=== PATIENT | male | born 1960 | race Caucasian/White ===

== ENCOUNTER 2020-02-24 12:23 | Emergency (ER) | payer OTHER, SELFPAY ==
[2020-02-24 12:33] VITALS: BP 149/86; PULSE 80; RESP 18; TEMP 37.1; O2SAT 96; BMI 23.6
--- NOTE | 2020-02-24 13:39 | XR_ITS ---
EXAMINATION: RIGHT HAND/WRIST. CLINICAL INFORMATION: Pain. Unable to move hand. COMPARISON: None TECHNIQUE: 3 views. FINDINGS: No visible acute fracture, dislocation or subluxation seen. No bony or joint abnormality seen. The soft tissues are normal. XR/XR hand wrist RT IMPRESSION: Unremarkable right hand and right wrist exam.
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
== END 2020-02-24 15:28 | disposition home or self-care (01) ==
LOC: HO.ED 14:59
PROVIDERS: Emergency Provider Emergency Medicine Emergency Medical Services; PCP Internal Medicine
DX: M21.331 Wrist drop, right wrist (principal)
CPT/HCPCS: 73110; 73130; 99283

== ENCOUNTER 2020-03-25 09:47 | Outpatient (REF) | payer OTHER, SELFPAY | END 2020-03-25 09:48 | disposition home or self-care (01) | LOC: HO.HOSX 09:47 | PROVIDERS: Visit Provider Physician Assistant | DX: Z13.89 Encounter for screening for other disorder (principal) ==

== ENCOUNTER 2020-08-04 12:10 | Emergency (ER) | payer OTHER, SELFPAY ==
[2020-08-04 12:12] VITALS: BP 134/64; PULSE 100; RESP 18; TEMP 36.6; O2SAT 92; BMI 21.5
--- NOTE | 2020-08-04 12:20 | ED.GENADULT ---
HPI - General Adult General Chief complaint: General Medical Stated complaint: CONFUSED & SLEEPY AFTER DRUG USE Time Seen by Provider: 08/04/20 12:13 Source: patient and EMS Mode of arrival: EMS Limitations: no limitations History of Present Illness HPI narrative: 60 yo male with past medical history of alcohol abuse, heroin abuse, cocaine abuse here after partying all night. Patient found sleepy so agreed to be transported to the ED. On arrival A&Ox4. No physical complaints. Tells me he was using crack cocaine and alcohol all night. Got out of [facility] one week ago for opiate use disorder. Has not followed up with a methadone clinic but is looking for a clinic to initiate this. Related Data Allergies Allergy/AdvReac Type Severity Reaction Status Date / Time No Known Allergies Allergy Unknown Unverified 11/14/19 15:15 Review of Systems Review of Systems: Yes all other systems are reviewed and are negative Constitutional: Constitutional: Reports no additional constitutional complaints, Denies body ache(s), Denies chills, Denies fever(s), Denies headache(s) and Denies weakness Eyes: Eyes: Reports no additional eye complaints and Denies change in vision ENT: Reports system reviewed and no additional complaints, except as documented, Denies dizziness, Denies headache(s), Denies nasal congestion, Denies nasal discharge and Denies neck pain Cardiovascular: Cardiovascular: Reports no additional cardiovascular complaints, Denies chest pain, Denies leg edema and Denies dyspnea Respiratory: Respiratory: Reports no additional respiratory complaints, Denies cough and Denies dyspnea Gastrointestinal: Gastrointestinal: Reports no additional gastrointestinal complaints, Denies abdominal pain, Denies diarrhea, Denies nausea and Denies vomiting Genitourinary: Genitourinary: Denies urinary incontinence Musculoskeletal: Musculoskeletal: Reports no additional musculoskeletal complaints, Denies back pain, Denies arthralgias, Denies joint swelling, Denies neck pain, Denies numbness and Denies tingling Integumentary/Breasts: Skin/Breast: Reports system reviewed and no additional complaints, except as docu and Denies rash Neurologic: Reports system reviewed and no additional complaints, except as documented, Denies Abnormal speech present, Denies dizziness, Denies headache(s), Denies numbness, Denies tingling and Denies weakness PMFSH Past Medical History Attestation statement: The following information was validated with the patient. Source: old records reviewed and nursing notes reviewed Medical History Asthma Hepatitis C Social History Social History Use of substances other than those prescribed or required for medical reasons: Yes Substance Use Type: Crack/Cocaine Advance Directives: No Advance Directives Information Provided: No Physical Exam Vital Signs: Vital Signs: Last Vital Signs Temp 97.9 F 08/04/20 12:12 Pulse 100 08/04/20 12:12 Resp 18 08/04/20 12:12 BP 134/64 08/04/20 12:12 Pulse Ox 92 08/04/20 12:12 Body Mass Index 21.5 Const: General: cooperative, healthy appearing, comfortable and no acute distress Orientation/consciousness: patient oriented x3 Limitations: no limitations HENMT: Head: Yes normal to inspection Ears: hearing grossly normal bilaterally General nose exam: Normal external nose present Face and sinus: Yes normal facial exam Mouth: Normal oral and palatal mucosa present Throat: Yes posterior oropharynx normal Eyes: General: appearance normal, both eyes and all related structures Pupils: Equal, round and reactive pupils present Neck: Neck: Yes normal visual inspection Chest: Chest palpation & inspection: normal inspection of the chest Resp: Effort & Inspection: normal respiratory effort Auscultation: clear to auscultation bilaterally Cardio: Rate: regular rate Rhythm: regular rhythm Peripheral pulses: Peripheral pulses 2+ throughout GI: Inspection: Yes normal to inspection Palpation (GI): Soft to palpation and nontender Auscultation: normal bowel sounds Back/Spine/Pelvis: Thoracic/Lumbar Spine: thoracic and lumbar spine normal to inspection Skin: General skin exam: no rashes or lesions noted Neuro: General: patient oriented x3, no focal motor deficits and normal sensation to monofilament Cranial nerves: Yes CN's II-XII intact bilaterally, Yes Equal, round and reactive pupils present, Yes Bilaterally intact EOM present, Yes Nystagmus not present and Yes Normal facial strength present Cognition (Neuro): normal cognition Speech: No Abnormal speech present Gait exam (Neuro): Normal gait present Motor exam (neuro): 5/5 motor strength present throughout Sensory Exam: Normal double simultaneous stimulation for sensation Extrem: General: Yes normal to inspection Course Course Course Narrative: 60-year-old male found by EMS to be sleeping. He tells me he drink alcohol and use crack cocaine last night while he was partying. Denies any trauma. No physical complaints. On arrival he is alert and oriented neuro is intact. He is interested in initiating either methadone or Suboxone and recently left a detox facility for opiate use disorder. Will discuss with tissue recovery technician, order drug screen . 1305-Patient seen by recovery team. Does not want detox. No SI/HI. A&Ox4 walking with steady gait, eating food and drinking fluids. Given resources for follow-up tomorrow morning in clinic. Reviewed worrisome signs/symptoms with patient and when to return to ED. Comfortable with discharge home. Medical Decision Making Medical Records Medical records reviewed: Yes I reviewed the patient's medical records. Lab Data Lab results reviewed: Yes I reviewed the patient's lab results. Discharge Plan Discharge Clinical Impression: Polysubstance abuse Patient Disposition: Home, Self-Care Instructions: Polysubstance Abuse (ED) Additional Instructions: Tomorrow you may go to [facility] walk-in hours 06:00 to 08:00. You were given the address by the tissue recovery technician Referrals: Winston Barr MD [Primary Care Provider] - 2 days Interventions: ED Discharge Assessment Last Done: 08/04/20 13:23 Discharge Date/Time: 08/04/20 13:24
--- NOTE | 2020-08-04 12:55 | MHC.RECOVSUP ---
? Reason for consult:Continuity of care o Current location:[address] [place] [address] o Identified substance use concern:Polysubstance - Withdrawal - Support ? Intervention: o MAT started or to be started o Community resources provided o Harm reduction discussion ? Plan o Patient to follow up with [facility] after discharge ? Additional information: Pt. recently released from [facility], pt.refuses detox, Angelika and I both spoke to him re: Harm reduction. Pt. referred to [facility] clinic@[email or web address] [email or web address] [address] for Methadone.Pt. referred to [facility].
--- NOTE | 2020-08-04 13:08 | MHC.RECOVRN ---
60 year old male presented to [facility] via EMS due to left [facility] 8 days ago. used crack cocaine this am. denies si/hi. section 12 by [facility] for 'used crack cocaine' per proposal lead writer. Upon evaluation, pt reports to provider the desire to initiate [facility]. T/w met with pt in 18H after request from provider. Pt reports using heroin, nasal, 2 bags as well as 4 nips today. Pt reports typical use as up to 40 bags of heroin and 30 nips daily. Pt is not interested in ATS level of care. Pt reports completing [facility] ATS 8 days ago. Pt would like to begin methadone and has had difficulty connecting with an OTP.? Pt was provided with information regarding [facility], including walk in hours M/W/F between 6-8 am. Pt agreeable to present to [facility] tomorrow morning. online health and fitness coach also met with pt and provided information regarding [facility]. Pt provided with t/w card if questions or concerns arise.? Case discussed with NORA Gillette, who is agreeable to the plan.?
== END 2020-08-04 13:24 | disposition home or self-care (01) ==
PROVIDERS: Emergency Provider Emergency Medicine; PCP Internal Medicine
DX: F14.10 Cocaine abuse, uncomplicated (principal); F11.10 Opioid abuse, uncomplicated; F10.10 Alcohol abuse, uncomplicated; Y90.9 Presence of alcohol in blood, level not specified; B19.20 Unspecified viral hepatitis C without hepatic coma
CPT/HCPCS: 99283; 99284

== ENCOUNTER 2020-11-25 13:49 | Outpatient (REF) | payer OTHER, SELFPAY ==
--- NOTE | ~2020-11-25 | XR_ITS ---
EXAMINATION: XR RIBS, LEFT CLINICAL INFORMATION: Pain from fall off thorax. COMPARISON: None TECHNIQUE: 3 views of the left ribs were obtained. FINDINGS: Lungs are clear. No consolidation, pneumothorax, or pleural effusion. The cardiomediastinal silhouette and pulmonary vasculature are normal. Osseous structures are unremarkable. Ribs are intact. No fractures are identified. XR/XR ribs LT min 3V w CXR1V IMPRESSION: Multiple views of left ribs reveal no visible acute fracture or bony abnormality. The soft tissues are normal.
--- NOTE | ~2020-11-25 | XR_ITS ---
EXAMINATION: XR NASAL BONES CLINICAL INFORMATION: S00.33XA - Contusion of nose COMPARISON: None TECHNIQUE: 3 views of the nasal bones were obtained. FINDINGS: There is a fracture of the distal nasal bone with mild depression and anterior angulation of the distal fracture fragment. This is best seen on the left lateral view. The anterior nasal spine appears intact. The visualized sinuses show no air-fluid levels. The visualized orbital schmitt are unremarkable. XR/XR nasal bones min 3V IMPRESSION: Fracture distal nasal bone with mild depression and angulation of distal fracture fragment.
== END 2020-11-25 13:50 | disposition home or self-care (01) ==
LOC: HO.HMGCX 13:49
PROVIDERS: PCP Internal Medicine; Visit Provider Internal Medicine
DX: S20.219A Contusion of unspecified front wall of thorax, initial encounter (principal); S00.33XA Contusion of nose, initial encounter; X58.XXXA Exposure to other specified factors, initial encounter; Y93.9 Activity, unspecified; Y92.9 Unspecified place or not applicable; Y99.9 Unspecified external cause status
CPT/HCPCS: 70160; 71101

== ENCOUNTER 2021-03-25 01:27 | Observation (INO) | payer OTHER, SELFPAY ==
[2021-03-25] VITALS (13 sets, daily range): BP systolic 95–190; BP diastolic 49–106; PULSE 64–92; RESP 8–20; TEMP 36.5–37.3; O2SAT 93–99; BMI 22.1
--- NOTE | ~2021-03-25 | XR_ITS ---
EXAMINATION: XR CHEST CLINICAL INFORMATION: Covid positive. Rule out pneumonia. COMPARISON: Previous chest x-ray most recent October 2020 TECHNIQUE: Frontal view of the chest was obtained. FINDINGS: The cardiac and mediastinal contours are stable. There is question of a small infiltrate at the left lung base. There is also a new 6 mm nodular opacity at the left lung base that projects over the left posterior eighth rib. The lungs are otherwise clear. There is no pleural effusion or pneumothorax. There is an old right clavicle fracture. XR/XR chest 1V IMPRESSION: Question small infiltrate at the left lung base.
--- NOTE | ~2021-03-25 | US_ITS ---
EXAMINATION: US ABDOMEN LIMITED CLINICAL INFORMATION: Evaluate for cirrhosis. COMPARISON: None TECHNIQUE: Real-time imaging of the right upper quadrant abdominal viscera. FINDINGS: PANCREAS: The pancreas appears slightly prominent without any focal lesion. The peripancreatic fat borders are preserved. The pancreatic duct measures 0.24 cm. LIVER: The liver is normal in size. The liver contour is slightly lobulated. There is increased hepatic echogenicity. A recanalized umbilical vein is present. No focal hepatic lesion. There is no intrahepatic biliary duct dilatation seen. There is a small amount of ascites. GALLBLADDER: Gallbladder wall thickness is 1.0 cm. The gallbladder is physiologically distended without evidence of stones, sludge, polyps, wall thickening or pericholecystic fluid. COMMON BILE DUCT: Normal in caliber measuring 0.4 cm in diameter. RIGHT KIDNEY: Normal. No hydronephrosis. No renal calculi or focal parenchymal lesions. The kidney measures 10.3 cm in maximum dimension. FREE FLUID: None. US/US abdomen limited IMPRESSION: Hepatic steatosis with lobulated liver contour and recanalized umbilical vein suggestive of cirrhosis. No focal lesion seen. Mild gallbladder wall thickness measuring 1.0 cm. Mild perihepatic ascites.
--- NOTE | 2021-03-25 02:21 | ED_ITS ---
HPI - Overdose General Chief Complaint: Overdose <Shan Gordillo MD - Last Filed: 03/25/21 06:08> Stated Complaint: etoh and cocaine abuse <Shan Gordillo MD - Last Filed: 03/25/21 06:08> Time Seen by Provider: 03/25/21 02:20 <Shan Gordillo MD - Last Filed: 03/25/21 06:08> Source: RN notes reviewed <Shan Gordillo MD - Last Filed: 03/25/21 06:08> Mode of arrival: EMS <Shan Gordillo MD - Last Filed: 03/25/21 06:08> Limitations: altered mental status <Shan Gordillo MD - Last Filed: 03/25/21 06:08> History of Present Illness HPI Narrative: Mother called the ambulance because he was doing drugs, he was acting agitated at home. <Shan Gordillo MD - Last Filed: 03/25/21 06:08> Related Data Home Medications: Home Medications Medication Instructions Recorded Confirmed methadone 10 mg/5 mL oral solution 55 mg PO DAILY ml 11/25/20 03/25/21 <Shan Gordillo MD - Last Filed: 03/25/21 06:08> Allergies/Adverse Reactions: Allergies Allergy/AdvReac Type Severity Reaction Status Date / Time No Known Allergies Allergy Unknown Unverified 11/25/20 13:29 <Shan Gordillo MD - Last Filed: 03/25/21 06:08> Review of Systems Review of Systems: Yes Unobtainable due to mental status <Shan Gordillo MD - Last Filed: 03/25/21 06:08> Neurologic: Denies Sensory deficit (Neuro) <Shan Gordillo MD - Last Filed: 03/25/21 06:08> [facility] Past Medical History Medical History: Medical History Asthma Hepatitis C <Shan Gordillo MD - Last Filed: 03/25/21 06:08> Social History Social History: Social History Substance Use Type: Crack/Cocaine Advance Directives: No <Shan Gordillo MD - Last Filed: 03/25/21 06:08> Physical Exam Vital Signs: Vital Signs: Last Vital Signs Temp 99.0 F 03/25/21 06:19 Pulse 75 03/25/21 06:19 Resp 13 03/25/21 06:19 BP 121/58 L 03/25/21 06:19 Pulse Ox 93 03/25/21 06:19 BMI result Body Mass Index 22.1 <Shan Gordillo MD - Last Filed: 03/25/21 06:08> Vital Signs: Last Vital Signs Temp 99.0 F 03/25/21 06:19 Pulse 75 03/25/21 06:19 Resp 13 03/25/21 06:19 BP 121/58 L 03/25/21 06:19 Pulse Ox 93 03/25/21 06:19 BMI result Body Mass Index 22.1 <Nicol Carr MD - Last Filed: 03/25/21 11:17> Const: Other: male acting agitated not able to engage in conversation, with the occaisional twitch <Shan Gordillo MD - Last Filed: 03/25/21 06:08> Nutritional Appearance: average body habitus <Shan Gordillo MD - Last Filed: 03/25/21 06:08> Orientation/consciousness: oriented to person <Shan Gordillo MD - Last Filed: 03/25/21 06:08> Limitations: altered mental status <Shan Gordillo MD - Last Filed: 03/25/21 06:08> HENMT: Head: Yes normal to inspection <Shan Gordillo MD - Last Filed: 03/25/21 06:08> Ears: external ears normal <Shan Gordillo MD - Last Filed: 03/25/21 06:08> General nose exam: Normal external nose present <Shan Gordillo MD - Last Filed: 03/25/21 06:08> Mouth: Normal oral and palatal mucosa present and oropharynx normal <Shan Gordillo MD - Last Filed: 03/25/21 06:08> Throat: Yes posterior oropharynx normal <Shan Gordillo MD - Last Filed: 03/25/21 06:08> Eyes: General: appearance normal, both eyes and all related structures <Shan Gordillo MD - Last Filed: 03/25/21 06:08> Neck: Other: supple <Shan Gordillo MD - Last Filed: 03/25/21 06:08> Neck: Yes normal visual inspection <Shan Gordillo MD - Last Filed: 03/25/21 06:08> Chest: Chest palpation & inspection: normal inspection of the chest <Shan Gordillo MD - Last Filed: 03/25/21 06:08> Resp: Auscultation: clear to auscultation bilaterally <Shan Gordillo MD - Last Filed: 03/25/21 06:08> Cardio: Jugular venous distension: no JVD <Shan Gordillo MD - Last Filed: 03/25/21 06:08> Rate: regular rate <Shan Gordillo MD - Last Filed: 03/25/21 06:08> Rhythm: regular rhythm <Shan Gordillo MD - Last Filed: 03/25/21 06:08> Heart sounds: S1 normal heart sound present and S2 normal heart sound present <Shan Gordillo MD - Last Filed: 03/25/21 06:08> GI: Inspection: Yes normal to inspection <Shan Gordillo MD - Last Filed: 03/25/21 06:08> Palpation (GI): Soft to palpation, nontender and No hepatosplenomegaly present <Shan Gordillo MD - Last Filed: 03/25/21 06:08> Auscultation: normal bowel sounds <Shan Gordillo MD - Last Filed: 03/25/21 06:08> : General: Yes no CVA tenderness <Shan Gordillo MD - Last Filed: 03/25/21 06:08> Back/Spine/Pelvis: Back: no CVA tenderness <Shan Gordillo MD - Last Filed: 03/25/21 06:08> Skin: General skin exam: no rashes or lesions noted <Shan Gordillo MD - Last Filed: 03/25/21 06:08> Neuro: General: oriented to person <Shan Gordillo MD - Last Filed: 03/25/21 06:08> Cranial nerves: Yes CN's II-XII intact bilaterally <Shan Gordillo MD - Last Filed: 03/25/21 06:08> Motor exam (neuro): 5/5 motor strength present throughout <Shan Gordillo MD - Last Filed: 03/25/21 06:08> Sensory Exam: No Sensory deficit (Neuro) <Shan Gordillo MD - Last Filed: 03/25/21 06:08> Extrem: General: Yes normal to inspection <Shan Gordillo MD - Last Filed: 03/25/21 06:08> Psych: Other: agitated with twitch or tick <Shan Gordillo MD - Last Filed: 03/25/21 06:08> Course Course Course Narrative: Patient is a difficult stick, we inserted a right EJ. Patient is also COVID positive. Patient has no URI symptoms, oxygen saturation 93% on room air, no respiratory distress <Nicol Carr MD - Last Filed: 03/25/21 11:17> Reevaluation(s) Reevaluation #1: Patient more awake, currently refusing rectal exam for his severe anemia, will likely have the patient sign out if he refuses a complete work up for his severe anemia. He is still too intoxicated to sign out AMA <Shan Gordillo MD - Last Filed: 03/25/21 06:08> Time: 05:41 <Shan Gordillo MD - Last Filed: 03/25/21 06:08> Reevaluation #2: This morning patient is more alert, awake, calm and cooperative. I discus sed with the patient that his hemoglobin is 7. Patient denies any rectal bleeding, no black stool or vomiting blood. Patient states that he has noted that for the last year or so he has been increasingly fatigued. At this time, patient refuses to have a rectal exam done, however he is willing to have an endoscopy and colonoscopy if needed. Given that he is symptomatic and has a hemoglobin of 7, patient will be transfused. I discussed the benefits versus risks of a blood transfusion. Patient agrees to have a blood transfusion. I also discussed the patient with Dr. Butler from the inpatient team, patient will be admitted <Nicol Carr MD - Last Filed: 03/25/21 11:17> Time: 09:11 <Nicol Carr MD - Last Filed: 03/25/21 11:17> MDM - Overdose Lab Data Result diagrams: : 03/25/21 04:40 03/25/21 04:40 <Shan Gordillo MD - Last Filed: 03/25/21 06:08> Labs: Lab Results 03/25/21 03/25/21 03/25/21 Range/Units 04:40 04:40 04:40 WBC 5.0 (4.8-10.8) X10*3/uL RBC 2.97 L (4.60-5.80) X10*6/uL Hgb 7.0 L* (14.0-18.0) g/dl Hct 23.5 L (42.0-52.0) % MCV 79.1 L (80.0-98.0) fL MCH 23.6 L (27.0-33.0) pg MCHC 29.8 L (31.0-36.0) g/dl RDW 20.5 H (11.0-16.0) % Plt Count 84 L (160-400) X10*3/uL MPV 10.1 (9.4-12.4) fL Immature Gran % (Auto) 1.2 H (0.0-0.4) % Neut % (Auto) 93.6 H (45-73) % Lymph % (Auto) 3.0 L (20-40) % [place] % (Auto) 1.0 L (2-11) % Eos % (Auto) 1.0 (0-4) % Baso % (Auto) 0.2 (0-2) % Lymph # (Auto) 0.2 L (1.2-4.9) X10*3/uL [place] # (Auto) 0.1 (0.1-1.2) X10*3/uL Eos # (Auto) 0.1 (0.0-0.4) X10*3/uL Baso # (Auto) 0.0 (0.0-0.2) X10*3/uL Abs Immat Gran (auto) 0.06 H (0.00-0.03) X10*3/uL Absolute Neuts (auto) 4.7 (2.0-8.3) x10*3/uL Absolute Nucleated RBC 0.000 (0.0-0.012) X10*3/uL Nucleated RBC % (auto) 0.0 (0.0-0.2) /100WBC Smear Tech's Comments VERIFIED Smear Path Review SEE NOTE Sodium 136 (135-145) mmol/L Potassium 4.0 (3.3-5.1) mmol/L Chloride 105 (96-108) mmol/L Carbon Dioxide 24 (22-29) mmol/L Anion Gap 11 L (12-20) BUN 39 H (9-16) mg/dL Creatinine 1.36 (0.5-1.4) mg/dL Estim Creat Clear Calc 56.2 Estimated GFR 54 Random Glucose 83 (60-115) mg/dL Calcium 8.8 (8.4-10.2) mg/dL Total Bilirubin 1.3 H (0.0-1.0) mg/dL Direct Bilirubin 0.9 H (0.0-0.5) mg/dL AST 100 H (5-37) U/L ALT 41 H (0-40) U/L Alkaline Phosphatase 127 H (39-117) U/L Total Protein 6.8 (6.5-8.0) g/dL Albumin 2.3 L (3.5-5.0) g/dL Ethyl Alcohol < 10 mg/dL COVID-19 ([place]) (Negative) COVID-19 Clin Com Hep Bs Antigen (Negative) Hep Bs Antibody (Nonreactive) Hep B Core Total Ab (Nonreactive) Hepatitis C Ab (EIA) (Nonreactive) HIV 1&2 Ab/P24 Ag 4thGn (Nonreactive) Crossmatch 03/25/21 03/25/21 03/25/21 Range/Units 04:40 09:05 10:30 WBC (4.8-10.8) X10*3/uL RBC (4.60-5.80) X10*6/uL Hgb (14.0-18.0) g/dl Hct (42.0-52.0) % MCV (80.0-98.0) fL MCH (27.0-33.0) pg MCHC (31.0-36.0) g/dl RDW (11.0-16.0) % Plt Count (160-400) X10*3/uL MPV (9.4-12.4) fL Immature Gran % (Auto) (0.0-0.4) % Neut % (Auto) (45-73) % Lymph % (Auto) (20-40) % [place] % (Auto) (2-11) % Eos % (Auto) (0-4) % Baso % (Auto) (0-2) % Lymph # (Auto) (1.2-4.9) X10*3/uL [place] # (Auto) (0.1-1.2) X10*3/uL Eos # (Auto) (0.0-0.4) X10*3/uL Baso # (Auto) (0.0-0.2) X10*3/uL Abs Immat Gran (auto) (0.00-0.03) X10*3/uL Absolute Neuts (auto) (2.0-8.3) x10*3/uL Absolute Nucleated RBC (0.0-0.012) X10*3/uL Nucleated RBC % (auto) (0.0-0.2) /100WBC Smear Tech's Comments Smear Path Review Sodium (135-145) mmol/L Potassium (3.3-5.1) mmol/L Chloride (96-108) mmol/L Carbon Dioxide (22-29) mmol/L Anion Gap (12-20) BUN (9-16) mg/dL Creatinine (0.5-1.4) mg/dL Estim Creat Clear Calc Estimated GFR Random Glucose (60-115) mg/dL Calcium (8.4-10.2) mg/dL Total Bilirubin (0.0-1.0) mg/dL Direct Bilirubin (0.0-0.5) mg/dL AST (5-37) U/L ALT (0-40) U/L Alkaline Phosphatase (39-117) U/L Total Protein (6.5-8.0) g/dL Albumin (3.5-5.0) g/dL Ethyl Alcohol mg/dL COVID-19 ([place]) Positive A (Negative) COVID-19 Clin Com See Note Hep Bs Antigen Negative (Negative) Hep Bs Antibody NONREACTIVE (Nonreactive) Hep B Core Total Ab Nonreactive (Nonreactive) Hepatitis C Ab (EIA) Reactive H (Nonreactive) HIV 1&2 Ab/P24 Ag 4thGn Nonreactive (Nonreactive) Crossmatch See Detail <Shan Gordillo MD - Last Filed: 03/25/21 06:08> Lab Results 03/25/21 03/25/21 03/25/21 Range/Units 04:40 04:40 04:40 WBC 5.0 (4.8-10.8) X10*3/uL RBC 2.97 L (4.60-5.80) X10*6/uL Hgb 7.0 L* (14.0-18.0) g/dl Hct 23.5 L (42.0-52.0) % MCV 79.1 L (80.0-98.0) fL MCH 23.6 L (27.0-33.0) pg MCHC 29.8 L (31.0-36.0) g/dl RDW 20.5 H (11.0-16.0) % Plt Count 84 L (160-400) X10*3/uL MPV 10.1 (9.4-12.4) fL Immature Gran % (Auto) 1.2 H (0.0-0.4) % Neut % (Auto) 93.6 H (45-73) % Lymph % (Auto) 3.0 L (20-40) % [place] % (Auto) 1.0 L (2-11) % Eos % (Auto) 1.0 (0-4) % Baso % (Auto) 0.2 (0-2) % Lymph # (Auto) 0.2 L (1.2-4.9) X10*3/uL [place] # (Auto) 0.1 (0.1-1.2) X10*3/uL Eos # (Auto) 0.1 (0.0-0.4) X10*3/uL Baso # (Auto) 0.0 (0.0-0.2) X10*3/uL Abs Immat Gran (auto) 0.06 H (0.00-0.03) X10*3/uL Absolute Neuts (auto) 4.7 (2.0-8.3) x10*3/uL Absolute Nucleated RBC 0.000 (0.0-0.012) X10*3/uL Nucleated RBC % (auto) 0.0 (0.0-0.2) /100WBC Smear Tech's Comments VERIFIED Smear Path Review SEE NOTE Sodium 136 (135-145) mmol/L Potassium 4.0 (3.3-5.1) mmol/L Chloride 105 (96-108) mmol/L Carbon Dioxide 24 (22-29) mmol/L Anion Gap 11 L (12-20) BUN 39 H (9-16) mg/dL Creatinine 1.36 (0.5-1.4) mg/dL Estim Creat Clear Calc 56.2 Estimated GFR 54 Random Glucose 83 (60-115) mg/dL Calcium 8.8 (8.4-10.2) mg/dL Total Bilirubin 1.3 H (0.0-1.0) mg/dL Direct Bilirubin 0.9 H (0.0-0.5) mg/dL AST 100 H (5-37) U/L ALT 41 H (0-40) U/L Alkaline Phosphatase 127 H (39-117) U/L Total Protein 6.8 (6.5-8.0) g/dL Albumin 2.3 L (3.5-5.0) g/dL Ethyl Alcohol < 10 mg/dL COVID-19 ([place]) (Negative) COVID-19 Clin Com Hep Bs Antigen (Negative) Hep Bs Antibody (Nonreactive) Hep B Core Total Ab (Nonreactive) Hepatitis C Ab (EIA) (Nonreactive) HIV 1&2 Ab/P24 Ag 4thGn (Nonreactive) Crossmatch 03/25/21 03/25/21 03/25/21 Range/Units 04:40 09:05 10:30 WBC (4.8-10.8) X10*3/uL RBC (4.60-5.80) X10*6/uL Hgb (14.0-18.0) g/dl Hct (42.0-52.0) % MCV (80.0-98.0) fL MCH (27.0-33.0) pg MCHC (31.0-36.0) g/dl RDW (11.0-16.0) % Plt Count (160-400) X10*3/uL MPV (9.4-12.4) fL Immature Gran % (Auto) (0.0-0.4) % Neut % (Auto) (45-73) % Lymph % (Auto) (20-40) % [place] % (Auto) (2-11) % Eos % (Auto) (0-4) % Baso % (Auto) (0-2) % Lymph # (Auto) (1.2-4.9) X10*3/uL [place] # (Auto) (0.1-1.2) X10*3/uL Eos # (Auto) (0.0-0.4) X10*3/uL Baso # (Auto) (0.0-0.2) X10*3/uL Abs Immat Gran (auto) (0.00-0.03) X10*3/uL Absolute Neuts (auto) (2.0-8.3) x10*3/uL Absolute Nucleated RBC (0.0-0.012) X10*3/uL Nucleated RBC % (auto) (0.0-0.2) /100WBC Smear Tech's Comments Smear Path Review Sodium (135-145) mmol/L Potassium (3.3-5.1) mmol/L Chloride (96-108) mmol/L Carbon Dioxide (22-29) mmol/L Anion Gap (12-20) BUN (9-16) mg/dL Creatinine (0.5-1.4) mg/dL Estim Creat Clear Calc Estimated GFR Random Glucose (60-115) mg/dL Calcium (8.4-10.2) mg/dL Total Bilirubin (0.0-1.0) mg/dL Direct Bilirubin (0.0-0.5) mg/dL AST (5-37) U/L ALT (0-40) U/L Alkaline Phosphatase (39-117) U/L Total Protein (6.5-8.0) g/dL Albumin (3.5-5.0) g/dL Ethyl Alcohol mg/dL COVID-19 ([place]) Positive A (Negative) COVID-19 Clin Com See Note Hep Bs Antigen Negative (Negative) Hep Bs Antibody NONREACTIVE (Nonreactive) Hep B Core Total Ab Nonreactive (Nonreactive) Hepatitis C Ab (EIA) Reactive H (Nonreactive) HIV 1&2 Ab/P24 Ag 4thGn Nonreactive (Nonreactive) Crossmatch See Detail <Nicol Carr MD - Last Filed: 03/25/21 11:17> Critical Care Time Critical Care Time Total Critical Care Time: 45 <Nicol Carr MD - Last Filed: 03/25/21 11:17> Attestation: 45 minutes were spent in direct patient care. <Nicol Carr MD - Last Filed: 03/25/21 11:17> Discharge Plan Discharge Clinical Impression: Anemia, Substance abuse, COVID-19 <Shan Gordillo MD - Last Filed: 03/25/21 06:08> Patient Disposition: Admitted As Inpatient <Shan Gordillo MD - Last Filed: 03/25/21 06:08>
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
--- NOTE | 2021-03-25 04:19 | PC.NURSE ---
MULTIPLE ATTEMPTS FOR LABS AT THIS TIME, PATIENT IS AGREEABLE TO BLOOD DRAW, LAB CALLED TO ATTEMPT DRAWING PATIENTS BLOOD WORK
[2021-03-25 04:45] LABS: Basophils Percent Auto 0.2 % (0-2); Eosinophils Absolute Auto 0.1 X10*3/uL (0.0-0.4); Imm Gran Abs Auto 0.06 X10*3/uL (0.00-0.03); Imm Gran Pct Auto 1.2 % (0.0-0.4); Lymphocytes Absolute Auto 0.2 X10*3/uL (1.2-4.9); MANUAL DIFF FLAG SCAN; Mean Corpuscular HGB Conc 29.8 g/dl (31.0-36.0); Mean Corpuscular Hemoglobin 23.6 pg (27.0-33.0); Mean Corpuscular Volume 79.1 fL (80.0-98.0); Mean Platelet Volume 10.1 fL (9.4-12.4); Monocytes Absolute Auto 0.1 X10*3/uL (0.1-1.2); Neutrophils Absolute Auto 4.7 x10*3/uL (2.0-8.3); Neutrophils Percent Auto 93.6 % (45-73); Red Blood Count 2.97 X10*6/uL (4.60-5.80); Red Cell Distribution Width 20.5 % (11.0-16.0); SCAN SMEAR FLAG 1
[2021-03-25 04:48] LABS: Hematocrit 23.5 % (42.0-52.0)
[2021-03-25 04:57] LABS: Ethanol < 10 mg/dL
[2021-03-25 05:00] LABS: Anion Gap 11 (12-20); Blood Urea Nitrogen 39 mg/dL (9-16); Calcium 8.8 mg/dL (8.4-10.2); Carbon Dioxide 24 mmol/L (22-29); Chloride 105 mmol/L (96-108); Creatinine Clr Calc Pharmacy 56.2; Estimated Glomerular Filt Rate 54; Glucose Random 83 mg/dL (60-115); Sodium 136 mmol/L (135-145)
[2021-03-25 05:11] LABS: Platelet Count 84 X10*3/uL (160-400)
[2021-03-25 05:12] LABS: SLIDE REVIEW VERIFIED
[2021-03-25 06:09] LABS: HIV AB/AG Nonreactive (Nonreactive)
--- NOTE | 2021-03-25 07:23 | PC.NURSE ---
pt sleeping . he is in a NSR on the monitor. awaiting plan of care for anemia
[2021-03-25 07:56] LABS: HBS Num1 0.62 mIU/mL (0-7.99); HBc Num1 0.28 S/CO (0.00-0.79); HBsAGNum1 0.21 S/CO (0.00-0.99); HIV Num 1 0.08 S/CO (0.00-0.99); Hepatitis B Core Antibody Nonreactive (Nonreactive); Hepatitis B Surface Antigen Negative (Negative); ~HepC Num1 6.28 S/CO (0.00-0.79); ~Hepatitis B Surface Antibody NONREACTIVE (Nonreactive); ~Hepatitis C Antibody Reactive (Nonreactive)
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
--- NOTE | 2021-03-25 09:36 | PHA.MEDREC ---
Pharmacy Consult ? Medication Reconciliation Pharmacy has completed the medication reconciliation. Patient reports going to [facility] on [facility] for methadone. Michelle confirmed patient last dose was 55 mg on 03/23/2021. Laurie Mora, KahlilD
[2021-03-25 10:58] LABS: COVID-19 Test Positive (Negative)
[2021-03-25 11:01] LABS: Alanine Aminotransferase 41 U/L (0-40); Albumin Level 2.3 g/dL (3.5-5.0); Alkaline Phosphatase 127 U/L (39-117); Aspartate Amino Transferase 100 U/L (5-37); Bilirubin Direct 0.9 mg/dL (0.0-0.5); Bilirubin Total 1.3 mg/dL (0.0-1.0); Total Protein 6.8 g/dL (6.5-8.0)
--- NOTE | 2021-03-25 11:51 | PC.NURSE ---
pt difficult to obtain IV ACCESS. EJ PLACED BY PROVIDER IN RIGHT. HE IS SLEEPY BUT AROUSABLE. SR ON THE MONITOR.
[2021-03-25] MEDS: Pantoprazole Sodium 40 MG/10 ML VIAL IVPUSH ×2 (11:53→17:19)
--- NOTE | 2021-03-25 12:26 | P.HPHOSP_ITS ---
History of Present Illness Date of Service: 03/25/21 Chief Complaint: brought in by police This is a 60 yo M with a PMH of polysubstance abuse (cocaine and heroin -- IV, last use prior to admission heavy alcohol use 1/5th of whisky daily with last use about 3 days prior to admission, Hep C untreated, who was broughty in by police after they were called by his mother as he was using drugs at home. Upon arrival to the ED, patient was noted to be intoxicated (although his EtOh level was negative). His work up revealed a low h/h and intially the patient did not want to stay (but given his intoxication, he was not allowed to leave AMA). In the morning, he became more lucid and now as agreed for admission for symptomatic anemia. Patient is seen in ED 22. He reports chronic generalized weakness on going for months and weakness. 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 He reports no changes to his stool. No melena, no hematochezia. He denies abdominal pain, n/v/bloody emesis. He denies NSAID use. He endorses daily drinking as above -- no prior withdrawal symptoms. He denies any respiratory symptoms of cough/sob, but does endorse rhinnorrhea. Reports his whole family was covid+ during . Denies any fevers or chills. He is incidentally positive for COVID. COVID Vaccination status: J&J; no booster Review of Systems Verdana 4l Review of Systems: Verdana 4d Negative except Verdana 4d HPI Verdana 4d [facility] Medical History Asthma Hepatitis C Pertinent family history: COVID positive family members during 2020 Surgical History (Updated 03/25/21 @ 12:46 by Zi Butler MD) No pertinent past surgical history Social History (Updated 03/25/21 @ 12:47 by Zi Butler MD) Alcohol intake: current Tobacco use type: Cigarette Substance Use Type: Crack/Cocaine and Heroin Advance Directives: No Meds Allergies Allergy/AdvReac Type Severity Reaction Status Date / Time No Known Allergies Allergy Unknown Unverified 11/25/20 13:29 Active Medications: Current Medications Acetaminophen (Acetaminophen 325 Mg Tablet) 650 mg PO Q6H PRN PRN Reason: Pain, Mild (Pain Scale 1-3) Ondansetron HCl (Ondansetron Hcl 4 Mg/2 Ml Vial) 4 mg IVPUSH Q8H PRN PRN Reason: Nausea and Vomiting Pantoprazole Sodium (Pantoprazole Sodium 40 Mg/10 Ml Vial) 40 mg IVPUSH BID@0630,1630 [facility] Pharmacy Consult (Consult Rx Perform Med Rec) 1 each MISCELLANE ONCE PRN PRN Reason: Consult order Home Medications Medication Instructions Recorded Confirmed Last Taken Type methadone 10 mg/5 55 mg PO DAILY 11/25/20 03/25/21 03/23/21 History mL oral solution ml Physical Exam Verdana 4l Vital Signs and Narrative: Verdana 4d Verdana 4d Vital Signs: Verdana 4d Verdana 4Bd Last Vital Signs Verdana 4d [employer]ist New 4d [employer] Specialist New 4d Temp 97.7 F 03/25/21 12:18 Criminal Intelligence Specialist New 4d Pulse 68 03/25/21 12:18 Criminal Intelligence Specialist New 4d Resp 13 03/25/21 12:18 BP 98/52 L 03/25/21 12:18 Pulse Ox 99 03/25/21 12:18 BMI result Body Mass Index 22.1 Const: Other: Constitutional - Awake and Alert, No apparent distress Eyes - PERRLA, EOMI Cardiovascular - S1S2, RRR, No edema Respiratory - Normal lung expansion, Normal respiratory effort, No respiratory distress, CTA bilaterally Gastrointestinal - NT / ND; +BS; No rebound or guarding - No CVA tenderness Extremities - no calf tenderness bilaterally, no swelling Musculoskeletal - Normal inspection, normal ROM Skin - Warm/Dry Neurological - Alert & oriented x3, No focal deficit Psychological - Appropriate affect Results Labs CBC and Chem 7: 03/25/21 04:40 03/25/21 04:40 Labs: Laboratory Results - last 24 hr 03/25/21 03/25/21 03/25/21 04:40 04:40 04:40 MCV 79.1 L MCH 23.6 L MCHC 29.8 L RDW 20.5 H Plt Count 84 L MPV 10.1 Immature Gran % (Auto) 1.2 H Neut % (Auto) 93.6 H Lymph % (Auto) 3.0 L [place] % (Auto) 1.0 L Eos % (Auto) 1.0 Baso % (Auto) 0.2 Lymph # (Auto) 0.2 L [place] # (Auto) 0.1 Eos # (Auto) 0.1 Baso # (Auto) 0.0 Abs Immat Gran (auto) 0.06 H Absolute Neuts (auto) 4.7 Absolute Nucleated RBC 0.000 Nucleated RBC % (auto) 0.0 Smear Tech's Comments VERIFIED Smear Path Review SEE NOTE Anion Gap 11 L Estim Creat Clear Calc 56.2 Estimated GFR 54 Random Glucose 83 Calcium 8.8 Total Bilirubin 1.3 H Direct Bilirubin 0.9 H AST 100 H ALT 41 H Alkaline Phosphatase 127 H Total Protein 6.8 Albumin 2.3 L Ethyl Alcohol < 10 COVID-19 ([place]) COVID-19 Clin Com Hep Bs Antigen Hep Bs Antibody Hep B Core Total Ab Hepatitis C Ab (EIA) HIV 1&2 Ab/P24 Ag 4thGn Blood Type Antibody Screen Crossmatch 03/25/21 03/25/21 03/25/21 04:40 09:05 10:30 MCV MCH MCHC RDW Plt Count MPV Immature Gran % (Auto) Neut % (Auto) Lymph % (Auto) [place] % (Auto) Eos % (Auto) Baso % (Auto) Lymph # (Auto) [place] # (Auto) Eos # (Auto) Baso # (Auto) Abs Immat Gran (auto) Absolute Neuts (auto) Absolute Nucleated RBC Nucleated RBC % (auto) Smear Tech's Comments Smear Path Review Anion Gap Estim Creat Clear Calc Estimated GFR Random Glucose Calcium Total Bilirubin Direct Bilirubin AST ALT Alkaline Phosphatase Total Protein Albumin Ethyl Alcohol COVID-19 ([place]) Positive A COVID-19 Clin Com See Note Hep Bs Antigen Negative Hep Bs Antibody NONREACTIVE Hep B Core Total Ab Nonreactive Hepatitis C Ab (EIA) Reactive H HIV 1&2 Ab/P24 Ag 4thGn Nonreactive Blood Type B Negative Antibody Screen NEGATIVE Crossmatch See Detail Imaging Radiologist's Impressions: Impressions Chest X-Ray 03/25/21 11:39 IMPRESSION: Question small infiltrate at the left lung base. Assessment and Plan (1) Anemia: Status: Acute Plan This is a 60 yo M who was brought in by police after family called them as he was doing drugs in the home. His work up in the ED reveals microcytic anemia. He is incidentally covid positive, but is not hypoxic. 1. Symptomatic anemia symptomatic with anemia and soft BP Unclear what the cause of this anemia is. He denies any GI bleeding, but is refusing rectal exam. Will sent FOBT to lab with next BM 1 unit PRBC has been ordered GIven his history of heavy alcohol use + untreated Hep C, possibly GI source. Empiric PPI and get GI input. No abdominal symptoms at this time, will give him a diet. trend h/h, if not dropping, anticipate outpatient work up; will get GI input 2. COVID+ asymptomatic from a respiratory stand point; no hypoxia CXR read as Question small infiltrate at the L lung base ; Reviewed personally, no significant finding; exam reveals clear lungs monitor decadron if he becomes hypoxic 3. Chronic opiate dependence continue his baseline methadone 4. Hep C untreated -- has been encouraged outpatient f/u for treatment Full Code DVT pptx, Mechanical due to anemia, possible GI bleed Quality Stroke Does the patient have a stroke diagnosis?: No VTE Prior VTE?: No VTE Risk Level:: Medical - moderate - high VTE Device Contraindication: N/A - Device Ordered VTE Drug Contraindication: Treatment Not Indicated
--- NOTE | 2021-03-25 13:26 | P.CNGI_ITS ---
History of Present Illness Data of Consult Service Date: 03/25/21 Requesting physician: Zi Butler Primary Care Provider: Unknown Physician HPI Reason for consult: anemia, elevated LFTs 60 YM with known hx of IVDA and ETOH abuse on methadone brought in by police after family called them as he was doing drugs in the home:? This is a 60 yo M with a PMH of polysubstance abuse (cocaine and heroin -- IV, last use prior to admission heavy alcohol use 1/5th of whisky daily with last use about 3 days prior to admission, Hep C untreated, who was broughty in by police after they were called by his mother as he was using drugs at home. Upon arrival to the ED, patient was noted to be intoxicated (although his EtOh level was negative). His work up revealed a low h/h and intially the patient did not want to stay (but given his intoxication, he was not allowed to leave AMA). In the morning, he became more lucid and now as agreed for admission for symptomatic anemia. Patient is seen in ED 22. He reports chronic generalized weakness on going for months and weakness. 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 He reports no changes to his stool. No melena, no hematochezia. He denies abdominal pain, n/v/bloody emesis. He denies NSAID use. He endorses daily drinking as above -- no prior withdrawal symptoms. He denies any respiratory symptoms of cough/sob, but does endorse rhinnorrhea. Reports his whole family was covid+ during Dru. Denies any fevers or chills. He is? incidentally positive for COVID. Patient complains of worsening fatigue and daily heartburn with every meal. He also notes dysphagia associated with intake of solid food Pt denies abdominal pain, recent change in bowel habits, constipation, diarrhea, black stools or rectal bleeding. Patient denies major cardiac or pulmonary problems. Denies being on chronic anticoagulation. Pt is single, has no children, is homeless and works in an auto body shop. He admits to smoking 1 PPD x past several yrs and is trying to cut back. He admits to drinking 1/5 of whiskey daily. Known hx ov IVDA (Crack/Cocaine/Heroin) for the past several yrs and admits to continuing to use drugs while on methadone. He states he acquired Hep C by needle sharing several yrs ago and denies sharing needles recently Patient denies known family history of colon polyps, colon cancer or other GI malignancies. COVID Vaccination status: J&J; no booster IMAGING STUDIES: 03/25/20 CXR : Question small infiltrate at the left lung base. ENDOSCOPIC STUDIES: Patient denies having an upper endoscopy or colonoscopy in the past Review of Systems Constitutional: Constitutional: Reports fatigue and Denies headache(s) Eyes: Eyes: Denies eye discharge and Denies irritation ENT: Reports dysphagia and Denies headache(s) Cardiovascular: Cardiovascular: Denies chest pain and Reports dyspnea on exertion Respiratory: Respiratory: Reports dyspnea on exertion Gastrointestinal: Gastrointestinal: Denies abdominal pain, Denies melena, Denies hematochezia, Denies constipation, Reports dysphagia and Reports heartburn Musculoskeletal: Musculoskeletal: Denies arthralgias Neurologic: Denies headache(s) and Denies seizure-like activity Endocrine: Endocrine: Reports fatigue PMFSH Past Medical History Medical History (Updated 04/18/21 @ 14:14 by Winston Barr MD) Asthma GERD (gastroesophageal reflux disease) Hepatitis C Recurrent major depression Right wrist drop Substance abuse Surgical History Surgical History (Updated 03/25/21 @ 12:46 by Zi Butler MD) No pertinent past surgical history Social History Social History (Updated 03/25/21 @ 12:47 by Zi Butler MD) Housing: Homeless Alcohol intake: current Patient Tobacco Use Status: Current everyday Tobacco user Tobacco use type: Cigarette Substance Use Type: Crack/Cocaine, Heroin, IV Drugs, Marijuana and Opiates service: No Current occupational status: unemployed Meds Allergies Allergy/AdvReac Type Severity Reaction Status Date / Time No Known Allergies Allergy Unknown Unverified 11/25/20 13:29 Active Medications: Current Medications Acetaminophen (Acetaminophen 325 Mg Tablet) 650 mg PO Q6H PRN PRN Reason: Pain, Mild (Pain Scale 1-3) Methadone HCl (Methadone Hcl 20 Mg/2 Ml Oral.Conc) 55 mg PO DAILY [facility] Ondansetron HCl (Ondansetron Hcl 4 Mg/2 Ml Vial) 4 mg IVPUSH Q8H PRN PRN Reason: Nausea and Vomiting Pantoprazole Sodium (Pantoprazole Sodium 40 Mg/10 Ml Vial) 40 mg IVPUSH BID@0630,1630 [facility] Pharmacy Consult (Consult Rx Perform Med Rec) 1 each MISCELLANE ONCE PRN PRN Reason: Consult order Home Medications Medication Instructions Recorded Confirmed Last Taken Type methadone 10 mg/5 mL oral solution 55 mg PO DAILY ml 11/25/20 03/25/21 03/23/21 History Physical Exam Vital Signs: Vital Signs: Last Vital Signs Temp 98 F 03/25/21 12:40 Pulse 65 03/25/21 13:24 Resp 10 L 03/25/21 12:40 BP 100/51 L 03/25/21 13:24 Pulse Ox 99 03/25/21 12:18 BMI result Body Mass Index 22.1 Const: General: healthy appearing and no acute distress Nutritional Appearance: average body habitus Orientation/consciousness: patient oriented x3 Limitations: no limitations HENMT: Head: Yes normal to inspection Ears: hearing grossly normal bilaterally Mouth: Normal oral and palatal mucosa present Eyes: Sclerae: sclerae normal Pupils: Equal, round and reactive pupils present Neck: Neck: Yes normal visual inspection Chest: Chest palpation & inspection: normal inspection of the chest Resp: Effort & Inspection: normal respiratory effort Auscultation: clear to auscultation bilaterally Cardio: Palpation: normal PMI Rate: regular rate Rhythm: regular rhythm Heart sounds: S1 normal heart sound present, S2 normal heart sound present and no murmurs GI: Palpation (GI): Soft to palpation, nontender and No hepatosplenomegaly present Auscultation: normal bowel sounds Rectal Exam - Male: Yes deferred Skin: General skin exam: no rashes or lesions noted and other (Multiple tattoos on both upper arms) Neuro: General: patient oriented x3, gait normal and moves all extremities Cranial nerves: Yes Equal, round and reactive pupils present Psych: Appearance: grossly normal Mental Status: mental status grossly normal Results Labs CBC & Chem 7: 03/28/21 05:56 03/27/21 06:34 Labs: Short CBC 03/25/21 Range/Units 04:40 WBC 5.0 (4.8-10.8) X10*3/uL Hgb 7.0 L* (14.0-18.0) g/dl Hct 23.5 L (42.0-52.0) % Plt Count 84 L (160-400) X10*3/uL BMP 03/25/21 04:40 Sodium 136 Potassium 4.0 Chloride 105 Carbon Dioxide 24 BUN 39 H Creatinine 1.36 Calcium 8.8 Liver Function 03/25/21 Range/Units 04:40 Total Bilirubin 1.3 H (0.0-1.0) mg/dL Direct Bilirubin 0.9 H (0.0-0.5) mg/dL AST 100 H (5-37) U/L ALT 41 H (0-40) U/L Alkaline Phosphatase 127 H (39-117) U/L Albumin 2.3 L (3.5-5.0) g/dL Assessment and Plan (1) Anemia: Status: Resolved (2) Dysphagia: Status: Resolved (3) Heartburn: Status: Resolved (4) Hepatitis C: Status: Acute Plan 60 YM with known hx of IVDA, ETOH abuse and smoking brought in by the police after family called them as he was doing drugs in the home. Labs showed severe anemia, thrombocytopeinia and elevated LFTs - likely a combination EtOH abuse and hepatitis-C. Hepatitis-B serologies were negative, hepatitis-C antibody was positive (posi tive since 11/2017 likely acquired by a needle sharing). Patient gives a long history of severe heartburn and dysphagia suggestive of erosive esophagitis. Anemia is likely chronic and related to erosive esophagitis versus lower GI source. No overt bleeding. RECOMMENDATIONS: 1. Monitor CBC daily. 2. Agree with IV PPI twice daily 3. Abdominal US to screen for cirrhosis/HCC and ascites 4. Pt advised further evaluation with EGD and Colonoscopy. Pt agreed to having an EGD tomorrow - procedure and potential complications were reviewed with the patient. He declined to have a colonoscopy during this hospitalization and is willing to schedule at a later date as an outpatient. Procedures Date of Service Date of Service: 03/25/21
[2021-03-25 14:32] LABS: Hemoglobin 7.8 g/dl (14.0-18.0); Mean Corpuscular Hemoglobin 24.3 pg (27.0-33.0); Mean Platelet Volume 10.3 fL (9.4-12.4); Platelet Count 76 X10*3/uL (160-400); Red Blood Count 3.21 X10*6/uL (4.60-5.80); Red Cell Distribution Width 20.8 % (11.0-16.0); White Blood Count 7.1 X10*3/uL (4.8-10.8)
[2021-03-25] MEDS: methADONE HCl 20 MG/2 ML ORAL.CONC 55 MG PO (14:43)
[2021-03-25 14:54] LABS: Iron 42 mcg/dL (45-160); Percent Iron Saturation 14 % (15-50); Total Iron Binding Capacity 300 mcg/dL (228-428); Unsaturated Iron Binding 258 ug/dL
[2021-03-25 15:24] LABS: Folate 13.6 ng/mL (> or = 4.0); Vitamin B12 744 pg/mL (200-900)
--- NOTE | 2021-03-25 16:22 | PC.NURSE ---
report given to Beata Batista for transfer to ED overflow
[2021-03-25 16:25] LABS: INTERNATIONAL NORM RATIO 1.6 (0.9-1.1); Prothrombin Time 18.3 SEC (9.9-13.0)
--- NOTE | 2021-03-25 17:29 | PC.NURSE ---
Pt received from main ER: Pt AOx4 and denies any current complaints. NSR and lungs clear. Pt abd soft and non-tender. REJ noted in tact and flushed.
[2021-03-25] MEDS: Phytonadione (Vit K1) 5 MG in 0.9 % Sodium Chloride 50 ML 50.5 MG IV (17:52)
[2021-03-26] VITALS (7 sets, daily range): BP systolic 96–133; BP diastolic 59–71; PULSE 60–72; RESP 10–18; TEMP 36.2–36.9; O2SAT 94–100
[2021-03-26 07:37] LABS: Hematocrit 29.4 % (42.0-52.0); Hemoglobin 8.6 g/dl (14.0-18.0); Mean Corpuscular HGB Conc 29.3 g/dl (31.0-36.0); Mean Corpuscular Hemoglobin 23.6 pg (27.0-33.0); Mean Corpuscular Volume 80.8 fL (80.0-98.0); Mean Platelet Volume 10.4 fL (9.4-12.4); Platelet Count 74 X10*3/uL (160-400); Red Blood Count 3.64 X10*6/uL (4.60-5.80); Red Cell Distribution Width 20.8 % (11.0-16.0); White Blood Count 3.3 X10*3/uL (4.8-10.8)
[2021-03-26 07:43] LABS: Anion Gap 7 (12-20); Blood Urea Nitrogen 28 mg/dL (9-16); Calcium 8.6 mg/dL (8.4-10.2); Carbon Dioxide 29 mmol/L (22-29); Chloride 111 mmol/L (96-108); Creatinine Clr Calc Pharmacy 61.2; Estimated Glomerular Filt Rate 59; Glucose Random 95 mg/dL (60-115); Potassium 4.8 mmol/L (3.3-5.1); Sodium 142 mmol/L (135-145)
[2021-03-26] MEDS: Ferrous Sulfate 324 MG TABLET.DR PO ×2 (08:38→17:12)
[2021-03-26] MEDS: methADONE HCl 20 MG/2 ML ORAL.CONC 55 MG PO (08:38)
--- NOTE | 2021-03-26 11:32 | P.PNIM_ITS ---
Subjective Subjective Date of Service: 03/26/21 Interval History: the patient was seen and evaluated this morning Laying in bed, feels comfortable Mild nausea Tolerating diet Denies any fever, chills or shortness of breath No reported other overnight events. Systemic review: No fever, chills or weakness No chest pain, palpitation No shortness of breath or coughing No abdominal pain, nausea or vomiting No urinary symptoms No any rash or wounds Physical Exam Verdana 4l Vital Signs: Verdana 4d Verdana 4d Vital Signs: Verdana 4d Verdana 4Bd Last Vital Signs Verdana 4d Senior Qa Tester New 4d Senior Qa Tester New 4d Temp 97.9 F 03/26/21 07:50 Senior Qa Tester New 4d Pulse 62 03/26/21 07:50 Senior Qa Tester New 4d Resp 12 03/26/21 07:50 BP 113/71 03/26/21 07:50 Pulse Ox 98 03/26/21 07:50 BMI result Body Mass Index 22.1 Const: Other: Constitutional : Alert, oriented, not in distress Neck : Normal inspection, Supple Cardiovascular : RRR, S1 S2, no lower extremity edema Respiratory : Good bilateral air entry, no crackles, wheezes or rhonchi Gastrointestinal: soft, lax, Normal bowel sounds, Non tender Skin : Warm, Dry Neurological : Alert & oriented x3, No focal deficit Objective Data Active Medications Acetaminophen (Acetaminophen 325 Mg Tablet) 650 mg PO Q6H PRN PRN Reason: Pain, Mild (Pain Scale 1-3) Ferrous Sulfate (Ferrous Sulfate 324 Mg Tablet.) 324 mg PO BIDWM [facility] Last Admin: 03/26/21 08:38 Dose: 324 mg Documented by: MARICRUZ Methadone HCl (Methadone Hcl 20 Mg/2 Ml Oral.Conc) 55 mg PO DAILY [facility] Last Admin: 03/26/21 08:38 Dose: 55 mg Documented by: MARICRUZ Ondansetron HCl (Ondansetron Hcl 4 Mg/2 Ml Vial) 4 mg IVPUSH Q8H PRN PRN Reason: Nausea and Vomiting Pantoprazole Sodium (Pantoprazole Sodium 40 Mg/10 Ml Vial) 40 mg IVPUSH BID@0630,1630 [facility] Last Admin: 03/26/21 07:46 Dose: Not Given Documented by: JERRY Non-Admin Reason: Patient Asleep Pharmacy Consult (Consult Rx Perform Med Rec) 1 each MISCELLANE ONCE PRN PRN Reason: Consult order Labs CBC & Chem 7: 03/26/21 07:27 03/26/21 06:41 Labs: Laboratory Results - last 24 hr 03/25/21 03/25/21 03/25/21 09:05 14:24 14:24 MCV 81.0 MCH 24.3 L MCHC 30.0 L RDW 20.8 H Plt Count 76 L MPV 10.3 Absolute Nucleated RBC 0.000 Nucleated RBC % (auto) 0.0 PT INR Anion Gap Estim Creat Clear Calc Estimated GFR Random Glucose Calcium Iron 42 L TIBC 300 % Saturation 14 L Unsat Iron Binding 258 Vitamin B12 Folate Blood Type B Negative Antibody Screen NEGATIVE Crossmatch See Detail 03/25/21 03/25/21 03/26/21 14:24 16:13 06:41 MCV MCH MCHC RDW Plt Count MPV Absolute Nucleated RBC Nucleated RBC % (auto) PT 18.3 H INR 1.6 H Anion Gap 7 L Estim Creat Clear Calc 61.2 Estimated GFR 59 Random Glucose 95 Calcium 8.6 Iron TIBC % Saturation Unsat Iron Binding Vitamin B12 744 Folate 13.6 Blood Type Antibody Screen Crossmatch 03/26/21 07:27 MCV 80.8 MCH 23.6 L MCHC 29.3 L RDW 20.8 H Plt Count 74 L MPV 10.4 Absolute Nucleated RBC 0.000 Nucleated RBC % (auto) 0.0 PT INR Anion Gap Estim Creat Clear Calc Estimated GFR Random Glucose Calcium Iron TIBC % Saturation Unsat Iron Binding Vitamin B12 Folate Blood Type Antibody Screen Crossmatch Assessment and Plan (1) Symptomatic anemia: Status: Acute (2) Acute blood loss anemia: Status: Acute (3) COVID-19: Status: Acute Plan This is a 60 yo M who was brought in by police after family called them as he was doing drugs in the home. His work up in the ED reveals microcytic anemia. He is incidentally covid positive, but is not hypoxic. # Symptomatic anemia # blood loss anemia Received 1 unit transfusion Hemoglobin stable above 8 Likely related to heavy alcohol use + untreated Hep C Continue PPI GI input appreciated, to do endoscopy inpatient and colonoscopy as outpatient Start diet as tolerated trend h/h # COVID+ asymptomatic from a respiratory stand point; no hypoxia decadron if he becomes hypoxic # Chronic opiate dependence continue his baseline methadone # Hep C untreated -- has been encouraged outpatient f/u for treatment Full Code DVT pptx, Mechanical Quality Stroke Does the patient have a stroke diagnosis?: No VTE Prior VTE?: No VTE Risk Level:: Medical - moderate - high VTE Device Contraindication: N/A - Device Ordered VTE Drug Contraindication: Treatment Not Indicated
--- NOTE | 2021-03-26 14:02 | MHC.SHP ---
Pre-Procedural Eval Section A Date of Service: 03/26/21 The patient is an INPATIENT: Yes Changes since office visit: Yes New Medical Problems, Yes Changes in Medication and Yes Patient answered all questions; No Cold of Flu in the past 2 weeks The History & Physical has been completed within 30 days and I have reviewed it.: Yes Section B Chief Complaint: Weakness COVID + Allergies: Allergies Allergy/AdvReac Type Severity Reaction Status Date / Time No Known Allergies Allergy Unknown Unverified 11/25/20 13:29 Plan I have reviewed the history and physical and performed a pertinent physical examination on my patient. No changes have occurred unless specified.
--- NOTE | 2021-03-26 14:03 | P.BOP_ITS ---
Brief Operative Note Date of Service: 03/26/21 Pre-op diagnosis: Anemia, GERD, dysphagia Post-op diagnosis: other (Erosive esophagitis, hiatal hernia, gastritis, duodenitis) Procedure: FLEXIBLE TRANSORAL UPPER GASTROINTESTINAL ENDOSCOPY WITH BIOPSIES Consent: Indications for the procedure and potential complications of bleeding, perforation, reaction to medications and missed diagnosis were discussed with the patient and informed consent was obtained. Instrument: Olympus GIF H 190 mid size upper endoscope Monitoring: Vital signs and clinical assessment, continuous EKG monitoring, Pulse oximetry, Carbon Dioxide monitoring and blood pressure monitoring were done throughout the procedure. Procedure: The patient was placed in the left lateral decubitis position and pre-procedure medications were administered and a bite block was placed. The endoscope was inserted into the mouth and advanced under direct vision to the third part of duodenum. A careful inspection was made as the upper endoscope was withdrawn including a retroflexed examination of the proximal stomach; Findings and interventions are described below. Findings: Larynx: Normal Esophagus: GE junction at 35 cms, hiatal hernia 35 to 40 cms. Linear chronic appearing erosions from 30 to 35 cms . No stricture or ring noted. Stomach: Moderate diffuse gastric erythema with mucosal changes suggestive of moderate portal gastropathy.. Biopsies were obtained from the antrum to check for H Pylori. Grade 3 flap valve on retroflexed examination of the cardia. Duodenum: Edematous folds at the apex of the bulb - biopsied. Normal descending duodenum Intervention: Biopsies as noted above Impression and Post Procedure Diagnosis: Endoscopy Findings: ESOPHAGUS: GE junction at 35 cms, hiatal hernia 35 to 40 cms. Linear chronic appearing erosions from 30 to 35 cms . No stricture or ring noted. STOMACH: Moderate diffuse gastric erythema with mucosal changes suggestive of moderate portal gastropathy.. Biopsies were obtained from the antrum to check for H Pylori. DUODENUM: Edematous folds at the apex of the bulb - biopsied. Anemia is likely due to slow GI blood loss from erosive esophagitis versus LGI source. Plan: Await pathology results Patient to schedule a FU appointment in the GI Clinic with Alia Chapa M.D. to schedule a colonoscopy as an outpatient and discuss Hepatitis C treatment after her has stopped IVDA. GERD handout was given in the discharge area Surgeon: Alia Chapa MD Anesthesia: MAC (Dr Camacho) Was an Director Of Mechanical Engineering used for this Procedure?: Yes Director Of Mechanical Engineering: Katty Cornell Estimated blood loss (mL): 0 Pathology: other ( A. duodenal fold bxs B. gastric antrum, R/O H. pylori) Condition: stable Disposition: floor
--- NOTE | 2021-03-26 14:11 | W.PM.OPN ---
Operative Note Operative Note Date of Service: 03/26/21 Narrative: Pre-op diagnosis: Anemia, GERD, dysphagia Post-op diagnosis:?other (Erosive esophagitis, hiatal hernia, gastritis, duodenitis) Procedure: FLEXIBLE TRANSORAL UPPER GASTROINTESTINAL ENDOSCOPY WITH BIOPSIES Consent:?Indications for the procedure and potential complications of bleeding, perforation, reaction to medications and missed diagnosis were discussed with the patient and informed consent was obtained. Instrument:?Olympus GIF H 190 mid size upper endoscope Monitoring: Vital signs and clinical assessment, continuous EKG monitoring, Pulse oximetry, Carbon Dioxide monitoring and blood pressure monitoring were done throughout the procedure. Procedure:?The patient was placed in the left lateral decubitis position and pre-procedure medications were administered and a bite block was placed. The endoscope was inserted into the mouth and advanced under direct vision to the third part of duodenum. A careful inspection was made as the upper endoscope was withdrawn including a retroflexed examination of the proximal stomach; Findings and interventions are described below. Findings: Larynx:? Normal Esophagus: GE junction at 35 cms, hiatal hernia 35 to 40 cms.? Linear chronic appearing erosions from 30 to 35 cms . No stricture or ring noted. Stomach: Moderate diffuse gastric erythema with mucosal changes suggestive of moderate portal gastropathy. Biopsies were obtained from the antrum to check for H Pylori. Grade 3 flap valve on retroflexed examination of the cardia. Duodenum: Edematous folds at the apex of the bulb - biopsied. Normal descending duodenum Intervention: Biopsies as noted above Impression and Post Procedure Diagnosis: Endoscopy Findings: ESOPHAGUS: GE junction at 35 cms, hiatal hernia 35 to 40 cms.? Linear chronic appearing erosions from 30 to 35 cms . No stricture or ring noted. STOMACH: Moderate diffuse gastric erythema with mucosal changes suggestive of moderate portal gastropathy. Biopsies were obtained from the antrum to check for H Pylori. DUODENUM: Edematous folds at the apex of the bulb - biopsied. Anemia is likely due to slow GI blood loss from erosive esophagitis versus LGI source. Plan: Await pathology results. Omeprazole 20 mg PO twice daily for erosive esophagitis - to continue indefinately Patient to schedule a FU appointment in the GI Clinic with Alia Chapa M.D. to schedule a colonoscopy as an outpatient and discuss Hepatitis C treatment after her has stopped IVDA. GERD handout was given in the discharge area Surgeon: Alia Chapa MD Anesthesia:?MAC (Dr Camacho) Was an Thoroughbred Horse Farm Manager used for this Procedure?:?Yes Thoroughbred Horse Farm Manager:?Katty Cornell Estimated blood loss (mL):?0 Pathology:?other ( A. duodenal fold bxs? B. gastric antrum, R/O H. pylori) Condition:?stable Disposition:?floor
[2021-03-26] MEDS: Pantoprazole Sodium 40 MG/10 ML VIAL IVPUSH (17:12)
[2021-03-27] VITALS: BP 136/76; PULSE 64; RESP 17; TEMP 36.4; O2SAT 98
[2021-03-27 03:57] VITALS: BP 138/81; PULSE 66; RESP 17; TEMP 36.9; O2SAT 95
[2021-03-27] MEDS: Pantoprazole Sodium 40 MG/10 ML VIAL IVPUSH (06:29)
[2021-03-27 07:22] LABS: Hemoglobin 8.1 g/dl (14.0-18.0); Mean Corpuscular Volume 81.1 fL (80.0-98.0); White Blood Count 2.7 X10*3/uL (4.8-10.8)
[2021-03-27 07:23] LABS: Hematocrit 27.5 % (42.0-52.0); Mean Corpuscular HGB Conc 29.5 g/dl (31.0-36.0); Mean Corpuscular Hemoglobin 23.9 pg (27.0-33.0); Red Blood Count 3.39 X10*6/uL (4.60-5.80)
[2021-03-27 07:36] VITALS: BP 148/83; PULSE 59; RESP 18; TEMP 37; O2SAT 95
[2021-03-27 07:43] LABS: PLT ABN DIST 1; Platelet Count 70 X10*3/uL (160-400)
[2021-03-27 08:03] LABS: Anion Gap 9 (12-20); Blood Urea Nitrogen 19 mg/dL (9-16); Calcium 7.9 mg/dL (8.4-10.2); Carbon Dioxide 28 mmol/L (22-29); Chloride 109 mmol/L (96-108); Creatinine Clr Calc Pharmacy 91.1; Estimated Glomerular Filt Rate > 60; Glucose Random 77 mg/dL (60-115); Potassium 3.6 mmol/L (3.3-5.1); Sodium 141 mmol/L (135-145)
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
[2021-03-27] MEDS: Ferrous Sulfate 324 MG TABLET.DR PO ×2 (10:37→17:28)
[2021-03-27] MEDS: methADONE HCl 20 MG/2 ML ORAL.CONC 55 MG PO (10:37)
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
--- NOTE | 2021-03-27 11:12 | P.PNIM_ITS ---
Subjective Subjective Date of Service: 03/27/21 Interval History: the patient was seen and evaluated this morning Laying in bed, feels comfortable Tolerating diet Denies any fever, chills or shortness of breath No reported other overnight events. Systemic review: No fever, chills or weakness No chest pain, palpitation No shortness of breath or coughing No abdominal pain, nausea or vomiting No urinary symptoms No any rash or wounds Physical Exam Verdana 4l Vital Signs: Verdana 4d Verdana 4d Vital Signs: Verdana 4d Verdana 4Bd Last Vital Signs Verdana 4d Highway Engineering Technician New 4d Highway Engineering Technician New 4d Temp 98.6 F 03/27/21 07:36 Highway Engineering Technician New 4d Pulse 59 03/27/21 07:36 Highway Engineering Technician New 4d Resp 18 03/27/21 07:36 BP 148/83 H 03/27/21 07:36 Pulse Ox 95 03/27/21 07:36 BMI result Body Mass Index 22.1 Const: Other: Constitutional : Alert, oriented, not in distress Neck : Normal inspection, Supple Cardiovascular : RRR, S1 S2, no lower extremity edema Respiratory : Good bilateral air entry, no crackles, wheezes or rhonchi Gastrointestinal: soft, lax, Normal bowel sounds, Non tender Skin : Warm, Dry Neurological : Alert & oriented x3, No focal deficit Objective Data Active Medications Acetaminophen (Acetaminophen 325 Mg Tablet) 650 mg PO Q6H PRN PRN Reason: Pain, Mild (Pain Scale 1-3) Ferrous Sulfate (Ferrous Sulfate 324 Mg Tablet.) 324 mg PO BIDWM [facility] Last Admin: 03/27/21 10:37 Dose: 324 mg Documented by: PRATIBHA Methadone HCl (Methadone Hcl 20 Mg/2 Ml Oral.Conc) 55 mg PO DAILY [facility] Last Admin: 03/27/21 10:37 Dose: 55 mg Documented by: PRATIBHA Omeprazole (Omeprazole 40 Mg Capsule.) 40 mg PO BID@0630,1630 [facility] Ondansetron HCl (Ondansetron Hcl 4 Mg/2 Ml Vial) 4 mg IVPUSH Q8H PRN PRN Reason: Nausea and Vomiting Pharmacy Consult (Consult Rx Perform Med Rec) 1 each MISCELLANE ONCE PRN PRN Reason: Consult order Labs CBC & Chem 7: 03/27/21 06:34 03/27/21 06:34 Labs: Laboratory Results - last 24 hr 03/27/21 03/27/21 06:34 06:34 MCV 81.1 MCH 23.9 L MCHC 29.5 L RDW 21.0 H Plt Count 70 L MPV Not Reportable Absolute Nucleated RBC 0.000 Nucleated RBC % (auto) 0.0 Anion Gap 9 L Estim Creat Clear Calc 91.1 Estimated GFR > 60 Random Glucose 77 Calcium 7.9 L D Assessment and Plan (1) Acute blood loss anemia: Status: Acute (2) Symptomatic anemia: Status: Acute (3) COVID-19: Status: Acute Plan This is a 60 yo M who was brought in by police after family called them as he was doing drugs in the home. His work up in the ED reveals microcytic anemia. He is incidentally covid positive, but is not hypoxic. # Symptomatic anemia # blood loss anemia Received 1 unit transfusion Hemoglobin stable above 8 Likely related to heavy alcohol use + untreated Hep C change PPI to PO GI input appreciated, to do endoscopy inpatient and colonoscopy as outpatient advance diet trend h/h # COVID+ asymptomatic from a respiratory stand point; no hypoxia decadron if he becomes hypoxic # Chronic opiate dependence continue his baseline methadone # Hep C untreated -- has been encouraged outpatient f/u for treatment Full Code DVT pptx, Mechanical Dispo: pending placement Quality Stroke Does the patient have a stroke diagnosis?: No VTE Prior VTE?: No VTE Risk Level:: Medical - moderate - high VTE Device Contraindication: N/A - Device Ordered VTE Drug Contraindication: Treatment Not Indicated
[2021-03-27 11:23] VITALS: BP 127/72; PULSE 72; RESP 18; TEMP 36.3; O2SAT 98
--- NOTE | 2021-03-27 12:21 | MHC.RECOVSUP ---
Recovery Support note: Patient is a 60 year old Norwegian speaking male who presented to [facility] ED due to substance use and was medically admitted. Patient is COVID positive and cannot return home. This play writer spoke with patient over the phone to discuss discharge options. [facility] in [place] is accepting COVID patients however there are no beds available at this time. This play writer discussed this option with patient however patient is not interested in being referred at this time. Patient reports he will call family and friends to try and arrange something. Encouraged patient to reach out to this play writer if he changes his mind regarding ATS referral. This play writer contacted the [employer] COVID retirement line however they are closed due to weather.
--- NOTE | 2021-03-27 14:25 | HO.POSTANES ---
Post Anesthesia Evaluation Post Anesthesia Evaluation Vital Signs: Vital Signs Temp Pulse Resp BP Pulse Ox 03/27/21 11:23 97.4 F 72 18 127/72 98 03/27/21 07:36 98.6 F 59 18 148/83 H 95 03/27/21 03:57 98.5 F 66 17 138/81 95 Anesthesia: TIVA Mental Status: Awake Pain Control: Satisfactory Nausea/Vomiting: None Hydration: Adequate Anesthesia-Related Issues: No Anes. Related Issues
[2021-03-27 15:38] VITALS: BP 144/84; PULSE 64; RESP 18; TEMP 37.1; O2SAT 97
[2021-03-27] MEDS: Omeprazole 40 MG CAPSULE.DR PO (17:28)
[2021-03-27 20:11] VITALS: BP 144/86; PULSE 75; RESP 18; TEMP 37.4; O2SAT 96
[2021-03-28] VITALS: BP 131/76; PULSE 81; RESP 16; TEMP 37.2; O2SAT 98
[2021-03-28 04:00] VITALS: BP 148/85; PULSE 71; RESP 16; TEMP 36.7; O2SAT 98
[2021-03-28] MEDS: Acetaminophen 325 MG TABLET 650 MG PO (05:54)
[2021-03-28] MEDS: Omeprazole 40 MG CAPSULE.DR PO (05:54)
[2021-03-28 06:36] LABS: Hematocrit 29.4 % (42.0-52.0); Red Cell Distribution Width 21.2 % (11.0-16.0)
[2021-03-28 06:38] LABS: Hemoglobin 8.7 g/dl (14.0-18.0); Mean Corpuscular HGB Conc 29.6 g/dl (31.0-36.0); Mean Corpuscular Hemoglobin 23.7 pg (27.0-33.0); Mean Corpuscular Volume 80.1 fL (80.0-98.0); Red Blood Count 3.67 X10*6/uL (4.60-5.80); White Blood Count 3.6 X10*3/uL (4.8-10.8)
[2021-03-28 06:43] LABS: PLT ABN DIST 1; Platelet Count 74 X10*3/uL (160-400)
[2021-03-28 07:41] VITALS: BP 151/87; PULSE 61; RESP 18; TEMP 36.7; O2SAT 97
[2021-03-28] MEDS: methADONE HCl 20 MG/2 ML ORAL.CONC 55 MG PO (08:37)
[2021-03-28] MEDS: Ferrous Sulfate 324 MG TABLET.DR PO (08:37)
[2021-03-28] MEDS: polyethylene glycoL 3350 17 GM POWD.PACK PO (11:04)
[2021-03-28 11:30] VITALS: BP 130/76; PULSE 80; RESP 18; TEMP 37; O2SAT 96
--- NOTE | 2021-03-28 11:30 | P.DS_ITS ---
DS: Providers Provider Date of Service: 03/28/21 Date of admission: 03/25/21 12:23 Primary care physician: Winston Barr MD Consults: 03/25/21 12:23 Consult to Gastroenterology Routine Consulting Provider: Alia Chapa Reason for consultation: anemia 03/27/21 11:56 Consult to Care Team Routine Comment: Reason for consultation: drug abuse, for eval and help placement DS: Diagnosis Discharge Diagnosis (1) Acute blood loss anemia: Status: Acute (2) Symptomatic anemia: Status: Acute (3) COVID-19: Status: Acute (4) Hepatitis C: Status: Acute (5) Erosive gastritis: Status: Acute DS: Summary Hospital Course Hospital Course: Admission note HPI This is a 60 yo M with a PMH of polysubstance abuse (cocaine and heroin -- IV, last use prior to admission heavy alcohol use 1/5th of whisky daily with last use about 3 days prior to admission, Hep C untreated, who was broughty in by police after they were called by his mother as he was using drugs at home. Upon arrival to the ED, patient was noted to be intoxicated (although his EtOh level was negative). His work up revealed a low h/h and intially the patient did not want to stay (but given his intoxication, he was not allowed to leave AMA). In the morning, he became more lucid and now as agreed for admission for symptomatic anemia. Patient is seen in ED 22. He reports chronic generalized weakness on going for months and weakness. 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 He reports no changes to his stool. No melena, no hematochezia. He denies abdominal pain, n/v/bloody emesis. He denies NSAID use. He endorses daily drinking as above -- no prior withdrawal symptoms. He denies any respiratory symptoms of cough/sob, but does endorse rhinnorrhea. Reports his whole family was covid+ during Dru. Denies any fevers or chills. He is? incidentally positive for COVID. Hospital course The patient was admitted to the hospital for Symptomatic anemia which believed to be secondary to blood loss from chronic bleeding.Received 1 unit transfusion as hemoglobin remained stable around 8 from 7 at time of presentation. Evaluated by Gastroenterology as he was started IV PPI so. An endoscopy was done showing evidence of erosive gastritis. Ppi changed to p.o. omeprazole and the patient diet advanced with good response. Patient declined colonoscopy inpatient and mention he will do it as outpatient. He was found to have hepatitis C infection and was encouraged for outpatient follow-up with Dr. Chapa for treatment. Evaluated by the care team who suggested outpatient resources and fci placement but the patient refused. Tested positive for COVID but asymptomatic from a respiratory stand point; no hypoxia To be discharged on omeprazole 40 mg b.i.d. and iron supplement for evidence of iron deficiency anemia. Time Spent with Patient Time attestation: Total time spent providing and/or coordinating discharge services: Discharge coordination time: Greater than 30 minutes Quality: Stroke Does the patient have a stroke diagnosis?: No Physical Exam Verdana 4l Vital Signs: Verdana 4d Verdana 4d Vital Signs: Verdana 4d Verdana 4Bd Last Vital Signs Verdana 4d Glass Washer New 4d Glass Washer New 4d Temp 98.0 F 03/28/21 07:41 Glass Washer New 4d Pulse 61 03/28/21 07:41 Glass Washer New 4d Resp 18 03/28/21 07:41 BP 151/87 H 03/28/21 07:41 Pulse Ox 97 03/28/21 07:41 BMI result Body Mass Index 22.1 Const: Other: Constitutional : Alert, oriented, not in distress Neck : Normal inspection, Supple Cardiovascular : RRR, S1 S2, no lower extremity edema Respiratory : Good bilateral air entry, no crackles, wheezes or rhonchi Gastrointestinal: soft, lax, Normal bowel sounds, Non tender Skin : Warm, Dry Neurological : Alert & oriented x3, No focal deficit DS: Data Data Completed and Pending Pending studies at discharge: Pending at discharge 03/26/21 13:52 Surgical [PTH] Routine Labs on day of discharge: Laboratory Results - last 24 hr 03/28/21 05:56 WBC 3.6 L RBC 3.67 L Hgb 8.7 L Hct 29.4 L MCV 80.1 MCH 23.7 L MCHC 29.6 L RDW 21.2 H Plt Count 74 L MPV Not Reportable Absolute Nucleated RBC 0.000 Nucleated RBC % (auto) 0.0 Discharge Plan Discharge Patient Disposition: Home, Self-Care Discharge Diagnosis: Acute blood loss anemia Erosive gastritis COVID-19 infection Referrals: Po,Lorenver O, MD [Primary Care Provider] - 1 Week Discharge Medications: New omeprazole 40 mg Capsule,Delayed Release(Dr/Ec) 40 mg PO BID@0630,1630 30 Days Qty: 60 0RF ferrous sulfate 324 mg (65 mg iron) Tablet,Delayed Release (Dr/Ec) 324 mg PO DAILY 30 Days Qty: 30 0RF Continued methadone 10 mg/5 mL solution 55 mg PO DAILY 0RF Discharge Orders: Discharge Order (Routine); Ordered 03/28/21 Ordered By: Bert Quinones Diet: advance to usual diet Activity on Discharge: As tolerated Stand Alone Forms: Patient Portal Discharge page Care Plan Goals: Read below Health Concerns: Read below Plan of Treatment: Read below Assessment: You were admitted to the hospital for evaluation of weakness and heartburn. Found to have a drop in your hemoglobin level requiring blood transfusion. Evaluated by immigration specialist who did an upper endoscopy showing an evidence of inflammation in your stomach. You were treated with IV PPI with fair response. Your tested positive for COVID but did not develop any respiratory symptoms. Continue omeprazole twice Daily Start iron pills for anemia To follow-up with Dr. Chapa in the office for treatment of hepatitis-C and outpatient colonoscopy Discharge Date/Time: 03/28/21 14:24
--- NOTE | 2021-03-28 12:37 | MHC.CM.PN ---
Patient has been medically cleared for dc to home today, self care. CM spoke with Patient's Mother/Ning, who will pick Patient up at 2 PM; she has agreed to allow Patient to return to her home, under my conditions. CM encourage Ning to have Patient call his Methadone clinic to determine their protocol for Covid (+) individuals (i.e. may bring Methadone out to the car instead of Patient entering the clinic).
== END 2021-03-28 14:24 | disposition home or self-care (01) ==
LOC: HO.ED 09:13 → HO.EDOVER 17:06 → HO.IMC 03-26 20:52
PROVIDERS: Emergency Medicine; Internal Medicine Gastroenterology; Admitting Provider Family Medicine; Emergency Provider Emergency Medicine; PCP Internal Medicine; Visit Provider Student in an Organized Health Care Education/Training Program
PROC: 0DJ08ZZ Inspection of Upper Intestinal Tract, Via Natural or Artificial Opening Endoscopic (ICD-10-PCS; CPT 43235; principal; 2021-03-26 11:40)
DX: D64.9 Anemia, unspecified (principal); D62 Acute posthemorrhagic anemia; K21.9 Gastro-esophageal reflux disease without esophagitis; R13.10 Dysphagia, unspecified; K44.9 Diaphragmatic hernia without obstruction or gangrene; K22.10 Ulcer of esophagus without bleeding; K29.70 Gastritis, unspecified, without bleeding; K29.80 Duodenitis without bleeding; B19.20 Unspecified viral hepatitis C without hepatic coma; R94.5 Abnormal results of liver function studies; R53.83 Other fatigue; U07.1 COVID-19; F17.210 Nicotine dependence, cigarettes, uncomplicated; F10.20 Alcohol dependence, uncomplicated; Y90.0 Blood alcohol level of less than 20 mg/100 ml; F14.20 Cocaine dependence, uncomplicated; Z67.21 Type B blood, Rh negative; Z11.4 Encounter for screening for human immunodeficiency virus [HIV]; Z59.00 Homelessness unspecified; Z79.891 Long term (current) use of opiate analgesic; Z79.899 Other long term (current) drug therapy
CPT/HCPCS: 43239; 36415; 36430; 71045; 76705; 80048; 80076; 82077; 82607; 82746; 83540; 85025; 85027; 85610; 86704; 86706; 86803; 86850; 86900; 86901; 86923; 87340; 87389; 87635; 88305; 88342; 96365; 96375; 96376; 99219; 99285; 99291; J3430; P9016

== ENCOUNTER 2021-05-04 11:06 | Emergency (ER) | payer OTHER, SELFPAY ==
--- NOTE | ~2021-05-04 | XR_ITS ---
EXAMINATION: XR CHEST CLINICAL INFORMATION: Change in mental status and fever. Rule out pneumonia. COMPARISON: Previous chest x-ray February 2021 TECHNIQUE: Frontal view of the chest was obtained. FINDINGS: The cardiac and mediastinal contours are normal. No evidence of a pneumonia is seen. The lungs are clear. There is no pleural effusion or pneumothorax. Visualized bony structures are unremarkable. XR/XR chest 1V IMPRESSION: No evidence for acute disease in the chest.
[2021-05-04 11:18] VITALS: BP 124/72; BP 127/77; PULSE 91; PULSE 92; RESP 20; TEMP 38.2; O2SAT 97; O2SAT 98; BMI 21.2
--- NOTE | 2021-05-04 11:32 | ED_ITS ---
HPI - Alcohol General Chief Complaint: ETOH/Substance Use Stated Complaint: ETOH W/POLICE ON [place]ORD,CALM/COOP PER EMS Time Seen by Provider: 05/04/21 11:18 Source: patient and EMS Mode of arrival: EMS Limitations: altered mental status (Appears intoxicated) History of Present Illness HPI narrative: 60-year-old male who who was brought to the emergency department by EMS at the request of his mother and sister. Apparently the patient was drinking alcohol and possibly doing drugs, he was acting bizarrely possibly aggressively as well therefore the family called the police the police called EMS. [facility] the patient is awake and alert, he is oriented to person, he knew that it was 2021. He does not appear to be in distress. He does admit to drinking alcohol. According to EMS his family wants to pursue a Section 35. In reviewing his record, the patient had a similar presentation on 03/25/2021. At that time he was found to be COVID positive. He also had a low H&H of 7.0 in 23.5 and was admitted to the hospital. Note states that he has a history of polysubstance abuse, cocaine, heroin and alcohol he drinks a 5th of whiskey per day. He also has untreated hepatitis-C. He did receive blood transfusions. GI workup revealed erosive gastritis. He was discharged on omeprazole 40 mg b.i.d. and ferrous sulfate 324 mg daily. He was also on methadone at that time and advised to continue taking his methadone 55 mg daily. Related Data Home Medications Medication Instructions Recorded Confirmed methadone 10 mg/5 mL oral solution 55 mg PO DAILY ml 11/25/20 03/25/21 Previous Rx's Medication Instructions Recorded ferrous sulfate 324 mg (65 mg 324 mg PO DAILY 30 Days #30 tab 03/28/21 iron) tablet,delayed release cephalexin 500 mg capsule 500 mg PO QID 5 Days #20 cap 05/04/21 Allergies Allergy/AdvReac Type Severity Reaction Status Date / Time No Known Allergies Allergy Unknown Verified 05/04/21 11:21 Review of Systems Review of Systems: Yes all other systems are reviewed and are negative [facility] Past Medical History Medical History Asthma GERD (gastroesophageal reflux disease) Hepatitis C Recurrent major depression Right wrist drop Substance abuse Surgical History (Updated 03/25/21 @ 12:46 by Zi Butler MD) No pertinent past surgical history Social History Social History (Updated 03/25/21 @ 12:47 by Zi Butler MD) Housing: Homeless Alcohol intake: current Patient Tobacco Use Status: Current everyday Tobacco user Tobacco use type: Cigarette Substance Use Type: Crack/Cocaine, Heroin, IV Drugs, Marijuana and Opiates Advance Directives: No Advance Directives Information Provided: No service: No Current occupational status: unemployed Physical Exam ED Vital Signs: Vital Signs - 24 hr 05/04/21 11:18 05/04/21 12:21 05/04/21 12:46 Temperature 100.7 F H 101.9 F H Pulse Rate 91 84 85 Respiratory Rate 20 18 22 H Blood Pressure 127/77 123/73 Pulse Oximetry 98 05/04/21 13:31 05/04/21 15:13 Temperature 100.8 F H Pulse Rate 86 87 Respiratory Rate 14 17 Blood Pressure 116/68 113/74 Pulse Oximetry 94 97 BMI result Body Mass Index 21.2 Const Other: Awake, alert, male patient, appears to be acutely intoxicated, oriented to person and place, new that the year was 2021 but got the date wrong. He does not appear to be in distress [place] Head: Yes normal to inspection, Yes normocephalic and Yes atraumatic Ears: external ears normal General nose exam: Normal external nose present Face and sinus: Yes normal facial exam Mouth: Normal oral and palatal mucosa present Throat: Yes posterior oropharynx normal Eyes General: appearance normal, both eyes and all related structures Pupils: Equal, round and reactive pupils present Neck Neck: Yes normal visual inspection, Yes no lymphadenopathy, Yes trachea midline and Yes supple Chest Chest palpation & inspection: normal inspection of the chest and normal palpation of entire chest wall Resp Effort & Inspection: normal respiratory effort and able to speak in complete sentences Auscultation: clear to auscultation bilaterally Cardio Rate: regular rate Rhythm: regular rhythm Heart sounds: S1 normal heart sound present, S2 normal heart sound present and no murmurs GI Inspection: Yes normal to inspection Palpation (GI): Soft to palpation, nontender and no guarding Auscultation: normal bowel sounds General: Yes no CVA tenderness Back/Spine/Pelvis Back: no CVA tenderness Skin Other: The patient has a there is several old wounds woth cicatrixation to the right casanova with surrounding erythema 6 x 8 cm, slight increased warmth over the erythema, both lower extremities seem to be symmetrically swollen with trace pitting edema. Extremities neurovascular intact Neuro Cranial nerves: Yes CN's II-XII intact bilaterally and Yes Equal, round and reactive pupils present Cognition (Neuro): normal cognition Motor exam (neuro): 5/5 motor strength present throughout Extrem General: Yes normal to inspection Psych Appearance: grossly normal Speech and movement: Normal speech and movement present Affect: normal affect Attitude: cooperative Thought process: Normal thought process present Thought content: Normal thought content present Course Course Course Narrative: 60-year-old male who presents emergency department for evaluation of altered mental status most likely secondary to alcohol and drug use, patient is reported to be homeless but his mother and sister were concerned about his behavior and called the police. Patient was then brought to the emergency department by ambulance. The patient had a recent admission 03/25/2021 for erosive gastritis with severe anemia with a hemoglobin of 7 requiring admission transfusion. The patient admits to drink alcohol although he denied using drugs. Vital signs revealed a temperature of 100.7 degrees. Otherwise unremarkable. Patient's examination is consistent with intoxication, his right lower extremity does have several old wounds with cicatrixation. There is some surrounding erythema as well. It was reported by EMS that the family would like to seek a Section 12 against the patient. The patient will need a medical workup however, therefore I ordered CBC, CMP, lactate, blood cultures x2, lipase, type and screen, urine drug screen, alcohol level. Patient was ordered to get normal saline x1 L and Ativan 1 mg IV. 1458: Laboratory evaluation: Elevated WBC 11,400. Low H&H of 10.1 and 33.1, this is improved and stable. Platelet count low 75,000, this is chronic. Elevated AST 68 and elevated alk-phos 165 with elevated bilirubin 1.7. This is probably related to his alcohol abuse or hep C. COVID-19 was negative. Alcohol was below detectable limits. Urine tox screen positive for opiates, fentanyl and cocaine. Patient's altered mental status today is most likely secondary to opiate and cocaine use. The patient calmed down significantly after receiving the IV day Ativan. The patient is refusing duplex ultrasound of his right lower extremity. My impression is that he has cellulitis of this leg, causing the swelling. I ordered a 2nd dose of Ativan 2 mg IV. He has a temperature of 100.8 degrees orally and I ordered Tylenol 975 mg orally and Keflex 500 mg orally. The family has successfully obtain a Section 35 hearing for tomorrow. The patient will be discharged home in the care of his family. MDM - Alcohol Lab Data Result diagrams: 05/04/21 12:25 05/04/21 12:25 Labs: Lab Results 05/04/21 05/04/21 05/04/21 Range/Units 12:25 12:25 12:25 WBC 11.4 H (4.8-10.8) X10*3/uL RBC 3.74 L (4.60-5.80) X10*6/uL Hgb 10.1 L (14.0-18.0) g/dl Hct 33.1 L (42.0-52.0) % MCV 88.5 (80.0-98.0) fL MCH 27.0 (27.0-33.0) pg MCHC 30.5 L (31.0-36.0) g/dl RDW 25.0 H (11.0-16.0) % Plt Count 75 L (160-400) X10*3/uL MPV Not Reportable Immature Gran % (Auto) 0.8 H (0.0-0.4) % Neut % (Auto) 91.9 H (45-73) % Lymph % (Auto) 0.1 L (20-40) % [place] % (Auto) 6.7 (2-11) % Eos % (Auto) 0.2 (0-4) % Baso % (Auto) 0.3 (0-2) % Lymph # (Auto) 0.0 L (1.2-4.9) X10*3/uL [place] # (Auto) 0.8 (0.1-1.2) X10*3/uL Eos # (Auto) 0.0 (0.0-0.4) X10*3/uL Baso # (Auto) 0.0 (0.0-0.2) X10*3/uL Abs Immat Gran (auto) 0.09 H (0.00-0.03) X10*3/uL Absolute Neuts (auto) 10.5 H (2.0-8.3) x10*3/uL Absolute Nucleated RBC 0.000 (0.0-0.012) X10*3/uL Nucleated RBC % (auto) 0.0 (0.0-0.2) /100WBC Smear Tech's Comments Not Reportable Sodium 136 (135-145) mmol/L Potassium 4.9 D (3.3-5.1) mmol/L Chloride 105 (96-108) mmol/L Carbon Dioxide 25 (22-29) mmol/L Anion Gap 11 L (12-20) BUN 19 H (9-16) mg/dL Creatinine 0.97 (0.5-1.4) mg/dL Estim Creat Clear Calc 78.0 Estimated GFR > 60 Random Glucose 97 (60-115) mg/dL Lactic Acid (0.5-2.0) mmol/L Calcium 9.4 D (8.4-10.2) mg/dL Total Bilirubin 1.7 H (0.0-1.0) mg/dL AST 68 H (5-37) U/L ALT 32 (0-40) U/L Alkaline Phosphatase 165 H D (39-117) U/L Total Protein 8.5 H D (6.5-8.0) g/dL Albumin 2.9 L D (3.5-5.0) g/dL Lipase 31 (8-78) U/L Urine Color Urine Appearance Urine pH (5.0-8.0) Ur Specific [place] (1.005-1.025) Urine Protein (NEG-TRACE) MG/DL Urine Glucose (UA) (NEG) MG/DL Urine Ketones (NEG) MG/DL Urine Blood (NEG) Urine Nitrite (NEG) Ur Leukocyte Esterase (NEG) Urine Opiates Screen (Not Detect) Urine Fentanyl Screen (Not Detect) Ur Barbiturates Screen (Not Detect) Ur Phencyclidine Scrn (Not Detect) Ur Amphetamines Screen (Not Detect) U Benzodiazepines Scrn (Not Detect) Urine Cocaine Screen (Not Detect) U Marijuana (THC) Screen (Not Detect) Ethyl Alcohol mg/dL COVID-19 ([place]) Negative (Negative) COVID-19 Clin Com See Note Blood Type Antibody Screen 05/04/21 05/04/21 05/04/21 Range/Units 12:25 12:25 12:26 WBC (4.8-10.8) X10*3/uL RBC (4.60-5.80) X10*6/uL Hgb (14.0-18.0) g/dl Hct (42.0-52.0) % MCV (80.0-98.0) fL MCH (27.0-33.0) pg MCHC (31.0-36.0) g/dl RDW (11.0-16.0) % Plt Count (160-400) X10*3/uL MPV Immature Gran % (Auto) (0.0-0.4) % Neut % (Auto) (45-73) % Lymph % (Auto) (20-40) % [place] % (Auto) (2-11) % Eos % (Auto) (0-4) % Baso % (Auto) (0-2) % Lymph # (Auto) (1.2-4.9) X10*3/uL [place] # (Auto) (0.1-1.2) X10*3/uL Eos # (Auto) (0.0-0.4) X10*3/uL Baso # (Auto) (0.0-0.2) X10*3/uL Abs Immat Gran (auto) (0.00-0.03) X10*3/uL Absolute Neuts (auto) (2.0-8.3) x10*3/uL Absolute Nucleated RBC (0.0-0.012) X10*3/uL Nucleated RBC % (auto) (0.0-0.2) /100WBC Smear Tech's Comments Sodium (135-145) mmol/L Potassium (3.3-5.1) mmol/L Chloride (96-108) mmol/L Carbon Dioxide (22-29) mmol/L Anion Gap (12-20) BUN (9-16) mg/dL Creatinine (0.5-1.4) mg/dL Estim Creat Clear Calc Estimated GFR Random Glucose (60-115) mg/dL Lactic Acid 1.4 (0.5-2.0) mmol/L Calcium (8.4-10.2) mg/dL Total Bilirubin (0.0-1.0) mg/dL AST (5-37) U/L ALT (0-40) U/L Alkaline Phosphatase (39-117) U/L Total Protein (6.5-8.0) g/dL Albumin (3.5-5.0) g/dL Lipase (8-78) U/L Urine Color YELLOW Urine Appearance CLEAR Urine pH 7.0 (5.0-8.0) Ur Specific [place] 1.015 (1.005-1.025) Urine Protein NEG (NEG-TRACE) MG/DL Urine Glucose (UA) NEG (NEG) MG/DL Urine Ketones NEG (NEG) MG/DL Urine Blood NEG (NEG) Urine Nitrite NEG (NEG) Ur Leukocyte Esterase NEG (NEG) Urine Opiates Screen (Not Detect) Urine Fentanyl Screen (Not Detect) Ur Barbiturates Screen (Not Detect) Ur Phencyclidine Scrn (Not Detect) Ur Amphetamines Screen (Not Detect) U Benzodiazepines Scrn (Not Detect) Urine Cocaine Screen (Not Detect) U Marijuana (THC) Screen (Not Detect) Ethyl Alcohol < 10 mg/dL COVID-19 ([place]) (Negative) COVID-19 Clin Com Blood Type Antibody Screen 05/04/21 05/04/21 Range/Units 12:26 13:00 WBC (4.8-10.8) X10*3/uL RBC (4.60-5.80) X10*6/uL Hgb (14.0-18.0) g/dl Hct (42.0-52.0) % MCV (80.0-98.0) fL MCH (27.0-33.0) pg MCHC (31.0-36.0) g/dl RDW (11.0-16.0) % Plt Count (160-400) X10*3/uL MPV Immature Gran % (Auto) (0.0-0.4) % Neut % (Auto) (45-73) % Lymph % (Auto) (20-40) % [place] % (Auto) (2-11) % Eos % (Auto) (0-4) % Baso % (Auto) (0-2) % Lymph # (Auto) (1.2-4.9) X10*3/uL [place] # (Auto) (0.1-1.2) X10*3/uL Eos # (Auto) (0.0-0.4) X10*3/uL Baso # (Auto) (0.0-0.2) X10*3/uL Abs Immat Gran (auto) (0.00-0.03) X10*3/uL Absolute Neuts (auto) (2.0-8.3) x10*3/uL Absolute Nucleated RBC (0.0-0.012) X10*3/uL Nucleated RBC % (auto) (0.0-0.2) /100WBC Smear Tech's Comments Sodium (135-145) mmol/L Potassium (3.3-5.1) mmol/L Chloride (96-108) mmol/L Carbon Dioxide (22-29) mmol/L Anion Gap (12-20) BUN (9-16) mg/dL Creatinine (0.5-1.4) mg/dL Estim Creat Clear Calc Estimated GFR Random Glucose (60-115) mg/dL Lactic Acid (0.5-2.0) mmol/L Calcium (8.4-10.2) mg/dL Total Bilirubin (0.0-1.0) mg/dL AST (5-37) U/L ALT (0-40) U/L Alkaline Phosphatase (39-117) U/L Total Protein (6.5-8.0) g/dL Albumin (3.5-5.0) g/dL Lipase (8-78) U/L Urine Color Urine Appearance Urine pH (5.0-8.0) Ur Specific [place] (1.005-1.025) Urine Protein (NEG-TRACE) MG/DL Urine Glucose (UA) (NEG) MG/DL Urine Ketones (NEG) MG/DL Urine Blood (NEG) Urine Nitrite (NEG) Ur Leukocyte Esterase (NEG) Urine Opiates Screen POSITIVE H (Not Detect) Urine Fentanyl Screen POSITIVE H (Not Detect) Ur Barbiturates Screen Not Detected (Not Detect) Ur Phencyclidine Scrn Not Detected (Not Detect) Ur Amphetamines Screen Not Detected (Not Detect) U Benzodiazepines Scrn Not Detected (Not Detect) Urine Cocaine Screen POSITIVE H (Not Detect) U Marijuana (THC) Screen Not Detected (Not Detect) Ethyl Alcohol mg/dL COVID-19 ([place]) (Negative) COVID-19 Clin Com Blood Type B Negative Antibody Screen NEGATIVE Discharge Plan Discharge Clinical Impression: Acute alteration in mental status, Cocaine abuse, Opiate abuse, episodic, Alcohol abuse, Cellulitis of right leg Patient Disposition: Still a Patient Instructions: Cellulitis (ED) Additional Instructions: Your blood work today was consistent with your alcohol abuse and your hepatitis C. Your COVID-19 test was negative. Based on your exam, I believe that you have a skin infection (cellulitis) of your right leg. Your received your 1st dose Keflex 500 mg orally in the emergency depart Take Keflex (cephalexin) 500 mg 4 times a day for 5 days. Your alcohol level was below detectable limits. Your urine tox screen was positive for opiates, fentanyl and cocaine. Your change in behavior today was most likely related to your drug use. You are medically cleared to be discharged. Prescriptions: New cephalexin 500 mg capsule 500 mg PO QID 5 Days Qty: 20 0RF No Action ferrous sulfate 324 mg (65 mg iron) Tablet,Delayed Release (Dr/Ec) 324 mg PO DAILY 30 Days Qty: 30 0RF methadone 10 mg/5 mL solution 55 mg PO DAILY 0RF
--- NOTE | 2021-05-04 12:16 | MHC.RECOVSUP ---
? Reason for consult:recovery Support o Current location:ED-8 o Identified substance use concern: Polysubatance ?? - Withdrawal - Seeking ATS (detox) - Support ? Intervention: o MAT started or to be started o Harm reduction discussion ? Plan: o Follow up tomorrow o Patient to follow up with [facility] after discharge ? Additional information:Patient states: I did'nt use anything . Patient appears to be impaired and was unable to assist me with recent hx.
[2021-05-04 12:21] VITALS: PULSE 84; RESP 18; TEMP 38.8
[2021-05-04 12:41] LABS: Appearance Urine CLEAR; Color Urine YELLOW; Glucose Urine UA NEG (NEG); Leukocyte Esterase Urine NEG (NEG); Nitrite Urine NEG (NEG); Specific Gravity - Urine 1.015 (1.005-1.025); Urine Blood NEG (NEG); Urine Ketones NEG (NEG); Urine Protein NEG (NEG-TRACE)
[2021-05-04 12:44] LABS: COVID-19 Test Negative (Negative); IDNOW Serial# 16C4AD1C
[2021-05-04] MEDS: LORazepam 2 MG/ML VIAL 1 MG IVPUSH (12:44)
[2021-05-04 12:46] VITALS: BP 123/73; PULSE 85; RESP 22
[2021-05-04 12:46] LABS: Basophils Percent Auto 0.3 % (0-2); Eosinophils Percent Auto 0.2 % (0-4); Hematocrit 33.1 % (42.0-52.0); Hemoglobin 10.1 g/dl (14.0-18.0); Imm Gran Abs Auto 0.09 X10*3/uL (0.00-0.03); Imm Gran Pct Auto 0.8 % (0.0-0.4); Lymphocytes Percent Auto 0.1 % (20-40); MANUAL DIFF FLAG SCAN; Mean Corpuscular HGB Conc 30.5 g/dl (31.0-36.0); Mean Corpuscular Volume 88.5 fL (80.0-98.0); Monocytes Absolute Auto 0.8 X10*3/uL (0.1-1.2); Monocytes Percent Auto 6.7 % (2-11); Neutrophils Absolute Auto 10.5 x10*3/uL (2.0-8.3); Neutrophils Percent Auto 91.9 % (45-73); Red Blood Count 3.74 X10*6/uL (4.60-5.80); SCAN SMEAR FLAG 1; White Blood Count 11.4 X10*3/uL (4.8-10.8)
[2021-05-04] MEDS: 0.9 % Sodium Chloride 1,000 ML 999 ML IV (12:46)
[2021-05-04 12:47] LABS: Lactic Acid 1.4 mmol/L (0.5-2.0); Platelet Count 75 X10*3/uL (160-400)
[2021-05-04 12:49] LABS: Ethanol < 10 mg/dL
[2021-05-04 12:55] LABS: Alanine Aminotransferase 32 U/L (0-40); Albumin Level 2.9 g/dL (3.5-5.0); Alkaline Phosphatase 165 U/L (39-117); Anion Gap 11 (12-20); Aspartate Amino Transferase 68 U/L (5-37); Bilirubin Total 1.7 mg/dL (0.0-1.0); Blood Urea Nitrogen 19 mg/dL (9-16); Calcium 9.4 mg/dL (8.4-10.2); Carbon Dioxide 25 mmol/L (22-29); Chloride 105 mmol/L (96-108); Estimated Glomerular Filt Rate > 60; Glucose Random 97 mg/dL (60-115); Lipase 31 U/L (8-78); Potassium 4.9 mmol/L (3.3-5.1); Sodium 136 mmol/L (135-145); Total Protein 8.5 g/dL (6.5-8.0)
[2021-05-04 13:31] VITALS: BP 116/68; PULSE 86; RESP 14; O2SAT 94
--- NOTE | 2021-05-04 14:24 | PC.NURSE ---
Pt has been quiet and sleeping. Ativan was given because patient has been aggitated and uncooperative with care. Was unable to retain reminders for why IV was being placed and labs drawn. Pulled away from a few attempts.
[2021-05-04 14:32] LABS: Amphetamine Screen Urine Not Detected (Not Detect); Barbiturates, Urine Not Detected (Not Detect); Benzodiazepines Screen Urine Not Detected (Not Detect); Cannabinoid Screen Urine Not Detected (Not Detect); Cocaine Screen Urine POSITIVE (Not Detect); Fentanyl, urine POSITIVE (Not Detect); Opiate Screen Urine POSITIVE (Not Detect); Phencyclidine Screen Urine Not Detected (Not Detect)
[2021-05-04 15:13] VITALS: BP 113/74; PULSE 87; RESP 17; TEMP 38.2; O2SAT 97
--- NOTE | 2021-05-04 15:19 | MHC.CARE ---
CARE team was contacted by Angelika at the [facility] ([phone]) re: the Section 35 petition. It was granted by a export freight manager and a warrant will be issued to the [facility] in the morning. Pt has been medically cleared in the ED at this time. ED attending physician was updated, and is agreeable to allowing pt to remain in ED until the morning. Pt cannot be held against his will in the ED and if he discharges home, CARE team will update Angelika and the courthouse.
[2021-05-04] MEDS: cephALEXin 500 MG CAPSULE PO (16:10)
[2021-05-04] MEDS: Acetaminophen 325 MG TABLET 975 MG PO (16:10)
--- NOTE | 2021-05-04 16:18 | PC.NURSE ---
Plan is for PD to come to ED for discharge b/f 1630 so that Section 35 process can continue.
== END 2021-05-04 16:54 ==
PROVIDERS: Emergency Provider Emergency Medicine Emergency Medical Services; PCP Internal Medicine
DX: R41.82 Altered mental status, unspecified (principal); F14.10 Cocaine abuse, uncomplicated; F11.10 Opioid abuse, uncomplicated; F10.10 Alcohol abuse, uncomplicated; Y90.0 Blood alcohol level of less than 20 mg/100 ml; L03.115 Cellulitis of right lower limb; R50.9 Fever, unspecified; Z20.822 Contact with and (suspected) exposure to COVID-19; B19.20 Unspecified viral hepatitis C without hepatic coma; F17.200 Nicotine dependence, unspecified, uncomplicated
CPT/HCPCS: 36415; 71045; 80053; 80307; 81003; 82077; 83605; 83690; 85025; 86850; 86900; 86901; 87040; 87186; 87205; 87635; 96361; 96374; 96375; 99285; J2060

== ENCOUNTER 2021-05-07 11:57 | Emergency (ER) | payer OTHER, SELFPAY ==
[2021-05-07 12:55] VITALS: BP 137/88; PULSE 84; RESP 16; TEMP 37; O2SAT 98; BMI 22.9
[2021-05-07 15:50] VITALS: BP 144/77; PULSE 76; RESP 18; TEMP 37; O2SAT 99
[2021-05-07 15:51] LABS: Basophils Percent Auto 0.4 % (0-2); SCAN SMEAR FLAG 1
[2021-05-07 15:52] LABS: Eosinophils Absolute Auto 0.4 X10*3/uL (0.0-0.4); Eosinophils Percent Auto 7.2 % (0-4); Hematocrit 27.2 % (42.0-52.0); Hemoglobin 8.1 g/dl (14.0-18.0); Imm Gran Abs Auto 0.03 X10*3/uL (0.00-0.03); Imm Gran Pct Auto 0.6 % (0.0-0.4); Lymphocytes Absolute Auto 0.9 X10*3/uL (1.2-4.9); MANUAL DIFF FLAG SCAN; Mean Corpuscular HGB Conc 29.8 g/dl (31.0-36.0); Mean Corpuscular Hemoglobin 26.9 pg (27.0-33.0); Mean Corpuscular Volume 90.4 fL (80.0-98.0); Monocytes Absolute Auto 0.4 X10*3/uL (0.1-1.2); Monocytes Percent Auto 7.9 % (2-11); Neutrophils Absolute Auto 3.4 x10*3/uL (2.0-8.3); Neutrophils Percent Auto 65.9 % (45-73); Red Blood Count 3.01 X10*6/uL (4.60-5.80); Red Cell Distribution Width 24.5 % (11.0-16.0); White Blood Count 5.2 X10*3/uL (4.8-10.8)
[2021-05-07 16:08] LABS: PLT ABN DIST 1; Platelet Count 59 X10*3/uL (160-400)
[2021-05-07 16:09] LABS: SLIDE REVIEW VERIFIED
[2021-05-07 16:14] LABS: Alanine Aminotransferase 20 U/L (0-40); Albumin Level 2.2 g/dL (3.5-5.0); Alkaline Phosphatase 154 U/L (39-117); Anion Gap 7 (12-20); Aspartate Amino Transferase 37 U/L (5-37); Bilirubin Total 0.9 mg/dL (0.0-1.0); Blood Urea Nitrogen 15 mg/dL (9-16); Calcium 7.7 mg/dL (8.4-10.2); Carbon Dioxide 28 mmol/L (22-29); Chloride 106 mmol/L (96-108); Creatinine Clr Calc Pharmacy 108.8; Estimated Glomerular Filt Rate > 60; Glucose Random 107 mg/dL (60-115); Potassium 4.4 mmol/L (3.3-5.1); Sodium 137 mmol/L (135-145); Total Protein 6.6 g/dL (6.5-8.0)
--- NOTE | 2021-05-07 16:23 | ED.WOUNDLAC ---
HPI - Wound/Laceration General Chief Complaint: Wound/Laceration Stated Complaint: leg infection Time Seen by Provider: 05/07/21 14:57 History of Present Illness HPI narrative: Patient complains of painful blister on the back of his left ankle noticed this morning, patient was here several days ago for cellulitis on his right mid leg from a wound that is been there for a long time, he says that is improving and he has had no fevers or no other issues, he denies any injury Related Data Home Medications Medication Instructions Recorded Confirmed methadone 10 mg/5 mL oral solution 55 mg PO DAILY ml 11/25/20 03/25/21 Previous Rx's Medication Instructions Recorded ferrous sulfate 324 mg (65 mg 324 mg PO DAILY 30 Days #30 tab 03/28/21 iron) tablet,delayed release cephalexin 500 mg capsule 500 mg PO QID 5 Days #20 cap 05/04/21 Allergies Allergy/AdvReac Type Severity Reaction Status Date / Time No Known Allergies Allergy Unknown Verified 05/07/21 12:54 Review of Systems Review of Systems: Positive for painful blister on the left foot Negatives are no fever no chills no dizziness or weakness no headache no neck pain no stiff neck no chest pain no shortness of breath no abdominal pain in no vomiting no joint pain Yes all other systems are reviewed and are negative PMFSH Past Medical History Source: nursing notes reviewed Medical History Asthma GERD (gastroesophageal reflux disease) Hepatitis C Recurrent major depression Right wrist drop Substance abuse Surgical History (Updated 03/25/21 @ 12:46 by Zi Butler MD) No pertinent past surgical history Social History Social History (Updated 03/25/21 @ 12:47 by Zi Butler MD) Housing: Homeless Alcohol intake: current Patient Tobacco Use Status: Current everyday Tobacco user Tobacco use type: Cigarette Substance Use Type: Crack/Cocaine, Heroin, IV Drugs, Marijuana and Opiates Advance Directives: No Advance Directives Information Provided: No service: No Current occupational status: unemployed Physical Exam Vital Signs: Vital Signs: Last Vital Signs Temp 98.6 F 05/07/21 15:50 Pulse 76 05/07/21 15:50 Resp 18 05/07/21 15:50 BP 144/77 H 05/07/21 15:50 Pulse Ox 99 05/07/21 15:50 BMI result Body Mass Index 22.9 General appearance comfortable cooperative no acute distress Head is normocephalic atraumatic Neck is supple Respiratory no distress Extremities full range of motion x4 The left foot exam is normal except for the posterior ankle shows a quarter size fluctuant blister with no surrounding erythema, full range of motion in the ankle and toes and knee, patient ambulates comfortably wearing a slipper that does not rub against the blister The right leg exam where he is being treated for cellulitis around a chronic wound showed some minimal redness around the edges of the wound and when compared to a picture from his previous visit actually looked improved Course Course Course Narrative: The blister was aspirated with an 18 gauge needle and flattened with a discharge of watery bloody fluid, there was no pus, likely it is from something rubbing against the back of his foot and does not appear to be infected now, a dressing was applied The cellulitis from the prior visit a few days ago seems to be doing well with the antibiotic Labs were drawn from triage and showed a worsening of his pre-existing anemia and some low platelets so I suggested he follow closely with his doctor and he was discharged MDM - Wound/Laceration Lab Data Result diagrams: 05/07/21 15:46 05/07/21 15:46 Labs: Lab Results 05/07/21 05/07/21 Range/Units 15:46 15:46 WBC 5.2 (4.8-10.8) X10*3/uL RBC 3.01 L (4.60-5.80) X10*6/uL Hgb 8.1 L (14.0-18.0) g/dl Hct 27.2 L (42.0-52.0) % MCV 90.4 (80.0-98.0) fL MCH 26.9 L (27.0-33.0) pg MCHC 29.8 L (31.0-36.0) g/dl RDW 24.5 H (11.0-16.0) % Plt Count 59 L (160-400) X10*3/uL MPV Not Reportable Immature Gran % (Auto) 0.6 H (0.0-0.4) % Neut % (Auto) 65.9 (45-73) % Lymph % (Auto) 18.0 L (20-40) % [place] % (Auto) 7.9 (2-11) % Eos % (Auto) 7.2 H (0-4) % Baso % (Auto) 0.4 (0-2) % Lymph # (Auto) 0.9 L (1.2-4.9) X10*3/uL [place] # (Auto) 0.4 (0.1-1.2) X10*3/uL Eos # (Auto) 0.4 (0.0-0.4) X10*3/uL Baso # (Auto) 0.0 (0.0-0.2) X10*3/uL Abs Immat Gran (auto) 0.03 (0.00-0.03) X10*3/uL Absolute Neuts (auto) 3.4 (2.0-8.3) x10*3/uL Absolute Nucleated RBC 0.000 (0.0-0.012) X10*3/uL Nucleated RBC % (auto) 0.0 (0.0-0.2) /100WBC Smear Tech's Comments VERIFIED Sodium 137 (135-145) mmol/L Potassium 4.4 (3.3-5.1) mmol/L Chloride 106 (96-108) mmol/L Carbon Dioxide 28 (22-29) mmol/L Anion Gap 7 L (12-20) BUN 15 (9-16) mg/dL Creatinine 0.75 (0.5-1.4) mg/dL Estim Creat Clear Calc 108.8 Estimated GFR > 60 Random Glucose 107 (60-115) mg/dL Calcium 7.7 L D (8.4-10.2) mg/dL Total Bilirubin 0.9 (0.0-1.0) mg/dL AST 37 D (5-37) U/L ALT 20 (0-40) U/L Alkaline Phosphatase 154 H (39-117) U/L Total Protein 6.6 D (6.5-8.0) g/dL Albumin 2.2 L D (3.5-5.0) g/dL Discharge Plan Discharge Clinical Impression: Blister Patient Disposition: Home, Self-Care Additional Instructions: I drained the blister and it does not look badly infected, continue the antibiotic your already on for the infection in the other leg Do not wear any shoe that rubs the area Cover with a Band-Aid Return any time any worse condition or any concerns Our testing showed that you have low platelets and a worsening anemia so follow closely with your doctor Prescriptions: No Action cephalexin 500 mg capsule 500 mg PO QID 5 Days Qty: 20 0RF ferrous sulfate 324 mg (65 mg iron) Tablet,Delayed Release (Dr/Ec) 324 mg PO DAILY 30 Days Qty: 30 0RF methadone 10 mg/5 mL solution 55 mg PO DAILY 0RF Interventions: ED Discharge Assessment Last Done: 05/07/21 17:15 Discharge Date/Time: 05/07/21 17:17
== END 2021-05-07 17:17 | disposition home or self-care (01) ==
PROVIDERS: Emergency Provider Emergency Medicine; PCP Internal Medicine
DX: F11.20 Opioid dependence, uncomplicated (principal); F19.10 Other psychoactive substance abuse, uncomplicated; F17.200 Nicotine dependence, unspecified, uncomplicated; B19.20 Unspecified viral hepatitis C without hepatic coma
CPT/HCPCS: 36415; 80053; 85025; 87071; 87205; 99283; 99284

== ENCOUNTER 2021-05-09 14:12 | Inpatient (IN) | payer OTHER, SELFPAY ==
--- NOTE | ~2021-05-09 | XR_ITS ---
EXAMINATION: XR CHEST CLINICAL INFORMATION: Positive blood cultures, lower extremity edema COMPARISON: 05/04/2021 TECHNIQUE: 2 views of the chest were obtained. FINDINGS: No significant abnormality is noted involving the heart, lungs, mediastinum, bony thorax or soft tissues. XR/XR chest 2V IMPRESSION: No acute disease within the chest. No focal consolidation.
--- NOTE | ~2021-05-09 | US_ITS ---
EXAMINATION: US VENOUS ULTRASOUND WITH DOPPLER LOWER EXTREMITY, BILATERAL CLINICAL INFORMATION: Edema COMPARISON: None TECHNIQUE: Ultrasound of the deep veins is performed from the hip to the calf with compression sonography and color and pulse Doppler assessment. Spectral analysis with color-flow imaging is performed. FINDINGS: RIGHT: There is normal venous compression and respiratory variation and augmented flow. The visualized common femoral vein, superficial femoral vein, profunda femoral vein, popliteal vein, and the trifurcation region shows no evidence of deep venous thrombosis. There is no significant popliteal fossa cyst. LEFT: There is normal venous compression and respiratory variation and augmented flow. The visualized common femoral vein, superficial femoral vein, profunda femoral vein, popliteal vein, and the trifurcation region shows no evidence of deep venous thrombosis. There is no significant popliteal fossa cyst. If the patient's symptoms persist, followup ultrasound in 5 days 7 days might be of value to exclude proximal propagation from a non-visualized calf vein. US/US venous duplex LE BI IMPRESSION: No DVT demonstrated in the bilateral lower extremity.
[2021-05-09 14:15] VITALS: BP 134/75; PULSE 80; RESP 18; TEMP 36.6; O2SAT 99; BMI 22.9
--- NOTE | 2021-05-09 15:44 | ED_ITS ---
HPI - Recheck/Abnormal Lab/Rx General Chief Complaint: Recheck/Abnormal Lab/Rx Stated Complaint: infection in blood Time Seen by Provider: 05/09/21 14:14 Source: patient Mode of arrival: ambulatory Limitations: no limitations History of Present Illness HPI narrative: 60-year-old male with a past medical history of untreated hepatitis-C, erosive gastritis, asthma, GERD, major depressive disorder, substance abuse with cocaine, heroin and alcohol usually drinks whiskey currently on 40 mg of methadone daily presenting to the ED after he was called back by one of the other providers for positive blood cultures that were obtained on 05/04/2021 which grew Streptococcus Pyogenes (Grp A) then was seen here on 05/07/2021 and had positive Gram stain culture of the blister to his left foot near the calcaneus which grew [place] Streptococcus group which is susceptible to ampicillin or penicillin G therefore he was instructed here for further evaluation treatment and IV antibiotics and admission. The patient was prescribed Keflex on 05/04/2021 that he reports he was taking as prescribed. denies any recent drug or alcohol usage. He denies any fevers, chills, dizziness, headaches, neck pain/stiffness, trouble swallowing or breathing, chest pain or shortness of breath, cough, dyspnea on exertion, orthopnea, palpitations, nausea/vomiting/diarrhea, abdominal pain, back pain, recent travel or sick contacts, recent immobilization or surgery, recent procedures, history of DVT or PE or any other symptoms complaints or concerns at this time. MD complaint: abnormal lab (Positive blood culture) Initial visit (ago): day(s) (On 05/04/2021 and then again on 05/07/2021) Initial visit for: cellulitis and abscess Returns today for: called because of abnormal lab/test and needs IV antibiotics Symptoms since prior visit: no new symptoms Context: called for positive culture result Associated symptoms: none Related Data Home Medications Medication Instructions Recorded Confirmed methadone 10 mg/5 mL oral solution 40 mg PO DAILY ml 11/25/20 05/09/21 omeprazole 40 mg capsule,delayed 1 cap PO BID 05/09/21 05/09/21 release Previous Rx's Medication Instructions Recorded ferrous sulfate 324 mg (65 mg 324 mg PO DAILY 30 Days #30 tab 03/28/21 iron) tablet,delayed release cephalexin 500 mg capsule 500 mg PO QID 5 Days #20 cap 05/04/21 Allergies Allergy/AdvReac Type Severity Reaction Status Date / Time No Known Allergies Allergy Unknown Verified 05/07/21 12:54 Review of Systems Review of Systems: Constitutional : No Weight loss, No Fever, No Chills, No Night Sweats, No Fatigue, No Malaise ENT/Mouth : No Hearing loss, No Ear Pain, No Nasal Congestion, No Sinus Pain, No Hoarseness, No sore throat, No Rhinorrhea, No Swallowing Difficulty Eyes: No Eye Pain, No Swelling, No Redness, No Foreign Body, No Discharge, No Vision Changes Cardiovascular : No Chest Pain, No SOB, No Dyspnea on Exertion, No Orthopnea, No Edema, No Palpitations Respiratory : No Cough, No Sputum, No Wheezing, No Smoke Exposure, No Dyspnea Gastrointestinal : No Nausea, No Vomiting, No Diarrhea, No Constipation, No abdominal Pain, No Hematochezia, No Melena Genitourinary : no irregular bleeding, No Dysuria, No Urinary Frequency, No Hematuria, No Urinary Incontinence, No Urgency, No Flank Pain, No Urinary Flow Changes, No Hesitancy Musculoskeletal : No joint pain, No Myalgias, No Joint Swelling Skin : + Skin Lesions, No rash Neuro : No Weakness, No Numbness, No Paresthesias, No Loss of Consciousness, No Dizziness, No Headache Psych : No Anxiety/Panic, No Depression, No SI/HI/AH/VH, No Social Issues, Heme/Lymph: No Bruising, No Bleeding,No Lymphadenopathy Endocrine : No Polyuria, No Polydipsia, No Temperature Intolerance Yes all other systems are reviewed and are negative [facility] Past Medical History Attestation statement: The following information was validated with the patient. Medical History Asthma GERD (gastroesophageal reflux disease) Hepatitis C Recurrent major depression Right wrist drop Substance abuse Surgical History No pertinent past surgical history Social History Social History Housing: Homeless Alcohol intake: current Patient Tobacco Use Status: Current everyday Tobacco user Tobacco use type: Cigarette Substance Use Type: Crack/Cocaine, Heroin, IV Drugs, Marijuana and Opiates Advance Directives: No Advance Directives Information Provided: No service: No Current occupational status: unemployed Physical Exam Vital Signs: Vital Signs: Last Vital Signs Temp 97.9 F 05/09/21 14:15 Pulse 75 05/09/21 16:19 Resp 18 05/09/21 16:19 BP 116/67 05/09/21 16:19 Pulse Ox 99 05/09/21 16:19 BMI result Body Mass Index 22.9 vital signs have been reviewed as normal and appeared to be correct. Blood pressure normal. Heart rate normal. Respiration rate normal. Temperature normal. Oxygen saturation normal. Appearance: Alert. Oriented X3. No acute distress. Head: Normal external exam. Normocephalic. Atraumatic. Eyes: PERRLA. EOMI. Conjunctiva and sclera normal. Eyelids normal. ENT: Pharynx normal. Uvula midline. Moist mucous membranes. Normal voice. No trismus noted. No drooling noted. No muffled voice noted. Neck: Normal inspection. Neck supple. FROM. No adenopathy. Thyroid Normal. No tracheal deviation noted. No meningeal signs. No neck mass noted. No signs of trauma noted. CVS: Normal heart rate and rhythm. Heart sound normal. Pulses normal throughout. No murmurs/rales/gallops. Respiratory: No respiratory distress. Painless inspiration. Breath sounds normal. No wheezes/rales/rhonchi noted. Chest nontender. No accessory muscle usage noted or decreased air movement noted. No signs of trauma. Abdomen: Soft and nontender. Bowel sounds normal in all 4 quadrants. No distention noted. No organomegaly noted. No visible injury noted. Back: No CVA tenderness. Full range of motion noted. Nontender. No signs of trauma. Patient neuro intact bilaterally and distally on all 4 extremities. Patient's reflexes intact bilaterally and distally on all 4 extremities. No rashes/lesion/induration/fluctuance or signs of infection noted. Skin: Skin warm and dry. Normal skin color. Normal skin turgor. Patient noted to have a wound to the right casanova/anterior lower leg with mild purulent drainage although no surrounding erythema/streaking/induration/fluctuance or streaking noted at this time or foreign bodies. Patient with what appears like a blister to the left medial aspect of the foot right above the calcaneus below the ankle joint with mild surrounding erythema. No streaking. He does have serosanguineous drainage. No foreign bodies are noted. Otherwise no additional rashes/lesions/lacerations noted to the body. Extremities: Patient with +3 lower extremity pitting edema. No calf tenderness is noted. Extremities exhibit normal range of motion and nontender. Neuro: Oriented X 3. No motor deficit. No sensory deficit. Reflexes normal. Normal steady gait. No focal neuro deficits noted. CN's II-XII intact bilaterally? Vascular: + radial pulses/+ 2 distal pedal pulses/+2 dorsalis pedis b/l. Normal cap refill. No cyanosis noted to upper extremity nails and lower extremity toes nails. Right Casanova/anterior lower leg Left lower Leg Left Foot Bilateral lower legs Course Course Course Narrative: 15:30pm - 60-year-old male with a past medical history of untreated hepatitis-C, erosive gastritis, asthma, GERD, major depressive disorder, substance abuse with cocaine, heroin and alcohol usually drinks whiskey currently on 40 mg of methadone daily presenting to the ED after he was called back by one of the other providers for positive blood cultures that were obtained on 05/04/2021 which grew Streptococcus Pyogenes (Grp A) then was seen here on 05/07/2021 and had positive Gram stain culture of the blister to his left foot near the calcaneus which grew [place] Streptococcus group which is susceptible to ampicillin or penicillin G therefore he was instructed here for further evaluation treatment and IV antibiotics and admission. The patient was prescribed Keflex on 05/04/2021 that he reports he was taking as prescribed. Plan: Labs, Blood cultures, lactic acid. CXR, venous duplex Ultraspund of b/l lower extremities, EKG. Provide IVF's and IV Penicillin G then re-evaluate. - Sign out to NORA Navarrete pending labs, chest x-ray, venous duplex ultrasound of bilateral extremities and admission for positive blood cultures. MDM - Recheck/Abnormal Lab/Rx Medical Records Attestation: I reviewed the patient's medical records. Lab Data Attestation: I reviewed the patient's lab results. Result diagrams: 05/09/21 16:06 05/09/21 16:06 Labs: Lab Results 05/09/21 05/09/21 05/09/21 Range/Units 16:06 16:06 16:06 MPV Not Reportable Sodium 136 (135-145) mmol/L Potassium 4.5 (3.3-5.1) mmol/L Chloride 104 (96-108) mmol/L Carbon Dioxide 28 (22-29) mmol/L Anion Gap 9 L (12-20) BUN 15 (9-16) mg/dL Creatinine 0.79 (0.5-1.4) mg/dL Estim Creat Clear Calc 103.3 Estimated GFR > 60 Random Glucose 94 (60-115) mg/dL Lactic Acid 1.9 (0.5-2.0) mmol/L Calcium 8.4 D (8.4-10.2) mg/dL Magnesium 1.8 (1.6-2.6) mg/dL Total Bilirubin 1.0 (0.0-1.0) mg/dL AST 36 (5-37) U/L ALT 18 (0-40) U/L Alkaline Phosphatase 181 H (39-117) U/L B-Natriuretic Peptide (<100) pg/mL Total Protein 7.1 (6.5-8.0) g/dL Albumin 2.4 L (3.5-5.0) g/dL Urine Color Urine Appearance Urine pH (5.0-8.0) Ur Specific [place] (1.005-1.025) Urine Protein (NEG-TRACE) MG/DL Urine Glucose (UA) (NEG) MG/DL Urine Ketones (NEG) MG/DL Urine Blood (NEG) Urine Nitrite (NEG) Ur Leukocyte Esterase (NEG) COVID-19 ([facility]) (Negative) COVID-19 Clin Com 05/09/21 05/09/21 05/09/21 Range/Units 16:06 16:06 16:06 MPV Sodium (135-145) mmol/L Potassium (3.3-5.1) mmol/L Chloride (96-108) mmol/L Carbon Dioxide (22-29) mmol/L Anion Gap (12-20) BUN (9-16) mg/dL Creatinine (0.5-1.4) mg/dL Estim Creat Clear Calc Estimated GFR Random Glucose (60-115) mg/dL Lactic Acid (0.5-2.0) mmol/L Calcium (8.4-10.2) mg/dL Magnesium (1.6-2.6) mg/dL Total Bilirubin (0.0-1.0) mg/dL AST (5-37) U/L ALT (0-40) U/L Alkaline Phosphatase (39-117) U/L B-Natriuretic Peptide 101 H (<100) pg/mL Total Protein (6.5-8.0) g/dL Albumin (3.5-5.0) g/dL Urine Color YELLOW Urine Appearance CLEAR Urine pH 6.0 (5.0-8.0) Ur Specific [place] 1.025 (1.005-1.025) Urine Protein NEG (NEG-TRACE) MG/DL Urine Glucose (UA) NEG (NEG) MG/DL Urine Ketones NEG (NEG) MG/DL Urine Blood NEG (NEG) Urine Nitrite NEG (NEG) Ur Leukocyte Esterase NEG (NEG) COVID-19 ([facility]) Negative (Negative) COVID-19 Clin Com See Note Imaging Data Chest x-ray: Attestation: I personally reviewed and interpreted this imaging study as follows: Radiologist's impression: FINDINGS: No significant abnormality is noted involving the heart, lungs, mediastinum, bony thorax or soft tissues. XR/XR chest 2V IMPRESSION: No acute disease within the chest. No focal consolidation. Critical Care Time Critical Care Time Critical Care Time: Yes Total Critical Care Time: 60 Attestation: I personally attest to this time spent taking care of the patient Discharge Plan Discharge Clinical Impression: Positive blood culture, Infection due to Streptococcus pyogenes, Open wound of left foot, Leg wound, right Patient Disposition: Admitted As Inpatient
--- NOTE | 2021-05-09 16:09 | PHA.MEDREC ---
Pharmacy Consult ? Medication Reconciliation Pharmacy has completed the medication reconciliation.
[2021-05-09 16:15] LABS: Appearance Urine CLEAR; Color Urine YELLOW; Glucose Urine UA NEG (NEG); Hemoglobin 7.9 g/dl (14.0-18.0); Imm Gran Abs Auto 0.05 X10*3/uL (0.00-0.03); Leukocyte Esterase Urine NEG (NEG); Mean Corpuscular Hemoglobin 27.2 pg (27.0-33.0); Nitrite Urine NEG (NEG); Red Cell Distribution Width 23.5 % (11.0-16.0); SCAN SMEAR FLAG 1; Specific Gravity - Urine 1.025 (1.005-1.025); Urine Blood NEG (NEG); Urine Ketones NEG (NEG); Urine Protein NEG (NEG-TRACE)
[2021-05-09 16:17] LABS: Basophils Percent Auto 0.5 % (0-2); Eosinophils Absolute Auto 0.3 X10*3/uL (0.0-0.4); Eosinophils Percent Auto 5.5 % (0-4); Hematocrit 26.3 % (42.0-52.0); Imm Gran Pct Auto 0.8 % (0.0-0.4); Lymphocytes Percent Auto 16.5 % (20-40); MANUAL DIFF FLAG SCAN; Mean Corpuscular Volume 90.7 fL (80.0-98.0); Monocytes Absolute Auto 0.5 X10*3/uL (0.1-1.2); Monocytes Percent Auto 8.2 % (2-11); Neutrophils Absolute Auto 4.1 x10*3/uL (2.0-8.3); Neutrophils Percent Auto 68.5 % (45-73)
[2021-05-09 16:18] LABS: PLT ABN DIST 1; Platelet Count 78 X10*3/uL (160-400)
[2021-05-09 16:19] VITALS: BP 116/67; PULSE 75; RESP 18; O2SAT 99
[2021-05-09] MEDS: 0.9 % Sodium Chloride 1,000 ML 999 ML IVCONT (16:19)
[2021-05-09 16:28] LABS: Lactic Acid 1.9 mmol/L (0.5-2.0)
[2021-05-09 16:35] LABS: COVID-19 Test Negative (Negative); IDNOW Serial# 16C4AD1C
[2021-05-09 16:37] LABS: Alanine Aminotransferase 18 U/L (0-40); Albumin Level 2.4 g/dL (3.5-5.0); Alkaline Phosphatase 181 U/L (39-117); Anion Gap 9 (12-20); Aspartate Amino Transferase 36 U/L (5-37); B Type Natriuretic Peptide 101 pg/mL (<100); Blood Urea Nitrogen 15 mg/dL (9-16); Calcium 8.4 mg/dL (8.4-10.2); Carbon Dioxide 28 mmol/L (22-29); Chloride 104 mmol/L (96-108); Creatinine Clr Calc Pharmacy 103.3; Estimated Glomerular Filt Rate > 60; Glucose Random 94 mg/dL (60-115); Magnesium 1.8 mg/dL (1.6-2.6); Potassium 4.5 mmol/L (3.3-5.1); Sodium 136 mmol/L (135-145); Total Protein 7.1 g/dL (6.5-8.0)
[2021-05-09 16:40] LABS: SLIDE REVIEW VERIFIED
[2021-05-09 17:02] VITALS: BP 135/81; PULSE 74; RESP 18; O2SAT 98
[2021-05-09 17:26] LABS: INTERNATIONAL NORM RATIO 1.4 (0.9-1.1); Prothrombin Time 16.1 SEC (9.9-13.0)
[2021-05-09] MEDS: Dextrose 5 % and 0.45 % NaCl 1,000 ML 100 ML IVCONT (18:27)
[2021-05-09 18:29] VITALS: BP 140/78; PULSE 77; RESP 18; TEMP 36.8; O2SAT 97
--- NOTE | 2021-05-09 18:30 | PM.IMHP ---
History of Present Illness Date of Service: 05/09/21 Chief Complaint: bacteremia 60-year-old male with a past medical history of untreated hepatitis-C, erosive gastritis, asthma, GERD, major depressive disorder, substance abuse with cocaine, heroin and alcohol usually drinks whiskey currently on 40 mg of methadone daily presenting to the ED after he was called back by one of the other providers for positive blood cultures that were obtained on 05/04/2021 which grew Streptococcus Pyogenes (Grp A) then was seen here on 05/07/2021 and had positive Gram stain culture of the blister to his left foot near the calcaneus which grew [place] Streptococcus group which is susceptible to ampicillin or penicillin G therefore he was instructed here for further evaluation treatment and IV antibiotics and admission.?? ER evaluation including Venous duplex essentially unremarkable Review of Systems Review of Systems: Denies chest pain Denies shortness of breath Denies nausea vomiting diarrhea Denies fever chills or rigors PMFSH Medical History Asthma GERD (gastroesophageal reflux disease) Hepatitis C Recurrent major depression Right wrist drop Substance abuse Surgical History No pertinent past surgical history Social History Household Members: Other Household Members Other:: Mother Housing: House Do you presently have visiting nurse or other home services: No Alcohol intake: current Patient Tobacco Use Status: Current someday Tobacco user Tobacco use type: Cigarette Smoked in Last 30 Days: Yes Patient Interested in Nicotine Replacement: No Use of substances other than those prescribed or required for medical reasons: Yes Substance Use Type: Amphetamines, Crack/Cocaine, Heroin, IV Drugs, Marijuana and Opiates Substance Use Frequency: Chronic Longstanding Last Used Substance: Days (ago) Last Used Substance Other:: 5 days Currently Displaying Signs/Symptoms of Drug Intoxication Withdrawal: No Any prior treatment program specific to substance use: Yes Have you been hit, kicked, punched, or otherwise hurt by someone within the past year? If so, by whom?: No Do you feel safe in your current relationship?: No Current Relationship Is there a partner from a previous relationship who is making you feel unsafe now?: No Are you made to feel afraid or neglected: No Advance Directives: No Advance Directives Information Provided: No Advance Directives on File: No Do you have thoughts of harming others: None Do you have a plan to hurt others: No Plan Recently lost weight without trying: No Nutrition Risks: No Nutritional Risk Poor oral hygiene: No service: No Current occupational status: unemployed Meds Allergies Allergy/AdvReac Type Severity Reaction Status Date / Time No Known Allergies Allergy Unknown Verified 05/07/21 12:54 Active Medications: Current Medications Enoxaparin Sodium (Enoxaparin Sodium 40 Mg/0.4 Ml Syringe) 40 mg SUBCUT Q24H [facility] Penicillin G Potassium 2,500, (000 unit/ Sodium Chloride) 50 mls @ 100 mls/hr IV ONCE ERIKA Last Infusion: 05/09/21 17:38 Dose: Infused Documented by: Dextrose/Sodium Chloride ([id number]/2ns) 1,000 mls @ 100 mls/hr IVCONT .Q10H ERIKA Last Admin: 05/09/21 18:27 Dose: 100 mls/hr Documented by: Pharmacy Consult (Consult Rx Perform Med Rec) 1 each MISCELLANE ONCE PRN PRN Reason: Consult order Sodium Chloride (0.9 % Sodium Chloride Flush 3 Ml Syringe) 3 ml IVFLUSH QSHIFT [facility] Home Medications Medication Instructions Recorded Confirmed Last Taken Type methadone 10 mg/5 mL oral solution 40 mg PO DAILY ml 11/25/20 05/09/21 05/09/21 History omeprazole 40 mg capsule,delayed 1 cap PO BID 05/09/21 05/09/21 05/09/21 History release Physical Exam Vital Signs and Narrative: Vital Signs: Last Vital Signs Temp 97.9 F 05/09/21 14:15 Pulse 74 05/09/21 17:02 Resp 18 05/09/21 17:02 BP 135/81 05/09/21 17:02 Pulse Ox 98 05/09/21 17:02 BMI result Body Mass Index 22.9 Const: Other: Awake alert oriented x3 resting quietly in bed Resp: Other: Clear to auscultation bilaterally no rales rhonchi or wheezes Cardio: Other: No S4; positive S1-S2; no S3 2/6 systolic ejection murmur best heard at apex without radiation GI: Other: Soft nontender nondistended with normoactive bowel sounds Extrem: Other: Cellulitic changes with ulceration right lower extremity ulceration over Achilles insertion left foot (please see ER documentation for pictures) Results Labs CBC and Chem 7: 05/10/21 07:25 05/10/21 07:25 Labs: Laboratory Results - last 24 hr 05/09/21 05/09/21 05/09/21 16:06 16:06 16:06 MCV 90.7 MCH 27.2 MCHC 30.0 L RDW 23.5 H Plt Count 78 L D MPV Not Reportable Immature Gran % (Auto) 0.8 H Neut % (Auto) 68.5 Lymph % (Auto) 16.5 L [place] % (Auto) 8.2 Eos % (Auto) 5.5 H Baso % (Auto) 0.5 Lymph # (Auto) 1.0 L [place] # (Auto) 0.5 Eos # (Auto) 0.3 Baso # (Auto) 0.0 Abs Immat Gran (auto) 0.05 H Absolute Neuts (auto) 4.1 Absolute Nucleated RBC 0.000 Nucleated RBC % (auto) 0.0 Smear Tech's Comments VERIFIED PT 16.1 H INR 1.4 H Anion Gap 9 L Estim Creat Clear Calc 103.3 Estimated GFR > 60 Random Glucose 94 Lactic Acid Calcium 8.4 D Magnesium 1.8 Total Bilirubin 1.0 AST 36 ALT 18 Alkaline Phosphatase 181 H B-Natriuretic Peptide Total Protein 7.1 Albumin 2.4 L Urine Color Urine Appearance Urine pH Ur Specific [place] Urine Protein Urine Glucose (UA) Urine Ketones Urine Blood Urine Nitrite Ur Leukocyte Esterase COVID-19 ([facility]) COVID-19 Clin Com 05/09/21 05/09/21 05/09/21 16:06 16:06 16:06 MCV MCH MCHC RDW Plt Count MPV Immature Gran % (Auto) Neut % (Auto) Lymph % (Auto) [place] % (Auto) Eos % (Auto) Baso % (Auto) Lymph # (Auto) [place] # (Auto) Eos # (Auto) Baso # (Auto) Abs Immat Gran (auto) Absolute Neuts (auto) Absolute Nucleated RBC Nucleated RBC % (auto) Smear Tech's Comments PT INR Anion Gap Estim Creat Clear Calc Estimated GFR Random Glucose Lactic Acid 1.9 Calcium Magnesium Total Bilirubin AST ALT Alkaline Phosphatase B-Natriuretic Peptide 101 H Total Protein Albumin Urine Color Urine Appearance Urine pH Ur Specific [place] Urine Protein Urine Glucose (UA) Urine Ketones Urine Blood Urine Nitrite Ur Leukocyte Esterase COVID-19 ([facility]) Negative COVID-19 Clin Com See Note 05/09/21 16:06 MCV MCH MCHC RDW Plt Count MPV Immature Gran % (Auto) Neut % (Auto) Lymph % (Auto) [place] % (Auto) Eos % (Auto) Baso % (Auto) Lymph # (Auto) [place] # (Auto) Eos # (Auto) Baso # (Auto) Abs Immat Gran (auto) Absolute Neuts (auto) Absolute Nucleated RBC Nucleated RBC % (auto) Smear Tech's Comments PT INR Anion Gap Estim Creat Clear Calc Estimated GFR Random Glucose Lactic Acid Calcium Magnesium Total Bilirubin AST ALT Alkaline Phosphatase B-Natriuretic Peptide Total Protein Albumin Urine Color YELLOW Urine Appearance CLEAR Urine pH 6.0 Ur Specific [place] 1.025 Urine Protein NEG Urine Glucose (UA) NEG Urine Ketones NEG Urine Blood NEG Urine Nitrite NEG Ur Leukocyte Esterase NEG COVID-19 ([facility]) COVID-19 Clin Com Imaging Radiologist's Impressions: Impressions Chest X-Ray 05/09/21 16:15 IMPRESSION: No acute disease within the chest. No focal consolidation. Venous Duplex 05/09/21 16:50 IMPRESSION: No DVT demonstrated in the bilateral lower extremity. Assessment and Plan (1) Bacteremia: Status: Acute (2) Infection due to Streptococcus pyogenes: Status: Acute (3) Open wound of left foot: Status: Acute (4) Leg wound, right: Status: Acute Plan 60-year-old male presents today after blood cultures drawn 05/04/2021 grew out strep pyogenes a 1/2 bottles. He remains afebrile. He is noted to have cellulitic changes and ulcerations on both lower extremities. Has a history of IV drug abuse last methadone this morning 1. Strep pyogenese bacteremia -Will consult ID... Given organism will treat 1/2 bottles -will cover with penicillin VK until clarified -2d echo in am - follow renals /divalents 2. Cellulitis -Vancomycin -ID consult in am 3.Opiod use disorder -last Methadone from clinic this am -care team consult in am Lovenox Full Code. Requires inpatient admission secondary to cellulitis with question of concomitant bacteremia requiring IV antibiotics. Failed outpatient therapy Quality Stroke Does the patient have a stroke diagnosis?: No VTE Prior VTE?: No VTE Risk Level:: Medical - moderate - high VTE Device Contraindication: Treatment Not Indicated VTE Drug Contraindication: N/A - Med Ordered
[2021-05-09] MEDS: Enoxaparin Sodium 40 MG/0.4 ML SYRINGE SUBCUT (19:15)
--- NOTE | 2021-05-09 19:15 | MHC.CARE ---
CARE team consult received from hospitalist re: confirming pt's methadone dose. Dosing is verified by nursing. This residential mortgage underwriter reviewed chart, pt receives methadone from the [facility] methadone clinic on [facility] in [place], information was passed along to ED nurse.
[2021-05-09 22:00] VITALS: BP 141/80; PULSE 67; RESP 17; TEMP 36.3; O2SAT 99
[2021-05-09 22:41] VITALS: BP 132/78; PULSE 73; RESP 18; TEMP 36.9
[2021-05-09] MEDS: Penicillin G Potassium 5,000,000 UNIT in 0.9 % Sodium Chloride 100 ML 200 UNIT IV (22:41)
--- NOTE | 2021-05-09 23:09 | PC.NURSE ---
Pt IV access no longer working. This RN stuck patient twice without getting access, another RN trying at this time, will continue to monitor.
[2021-05-10] MEDS: Penicillin G Potassium 5,000,000 UNIT in 0.9 % Sodium Chloride 100 ML 200 UNIT IV ×3 (02:32→13:47)
[2021-05-10 07:31] LABS: MANUAL DIFF FLAG NO
[2021-05-10 07:37] LABS: Basophils Percent Auto 0.3 % (0-2); Eosinophils Absolute Auto 0.3 X10*3/uL (0.0-0.4); Eosinophils Percent Auto 8.4 % (0-4); Hematocrit 24.8 % (42.0-52.0); Hemoglobin 7.6 g/dl (14.0-18.0); Imm Gran Abs Auto 0.04 X10*3/uL (0.00-0.03); Imm Gran Pct Auto 1.1 % (0.0-0.4); Lymphocytes Absolute Auto 0.8 X10*3/uL (1.2-4.9); Lymphocytes Percent Auto 20.6 % (20-40); Mean Corpuscular HGB Conc 30.6 g/dl (31.0-36.0); Mean Corpuscular Hemoglobin 27.4 pg (27.0-33.0); Mean Corpuscular Volume 89.5 fL (80.0-98.0); Monocytes Absolute Auto 0.3 X10*3/uL (0.1-1.2); Monocytes Percent Auto 9.2 % (2-11); Neutrophils Absolute Auto 2.2 x10*3/uL (2.0-8.3); Neutrophils Percent Auto 60.4 % (45-73); Platelet Count 70 X10*3/uL (160-400); Red Blood Count 2.77 X10*6/uL (4.60-5.80); Red Cell Distribution Width 22.8 % (11.0-16.0); White Blood Count 3.7 X10*3/uL (4.8-10.8)
[2021-05-10 07:54] LABS: Alanine Aminotransferase 17 U/L (0-40); Alkaline Phosphatase 163 U/L (39-117); Anion Gap 10 (12-20); Aspartate Amino Transferase 42 U/L (5-37); Bilirubin Total 0.6 mg/dL (0.0-1.0); Blood Urea Nitrogen 12 mg/dL (9-16); Carbon Dioxide 24 mmol/L (22-29); Chloride 110 mmol/L (96-108); Creatinine Clr Calc Pharmacy 123.7; Estimated Glomerular Filt Rate > 60; Glucose Fasting 88 mg/dL (60-99); Sodium 139 mmol/L (135-145); Total Protein 6.5 g/dL (6.5-8.0)
[2021-05-10 08:15] VITALS: BP 135/82; PULSE 65; RESP 18; TEMP 36.6; O2SAT 99
--- NOTE | 2021-05-10 09:30 | CA_ITS ---
Transthoracic Echocardiogram Patient (Last, First, Middle): Ronnie Rodriguez, Gender: Male Date of : 1960 Age: 59 Procedure Date: 05/10/2021 Procedure Type: Transthoracic Echocardiogram Location: S3E Height: 177.8 cm Weight: 72.58 kg BSA: 1.90 m2 Heart Rate: bpm BP: 132 / 78 mmHg Community Service Director: SHARLA Claire MD: Tanmay Raymundo DO Symptoms: bacteremia Study Quality: Fair ECG Rhythm: Sinus Conclusions: - The left ventricular systolic function is normal. The calculated ejection fraction is 64% by biplane method. - Aortic valve sclerosis but no significant stenosis. - No obvious valvular vegetations. Findings Left Ventricle Normal left ventricular cavity size. There is normal left ventricular wall thickness. The left ventricular systolic function is normal. The calculated ejection fraction is 64% by biplane method. There is no evidence of regional wall motion abnormalities. Diastolic function is normal for age. LV peak GLS -25.9% (normal). Right Ventricle Mildly increased right ventricular cavity size. There is normal right ventricular systolic function. Atria Mild biatrial enlargement. Aortic Valve There is mild calcification of the aortic valve. The peak aortic velocity is 2.50 m/s with a calculated peak gradient of 25 mmHg. The mean gradient is 12 mmHg. The aortic valve area is 2.06 cm2. There is no aortic valve regurgitation. No significant aortic stenosis. Mitral Valve The mitral valve appears normal. There is trace mitral valve regurgitation. There is no mitral valve stenosis. Pulmonic Valve The pulmonic valve was not well visualized. Tricuspid Valve Normal tricuspid valve structure. There is trace tricuspid valve regurgitation. The right ventricular systolic pressure is 35 mmHg. There is no evidence of pulmonary hypertension. Great Vessels The aortic annulus, sinuses of valsalva, sino tubular ridge, and asc aorta are normal in size. Venous The inferior vena cava is dilated and collapses less than 50% with inspiration. Pericardium/Pleural There is no evidence of pericardial effusion. Prior Study Comparison No significant change compared to prior study dated: 05/21/2002. Measurements 2D Linear Measurements IVSd: 1.00 0.6-0.9/0.6-1.0 cm LVIDd: 5.04 3.9-5.3/4.2-5.9 cm LVIDd Index: 2.65 2.4-3.2/2.2-3.1 cm/m2 LVIDs: 3.09 2.0-3.6 cm LVPWd: 0.83 0.7-1.1 cm LA Diam: 3.60 2.7-3.8/3.0-4.0 cm LAIDs Index: 1.89 1.5-2.3 cm/m2 LV Mass: 204.21 67-162/88-224 g LV Mass Index: 107.48 43-95/49-115 g/m2 LVOT Diam: 2.30 3.0+(-)1.3 cm 2D Systolic Function EF 4C: 59.90 >55% EF 2C: 68.60 >55% EF BiP: 64.10 >55% Mitral Valve MV Pk E: 0.90 MV PK A: 0.87 MV Decel Time: 233.00 E/A: 1.00 E'Lateral: 9.57 E'Medial: 7.51 E/E' Med: 11.90 E/E' Lat: 9.40 PHT: 68.00 MVA PHT: 3.24 Decel [place]: 3.85 Aortic Valve AoV Pk Jose Luis: 2.50 AoV Mn Jose Luis: 1.62 AoV VTI: 0.52 AoV Pk Grad: 25.00 Aov Mn Grad: 12.00 CAM[place]ON Cont.VTI: 2.06 LVOT LVOT Pk Jose Luis: 1.11 LVOT Mn Jose Luis: 0.80 LVOT VTI: 0.26 LVOT Pk Grad: 5.00 LVOT Mn Grad: 3.00 LVOT Diam: 2.30 LVOT Area: 4.15 Diastolic Function MV Pk E: 0.90 MV Pk A: 0.87 E/A: 1.00 E'Medial: 7.51 E/E' Med: 11.90 E' Laterial: 9.57 E/E' Lat: 9.40 Right Ventricle TAPSE (mm): 25.20 TVS' Jose Luis: 18.40 Tricuspid Valve TR Pk Jose Luis: 2.23 TR Pk Grad: 20.00 RA Press: 15.00 RVSP: 35.00 Great Vessels Aorta Sinus of Valsalva: 3.11 2.0-3.[address] [place]: 2.91 1.7-3.4 cm Ao Asc: 3.40 2.1-3.4 cm Updated in Other Vendor System with Status of Final Abelino Walsh MD electronically signed on 05/10/2021 10:49:32 AM with status of Final
--- NOTE | 2021-05-10 09:51 | MHC.CM.PN ---
PATIENT IS INDEPENDENT WITH HIS ADLS VACCINATED WITH ONE J&J AND NO BOOSTER HE IS OPEN TO RECEIVING A BOOSTER IF OFFERED. NO DME OR VNA SERVICES. WHEN DISCUSSING DISCHARGE PLAN, PATIENT DOES NOT TO RETURN HOME WITH A PICC. (HE REPORTS THAT HE HAS HX OF SUBSTANCE ABUSE) CASE MANAGEMENT TO FOLLOW PATIENT AND DEVELOP DISCHARGE PLAN WITH PATIENT PREFERENCES NO HCP ON FILE BUT HE WILL CONSIDER ASSIGNING AN AGENT
[2021-05-10] MEDS: 0.9 % Sodium Chloride Flush 3 ML SYRINGE IVFLUSH (09:54)
[2021-05-10 11:28] VITALS: BP 140/81; PULSE 66; RESP 20; TEMP 36.8; O2SAT 99
--- NOTE | 2021-05-10 14:28 | PM.DS ---
DS: Providers Provider Date of Service: 05/10/21 Date of admission: 05/09/21 18:19 Date of discharge: 05/10/21 Primary care physician: Winston Barr MD Consults: 05/09/21 18:27 Consult to Infectious Diseases Routine Consulting Provider: Carol Weinstein Reason for consultation: bacteremia Has provider been notified: No 05/09/21 18:28 Consult to Care Team Routine Comment: Reason for consultation: IVDA...verify methadone dose please/thanks DS: Diagnosis Discharge Diagnosis (1) Bacteremia: Status: Acute (2) Infection due to Streptococcus pyogenes: Status: Acute (3) Open wound of left foot: Status: Acute (4) Leg wound, right: Status: Acute DS: Summary Hospital Course Hospital Course: 60-year-old male with a past medical history of untreated hepatitis C, rows of gastritis, asthma, GERD, major depressive disorder and substance abuse with cocaine and heroin and alcohol presents to ER after being called back for positive blood cultures that were obtained 05/04/2021. He was seen at that time for a cellulitis. Blood culture on 05/07 grew out strep pyogenes group a; he was admitted and started on penicillin G potassium. Venous duplex was essentially unremarkable. Of note, patient has history IV drug abuse on methadone 40 mg daily from clinic. Patient was admitted overnight and seen by ID this a.m. who felt this was contaminant given the strep viridans of the wound adjacent. Given such recommendation was Ceftin 500 b.i.d. times 10 days with outpatient follow-up 1. 1/2 blood cultures Strep pyogenese Thought to be contaminant by ID; will be discharged on Ceftin 500 mg twice a day along with dry dressings to wound. Can follow-up with PCP for dressing changes and further evaluation 2.Cellulitis RLE As per 1. 3. Opiate use disorder Patient is on 40 mg of methadone daily; receive dose yesterday prior to return to ER. Will be given methadone 40 mg prior to discharge as he has missed his morning dose. Last dose methadone letter to be side. A follow-up with outpatient methadone clinic daily as previously Time Spent with Patient Time attestation: Total time spent providing and/or coordinating discharge services: Discharge coordination time: Greater than 30 minutes Quality: Stroke Does the patient have a stroke diagnosis?: No Physical Exam Vital Signs: Vital Signs: Last Vital Signs Temp 98.2 F 05/10/21 11:28 Pulse 66 05/10/21 11:28 Resp 20 05/10/21 11:28 BP 140/81 H 05/10/21 11:28 Pulse Ox 99 05/10/21 11:28 BMI result Body Mass Index 22.9 Const: Other: Awake alert oriented x3 resting quietly in bed Resp: Other: Clear to auscultation bilaterally no rales rhonchi or wheezes Cardio: Other: No S4; positive S1-S2; no S3 2/6 systolic ejection murmur best heard at apex without radiation GI: Other: Soft nontender nondistended with normoactive bowel sounds Extrem: Other: Cellulitic changes with ulceration right lower extremity ulceration over Achilles insertion left foot (please see ER documentation for pictures) DS: Data Data Completed and Pending Labs on day of discharge: Laboratory Results - last 24 hr 05/09/21 05/09/21 05/09/21 16:06 16:06 16:06 WBC 6.0 RBC 2.90 L Hgb 7.9 L Hct 26.3 L MCV 90.7 MCH 27.2 MCHC 30.0 L RDW 23.5 H Plt Count 78 L D MPV Not Reportable Immature Gran % (Auto) 0.8 H Neut % (Auto) 68.5 Lymph % (Auto) 16.5 L [place] % (Auto) 8.2 Eos % (Auto) 5.5 H Baso % (Auto) 0.5 Lymph # (Auto) 1.0 L [place] # (Auto) 0.5 Eos # (Auto) 0.3 Baso # (Auto) 0.0 Abs Immat Gran (auto) 0.05 H Absolute Neuts (auto) 4.1 Absolute Nucleated RBC 0.000 Nucleated RBC % (auto) 0.0 Smear Tech's Comments VERIFIED PT 16.1 H INR 1.4 H Sodium 136 Potassium 4.5 Chloride 104 Carbon Dioxide 28 Anion Gap 9 L BUN 15 Creatinine 0.79 Estim Creat Clear Calc 103.3 Estimated GFR > 60 Random Glucose 94 Fasting Glucose Lactic Acid Calcium 8.4 D Magnesium 1.8 Total Bilirubin 1.0 AST 36 ALT 18 Alkaline Phosphatase 181 H B-Natriuretic Peptide Total Protein 7.1 Albumin 2.4 L Urine Color Urine Appearance Urine pH Ur Specific [place] Urine Protein Urine Glucose (UA) Urine Ketones Urine Blood Urine Nitrite Ur Leukocyte Esterase COVID-19 ([facility]) COVID-19 Clin Com 05/09/21 05/09/21 05/09/21 16:06 16:06 16:06 WBC RBC Hgb Hct MCV MCH MCHC RDW Plt Count MPV Immature Gran % (Auto) Neut % (Auto) Lymph % (Auto) [place] % (Auto) Eos % (Auto) Baso % (Auto) Lymph # (Auto) [place] # (Auto) Eos # (Auto) Baso # (Auto) Abs Immat Gran (auto) Absolute Neuts (auto) Absolute Nucleated RBC Nucleated RBC % (auto) Smear Tech's Comments PT INR Sodium Potassium Chloride Carbon Dioxide Anion Gap BUN Creatinine Estim Creat Clear Calc Estimated GFR Random Glucose Fasting Glucose Lactic Acid 1.9 Calcium Magnesium Total Bilirubin AST ALT Alkaline Phosphatase B-Natriuretic Peptide 101 H Total Protein Albumin Urine Color Urine Appearance Urine pH Ur Specific [place] Urine Protein Urine Glucose (UA) Urine Ketones Urine Blood Urine Nitrite Ur Leukocyte Esterase COVID-19 ([facility]) Negative COVID-19 Clin Com See Note 05/09/21 05/10/21 05/10/21 16:06 07:25 07:25 WBC 3.7 L RBC 2.77 L Hgb 7.6 L Hct 24.8 L MCV 89.5 MCH 27.4 MCHC 30.6 L RDW 22.8 H Plt Count 70 L MPV Not Reportable Immature Gran % (Auto) 1.1 H Neut % (Auto) 60.4 Lymph % (Auto) 20.6 [place] % (Auto) 9.2 Eos % (Auto) 8.4 H Baso % (Auto) 0.3 Lymph # (Auto) 0.8 L [place] # (Auto) 0.3 Eos # (Auto) 0.3 Baso # (Auto) 0.0 Abs Immat Gran (auto) 0.04 H Absolute Neuts (auto) 2.2 Absolute Nucleated RBC 0.000 Nucleated RBC % (auto) 0.0 Smear Tech's Comments PT INR Sodium 139 Potassium 5.0 Chloride 110 H Carbon Dioxide 24 Anion Gap 10 L BUN 12 Creatinine 0.66 Estim Creat Clear Calc 123.7 Estimated GFR > 60 Random Glucose Fasting Glucose 88 Lactic Acid Calcium 8.0 L Magnesium Total Bilirubin 0.6 AST 42 H ALT 17 Alkaline Phosphatase 163 H B-Natriuretic Peptide Total Protein 6.5 Albumin 2.0 L Urine Color YELLOW Urine Appearance CLEAR Urine pH 6.0 Ur Specific [place] 1.025 Urine Protein NEG Urine Glucose (UA) NEG Urine Ketones NEG Urine Blood NEG Urine Nitrite NEG Ur Leukocyte Esterase NEG COVID-19 ([facility]) COVID-19 Clin Com Discharge Plan Discharge Patient Disposition: Home, Self-Care Discharge Diagnosis: Cellulitis RLE Referrals: Po,Winston Karimi MD [Primary Care Provider] - 1 Week Discharge Medications: New cefuroxime axetil 500 mg tablet 500 mg PO BID 10 Days Qty: 20 0RF Continued ferrous sulfate 324 mg (65 mg iron) Tablet,Delayed Release (Dr/Ec) 324 mg PO DAILY 30 Days Qty: 30 0RF omeprazole 40 mg capsule,delayed release(DR/EC) 1 cap PO BID 0RF methadone 10 mg/5 mL solution 40 mg PO DAILY 0RF Discontinued cephalexin 500 mg capsule 500 mg PO QID 5 Days Qty: 20 0RF Discharge Orders: Discharge Order (Routine); Ordered 05/10/21 Ordered By: Tanmay Raymundo Stand Alone Forms: Patient Portal Discharge page Care Plan Goals: Complete antibiotic as prescribed Health Concerns: No further IV drug injections Plan of Treatment: Follow-up with PCP as scheduled Assessment: See discharge summary
--- NOTE | 2021-05-10 14:37 | MHC.CM.PN ---
PATIENT IS DC HOME - SELF CARE. WILL HAVE FRIEND HAND CANDY MOLDER AWARE OF PLAN.
--- NOTE | 2021-05-10 14:49 | PC.NURSE ---
Skin/wound assessment completed. Patient has 3 abscess ulcers on right lower leg and one on left medial ankle from IVD injections, cleansed with wound cleanser then silver alginate applied to all wound beds covered with foam dressings. No other skin issues noted at this time.
--- NOTE | 2021-05-10 15:15 | P.CNID_ITS ---
History of Present Illness Data of Consult Service Date: 05/10/21 Requesting physician: Tanmay Raymundo Primary Care Provider: Winston Barr MD HPI Reason for consult: bacteremia He presents to hospital with right foot and left ankle discomfort in area of open wounds, He has no fever or chills. He had strep pyogenes and strep viridans bacteremia,1 culture. He has no other complaints Review of Systems Review of Systems: Yes all other systems are reviewed and are negative PMFSH Past Medical History Medical History (Reviewed 05/10/21 @ 15: by Carol Weinstein MD) Asthma GERD (gastroesophageal reflux disease) Hepatitis C Recurrent major depression Right wrist drop Substance abuse Surgical History Surgical History (Reviewed 05/10/21 @ 15: by Carol Weinstein MD) No pertinent past surgical history Social History Social History (Reviewed 05/10/21 @ 15: by Carol Weinstein MD) Household Members: Other Household Members Other:: Mother Housing: House Do you presently have visiting nurse or other home services: No Alcohol intake: current Patient Tobacco Use Status: Current someday Tobacco user Tobacco use type: Cigarette Smoked in Last 30 Days: Yes Patient Interested in Nicotine Replacement: No Use of substances other than those prescribed or required for medical reasons: Yes Substance Use Type: Amphetamines, Crack/Cocaine, Heroin, IV Drugs, Marijuana and Opiates Substance Use Frequency: Chronic Longstanding Last Used Substance: Days (ago) Last Used Substance Other:: 5 days Currently Displaying Signs/Symptoms of Drug Intoxication Withdrawal: No Any prior treatment program specific to substance use: Yes Have you been hit, kicked, punched, or otherwise hurt by someone within the past year? If so, by whom?: No Do you feel safe in your current relationship?: No Current Relationship Is there a partner from a previous relationship who is making you feel unsafe now?: No Are you made to feel afraid or neglected: No Advance Directives: No Advance Directives Information Provided: No Advance Directives on File: No Do you have thoughts of harming others: None Do you have a plan to hurt others: No Plan Recently lost weight without trying: No Nutrition Risks: No Nutritional Risk Poor oral hygiene: No service: No Current occupational status: unemployed Meds Allergies Allergy/AdvReac Type Severity Reaction Status Date / Time No Known Allergies Allergy Unknown Verified 05/07/21 12:54 Active Medications: Current Medications Enoxaparin Sodium (Enoxaparin Sodium 40 Mg/0.4 Ml Syringe) 40 mg SUBCUT Q24H [facility] Last Admin: 05/09/21 19:15 Dose: 40 mg Documented by: Penicillin G Potassium 2,500, (000 unit/ Sodium Chloride) 50 mls @ 100 mls/hr IV ONCE [facility] Last Infusion: 05/09/21 17:38 Dose: Infused Documented by: Dextrose/Sodium Chloride (D51/2ns) 1,000 mls @ 100 mls/hr IVCONT .Q10H [facility] Last Infusion: 05/10/21 07:54 Dose: Infused Documented by: Penicillin G Potassium 5,000, (000 unit/ Sodium Chloride) 100 mls @ 200 mls/hr IV Q4H [facility] Last Infusion: 05/10/21 14:20 Dose: Infused Documented by: Pharmacy Consult (Consult Rx Perform Med Rec) 1 each MISCELLANE ONCE PRN PRN Reason: Consult order Sodium Chloride (0.9 % Sodium Chloride Flush 3 Ml Syringe) 3 ml IVFLUSH QSHIFT [facility] Last Admin: 05/10/21 09:54 Dose: 3 ml Documented by: Home Medications Medication Instructions Recorded Confirmed Last Taken Type methadone 10 mg/5 mL oral solution 40 mg PO DAILY ml 11/25/20 05/09/21 05/09/21 History omeprazole 40 mg capsule,delayed 1 cap PO BID 05/09/21 05/09/21 05/09/21 History release Physical Exam Vital Signs: Vital Signs: Last Vital Signs Temp 98.2 F 05/10/21 11:28 Pulse 66 05/10/21 11:28 Resp 20 05/10/21 11:28 BP 140/81 H 05/10/21 11:28 Pulse Ox 99 05/10/21 11:28 BMI result Body Mass Index 22.9 Const: General: cooperative Eyes: General: appearance normal, both eyes and all related structures Pupils: Equal, round and reactive pupils present Resp: Effort & Inspection: normal respiratory effort Cardio: Rate: regular rate Rhythm: regular rhythm GI: Palpation (GI): Soft to palpation and nontender Skin: Other: deep abrasion left and right dorsal surfaces of feet General skin exam: no rashes or lesions noted Neuro: Cranial nerves: Yes Equal, round and reactive pupils present Extrem: General: Yes normal to inspection Results Labs CBC & Chem 7: 05/10/21 07:25 05/10/21 07:25 Labs: Short CBC 05/09/21 05/10/21 Range/Units 16:06 07:25 WBC 6.0 3.7 L (4.8-10.8) X10*3/uL Hgb 7.9 L 7.6 L (14.0-18.0) g/dl Hct 26.3 L 24.8 L (42.0-52.0) % Plt Count 78 L D 70 L (160-400) X10*3/uL BMP 05/09/21 05/10/21 16:06 07:25 Sodium 136 139 Potassium 4.5 5.0 Chloride 104 110 H Carbon Dioxide 28 24 BUN 15 12 Creatinine 0.79 0.66 Calcium 8.4 D 8.0 L Liver Function 05/09/21 05/10/21 Range/Units 16:06 07:25 Total Bilirubin 1.0 0.6 (0.0-1.0) mg/dL AST 36 42 H (5-37) U/L ALT 18 17 (0-40) U/L Alkaline Phosphatase 181 H 163 H (39-117) U/L Albumin 2.4 L 2.0 L (3.5-5.0) g/dL Urine 05/09/21 Range/Units 16:06 Urine Color YELLOW Urine Appearance CLEAR Urine pH 6.0 (5.0-8.0) Ur Specific [place] 1.025 (1.005-1.025) Urine Protein NEG (NEG-TRACE) MG/DL Urine Glucose (UA) NEG (NEG) MG/DL Assessment and Plan (1) Bacteremia: Status: Acute Patient with possible contamination or transient infection causing positive blood culture. He has no evidence of endocarditis or osteomyelitis He has negative blood cultures now (2) Open wound of left foot: Status: Acute (3) Leg wound, right: Status: Acute Plan Would switch to po Ceftin for fourteen days cover strep pyogenes and/or strep viridans with no signs of deeper infection. However he is at risk for endocarditis and osteomyelitis due to drug use so should seek treatment.
[2021-05-10] MEDS: methADONE HCl 20 MG/2 ML ORAL.CONC 40 MG PO (15:27)
[2021-05-10 16:00] VITALS: BP 112/60; PULSE 85; RESP 18; TEMP 36.3; O2SAT 98
== END 2021-05-10 16:25 | disposition home or self-care (01) | DRG 380 ==
LOC: HO.ED 16:16 → HO.EDOVER 18:42 → HO.S3 05-10 07:56
PROVIDERS: Physician Assistant Medical; Admitting Provider Hospitalist; Emergency Provider Emergency Medicine; PCP Internal Medicine; Visit Provider Hospitalist
DX: L97.219 Non-pressure chronic ulcer of right calf with unspecified severity (principal); L03.115 Cellulitis of right lower limb; B19.20 Unspecified viral hepatitis C without hepatic coma; F11.20 Opioid dependence, uncomplicated; K21.9 Gastro-esophageal reflux disease without esophagitis; L97.329 Non-pressure chronic ulcer of left ankle with unspecified severity; L03.116 Cellulitis of left lower limb; F17.210 Nicotine dependence, cigarettes, uncomplicated; Z20.822 Contact with and (suspected) exposure to COVID-19; Z23 Encounter for immunization; Z71.6 Tobacco abuse counseling; Z79.899 Other long term (current) drug therapy
CPT/HCPCS: 36415; 71046; 80053; 81003; 83605; 83735; 83880; 85025; 85610; 87040; 87635; 90686; 93306; 93356; 93970; 99285; J1650

== ENCOUNTER → 2021-06-28 07:36 | Outpatient (BNVA) | payer OTHER, SELFPAY | PROVIDERS: PCP Internal Medicine; Referring Provider Internal Medicine; Visit Provider Internal Medicine Gastroenterology | DX: K21.9 Gastro-esophageal reflux disease without esophagitis (principal); K74.60 Unspecified cirrhosis of liver; K22.10 Ulcer of esophagus without bleeding; B19.20 Unspecified viral hepatitis C without hepatic coma | CPT/HCPCS: 99212 ==

== ENCOUNTER 2021-07-12 09:23 | Outpatient (RCR) | payer OTHER, SELFPAY | END 2021-09-02 14:34 | disposition home or self-care (01) | LOC: HO.WCC 09:23 | PROVIDERS: Visit Provider Physician Assistant | DX: L97.812 Non-pressure chronic ulcer of 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 (principal); R60.0 Localized edema; F11.20 Opioid dependence, uncomplicated; F14.90 Cocaine use, unspecified, uncomplicated; F17.200 Nicotine dependence, unspecified, uncomplicated; Z86.19 Personal history of other infectious and parasitic diseases | CPT/HCPCS: 11042; 11045; 99212 ==

== ENCOUNTER 2021-08-22 03:08 | Inpatient (IN) | payer OTHER, SELFPAY ==
[2021-08-22] VITALS (7 sets, daily range): BP systolic 138–161; BP diastolic 80–91; PULSE 71–87; RESP 14–20; TEMP 36.8–37.2; O2SAT 94–98; BMI 21.5
--- NOTE | ~2021-08-22 | CT_ITS ---
EXAMINATION: CT LUMBAR SPINE CLINICAL INFORMATION: Low back pain. Fever. COMPARISON: CT abdomen pelvis 08/22/2021. TECHNIQUE: IV contrast-enhanced CT of the lumbar spine with multiple coronal and sagittal reformatted images. This CT examination was performed using dose optimization techniques as appropriate, variously including the following: *Automated exposure control *Adjustment of mA and/or kV according to patient size (this includes techniques or standardized protocols for targeted exams where dose is matched to indication/reason for exam; i.e. extremities or head) *Use of iterative reconstruction technique Intravenous contrast: Omnipaque 350 99 mL DLP: 573 mGy-cm FINDINGS: No fractures identified. No vertebral body compression deformities visualized. Within the visualized lung bases partial visualization is made of possible right base atelectasis or mild consolidation. The lungs are largely excluded from the image [id number]. No paraspinous fluid collections or inflammatory changes are identified. The psoas muscles are normal in appearance. The kidneys are partially included in the image [id number] and demonstrate no abnormalities. Within the visualized pelvis, no free intraperitoneal fluid is noted. Partial visualization is made of sigmoid diverticulosis. 5 lumbar type vertebral bodies are identified. L1-L2: Partial visualization of a broad-based disc bulge resulting in at least mild central stenosis. L2-L3: Marked intervertebral disc space narrowing and endplate chronic discogenic changes. Partial visualization of an at least moderate posterior broad-based disc bulge and moderate bilateral ligamentum flavum hypertrophy resulting in at least moderate central stenosis. L3-L4: Marked intervertebral disc space narrowing and vacuum phenomena. Partial visualization of a moderate posterior broad-based disc-osteophyte complex resulting in at least moderate left foraminal stenosis, moderate central stenosis and mild right foraminal stenosis. L4-L5: Partially visualized broad-based disc-osteophyte complex resulting in at least moderate left foraminal stenosis (secondary to intraforaminal disc material) moderate central stenosis and moderate-marked right foraminal stenosis. L5-S1: Marked intervertebral disc space narrowing chronic endplate discogenic changes with findings most pronounced towards the right resulting in at least moderate right foraminal stenosis, mild central stenosis and mild left foraminal stenosis. Furthermore, multilevel facet hypertrophic changes are present with findings most pronounced at L4-L5 and L5-S1 on the right. The visualized sacrum appears intact. CT/CT lumbar spine w con IMPRESSION: IV contrast enhanced CT of the lumbar spine: *No acute abnormalities identified. *Advanced multilevel chronic spondylosis as detailed above. *Partial visualization of colonic diverticulosis. *Minimal visualization of the right lung base with partial visualization of possible atelectasis/consolidation.
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
--- NOTE | ~2021-08-22 | XR_ITS ---
EXAMINATION: XR CHEST CLINICAL INFORMATION: Fever. COMPARISON: Chest radiograph 05/09/2021 TECHNIQUE: Frontal view of the chest was obtained. FINDINGS: The cardiac silhouette is normal in size. No effusions or pneumothoraces identified. Cephalization of the pulmonary vasculature is visualized. No focal pulmonary consolidation. Mild focal left upper lobe medium reticular opacities noted and is are present in projection with the anterior segments of the left second and third ribs. XR/XR chest 1V IMPRESSION: *Mild cephalization of the pulmonary vasculature suspicious for mild pulmonary vascular congestion. No focal pulmonary consolidation. No pleural effusions. *Mild focal left upper lobe reticular opacities. These findings may represent early radiographic evidence of infection or mild chronic parenchymal scarring of the lungs.
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
[2021-08-22] MEDS: oxyCODONE HCl Immed Release 15 MG TABLET PO (03:42)
[2021-08-22 04:04] LABS: PLT ABN DIST 1; White Blood Count 5.4 X10*3/uL (4.8-10.8)
[2021-08-22 04:05] LABS: Hematocrit 30.9 % (42.0-52.0); Hemoglobin 9.1 g/dl (14.0-18.0); Mean Corpuscular HGB Conc 29.4 g/dl (31.0-36.0); Mean Corpuscular Hemoglobin 25.2 pg (27.0-33.0); Mean Corpuscular Volume 85.6 fL (80.0-98.0); Mean Platelet Volume 9.9 fL (9.4-12.4); Red Blood Count 3.61 X10*6/uL (4.60-5.80); Red Cell Distribution Width 21.4 % (11.0-16.0)
[2021-08-22 04:07] LABS: Platelet Count 88 X10*3/uL (160-400)
[2021-08-22 04:20] LABS: Ethanol 32 mg/dL
--- NOTE | 2021-08-22 04:28 | PC.NURSE ---
Pt. returned from CT scan
[2021-08-22 04:44] LABS: Alanine Aminotransferase 35 U/L (0-40); Albumin Level 2.8 g/dL (3.5-5.0); Alkaline Phosphatase 155 U/L (39-117); Anion Gap 10 (12-20); Aspartate Amino Transferase 85 U/L (5-37); Bilirubin Direct 0.7 mg/dL (0.0-0.5); Bilirubin Total 0.9 mg/dL (0.0-1.0); Blood Urea Nitrogen 13 mg/dL (9-16); Calcium 8.2 mg/dL (8.4-10.2); Carbon Dioxide 27 mmol/L (22-29); Chloride 107 mmol/L (96-108); Creatinine Clr Calc Pharmacy 96.9; Estimated Glomerular Filt Rate > 60; Glucose Random 102 mg/dL (60-115); Potassium 3.9 mmol/L (3.3-5.1); Sodium 140 mmol/L (135-145); Total Protein 8.5 g/dL (6.5-8.0)
[2021-08-22] MEDS: diazePAM 2 MG TABLET 5 MG PO (06:45)
[2021-08-22 07:09] LABS: COVID-19 Test Negative (Negative)
[2021-08-22 08:29] LABS: Amphetamine Screen Urine Not Detected (Not Detect); Barbiturates, Urine Not Detected (Not Detect); Benzodiazepines Screen Urine Not Detected (Not Detect); Cannabinoid Screen Urine Not Detected (Not Detect); Cocaine Screen Urine POSITIVE (Not Detect); Fentanyl, urine POSITIVE (Not Detect); Opiate Screen Urine Not Detected (Not Detect); Phencyclidine Screen Urine Not Detected (Not Detect)
--- NOTE | 2021-08-22 13:51 | PHA.MEDREC ---
Pharmacy Consult ? Medication Reconciliation Pharmacy has completed the medication reconciliation. PT states that he gets 33mg methadone from [facility] in [place], stating last dose was yesterday. [facility] currently closed, nursing will need to follow up with methadone verification form on Monday.
[2021-08-22] MEDS: methADONE HCl 20 MG/2 ML ORAL.CONC 33 MG PO (14:32)
--- NOTE | 2021-08-22 14:55 | MHC.CM.ED ---
Addendum entered by Yue Slater 08/22/21 16:09: [facility] PASRR exemption letter will be needed for short term rehab. Screen already submitted to [facility] via fax. Addendum entered by Yue Slater 08/22/21 15:36: It is anticipated short term rehab will be needed for patient's safety due to current back pain and lack of ability to transfer out of bed safely. Original Note: Received case management consult overnight. Patient came to the ER due to back pain. Work up essentially negative. Urine tox positive for fentanyl and cocaine. Physical therapy eval is pending. Met with patient in regards to discharge planning. Patient lives with his mother, ambulates independently and is active with [facility] Methadone clinic. Patient has a HCP and his mother has a copy of it. PCP verified. Patient received 2 Moderna vaccines. Patient is aware short term rehab placement might be difficult due to Methadone and substance abuse. Patient verbalized understanding that referral will be broadcasted within 50 miles of patient's address. Continue to monitor for d/c needs.
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
[2021-08-23] VITALS (8 sets, daily range): BP systolic 111–147; BP diastolic 59–77; PULSE 67–95; RESP 16–18; TEMP 36.7–38.4; O2SAT 93–97
[2021-08-23] MEDS: 0.9 % Sodium Chloride 1,000 ML 999 ML IV (01:57)
[2021-08-23] MEDS: Acetaminophen 325 MG TABLET 650 MG PO (01:57)
[2021-08-23 02:05] LABS: Basophils Percent Auto 0.3 % (0-2); Eosinophils Percent Auto 0.3 % (0-4); Lymphocytes Absolute Auto 0.8 X10*3/uL (1.2-4.9); Lymphocytes Percent Auto 6.4 % (20-40); Monocytes Percent Auto 6.1 % (2-11); PLT ABN DIST 1; SCAN SMEAR FLAG 1
[2021-08-23 02:07] LABS: Hematocrit 31.7 % (42.0-52.0); Hemoglobin 9.8 g/dl (14.0-18.0); Imm Gran Abs Auto 0.08 X10*3/uL (0.00-0.03); Imm Gran Pct Auto 0.7 % (0.0-0.4); Mean Corpuscular HGB Conc 30.9 g/dl (31.0-36.0); Mean Corpuscular Hemoglobin 26.2 pg (27.0-33.0); Mean Corpuscular Volume 84.8 fL (80.0-98.0); Mean Platelet Volume 10.9 fL (9.4-12.4); Monocytes Absolute Auto 0.7 X10*3/uL (0.1-1.2); Neutrophils Absolute Auto 10.3 x10*3/uL (2.0-8.3); Neutrophils Percent Auto 86.2 % (45-73); Red Blood Count 3.74 X10*6/uL (4.60-5.80); Red Cell Distribution Width 21.4 % (11.0-16.0); White Blood Count 11.9 X10*3/uL (4.8-10.8)
[2021-08-23 02:08] LABS: Platelet Count 96 X10*3/uL (160-400)
[2021-08-23 02:09] LABS: MANUAL DIFF FLAG NO
[2021-08-23] MEDS: cefTRIAXone sodium 2 GM in 0.9 % Sodium Chloride 50 ML IV (02:16)
[2021-08-23 02:17] LABS: Lactic Acid 1.6 mmol/L (0.5-2.0)
[2021-08-23 02:25] LABS: Anion Gap 9 (12-20); Blood Urea Nitrogen 15 mg/dL (9-16); Calcium 7.8 mg/dL (8.4-10.2); Carbon Dioxide 27 mmol/L (22-29); Chloride 103 mmol/L (96-108); Creatinine Clr Calc Pharmacy 107.9; Estimated Glomerular Filt Rate > 60; Glucose Random 113 mg/dL (60-115); Potassium 4.5 mmol/L (3.3-5.1); Sodium 134 mmol/L (135-145)
[2021-08-23 02:41] LABS: Erythrocyte Sedimentation Rate 36 MM/HR (0-15)
--- NOTE | 2021-08-23 03:54 | PC.NURSE ---
Patient sleeping most the day would wake up and respond to questions as necessary. Patient has back pain with just sitting up. Patient had temp of 101.1-Orally Dr. Salazar notified and ordered full work up. Patient blood cutures drawn and given antibiotics. Patient states he is an iv drug user. Patient c/o back pain with movement. Will continue with plan of care.
[2021-08-23] MEDS: iohexoL 350 MG/ML 100 ML INFUS..BTL 99 ML IV (04:26)
[2021-08-23 06:31] LABS: Appearance Urine CLEAR; Color Urine YELLOW; Glucose Urine UA NEG (NEG); Leukocyte Esterase Urine NEG (NEG); Nitrite Urine NEG (NEG); Specific Gravity - Urine <= 1.005 (1.005-1.025); Urine Blood NEG (NEG); Urine Ketones NEG (NEG); Urine Protein NEG (NEG-TRACE)
[2021-08-23 07:13] LABS: COVID-19 Test Negative (Negative); IDNOW Serial# 16C4AD1C; Influenza A Negative (Negative); Influenza B2 Negative (Negative)
--- NOTE | 2021-08-23 08:05 | PC.NURSE ---
pt continuous on sleeping, respirations even and unlabored
--- NOTE | 2021-08-23 09:35 | PC.NURSE ---
pt alert and oriented, skin pwd, respirations even and unlabored, pt reports having lower back pain 10/10 pt reports being on ,methadone at [facility] in [place] on [facility], Sho rn called the clinic for this rn to verify the pt's dose but no answer at this time, sho did leave a message.
[2021-08-23] MEDS: Acetaminophen 325 MG TABLET 975 MG PO (09:59)
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
[2021-08-23] MEDS: methADONE HCl 20 MG/2 ML ORAL.CONC 35 MG PO (11:45)
[2021-08-23] MEDS: Piperacillin Sodium/Tazobactam 3.375 GM in 0.9 % Sodium Chloride 50 ML IV ×2 (18:19→23:21)
[2021-08-23] MEDS: vancomycin HCL 1,500 MG in 0.9 % Sodium Chloride 500 ML 333.33 MG IV (20:38)
[2021-08-23] MEDS: Morphine Sulfate 4 MG/ML CARTRIDGE IVPUSH (20:40)
--- NOTE | 2021-08-23 20:56 | MHC.CM.PN ---
Pt being admitted for positive blood culture. Pending admission. CM attempted to meet with pt, but pt is sleeping. [facility] offered a bed with insurance auth pending. [facility] notified via [facility] of admission and request to follow. CM to follow for d/c needs.
--- NOTE | 2021-08-23 20:57 | PHA.PROG ---
Admission Date/Time: 08/23/211999 Indication: skin Weight in k.039 kg Adjusted body weight in K [place] body weight in K Obesity Dosing Indication % IBW:n/a Serum Creatinine - Last 168 Hours 08/22/21 08/23/21 04:00 01:53 Creatinine 0.78 0.70 Estimated CrCl and GFR - Last 168 Hours 08/22/21 08/23/21 04:00 01:53 Estim Creat Clear Calc 96.9 107.9 Estimated GFR > 60 > 60 Vancomycin Loading Dose: 1500 mg Current Vancomycin Dosing Regimen: 1000 mg q12h Vancomycin Monitoring using AUC goal of 400 - 600 range with trough as surrogate marker: 480 Date and Time for next Vancomycin Level to be drawn: 08/25/21 @0600 (prior to dose #4) Pharmacist Comments on Vancomycin Plan: Vancomycin dosing will take advantage of [employer] as a clinical decision support tool that uses Bayesian modeling to calculate individual patient's pharmacokinetic parameters and forecast the patient's drug concentration time course with the target goal AUC 24 range of 400 - 600 mg/L/hr.
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
[2021-08-23] MEDS: Enoxaparin Sodium 40 MG/0.4 ML SYRINGE SUBCUT (23:21)
[2021-08-23] MEDS: Calcium Gluconate/NaCl,Iso-Osm 1 GM/50 ML PLAST..BAG IV (23:22)
[2021-08-23] MEDS: 0.9 % Sodium Chloride 1,000 ML 100 ML IVCONT (23:22)
[2021-08-24] VITALS (7 sets, daily range): BP systolic 112–147; BP diastolic 61–90; PULSE 69–92; RESP 15–18; TEMP 36.7–37.1; O2SAT 94–99; BMI 20.9
[2021-08-24] MEDS: Piperacillin Sodium/Tazobactam 3.375 GM in 0.9 % Sodium Chloride 50 ML IV ×4 (06:15→23:46)
[2021-08-24 07:03] LABS: MANUAL DIFF FLAG NO
[2021-08-24 07:11] LABS: Basophils Percent Auto 0.3 % (0-2); Eosinophils Absolute Auto 0.1 X10*3/uL (0.0-0.4); Eosinophils Percent Auto 1.9 % (0-4); Hematocrit 29.1 % (42.0-52.0); Imm Gran Abs Auto 0.05 X10*3/uL (0.00-0.03); Imm Gran Pct Auto 0.9 % (0.0-0.4); Lymphocytes Absolute Auto 0.6 X10*3/uL (1.2-4.9); Lymphocytes Percent Auto 9.6 % (20-40); Mean Corpuscular HGB Conc 30.9 g/dl (31.0-36.0); Mean Corpuscular Hemoglobin 26.9 pg (27.0-33.0); Mean Corpuscular Volume 86.9 fL (80.0-98.0); Mean Platelet Volume 10.4 fL (9.4-12.4); Monocytes Absolute Auto 0.4 X10*3/uL (0.1-1.2); Monocytes Percent Auto 6.8 % (2-11); Neutrophils Absolute Auto 4.6 x10*3/uL (2.0-8.3); Neutrophils Percent Auto 80.5 % (45-73); Red Blood Count 3.35 X10*6/uL (4.60-5.80); Red Cell Distribution Width 21.7 % (11.0-16.0); White Blood Count 5.7 X10*3/uL (4.8-10.8)
[2021-08-24 07:15] LABS: Platelet Count 65 X10*3/uL (160-400)
[2021-08-24 07:31] LABS: Anion Gap 7 (12-20); Blood Urea Nitrogen 15 mg/dL (9-16); Calcium 7.3 mg/dL (8.4-10.2); Carbon Dioxide 27 mmol/L (22-29); Chloride 106 mmol/L (96-108); Creatinine Clr Calc Pharmacy 100.6; Estimated Glomerular Filt Rate > 60; Glucose Random 106 mg/dL (60-115); Potassium 3.9 mmol/L (3.3-5.1); Sodium 136 mmol/L (135-145)
[2021-08-24] MEDS: vancomycin HCL 1,000 MG in 0.9 % Sodium Chloride 250 ML 270 MG IV ×2 (08:30→19:57)
[2021-08-24] MEDS: 0.9 % Sodium Chloride 1,000 ML 100 ML IVCONT ×2 (10:16→20:02)
[2021-08-24] MEDS: methADONE HCl 20 MG/2 ML ORAL.CONC 35 MG PO (10:16)
[2021-08-24] MEDS: Acetaminophen 325 MG TABLET 650 MG PO (10:17)
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
[2021-08-24] MEDS: 0.9 % Sodium Chloride Flush 3 ML SYRINGE IVFLUSH (23:46)
[2021-08-25 04:00] VITALS: BP 133/72; PULSE 67; RESP 19; TEMP 36.6; O2SAT 96
[2021-08-25] MEDS: Piperacillin Sodium/Tazobactam 3.375 GM in 0.9 % Sodium Chloride 50 ML IV ×4 (06:31→23:16)
[2021-08-25 06:53] LABS: Vancomycin Trough 12.3 mcg/mL (10.0-20.0)
[2021-08-25 08:34] LABS: MRSA Nasal PCR NEGATIVE (Negative); SA Nasal PCR POSITIVE (Negative)
[2021-08-25] MEDS: vancomycin HCL 1,000 MG in 0.9 % Sodium Chloride 250 ML 270 MG IV ×2 (08:41→19:27)
[2021-08-25] MEDS: methADONE HCl 20 MG/2 ML ORAL.CONC 35 MG PO (08:42)
[2021-08-25] MEDS: Acetaminophen 325 MG TABLET 650 MG PO ×2 (08:48→17:19)
[2021-08-25 09:20] LABS: Hematocrit 35.8 % (42.0-52.0); Hemoglobin 10.7 g/dl (14.0-18.0)
[2021-08-25 09:27] LABS: Creatinine Clr Calc Pharmacy 103.4; Estimated Glomerular Filt Rate > 60
[2021-08-25 10:19] LABS: Anion Gap 8 (12-20); Blood Urea Nitrogen 16 mg/dL (9-16); Calcium 7.2 mg/dL (8.4-10.2); Carbon Dioxide 25 mmol/L (22-29); Chloride 109 mmol/L (96-108); Creatinine Clr Calc Pharmacy 100.6; Estimated Glomerular Filt Rate > 60; Glucose Random 101 mg/dL (60-115); Potassium 3.8 mmol/L (3.3-5.1); Sodium 138 mmol/L (135-145)
[2021-08-25 11:23] VITALS: BP 132/77; PULSE 68; RESP 18; TEMP 36.4; O2SAT 97
[2021-08-25] MEDS: 0.9 % Sodium Chloride 1,000 ML 100 ML IVCONT (14:15)
[2021-08-25 15:13] VITALS: BP 120/66; PULSE 67; RESP 18; TEMP 36.2; O2SAT 97
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
--- NOTE | 2021-08-25 17:00 | CA_ITS ---
Transthoracic Echocardiogram Patient (Last, First, Middle): Ronnie Rodriguez, Gender: Male Date of : 1960 Age: 61 Procedure Date: 08/25/2021 Procedure Type: Transthoracic Echocardiogram Location: S3E Height: 177.8 cm Weight: 65.77 kg BSA: 1.82 m2 Heart Rate: 66 bpm BP: 132 / 77 mmHg Funeral Pre Need Consultant: ANDRES Referring MD: Margarito Du MD Symptoms: bactermia Study Quality: Adequate ECG Rhythm: Sinus Conclusions: - The left ventricular systolic function is hyperdynamic. The calculated ejection fraction is 73% by biplane method. - There is moderate calcification of the aortic valve. There is no aortic valve regurgitation. Thin strand like structure attached to ventricular aspect of aortic valve; possibly part of calcification. Cannot exclude vegetation. Findings Left Ventricle Normal left ventricular cavity size. There is normal left ventricular wall thickness. The left ventricular systolic function is hyperdynamic. The calculated ejection fraction is 73% by biplane method. There is no evidence of regional wall motion abnormalities. Aortic Valve There is moderate calcification of the aortic valve. There is no aortic valve stenosis. There is no aortic valve regurgitation. Thin strand like structure attached to ventricular aspect of aortic valve; possibly part of calcification. Cannot exclude vegetation. Mitral Valve The mitral valve appears normal. There is no mitral valve regurgitation. There is no mitral valve stenosis. Pulmonic Valve The pulmonic valve is likely normal. Tricuspid Valve Normal tricuspid valve structure. There is no tricuspid valve regurgitation. Prior Study Comparison No significant change compared to prior study dated: 05/10/2021. Measurements 2D Linear Measurements IVSd: 0.77 0.6-0.9/0.6-1.0 cm LVIDd: 5.11 3.9-5.3/4.2-5.9 cm LVIDd Index: 2.81 2.4-3.2/2.2-3.1 cm/m2 LVIDs: 2.81 2.0-3.6 cm LVPWd: 0.89 0.7-1.1 cm LV Mass: 183.93 67-162/88-224 g LV Mass Index: 101.06 43-95/49-115 g/m2 2D Systolic Function EF 4C: 73.10 >55% EF 2C: 70.80 >55% EF BiP: 73.20 >55% Aortic Valve AoV Pk Jose Luis: 2.01 AoV Mn Jose Luis: 1.40 AoV VTI: 0.35 AoV Pk Grad: 16.00 Aov Mn Grad: 9.00 Updated in Other Vendor System with Status of Final Abelino Walsh MD electronically signed on 08/26/2021 12:42:40 PM with status of Final
[2021-08-25 19:21] VITALS: BP 134/72; PULSE 72; RESP 18; TEMP 36.6; O2SAT 98
[2021-08-25 23:21] VITALS: BP 133/71; PULSE 72; RESP 18; TEMP 37; O2SAT 96
[2021-08-26] MEDS: 0.9 % Sodium Chloride 1,000 ML 100 ML IVCONT ×2 (03:12→15:59)
[2021-08-26 03:37] VITALS: BP 149/77; PULSE 66; RESP 18; TEMP 36.6; O2SAT 97
[2021-08-26] MEDS: Piperacillin Sodium/Tazobactam 3.375 GM in 0.9 % Sodium Chloride 50 ML IV ×2 (05:11→12:18)
[2021-08-26 07:11] LABS: Creatinine Clr Calc Pharmacy 112.9; Estimated Glomerular Filt Rate > 60
[2021-08-26 07:41] VITALS: BP 148/85; PULSE 63; RESP 17; TEMP 36.1; O2SAT 99
[2021-08-26] MEDS: methADONE HCl 20 MG/2 ML ORAL.CONC 35 MG PO (08:30)
[2021-08-26] MEDS: Acetaminophen 325 MG TABLET 650 MG PO ×2 (08:33→21:28)
[2021-08-26 08:50] LABS: Vancomycin Trough 12.2 mcg/mL (10.0-20.0)
--- NOTE | 2021-08-26 09:16 | HE.PHANOTE ---
Vancomycin Dosing Addendum Patient's trough came back this morning at 12.2 mg/L with a predicted AUC of 398 mg/L/hr.. Patients renal function is slowly improving. With the indication of bacteremia, it was decided to increase to 1250mg Q12. New predicted AUC 496mg/L/hr
[2021-08-26] MEDS: vancomycin HCL 1,250 MG in 0.9 % Sodium Chloride 250 ML 166.67 MG IV (09:19)
[2021-08-26 11:41] VITALS: BP 146/80; PULSE 63; RESP 17; TEMP 36.6; O2SAT 97
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
[2021-08-26] MEDS: cefTRIAXone sodium 2 GM in 0.9 % Sodium Chloride 50 ML IV (12:53)
[2021-08-26 14:55] VITALS: BP 144/81; PULSE 68; RESP 18; TEMP 36.5; O2SAT 97
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
[2021-08-26] MEDS: Docusate Sodium 100 MG CAPSULE PO (21:28)
[2021-08-26 23:49] VITALS: BP 153/81; PULSE 80; RESP 17; TEMP 37.2; O2SAT 95
[2021-08-27] VITALS (7 sets, daily range): BP systolic 135–160; BP diastolic 76–91; PULSE 63–77; RESP 16–19; TEMP 36.6–37.4; O2SAT 94–98
[2021-08-27] MEDS: 0.9 % Sodium Chloride 1,000 ML 100 ML IVCONT (03:15)
--- NOTE | 2021-08-27 08:51 | PM.PNGS ---
Subjective Subjective Date of Service: 08/27/21 Patient reports: no new complaints and still having pain Interval history: The patient continues to report L5/S1 pain in the midline but denies any abdominal pain, nausea, vomiting or fevers or chills. He otherwise has no new complaints. Physical Exam Vital Signs: Vital Signs: Last Vital Signs Temp 97.9 F 08/27/21 07:41 Pulse 63 08/27/21 07:41 Resp 17 08/27/21 07:41 BP 154/88 H 08/27/21 07:41 Pulse Ox 98 08/27/21 07:41 O2 Del Method 08/27/21 07:41 O2 Flow Rate 93 08/23/21 09:25 BMI result Body Mass Index 20.9 On exam, he is nontoxic and in good spirits His abdomen is soft and nontender with no rebound, rigidity, guarding. Examination of the right oblique area/flank shows no erythema, peritoneal sign or tenderness to suggest infection Extremities are free of palpable cords or tenderness Mood, affect and judgment appear appropriate Objective Data Active Medications Acetaminophen (Acetaminophen 325 Mg Tablet) 650 mg PO Q6H PRN PRN Reason: Pain, Mild (Pain Scale 1-3) Last Admin: 08/26/21 21:28 Dose: 650 mg Documented By: ROGER Docusate Sodium (Docusate Sodium 100 Mg Capsule) 100 mg PO DAILY PRN PRN Reason: Constipation Last Admin: 08/26/21 21:28 Dose: 100 mg Documented By: ROGER Ceftriaxone Sodium 2 gm/ (Sodium Chloride) 50 mls @ 100 mls/hr IV Q24H [facility] Last Infusion: 08/26/21 13:25 Dose: 0 mls/hr Documented By: YOKASTA Methadone HCl (Methadone Hcl 20 Mg/2 Ml Oral.Conc) 35 mg PO DAILY [facility] Last Admin: 08/26/21 08:30 Dose: 35 mg Documented By: YOKASTA Morphine Sulfate (Morphine Sulfate 4 Mg/Ml Cartridge) 4 mg IVPUSH Q4H PRN; Protocol PRN Reason: Pain, Severe (Pain Scale 7-10) Ondansetron HCl (Ondansetron Hcl 4 Mg/2 Ml Vial) 4 mg IVPUSH Q8H PRN PRN Reason: Nausea and Vomiting Pharmacy Consult (Consult Rx Perform Med Rec) 1 each MISCELLANE ONCE PRN PRN Reason: Consult order Pharmacy Consult (Consult Rx Vancomycin Dosing) 1 each MISCELLANE DAILY PRN PRN Reason: Consult order Sodium Chloride (0.9 % Sodium Chloride Flush 3 Ml Syringe) 3 ml IVFLUSH QSHIFT [facility] Last Admin: 08/27/21 01:02 Dose: Not Given Documented By: LILY Non-Admin Reason: IV Running Labs CBC & Chem 7: 08/25/21 09:03 08/26/21 06:03 Procedures Date of Service Date of Service: 08/27/21 Progress Note: A&P Assessment and plan (1) Abdominal wall hematoma: Status: Acute (2) Alcohol abuse: Status: Acute (3) IV drug abuse: Status: Acute (4) Bacteremia: Status: Acute Plan There continues to be no evidence of infection of his right-sided flank/oblique abdominal muscle hematoma. I will sign o off. Please consult if any new surgical issue arises or if there are new questions. Time Spent With Patient Time: Total time spent is greater than 50% in coordination of care (as documented) at patient's floor/unit and/or counseling patient: Quality Stroke Does the patient have a stroke diagnosis?: No VTE Prior VTE?: No VTE Risk Level:: Medical - moderate - high VTE Device Contraindication: Treatment Not Indicated VTE Drug Contraindication: N/A - Med Ordered
[2021-08-27] MEDS: methADONE HCl 20 MG/2 ML ORAL.CONC 35 MG PO (09:41)
[2021-08-27] MEDS: Docusate Sodium 100 MG CAPSULE PO (09:42)
[2021-08-27] MEDS: polyethylene glycoL 3350 17 GM POWD.PACK PO ×2 (12:10→19:43)
[2021-08-27] MEDS: cefTRIAXone sodium 2 GM in 0.9 % Sodium Chloride 50 ML IV (12:10)
--- NOTE | 2021-08-27 12:16 | P.PICC_ITS ---
PICC Line Insertion NPICC Diagnosis: [Bacteremia] Indication: [intermediate antibiotics] Pertinent Labs: [reviewed] Technique: Following informed consent including risks, benefits and alternatives and using sterile technique including cap and mask, sterile gown, glove and drape, the [left] arm was prepped and draped in the usual sterile fashion of full barrier technique with CHG. Following completion of [place] Protocol the skin and soft tissues were anesthetized with 1% Lidocaine plain. Using ultrasound guidance, [left basilic] vein access was obtained on first attempt by this RN. Over an 0.018 wire through peel-away sheath, a [4 fr single lumen ] PICC line was positioned. Catheter length is [43 cm] internal length, [0 cm] external length, for a total trimmed length of [43 cm]. The procedure was performed in [S272]. Tip verification was performed by Enmanuel Epps with Sherlock 3CG. Tip located in SVC. Ultrasound was used to document vein patency and for needle entry. A formal ultrasound picture and cardiac rhythm strip was recorded. [employer] has released the line for use and it is currently dressed with a StatLock, Tegaderm, and CHG disc. Verification has been performed for blood return and line patency. Arm Circumference: [25 cm] Equipment: [[employer]Rally POWER PICC SOLO ] Catheter Type: [4 fr single lumen PASV PICC] Lot #: [[id number]]
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
--- NOTE | 2021-08-27 13:31 | MHC.CM.PN ---
JEFFERY HAS STARTED THE AUTH PROCESS. JEFFERY CANNOT SECURE HIS METHADONE THROUGH THIS WEEKEND AND WILL HAVE TO WAIT UNTIL MONDAY. HOSPITALIST AND PATIENT AWARE OF PLAN AND IN AGREEMENT
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
[2021-08-27] MEDS: 0.9 % Sodium Chloride Flush 10 ML SYRINGE 5 ML IVFLUSH (19:45)
[2021-08-28] VITALS (8 sets, daily range): BP systolic 136–169; BP diastolic 76–98; PULSE 62–76; RESP 16–20; TEMP 36.3–37.2; O2SAT 96–97
[2021-08-28] MEDS: Morphine Sulfate 4 MG/ML CARTRIDGE IVPUSH ×4 (00:27→20:21)
[2021-08-28] MEDS: polyethylene glycoL 3350 17 GM POWD.PACK PO ×2 (09:13→20:15)
[2021-08-28] MEDS: methADONE HCl 20 MG/2 ML ORAL.CONC 35 MG PO (09:13)
[2021-08-28] MEDS: Acetaminophen 325 MG TABLET 650 MG PO ×2 (09:14→18:48)
[2021-08-28] MEDS: Docusate Sodium 100 MG CAPSULE PO (09:14)
[2021-08-28] MEDS: 0.9 % Sodium Chloride Flush 10 ML SYRINGE 5 ML IVFLUSH ×3 (09:14→20:15)
[2021-08-28] MEDS: cefTRIAXone sodium 2 GM in 0.9 % Sodium Chloride 50 ML IV (12:22)
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
[2021-08-28] MEDS: Magnesium Hydrox/Alum Hydrox 30 ML ORAL.SUSP PO (23:59)
[2021-08-29] VITALS (7 sets, daily range): BP systolic 130–168; BP diastolic 78–97; PULSE 65–81; RESP 16–19; TEMP 36.3–37.1; O2SAT 96–98
[2021-08-29] MEDS: Acetaminophen 325 MG TABLET 650 MG PO ×2 (09:39→22:17)
[2021-08-29] MEDS: Morphine Sulfate 4 MG/ML CARTRIDGE IVPUSH ×2 (09:39→22:18)
[2021-08-29] MEDS: 0.9 % Sodium Chloride Flush 10 ML SYRINGE 5 ML IVFLUSH ×3 (09:39→19:26)
[2021-08-29] MEDS: polyethylene glycoL 3350 17 GM POWD.PACK PO ×2 (09:40→19:26)
[2021-08-29] MEDS: Docusate Sodium 100 MG CAPSULE PO (09:40)
[2021-08-29] MEDS: methADONE HCl 20 MG/2 ML ORAL.CONC 35 MG PO (09:40)
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
[2021-08-29] MEDS: cefTRIAXone sodium 2 GM in 0.9 % Sodium Chloride 50 ML IV (13:29)
[2021-08-29] MEDS: Magnesium Hydrox/Alum Hydrox 30 ML ORAL.SUSP PO (22:20)
[2021-08-30 04:00] VITALS: BP 160/77; PULSE 68; RESP 18; TEMP 36.6; O2SAT 96
[2021-08-30 07:41] VITALS: BP 162/83; PULSE 66; RESP 20; TEMP 36.2; O2SAT 97
[2021-08-30 08:56] VITALS: RESP 18
[2021-08-30] MEDS: Morphine Sulfate 4 MG/ML CARTRIDGE IVPUSH ×2 (08:56→19:55)
[2021-08-30] MEDS: polyethylene glycoL 3350 17 GM POWD.PACK PO ×2 (08:56→19:52)
[2021-08-30] MEDS: Docusate Sodium 100 MG CAPSULE PO (08:56)
[2021-08-30] MEDS: Acetaminophen 325 MG TABLET 650 MG PO (08:56)
[2021-08-30] MEDS: methADONE HCl 20 MG/2 ML ORAL.CONC 35 MG PO (08:56)
[2021-08-30] MEDS: 0.9 % Sodium Chloride Flush 10 ML SYRINGE 5 ML IVFLUSH ×3 (08:56→19:58)
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
[2021-08-30 11:38] LABS: Hematocrit 32.7 % (42.0-52.0); Hemoglobin 9.9 g/dl (14.0-18.0)
[2021-08-30 11:38] LABS: Blood Urea Nitrogen 15 mg/dL (9-16); Estimated Glomerular Filt Rate > 60
[2021-08-30 12:00] VITALS: BP 124/84; PULSE 77; RESP 20; TEMP 36.4; O2SAT 98
[2021-08-30] MEDS: cefTRIAXone sodium 2 GM in 0.9 % Sodium Chloride 50 ML IV (13:03)
[2021-08-30 16:00] VITALS: BP 146/77; PULSE 78; RESP 17; TEMP 36.2; O2SAT 100
[2021-08-30 20:00] VITALS: BP 147/76; PULSE 75; RESP 16; TEMP 36.6; O2SAT 96
[2021-08-31] VITALS (7 sets, daily range): BP systolic 135–159; BP diastolic 72–97; PULSE 68–76; RESP 14–18; TEMP 36.4–36.8; O2SAT 95–99
[2021-08-31] MEDS: methADONE HCl 20 MG/2 ML ORAL.CONC 35 MG PO (07:55)
[2021-08-31] MEDS: polyethylene glycoL 3350 17 GM POWD.PACK PO ×2 (07:55→20:42)
[2021-08-31] MEDS: 0.9 % Sodium Chloride Flush 10 ML SYRINGE 5 ML IVFLUSH ×3 (07:57→20:44)
[2021-08-31] MEDS: Lidocaine 4 % Patch ADH..PATCH 1 PATCH TRANSDERMA (10:30)
[2021-08-31] MEDS: cefTRIAXone sodium 2 GM in 0.9 % Sodium Chloride 50 ML IV (11:33)
--- NOTE | 2021-08-31 15:07 | MHC.CM.PN ---
Addendum entered by Keara Carter 08/31/21 16:28: PATIENT IS NOT ACTIVE WITH [facility] PER REVIEW OF COMMUNICATIONS MAINTAINER NOTE, HE RECEIVES HIS METHADONE AT [facility] ([phone]) CALL TO BE MADE MONDAY TO START GUEST DOSE PROCESS [facility] HAS AUTH TO ACCEPT. Original Note: this marketing writer will need to call [facility] [phone] to start process for guest dosing. Patient aware and in agreement. Hospitalist made aware.
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
[2021-08-31] MEDS: 0.9 % Sodium Chloride Flush 3 ML SYRINGE IVFLUSH (20:43)
[2021-08-31] MEDS: Magnesium Hydrox/Alum Hydrox 30 ML ORAL.SUSP PO (20:48)
[2021-08-31] MEDS: Acetaminophen 325 MG TABLET 650 MG PO (20:48)
[2021-08-31] MEDS: Morphine Sulfate 4 MG/ML CARTRIDGE IVPUSH (22:22)
[2021-09-01 03:28] VITALS: BP 139/76; PULSE 69; RESP 17; TEMP 36.7; O2SAT 95
[2021-09-01 07:38] VITALS: BP 137/87; PULSE 79; RESP 16; TEMP 36.9; O2SAT 96
[2021-09-01] MEDS: Lidocaine 4 % Patch ADH..PATCH 1 PATCH TRANSDERMA (07:47)
[2021-09-01] MEDS: methADONE HCl 20 MG/2 ML ORAL.CONC 35 MG PO (07:47)
[2021-09-01] MEDS: polyethylene glycoL 3350 17 GM POWD.PACK PO (07:47)
[2021-09-01] MEDS: 0.9 % Sodium Chloride Flush 10 ML SYRINGE 5 ML IVFLUSH (07:48)
[2021-09-01] MEDS: 0.9 % Sodium Chloride Flush 3 ML SYRINGE IVFLUSH (07:48)
[2021-09-01 10:03] VITALS: BP 143/80; PULSE 82; RESP 16; TEMP 36.6; O2SAT 98
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
[2021-09-01] MEDS: cefTRIAXone sodium 2 GM in 0.9 % Sodium Chloride 50 ML IV (11:39)
[2021-09-01 11:40] VITALS: BP 132/82; PULSE 76; RESP 18; TEMP 37; O2SAT 98
--- NOTE | 2021-09-01 12:17 | MHC.CM.PN ---
GUEST DOSING IS ARRANGED WITH [facility] ETHAN PATIENT TO DC TO [place] TO DAY ON A LESS THAN 30 DAY ANTICIPATED STAY. DC SUMMARY ALSO FAXED TO [facility] @ [phone] PER THE FACILITY REQUEST LAST DOSE LETTER ATTACHED WELL (PER REQUEST)
[2021-09-01 12:19] LABS: COVID-19 Test Negative (Negative); IDNOW Serial# 55D5AD1C
== END 2021-09-01 15:05 | disposition skilled nursing facility (03) | DRG 139 ==
LOC: HO.ED 08-23 17:08 → HO.EDOVER 08-23 22:22 → HO.S3 08-24 03:53
PROVIDERS: Emergency Medicine Emergency Medical Services; Internal Medicine; Admitting Provider Internal Medicine; Emergency Provider Emergency Medicine; PCP Internal Medicine; Visit Provider Family Medicine
DX: J18.9 Pneumonia, unspecified organism (principal); R78.81 Bacteremia; K74.60 Unspecified cirrhosis of liver; F33.9 Major depressive disorder, recurrent, unspecified; F17.210 Nicotine dependence, cigarettes, uncomplicated; K21.9 Gastro-esophageal reflux disease without esophagitis; S30.1XXA Contusion of abdominal wall, initial encounter; V13.4XXA Pedal cycle driver injured in collision with car, pick-up truck or van in traffic accident, initial encounter; K59.00 Constipation, unspecified; M54.50 Low back pain, unspecified; B95.4 Other streptococcus as the cause of diseases classified elsewhere; F10.10 Alcohol abuse, uncomplicated; F11.20 Opioid dependence, uncomplicated; Z86.19 Personal history of other infectious and parasitic diseases; Z20.822 Contact with and (suspected) exposure to COVID-19; Z71.6 Tobacco abuse counseling; Z86.16 Personal history of COVID-19; Z79.899 Other long term (current) drug therapy
CPT/HCPCS: 36415; 36573; 71045; 72132; 73590; 74176; 80048; 80076; 80202; 80307; 81003; 82077; 82550; 82565; 83605; 84520; 85014; 85018; 85025; 85027; 85652; 87040; 87077; 87186; 87205; 87502; 87635; 87640; 87641; 93308; 96365; 96366; 96367; 96375; 97116; 97162; 97530; 99285; C1751; J0610; J0696; J1650; J2270; J2543; J3370; Q9967

== ENCOUNTER 2021-09-03 12:51 | Emergency (ER) | payer OTHER, SELFPAY ==
[2021-09-03 13:02] VITALS: BP 122/85; PULSE 92; RESP 18; TEMP 36.9; O2SAT 98; BMI 22.2
[2021-09-03 16:16] VITALS: BP 131/72; PULSE 78; RESP 16; TEMP 36.8; O2SAT 97
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
[2021-09-03 18:00] LABS: MANUAL DIFF FLAG NO
[2021-09-03] MEDS: cefTRIAXone sodium 2 GM in 0.9 % Sodium Chloride 50 ML IV (18:00)
[2021-09-03 18:24] LABS: Basophils Absolute Auto 0.1 X10*3/uL (0.0-0.2); Basophils Percent Auto 1.1 % (0-2); Eosinophils Absolute Auto 0.3 X10*3/uL (0.0-0.4); Eosinophils Percent Auto 4.5 % (0-4); Hematocrit 30.7 % (42.0-52.0); Hemoglobin 9.6 g/dl (14.0-18.0); Imm Gran Abs Auto 0.04 X10*3/uL (0.00-0.03); Imm Gran Pct Auto 0.5 % (0.0-0.4); Lymphocytes Absolute Auto 1.4 X10*3/uL (1.2-4.9); Lymphocytes Percent Auto 18.9 % (20-40); Mean Corpuscular HGB Conc 31.3 g/dl (31.0-36.0); Mean Corpuscular Hemoglobin 27.1 pg (27.0-33.0); Mean Corpuscular Volume 86.7 fL (80.0-98.0); Mean Platelet Volume 10.9 fL (9.4-12.4); Monocytes Absolute Auto 0.6 X10*3/uL (0.1-1.2); Monocytes Percent Auto 8.3 % (2-11); Neutrophils Percent Auto 66.7 % (45-73); Platelet Count 134 X10*3/uL (160-400); Red Blood Count 3.54 X10*6/uL (4.60-5.80); Red Cell Distribution Width 20.5 % (11.0-16.0); White Blood Count 7.5 X10*3/uL (4.8-10.8)
[2021-09-03 18:29] LABS: Alanine Aminotransferase 30 U/L (0-40); Albumin Level 2.5 g/dL (3.5-5.0); Alkaline Phosphatase 173 U/L (39-117); Anion Gap 8 (12-20); Aspartate Amino Transferase 65 U/L (5-37); Bilirubin Direct 0.6 mg/dL (0.0-0.5); Bilirubin Total 0.9 mg/dL (0.0-1.0); Blood Urea Nitrogen 18 mg/dL (9-16); Calcium 8.8 mg/dL (8.4-10.2); Carbon Dioxide 28 mmol/L (22-29); Chloride 103 mmol/L (96-108); Creatinine Clr Calc Pharmacy 95.2; Estimated Glomerular Filt Rate > 60; Glucose Random 96 mg/dL (60-115); Magnesium 1.8 mg/dL (1.6-2.6); Potassium 4.3 mmol/L (3.3-5.1); Sodium 135 mmol/L (135-145); Total Protein 8.4 g/dL (6.5-8.0)
--- NOTE | 2021-09-03 18:36 | PHA.MEDREC ---
Pharmacy Consult ? Medication Reconciliation Pharmacy has completed the medication reconciliation. Patient just discharged from [facility] 09/01/2021. Med rec done by discharge summary. Laurie Mora, KahlilD
--- NOTE | 2021-09-03 18:59 | MHC.CM.ED ---
CM met with patient at request of Katty BENITEZ. Pt admitted to [facility] on 08/22 and d/c to [facility] on 09/01, needing IV antibiotics for bacteremia. Pt left AMA yesterday after his antibiotic. Very unhappy with facility and food. Pt has hx IVDA. Has been on methadone since last admission to [facility]. Takes 33 mg daily. Gets his methadone at [facility] on [address] [place] [address]. ([phone]). Denies any current drug abuse. Urine Drug screen pending. Verified Covid vaccinations with Vax card. J&J 06/01/20 and Moderna booster 05/27/21. PCP listed is Dr. Barr, but pt admits that he hasn't seen him in many years. Pt was initially requesting to have home IV antibiotics, but Katty BENITEZ explained that because of his IVDA, he could not have home IV therapy. CM also explained that he would need a current PCP to have the VNA. Pt is agreeable to STR with IV antibiotic treatment. Pt aware that CM may need to refer as far as [place] and beyond for a facility willing to accept him. Pt c/o back pain. Was recommended for STR for PT with last admission. PT evaluation ordered. Pt tells CM he does not have a HCP and declines to complete one. [place] need a PASRR screening completed. Referrals placed within 50 miles that accept [facility] and Methadone. Pt aware he will remain in the ED unless there is a reason to admit him. CM to follow for d/c needs.
[2021-09-03 19:41] VITALS: BP 158/81; PULSE 71; RESP 16; TEMP 36.8
[2021-09-03 21:25] LABS: COVID-19 Test Negative (Negative)
[2021-09-03 22:16] LABS: Appearance Urine CLEAR; Color Urine YELLOW; Glucose Urine UA NEG (NEG); Leukocyte Esterase Urine NEG (NEG); Nitrite Urine NEG (NEG); Specific Gravity - Urine 1.025 (1.005-1.025); Urine Blood NEG (NEG); Urine Ketones NEG (NEG); Urine Protein NEG (NEG-TRACE)
[2021-09-03 22:25] VITALS: BP 121/64; PULSE 80; RESP 16; TEMP 36.8; O2SAT 95
[2021-09-03 22:33] LABS: Amphetamine Screen Urine Not Detected (Not Detect); Barbiturates, Urine Not Detected (Not Detect); Benzodiazepines Screen Urine Not Detected (Not Detect); Cannabinoid Screen Urine Not Detected (Not Detect); Cocaine Screen Urine Not Detected (Not Detect); Fentanyl, urine POSITIVE (Not Detect); Opiate Screen Urine Not Detected (Not Detect); Phencyclidine Screen Urine Not Detected (Not Detect)
[2021-09-04] VITALS (8 sets, daily range): BP systolic 118–152; BP diastolic 68–90; PULSE 65–95; RESP 12–18; TEMP 36.6–36.8; O2SAT 94–98
[2021-09-04] MEDS: Morphine Sulfate 4 MG/ML CARTRIDGE IVPUSH ×2 (00:08→21:44)
[2021-09-04] MEDS: ondansetron HCL 4 MG/2 ML VIAL IVPUSH (00:08)
--- NOTE | 2021-09-04 07:42 | PC.NURSE ---
PHYSICAL THERAPY AT BEDSIDE FOR CONSULT . PATIENT AWARE OF PLAN OF CARE .
--- NOTE | 2021-09-04 08:48 | MHC.RECOVSUP ---
Recovery Support note: Patient is a 61 year old Comoran speaking male currently awaiting SNF placement. Patient reports he has not used any substances since presenting to the emergency department 08/22. Patient reports no cravings however states he has had dreams of using. Patient reports a desire to continue with his recovery, stating he needs to improve his physical health to be able to better assist his mother. Patient denies SI/HI/AH/VH. Patient reports no history of mental health issues. Discussed case with counseling case manager.
[2021-09-04] MEDS: methADONE HCl 20 MG/2 ML ORAL.CONC 35 MG PO (09:42)
--- NOTE | 2021-09-04 10:02 | PC.NURSE ---
Addendum entered by Marie Sam LPN 09/04/21 10:14: WIDTH OF 2 1/2 FOR SMALLER WOUND . Original Note: PATIENT A/OX4 . PEARRLA . HEART BEAT REGULAR AT 73 . LUNGS CLEAR . BREATHING UNLABORED . SKIN PINK WARM AND DRY . WOUND ON LEFT HERNANDEZ COVERED WITH DRESSING SEEN BY WOUND CLINIC EVER MONDAY . WOUND HAS THREE AREAS TO IT , 7CM IN LENGTH BY 1/2CM WIDTH WITH BLACK ESCHAR AT 12 NOON ,AND TO THE RIGHT SIDE ANOTHER SMALL WOUND THATS 3 1/2 CM IN WIDTH BY 2/1 . ABDOMEN SOFT NON DISTENDED , NON TENDER. POSITIVE BOWEL SOUNDS IN ALL QUADRANTS . PATIENT EVALUATED BY PT WITH USE OF WALKER . PATIENT AWARE OF PLAN OF CARE .
--- NOTE | 2021-09-04 10:17 | MHC.CM.ED ---
Patient remains in ER. Trying to obtain STR. Will be difficult due to suboxone use. Referral broadcasted within 50 miles to all facilities contracted with patient's insurance. Will need [facility] PASRR Level 2. Already submitted. ELI Carrasco will request ID consult to see if patient can be discharged home with PO antibiotics or will require another PICC and placement. Continue to monitor for d/c needs.
--- NOTE | 2021-09-04 15:59 | MHC.CM.PN ---
PASRR LEVEL 2 DETERMINATION RECEIVED AND UPLOADED INTO [facility]. NO BED OFFERS OF THIS NOTE. MULTIPLE DENIALS
[2021-09-04] MEDS: cefTRIAXone sodium 2 GM in 0.9 % Sodium Chloride 50 ML IV (21:55)
--- NOTE | 2021-09-04 22:56 | PC.NURSE ---
PT C/O BACK PAIN, PA MADE AWARE, MEDICATED ORDERED. PT OTHERWISE CALM, IN NAD THROUGHOUT THE EVENING. REPOSITIONING SELF ABLE.
[2021-09-05] MEDS: Lidocaine 4 % Patch ADH..PATCH 1 PATCH TRANSDERMA (01:57)
--- NOTE | 2021-09-05 02:01 | PC.NURSE ---
applied lidocaine ptach to pt's back 09/05/21 0200 and labeled patch with date/time and my initials
--- NOTE | 2021-09-05 03:49 | PC.NURSE ---
Patient ambulated to the bathroom with staff assistance. Patient was fairly steady on his feet.
[2021-09-05 05:50] VITALS: BP 134/84; PULSE 78; RESP 16; O2SAT 95
--- NOTE | 2021-09-05 07:37 | PC.NURSE ---
Patient is alert and oriented. Walking around the pod with the walker. Currently sitting in bed eating breakfast. No apparent distress.
[2021-09-05 08:24] VITALS: BP 133/73; PULSE 74; RESP 16; O2SAT 97
[2021-09-05] MEDS: polyethylene glycoL 3350 17 GM POWD.PACK PO (09:25)
[2021-09-05] MEDS: cefTRIAXone sodium 2 GM VIAL IV (09:26)
[2021-09-05] MEDS: methADONE HCl 20 MG/2 ML ORAL.CONC 35 MG PO (09:27)
--- NOTE | 2021-09-05 11:03 | MHC.CM.ED ---
Patient remains in ER. Referral broadcasted. No bed offers made at this time. Level [address] [facility] PASRR has been obtained. Per Katty BENITEZ, Dr Weinstein doesn't feel patient PO antibiotics are appropriate. Continue to monitor for d/c needs.
[2021-09-05 12:43] VITALS: BP 127/77; PULSE 71; RESP 18; TEMP 36.6; O2SAT 97
--- NOTE | 2021-09-05 16:33 | PC.NURSE ---
Patient is sitting at the bedside conversating with family member. Reports no pain.
[2021-09-06] MEDS: Lidocaine 4 % Patch ADH..PATCH 1 PATCH TRANSDERMA (00:51)
[2021-09-06 01:14] VITALS: BP 126/69; PULSE 78; RESP 17; TEMP 37; O2SAT 94
[2021-09-06 08:09] VITALS: BP 124/90; PULSE 87; RESP 16; O2SAT 97
--- NOTE | 2021-09-06 09:25 | MHC.CM.ED ---
Patient remains in ER. No bed offers made yet. Referral broadcasted within the [facility] to all facilities that are contracted with patient's insurance and can administer Methadone. 66 referrals made. Continue to monitor for d/c needs.
[2021-09-06] MEDS: methADONE HCl 20 MG/2 ML ORAL.CONC 35 MG PO (11:03)
[2021-09-06] MEDS: polyethylene glycoL 3350 17 GM POWD.PACK PO ×2 (11:04→22:20)
[2021-09-06] MEDS: cefTRIAXone sodium 2 GM VIAL IV (12:18)
[2021-09-06 12:33] VITALS: BP 134/75; PULSE 78; RESP 16; TEMP 36.9; O2SAT 97
--- NOTE | 2021-09-06 14:51 | PC.NURSE ---
Chronic wound to LLE cleansed with NS and re-dressed with silver algenate and foam dressing. Pt tollerated well. Wound is approximately 3.5cm selena and about 1cm wide. Wound bed is pink.
--- NOTE | 2021-09-07 02:36 | PC.NURSE ---
PATIENT WOKE UP REQUESTING TEA .
[2021-09-07 08:03] VITALS: BP 133/69; PULSE 67; RESP 14; O2SAT 95
[2021-09-07 08:49] VITALS: BP 125/67; PULSE 75; RESP 18; TEMP 36.8; O2SAT 96
[2021-09-07] MEDS: cefTRIAXone sodium 2 GM VIAL IV (08:52)
[2021-09-07] MEDS: methADONE HCl 20 MG/2 ML ORAL.CONC 35 MG PO (09:00)
[2021-09-07] MEDS: polyethylene glycoL 3350 17 GM POWD.PACK PO (09:02)
[2021-09-07 11:30] VITALS: BP 146/78; PULSE 68; RESP 16; TEMP 36.4; O2SAT 97
--- NOTE | 2021-09-07 11:35 | MHC.CM.ED ---
Addendum entered by Yue Slater 09/07/21 13:02: Per Xochilt, Pharmacist, weekly IV medication is approximately $2,000 per dose. Patient would need 2-3 doses. Not sure medication would work for endocarditis. If same day surgery infusion can be arranged, patient would need daily Rocephin 2grams IV until 09/23/21. Still waiting to hear from Daisy in same day surgery. Original Note: Patient remains in ER. Referral broadcasted in [facility] to all of the facilities in [facility] that are contracted with [facility]. No bed offers made. Per Dr Weinstein, weekly IV antibiotics may be an option. Daisy in same day surgery has been asked to speak with CM. Lemon, Pharmacist, is in the process of determining which medication that is and if [facility] has the ability to obtain it. Continue to monitor for d/c needs.
--- NOTE | 2021-09-07 15:37 | MHC.CM.ED ---
Addendum entered by Shalonda Cullen 09/07/21 17:05: Report given to Sho CRAVEN. Pt is aware that having daily IV therapy is not an option as this point, as he has extremely poor IV access and it took 14 sticks for this present IV. Will check with facilities already referred to to see if they have any beds. CM to follow for d/c needs. Original Note: T/C from Daisy in [facility]. They are unable to accommodate Daily IV Rocephin, with daily IV insertions secondary to already having 15 daily patients. Oneyda Cornell aware. No STR bed offers. Pt is not a candidate for PICC line secondary to ongoing IV drug abuse.
[2021-09-07 15:44] VITALS: BP 121/79; PULSE 99; RESP 18; O2SAT 97
--- NOTE | 2021-09-07 19:25 | PC.NURSE ---
Addendum entered by Salome Zimmerman 09/08/21 07:02: report given to HERBER Crabtree Addendum entered by Salome Zimmerman 09/07/21 20:11: pt is alert and oriented. resting in bed. no signs of acute distress notice. breathing equally unlabored. Original Note: report received from HERBER Berkowitz and Marie
[2021-09-07 19:50] VITALS: BP 158/79; PULSE 76; RESP 16; TEMP 36.8; O2SAT 98
[2021-09-08 06:00] VITALS: BP 132/79; PULSE 73; RESP 16; TEMP 36.7; O2SAT 96
[2021-09-08] MEDS: methADONE HCl 20 MG/2 ML ORAL.CONC 35 MG PO (07:52)
[2021-09-08] MEDS: polyethylene glycoL 3350 17 GM POWD.PACK PO ×2 (07:53→19:59)
[2021-09-08] MEDS: Lidocaine 4 % Patch ADH..PATCH 1 PATCH TRANSDERMA (07:54)
[2021-09-08 08:28] VITALS: BP 127/67; PULSE 73; RESP 16; O2SAT 96
[2021-09-08] MEDS: cefTRIAXone sodium 2 GM VIAL IV (08:42)
[2021-09-08 12:23] VITALS: BP 144/87; PULSE 68; RESP 16; TEMP 36.6; O2SAT 97
[2021-09-08 19:48] VITALS: BP 140/74; PULSE 94; RESP 16; TEMP 36.4; O2SAT 95
[2021-09-09 06:10] VITALS: BP 105/54; PULSE 66; RESP 16; TEMP 36.6; O2SAT 96
[2021-09-09] MEDS: Lidocaine 4 % Patch ADH..PATCH 1 PATCH TRANSDERMA ×2 (06:24→21:42)
--- NOTE | 2021-09-09 07:12 | PC.NURSE ---
Assumed care of this pt. at 0700 and received report from Keara Puri RN
[2021-09-09] MEDS: methADONE HCl 20 MG/2 ML ORAL.CONC 35 MG PO (08:47)
[2021-09-09] MEDS: polyethylene glycoL 3350 17 GM POWD.PACK PO (08:47)
[2021-09-09] MEDS: cefTRIAXone sodium 2 GM VIAL IV (09:12)
[2021-09-09 09:37] VITALS: BP 136/77; PULSE 90; RESP 16; TEMP 36.4; O2SAT 99
--- NOTE | 2021-09-09 10:01 | MHC.CM.ED ---
Patient remains in ER overflow. No bed offers have been made yet. Received notification from [facility] that they have open male beds today. Referral resent to them via [facility]. Referral also broadcasted to 13 LTAC facilities. Continue to monitor for d/c needs.
[2021-09-09 16:51] VITALS: BP 117/68; PULSE 74; RESP 16; TEMP 36.8; O2SAT 98
--- NOTE | 2021-09-09 17:04 | PC.NURSE ---
PATIENT ASK FOR COFFEE.
--- NOTE | 2021-09-09 18:30 | MHC.CM.ED ---
Pt remains in ED overflow. [facility] does not have a bed. Awaiting responses from LTA: Hakan Solorzano, Aurelia [facility] [place] and [facility]. Pt last day of IV antibiotics is 09/23. CM to follow for d/c needs.
[2021-09-09 20:47] VITALS: BP 110/82; PULSE 74; RESP 16; TEMP 36.6; O2SAT 96
[2021-09-09] MEDS: Acetaminophen 325 MG TABLET 975 MG PO (21:40)
--- NOTE | 2021-09-09 21:44 | PC.NURSE ---
Lido patch applied this AM fell off, Pt requested another1.
--- NOTE | 2021-09-09 22:47 | PC.NURSE ---
PATIENT WENT FOR SEVERAL WALK AROUND THE DEPARTMENT ,PATIENT HAD LOTS OF SNACKS TO EAT .
[2021-09-10 05:38] VITALS: BP 141/73; PULSE 74; RESP 16; TEMP 36.7; O2SAT 98
[2021-09-10] MEDS: methADONE HCl 20 MG/2 ML ORAL.CONC 35 MG PO (10:27)
[2021-09-10] MEDS: cefTRIAXone sodium 2 GM VIAL IV (10:33)
--- NOTE | 2021-09-10 11:58 | PC.NURSE ---
Pt A&Ox4, no complaints of pain at this time. Requesting lido patch to remain on and be replaced this afternoon/evening. Pt IV antibiotic given as per schedule to IV in REJ, pt aware for need to be placed for IV antibiotics. Pt ambulates independently, reg diet, call yo within reach. Will continue to monitor.
[2021-09-10] MEDS: Acetaminophen 325 MG TABLET 975 MG PO (16:21)
[2021-09-10 18:27] LABS: Glucose, Whole Blood 82 mg/dL (60-115)
[2021-09-10 20:10] VITALS: BP 138/85; PULSE 81; RESP 16; TEMP 36.7; O2SAT 97
[2021-09-10] MEDS: Lidocaine 4 % Patch ADH..PATCH 1 PATCH TRANSDERMA (20:35)
[2021-09-11 05:26] VITALS: BP 143/68; PULSE 82; RESP 15; TEMP 36.3; O2SAT 96
--- NOTE | 2021-09-11 08:40 | MHC.CM.ED ---
Review of notes and referrals: pt is an incredibly difficult placement d/t active IVDA, AMA hx, no PCP, no HCP, ? unstable housing issues, need for Methadone, and need for LT ATB. No offers as of this entry. CM to try pt's payor, [employer]/Elise on 09/13 to ask for assistance with placement and/or other options. Pt completed IV ATB on 09/23
[2021-09-11 08:48] VITALS: BP 136/78; PULSE 87; RESP 16; O2SAT 100
[2021-09-11] MEDS: cefTRIAXone sodium 2 GM VIAL IV (10:11)
[2021-09-11] MEDS: methADONE HCl 20 MG/2 ML ORAL.CONC 35 MG PO (10:12)
[2021-09-11 14:00] VITALS: BP 138/79; PULSE 77; RESP 14; TEMP 36.4; O2SAT 96
--- NOTE | 2021-09-11 18:56 | PC.NURSE ---
Pt A&Ox3, no complaints of pain at this time- reports only periodically uncomfortable when standing. Pt IV antibiotic given as per schedule to IV in REJ. Pt ambulates independently,, call yo within reach, denies any other needs. Will continue to monitor.
[2021-09-11 20:01] VITALS: BP 134/62; PULSE 80; RESP 20; TEMP 36.6; O2SAT 100
[2021-09-11 23:35] VITALS: BP 134/80; PULSE 76; RESP 19; TEMP 36.7; O2SAT 97
[2021-09-12 05:47] VITALS: BP 142/77; PULSE 72; RESP 16; TEMP 36.1; O2SAT 98
[2021-09-12] MEDS: methADONE HCl 20 MG/2 ML ORAL.CONC 35 MG PO (10:16)
[2021-09-12 13:50] VITALS: BP 127/73; PULSE 72; RESP 16; O2SAT 99
--- NOTE | 2021-09-12 14:49 | MHC.CM.ED ---
Review of referrals for placement: Most recent LTAC referrals have not been responded to: phone calls placed to [facility]: office opened M-F only: [facility]: Message left with admissions: [facility]: message left for 09/13 staff Dayana Rodriguez: Jeremy Solorzano: No admissions on weekends. CM to follow.
--- NOTE | 2021-09-12 17:16 | PC.NURSE ---
PT ALERT AND ORIENTED, VSS, DENIES PAIN. PT UP TO RESTROOM INDEPENDENTLY. REJ PATENT, MEDS GIVEN DOCUMENTED. NO C/O AT THIS TIME
[2021-09-12 20:41] VITALS: BP 141/79; PULSE 84; RESP 18; TEMP 36.4; O2SAT 99
[2021-09-12 22:00] VITALS: BP 151/72; PULSE 75; RESP 18; TEMP 36.9; O2SAT 100
[2021-09-13] MEDS: Famotidine 20 MG TABLET PO (01:24)
[2021-09-13 06:00] VITALS: RESP 18
--- NOTE | 2021-09-13 09:35 | MHC.CM.PN ---
REFERRALS UPDATED THERE CONTINUE TO BE NO BED OFFERS AND ONLY [facility] AT [place] IS FOLLOWING REFERRAL HAS BEEN BROADCASTED TO EVERY SNF WITHIN [address] THAT ACCEPTS PTS INSURANCE AND CAN PROVIDE METHADONE TREATMENT LTACS ALSO UPDATED
[2021-09-13 09:44] VITALS: BP 137/73; PULSE 70; RESP 16; TEMP 36.3; O2SAT 100
[2021-09-13] MEDS: methADONE HCl 20 MG/2 ML ORAL.CONC 35 MG PO (09:53)
--- NOTE | 2021-09-13 12:11 | PC.NURSE ---
call to pharmacy for IV ABX cetriaxone 2G
--- NOTE | 2021-09-13 12:43 | PC.NURSE ---
pt in room. pt spoke with visiting [facility] nancy with good return. new U/S guided 20G IV placed in pts R upper arm and R IJ no longer flushing - removed IV line on 09/13. pt to continue on IV abx per Kalie ROLLER COASTER ENGINEER for valve vegitation. pt questioning time remaining in hospital for IV abx tx as pt wishes to go home. otherwise, pt ambulating independently in room, reports no pain, ambulating to bathroom
[2021-09-13] MEDS: cefTRIAXone sodium 2 GM in 0.9 % Sodium Chloride 50 ML IV (13:23)
[2021-09-13 15:06] VITALS: BP 132/72; PULSE 67; RESP 16; TEMP 36.2; O2SAT 100
[2021-09-13 20:42] VITALS: BP 133/72; PULSE 84; RESP 16; TEMP 36.6; O2SAT 98
[2021-09-14 06:00] VITALS: BP 138/74; PULSE 76; RESP 16; TEMP 36.4; O2SAT 96
[2021-09-14 07:57] VITALS: BP 149/74; PULSE 92; RESP 12; TEMP 36.4; O2SAT 99
[2021-09-14] MEDS: methADONE HCl 20 MG/2 ML ORAL.CONC 35 MG PO (09:17)
[2021-09-14] MEDS: cefTRIAXone sodium 2 GM in 0.9 % Sodium Chloride 50 ML IV (09:17)
--- NOTE | 2021-09-14 13:58 | MHC.CM.ED ---
Addendum entered by Yue Slater 09/14/21 15:49: Spoke with Daisy. Patient will receive IV antibiotic 09/15 and then d/c home. Patient will return to Same Day on 09/16 for daily infusion until 09/23. Original Note: Patient remains in ER overflow. Patient needs IV Rocephin 2 grams daily until 09/23. Patient had PICC and was discharged from [facility] to [facility]. Patient left AMA and had PICC line removed. Patient has been difficult to place due to Methadone use, substance abuse, leaving AMA, not having a HCP. Per Da, patient can be arranged to have daily IV Rocephin with same day. T/W attempted to speak to Daisy at ext [phone]. Daisy was with a patient and will return T/W call. Continue to monitor for d/c needs.
[2021-09-14 13:59] VITALS: BP 151/83; PULSE 82; RESP 18; TEMP 35.9; O2SAT 97
[2021-09-14 18:17] VITALS: BP 151/76; PULSE 84; RESP 18; TEMP 36.6; O2SAT 97
--- NOTE | 2021-09-14 19:17 | PC.NURSE ---
Addendum entered by Salome Zimmerman 09/15/21 06:49: Report given to HERBER Coles Addendum entered by Salome Zimmerman 09/14/21 19:58: pt is alert and oriented, resting in bed. no signs of acute distress notice. breathing equally unlabored Original Note: Report received from HERBER Langley
[2021-09-14 20:00] VITALS: BP 151/76; PULSE 89; RESP 16; TEMP 36.8; O2SAT 98
[2021-09-15 05:51] VITALS: BP 137/51; PULSE 78; RESP 14; TEMP 36.7; O2SAT 97
[2021-09-15] MEDS: methADONE HCl 20 MG/2 ML ORAL.CONC 35 MG PO (08:39)
[2021-09-15] MEDS: cefTRIAXone sodium 2 GM in 0.9 % Sodium Chloride 50 ML IV (08:39)
--- NOTE | 2021-09-15 10:31 | MHC.CM.ED ---
Met with patient in regards to discharge planning. Patient understands he will be discharged home today. He already received today's IV rocephin. Tomorrow, he will need to go to the Methadone clinic and be here at same day surgery at 9am daily. He also understands 09/23 will be his last infusion day. Patient verbalizes understanding and is agreeable to discharge plan. Patient will arrange his own transport home. Patient, Sanket CRAVEN and Misty BENITEZ aware. Continue to monitor for d/c needs.
== END 2021-09-15 11:28 | disposition home or self-care (01) ==
PROVIDERS: Physician Assistant; Emergency Provider Internal Medicine; PCP Internal Medicine
DX: R78.81 Bacteremia (principal); S81.802D Unspecified open wound, left lower leg, subsequent encounter; V13.4XXD Pedal cycle driver injured in collision with car, pick-up truck or van in traffic accident, subsequent encounter; M54.9 Dorsalgia, unspecified; M79.10 Myalgia, unspecified site; Z20.822 Contact with and (suspected) exposure to COVID-19; F11.20 Opioid dependence, uncomplicated; B19.20 Unspecified viral hepatitis C without hepatic coma; K74.60 Unspecified cirrhosis of liver; F33.9 Major depressive disorder, recurrent, unspecified; F17.200 Nicotine dependence, unspecified, uncomplicated; Z79.899 Other long term (current) drug therapy
CPT/HCPCS: 36415; 80048; 80076; 80307; 81003; 82947; 83735; 85025; 87040; 87635; 96365; 96366; 96375; 96376; 97162; 99285; J0696; J2270; J2405

== ENCOUNTER 2021-09-16 09:07 | Outpatient (REF) | payer OTHER, SELFPAY | END 2021-09-16 09:08 | disposition home or self-care (01) | LOC: HO.MDS 09:07 | PROVIDERS: Visit Provider Internal Medicine | DX: Z45.2 Encounter for adjustment and management of vascular access device (principal); I33.0 Acute and subacute infective endocarditis; R78.81 Bacteremia | CPT/HCPCS: 96365; J0696 ==

== ENCOUNTER 2021-09-17 09:01 | Outpatient (REF) | payer OTHER, SELFPAY | END 2021-09-17 09:02 | disposition home or self-care (01) | LOC: HO.MDS 09:01 | PROVIDERS: Visit Provider Internal Medicine | DX: Z45.2 Encounter for adjustment and management of vascular access device (principal); I33.0 Acute and subacute infective endocarditis; R78.81 Bacteremia | CPT/HCPCS: 96365; J0696 ==

== ENCOUNTER 2021-09-19 10:31 | Outpatient (REF) | payer OTHER, SELFPAY | END 2021-09-19 10:32 | disposition home or self-care (01) | LOC: HO.MDS 10:31 | PROVIDERS: PCP Internal Medicine; Visit Provider Internal Medicine | DX: Z45.2 Encounter for adjustment and management of vascular access device (principal); I33.0 Acute and subacute infective endocarditis; R78.81 Bacteremia | CPT/HCPCS: 96365; J0696 ==

== ENCOUNTER 2021-09-20 10:00 | Outpatient (REF) | payer OTHER, SELFPAY | END 2021-09-20 10:01 | disposition home or self-care (01) | LOC: HO.MDS 10:00 | PROVIDERS: Visit Provider Internal Medicine | DX: Z45.2 Encounter for adjustment and management of vascular access device (principal); I33.0 Acute and subacute infective endocarditis; R78.81 Bacteremia | CPT/HCPCS: 96365; J0696 ==

== ENCOUNTER 2021-09-21 11:51 | Outpatient (REF) | payer OTHER, SELFPAY | END 2021-09-21 11:52 | disposition home or self-care (01) | LOC: HO.MDS 11:51 | PROVIDERS: Visit Provider Internal Medicine | DX: Z45.2 Encounter for adjustment and management of vascular access device (principal); I33.0 Acute and subacute infective endocarditis; R78.81 Bacteremia | CPT/HCPCS: 96365; J0696 ==

== ENCOUNTER 2021-09-22 11:53 | Outpatient (REF) | payer OTHER, SELFPAY | END 2021-09-22 11:54 | disposition home or self-care (01) | LOC: HO.MDS 11:53 | PROVIDERS: Visit Provider Internal Medicine | DX: Z45.2 Encounter for adjustment and management of vascular access device (principal); I33.0 Acute and subacute infective endocarditis; R78.81 Bacteremia | CPT/HCPCS: 96365; J0696 ==

== ENCOUNTER 2021-09-23 12:01 | Outpatient (REF) | payer OTHER, SELFPAY | END 2021-09-23 12:02 | disposition home or self-care (01) | LOC: HO.MDS 12:01 | PROVIDERS: Visit Provider Internal Medicine | DX: Z45.2 Encounter for adjustment and management of vascular access device (principal); I33.0 Acute and subacute infective endocarditis; R78.81 Bacteremia | CPT/HCPCS: 96365; J0696 ==

== ENCOUNTER 2021-09-28 13:56 | Outpatient (RCR) | payer OTHER, SELFPAY | END 2021-11-05 09:23 | disposition home or self-care (01) | LOC: HO.WCC 13:56 | PROVIDERS: Visit Provider Physician Assistant | DX: L97.812 Non-pressure chronic ulcer of 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 (principal); R60.0 Localized edema; K74.60 Unspecified cirrhosis of liver; F14.20 Cocaine dependence, uncomplicated; F11.20 Opioid dependence, uncomplicated; F17.210 Nicotine dependence, cigarettes, uncomplicated; Z86.19 Personal history of other infectious and parasitic diseases | CPT/HCPCS: 99213 ==

== ENCOUNTER 2021-11-30 12:58 | Outpatient (RCR) | payer OTHER, SELFPAY | END 2021-12-10 14:21 | disposition home or self-care (01) | LOC: HO.WCC 12:58 | PROVIDERS: Visit Provider Physician Assistant | DX: L97.812 Non-pressure chronic ulcer of 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 (principal); F11.20 Opioid dependence, uncomplicated; F17.210 Nicotine dependence, cigarettes, uncomplicated; Z86.19 Personal history of other infectious and parasitic diseases | CPT/HCPCS: 99213 ==

== ENCOUNTER 2021-12-01 13:27 | Inpatient (IN) | payer OTHER, SELFPAY ==
--- NOTE | ~2021-12-01 | XR_ITS ---
EXAMINATION: XR TIBIA AND FIBULA, RIGHT CLINICAL INFORMATION: Evaluate for osteomyelitis COMPARISON: None TECHNIQUE: AP and lateral views of the right tibia and fibula were obtained. FINDINGS: This exam does demonstrate bony irregularity involving the anterior tibia. Focus of osteomyelitis would need to be considered. This is subtle and seen on the lateral image. One view only. XR/XR tibia fibula RT 2V IMPRESSION: Very subtle defect in the cortex the mid tibia anteriorly. A focus of osteomyelitis cannot be excluded. Recommend MR to further evaluate if clinically indicated
--- NOTE | ~2021-12-01 | CT_ITS ---
EXAMINATION: CT lower leg RT wo IV con CLINICAL INFORMATION: Reason for Exam ?osteomyelitis COMPARISON: Right tibia and fibula radiographs performed earlier the same date TECHNIQUE: Axial images were obtained through the right lower leg without the administration of intravenous contrast. Coronal and sagittal reformatted images were generated. Intravenous Contrast: None This CT examination was performed using dose optimization techniques as appropriate, variously including the following: *Automated exposure control *Adjustment of mA and/or kV according to patient size (this includes techniques or standardized protocols for targeted exams where dose is matched to indication/reason for exam; i.e. extremities or head) *Use of iterative reconstruction technique DLP: 305 mGy-cm FINDINGS: There is a soft tissue ulceration overlying the anteromedial aspect of the mid casanova. This does not appear to contact the underlying bone on the CT. No loculated fluid collection/abscess. No cortical erosive change or destruction. Suggestion of very subtle periosteal thickening of the medial tibial cortex just inferior to the ulcer on series 3 image 560. Diffuse subcutaneous edema and skin thickening. No tracking soft tissue gas. No appreciable ankle joint effusion. No large knee joint effusion [id number]. The suprapatellar pouch is not fully imaged. No evidence of tenosynovitis at the ankle. CT/CT lower leg RT wo IV con IMPRESSION: 1. No aggressive bone destruction identified to suggest specific evidence of osteomyelitis via CT. There is a small focus of very subtle periosteal thickening in the medial distal tibial diaphysis just inferior to the ulcer which is nonspecific. If there is clinical concern for acute osteomyelitis, would recommend MRI as previously suggested, given that CT is relatively insensitive for detecting early acute osteomyelitis. 2. No tracking soft tissue gas or loculated fluid collection to suggest abscess. 3. Diffuse subcutaneous edema and skin thickening. Correlate with evidence of cellulitis on exam.
--- NOTE | ~2021-12-01 | US_ITS ---
EXAMINATION: US ABDOMEN LIMITED CLINICAL INFORMATION: Ascites screening, cirrhosis, hepatitis C. COMPARISON: CT abdomen pelvis on 08/22/2021 TECHNIQUE: The 4 quadrants of the abdomen were assessed for free fluid. FINDINGS: Trace ascites. US/US abdomen limited IMPRESSION: Trace ascites.
[2021-12-01 13:53] VITALS: BP 132/85; BP 148/84; PULSE 78; PULSE 96; RESP 14; TEMP 37.6; O2SAT 94; O2SAT 95; BMI 24.0
[2021-12-01] MEDS: 0.9 % Sodium Chloride 1,000 ML 999 ML IV (14:56)
[2021-12-01 14:59] LABS: Hemoglobin 10.5 g/dl (14.0-18.0)
[2021-12-01 15:05] LABS: INTERNATIONAL NORM RATIO 1.5 (0.9-1.1); Prothrombin Time 17.9 SEC (10.0-13.1)
[2021-12-01 15:07] VITALS: BP 127/71; PULSE 89; RESP 18; TEMP 37.1; O2SAT 96
[2021-12-01 15:07] LABS: Partial Thromboplastin Time 33.5 SEC (26.0-36.4)
--- NOTE | 2021-12-01 15:07 | ED_ITS ---
HPI - General Adult General Chief complaint: Skin/Abscess/Foreign Body Stated complaint: WOUND TO RT LEG Time Seen by Provider: 12/01/21 13:57 Source: patient Mode of arrival: ambulatory Limitations: no limitations History of Present Illness HPI narrative: 67-year-old male with past history of IV drug use, hep C, cirrhosis, and bacteremia presents to the ED for right lower extremity leg wound that is more erythematous, warm, and painful with foul odor. patinet states he was sent by Wound for worsening wound. Related Data Previous Rx's Medication Instructions Recorded docusate sodium 100 mg capsule 100 mg PO DAILY PRN Constipation 08/27/21 #30 caps oxycodone 5 mg capsule 5 mg PO BID PRN pain #10 caps 08/27/21 polyethylene glycol 3350 17 gram 17 g PO BID #60 ea 08/27/21 oral powder packet ceftriaxone 2 gram solution for 2 g IV Q24H #22 ea 09/01/21 injection lidocaine 4 % topical patch 1 patch transdermal DAILY PRN back 09/01/21 (Lidocaine Pain Relief) #15 ea methadone 10 mg/mL oral 35 mg (3.5 mL) PO DAILY #1 mL 09/01/21 concentrate (Methadose) nicotine (polacrilex) 2 mg gum 2 mg buccal Q2H PRN nicotine 09/01/21 cravings #100 ea Allergies Allergy/AdvReac Type Severity Reaction Status Date / Time No Known Allergies Allergy Unknown Verified 06/28/21 07:41 Review of Systems Review of Systems: RIght leg wound now with redness, foul odor, and swelling Yes all other systems are reviewed and are negative FOR[facility]LY [facility] Past Medical History Medical History Asthma Cirrhosis COVID-19 virus infection Erosive esophagitis Erosive gastritis GERD (gastroesophageal reflux disease) Hepatitis C Nasal bone fracture Recurrent major depression Right wrist drop Substance abuse Surgical History No pertinent past surgical history Social History Social History Household Members: Family Household Members Other:: Mother Housing: House Do you presently have visiting nurse or other home services: No Alcohol intake: current Alcohol intake frequency: 0-2 drinks per day Patient Tobacco Use Status: Current everyday Tobacco user Tobacco use type: Cigarette and Cigar Cigarettes Per Day: 4 Smoked in Last 30 Days: Yes Second Hand Smoke Exposure: No Use of substances other than those prescribed or required for medical reasons: Yes Substance Use Type: Crack/Cocaine and Opiates Advance Directives: No Advance Directives Information Provided: Yes service: No Current occupational status: unemployed Physical Exam ED Vital Signs: Vital Signs - 24 hr 12/01/21 13:53 12/01/21 15:07 Temperature 99.7 F 98.7 F Pulse Rate 96 89 Respiratory Rate 14 18 Blood Pressure 132/85 127/71 Pulse Oximetry 94 96 Oxygen Delivery Method Room Air BMI result Body Mass Index 24.0 Const General: cooperative, healthy appearing, comfortable, no acute distress, well developed, alert, awake and Physically active Orientation/consciousness: oriented to time and patient oriented x3 HENMT Head: Yes normal to inspection, Yes No palpable skull fracture present, Yes normocephalic, Yes atraumatic and No abrasion Eyes General: appearance normal, both eyes and all related structures Neck Neck: Yes normal visual inspection, Yes full ROM, Yes no lymphadenopathy, Yes no meningeal signs, Yes trachea midline, Yes supple, No anterior neck swelling and No tender Chest Chest palpation & inspection: normal inspection of the chest and normal palpation of entire chest wall Resp Effort & Inspection: normal respiratory effort and able to speak in complete sentences Auscultation: clear to auscultation bilaterally Cardio Jugular venous distension: no JVD Heart sounds: S1 normal heart sound present and S2 normal heart sound present GI Inspection: Yes normal to inspection and No abdominal wall ecchymosis Palpation (GI): Soft to palpation, not firm, nontender, no guarding and not rigid General: No CVA tenderness and Yes no CVA tenderness Back/Spine/Pelvis Back: no CVA tenderness, No CVA tenderness and No back tenderness Skin General skin exam: no rashes or lesions noted and elasticity normal Neuro General: oriented to time, patient oriented x3, gait normal, no meningeal signs and CN's II-XI intact bilaterally Cranial nerves: Yes CN's II-XII intact bilaterally Extrem Other: Significantly warm to touch. Right leg definitely more swollen than left.. Right lower extremity vascular/motor/nerve exam intact. Left lower extremity normal Psych Appearance: grossly normal, well kempt and not disheveled Course Course Course Narrative: Labs x-ray ESR CRP ordered. Reevaluation(s) Reevaluation #1: I was called by lab who stated that patient bands were 19. Will start antibiotics. Lactic negative. Negative white blood cell count. Waiting for ESR CRP. Time: 15:52 Reevaluation #2: X-ray shows osteomyelitis. Vanco and Zosyn started. Patient admitted to the hospital for osteomyelitis. Patient sleeping comfortably in bed Time: 17:00 Medical Decision Making MDM Narrative Medical decision making narrative: Osteomyelitis Lab Data Result diagrams: 12/01/21 14:50 12/01/21 14:50 Labs: Lab Results 12/01/21 12/01/21 12/01/21 Range/Units 14:50 14:50 14:50 WBC 6.0 (4.8-10.8) X10*3/uL RBC 3.62 L (4.60-5.80) X10*6/uL Hgb 10.5 L (14.0-18.0) g/dl Hct 32.2 L (42.0-52.0) % MCV 89.0 (80.0-98.0) fL MCH 29.0 (27.0-33.0) pg MCHC 32.6 (31.0-36.0) g/dl RDW 16.9 H (11.0-16.0) % Plt Count 82 L D (160-400) X10*3/uL MPV 12.3 (9.4-12.4) fL Immature Gran % (Auto) Cancelled Neut % (Auto) Cancelled Lymph % (Auto) Cancelled Conway % (Auto) Cancelled Eos % (Auto) Cancelled Baso % (Auto) Cancelled Lymph # (Auto) Cancelled Conway # (Auto) Cancelled Eos # (Auto) Cancelled Baso # (Auto) Cancelled Abs Immat Gran (auto) Cancelled Absolute Neuts (auto) Cancelled Absolute Nucleated RBC 0.000 (0.0-0.012) X10*3/uL Nucleated RBC % (auto) 0.0 (0.0-0.2) /100WBC Neutrophils % (Manual) 75 H (45-73) % Band Neutrophils % 19 H (3-5) % Lymphocytes % (Manual) 1 L (20-40) % Monocytes % (Manual) 2 (2-11) % Metamyelocytes % 3 % Abs Neuts (Manual) 5.6 (2.0-8.3) X10*3/uL Lymphocytes # (Manual) 0.1 L (1.2-4.9) X10*3/uL Monocytes # (Manual) 0.1 (0.1-1.2) X10*3/uL Metamyelocytes # 0.2 X10*3/uL Platelet Estimate DECREASED (NORMAL) Plt Morphology Comment NORMAL RBC Morphology NOTED Acanthocytes (Spur) 2+ (3-5) /OIF ESR 59 H (0-15) MM/HR PT 17.9 H (10.0-13.1) SEC INR 1.5 H (0.9-1.1) APTT 33.5 (26.0-36.4) SEC Lactic Acid (0.5-2.0) mmol/L 12/01/21 Range/Units 14:50 WBC (4.8-10.8) X10*3/uL RBC (4.60-5.80) X10*6/uL Hgb (14.0-18.0) g/dl Hct (42.0-52.0) % MCV (80.0-98.0) fL MCH (27.0-33.0) pg MCHC (31.0-36.0) g/dl RDW (11.0-16.0) % Plt Count (160-400) X10*3/uL MPV (9.4-12.4) fL Immature Gran % (Auto) Neut % (Auto) Lymph % (Auto) Conway % (Auto) Eos % (Auto) Baso % (Auto) Lymph # (Auto) Conway # (Auto) Eos # (Auto) Baso # (Auto) Abs Immat Gran (auto) Absolute Neuts (auto) Absolute Nucleated RBC (0.0-0.012) X10*3/uL Nucleated RBC % (auto) (0.0-0.2) /100WBC Neutrophils % (Manual) (45-73) % Band Neutrophils % (3-5) % Lymphocytes % (Manual) (20-40) % Monocytes % (Manual) (2-11) % Metamyelocytes % % Abs Neuts (Manual) (2.0-8.3) X10*3/uL Lymphocytes # (Manual) (1.2-4.9) X10*3/uL Monocytes # (Manual) (0.1-1.2) X10*3/uL Metamyelocytes # X10*3/uL Platelet Estimate (NORMAL) Plt Morphology Comment RBC Morphology Acanthocytes (Spur) /OIF ESR (0-15) MM/HR PT (10.0-13.1) SEC INR (0.9-1.1) APTT (26.0-36.4) SEC Lactic Acid 1.9 (0.5-2.0) mmol/L Discharge Plan Discharge Clinical Impression: Osteomyelitis Patient Disposition: Admitted As Inpatient Prescriptions: No Action polyethylene glycol 3350 17 gram Powder In Packet 17 g PO BID Qty: 60 0RF docusate sodium 100 mg Capsule 100 mg PO DAILY PRN (Reason: Constipation) Qty: 30 0RF oxycodone 5 mg capsule 5 mg PO BID PRN (Reason: pain) Qty: 10 0RF Rx Instructions: Partial Fill upon patient request. ceftriaxone 2 gram Recon Soln 2 g IV Q24H Qty: 22 0RF lidocaine [Lidocaine Pain Relief] 4 % Adhesive Patch,Medicated 1 patch transdermal DAILY PRN (Reason: back) Qty: 15 0RF Protocol: Apply to: Apply to: lower back methadone [Methadose] 10 mg/mL Concentrate 35 mg PO DAILY Qty: 1 0RF Rx Instructions: Partial Fill upon patient request. nicotine (polacrilex) 2 mg gum 2 mg buccal Q2H PRN (Reason: nicotine cravings) Qty: 100 0RF
[2021-12-01 15:11] LABS: Lactic Acid 1.9 mmol/L (0.5-2.0)
[2021-12-01 15:16] LABS: Hematocrit 32.2 % (42.0-52.0); Mean Corpuscular HGB Conc 32.6 g/dl (31.0-36.0); Mean Platelet Volume 12.3 fL (9.4-12.4); Red Blood Count 3.62 X10*6/uL (4.60-5.80); Red Cell Distribution Width 16.9 % (11.0-16.0)
[2021-12-01 15:21] LABS: Platelet Count 82 X10*3/uL (160-400)
[2021-12-01 15:33] LABS: Neutrophils Percent Manual 75 % (45-73)
[2021-12-01 15:34] LABS: Lymphocytes Absolute Manual 0.1 X10*3/uL (1.2-4.9); Lymphocytes Percent Manual 1 % (20-40); Metamyelocytes Absolute 0.2 X10*3/uL; Metamyelocytes Percent 3 %; Monocytes Absolute Manual 0.1 X10*3/uL (0.1-1.2); Monocytes Percent Manual 2 % (2-11); Neutrophils Absolute Manual 5.6 X10*3/uL (2.0-8.3)
[2021-12-01 15:41] LABS: Acanthocytes 2+ (3-5) /OIF; Platelet Estimate DECREASED (NORMAL); Platelet Morphology Comment NORMAL; RBC Morphology NOTED
[2021-12-01 15:43] LABS: Band Neutrophils Percent 19 % (3-5)
[2021-12-01 15:44] LABS: Erythrocyte Sedimentation Rate 59 MM/HR (0-15)
[2021-12-01] MEDS: Piperacillin Sodium/Tazobactam 3.375 GM in 0.9 % Sodium Chloride 50 ML IV (16:04)
[2021-12-01 17:17] LABS: COVID-19 Test Negative (Negative)
--- NOTE | 2021-12-01 17:22 | PHA.MEDREC ---
Pharmacy Consult ? Medication Reconciliation Pharmacy has completed the medication reconciliation. Patient states they take methadone 45mg once a day and has not gotten it for 2 days. Spoke to Kailyn who will pass it to the morning INR Andrés
[2021-12-01 17:30] LABS: Alanine Aminotransferase 14 U/L (0-40); Albumin Level 2.1 g/dL (3.5-5.0); Alkaline Phosphatase 83 U/L (39-117); Anion Gap 11 (12-20); Aspartate Amino Transferase 39 U/L (5-37); Bilirubin Total 1.8 mg/dL (0.0-1.0); Blood Urea Nitrogen 15 mg/dL (9-16); C Reactive Protein 15.39 mg/dL (< or = 0.50); Calcium 8.4 mg/dL (8.4-10.2); Carbon Dioxide 26 mmol/L (22-29); Chloride 98 mmol/L (96-108); Creatinine Clr Calc Pharmacy 92.3; Estimated Glomerular Filt Rate > 60; Glucose Random 85 mg/dL (60-115); Potassium 3.8 mmol/L (3.3-5.1); Sodium 131 mmol/L (135-145)
[2021-12-01 17:45] VITALS: BP 110/62; PULSE 89; RESP 18; TEMP 37.5; O2SAT 93
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
[2021-12-01] MEDS: vancomycin HCL 1,000 MG, vancomycin HCL 750 MG in 0.9 % Sodium Chloride 500 ML 267.5 MG IV (18:01)
[2021-12-01] MEDS: 0.9 % Sodium Chloride 1,000 ML 100 ML IVCONT (18:06)
--- NOTE | 2021-12-01 19:12 | PC.NURSE ---
Received report from Olga Garnett RN. Per RN, pt. lost his IV access and is a poor stick. RN spoke with ELI Reyes who is going to replace pt.'s IV access via bedside ultrasound-guided
[2021-12-01 19:26] VITALS: BP 107/58; PULSE 89; RESP 16; O2SAT 95
[2021-12-01] MEDS: PHENobarbitaL sodium 130 MG/ML IM ONCE 197 MG IM (19:27)
--- NOTE | 2021-12-01 19:35 | PC.NURSE ---
Overdue Cefepime from 17:40 - awaiting IV access replacement at this time
--- NOTE | 2021-12-01 21:53 | PC.NURSE ---
Attemping to call floor for [id number] report
--- NOTE | 2021-12-01 21:58 | PC.NURSE ---
Attempt to give report
[2021-12-02] VITALS: BP 100/56; PULSE 77; RESP 17; TEMP 36.7; O2SAT 97
[2021-12-02] MEDS: 0.9 % Sodium Chloride Flush 3 ML SYRINGE IVFLUSH ×2 (00:19→07:45)
[2021-12-02] MEDS: PHENobarbitaL sodium 130 MG/ML VIAL IM Q3Hx2 147 MG IM ×2 (00:19→03:27)
[2021-12-02] MEDS: oxyCODONE HCl Immed Release 5 MG TABLET PO ×2 (00:27→19:48)
[2021-12-02] MEDS: cefEPime HCl 2 GM in 0.9 % Sodium Chloride 50 ML IV (01:01)
[2021-12-02 04:37] LABS: Alanine Aminotransferase 14 U/L (0-40); Albumin Level 1.8 g/dL (3.5-5.0); Alkaline Phosphatase 78 U/L (39-117); Anion Gap 10 (12-20); Aspartate Amino Transferase 46 U/L (5-37); Bilirubin Total 1.5 mg/dL (0.0-1.0); Blood Urea Nitrogen 18 mg/dL (9-16); Calcium 8.1 mg/dL (8.4-10.2); Carbon Dioxide 25 mmol/L (22-29); Chloride 100 mmol/L (96-108); Creatinine Clr Calc Pharmacy 88.7; Estimated Glomerular Filt Rate > 60; Glucose Random 108 mg/dL (60-115); Potassium 3.9 mmol/L (3.3-5.1); Sodium 131 mmol/L (135-145); Total Protein 6.4 g/dL (6.5-8.0)
[2021-12-02 04:56] VITALS: BMI 24.6
[2021-12-02] MEDS: 0.9 % Sodium Chloride 1,000 ML 100 ML IVCONT ×2 (07:40→16:06)
[2021-12-02] MEDS: vancomycin HCL 1,000 MG in 0.9 % Sodium Chloride 250 ML 270 MG IV ×2 (07:41→19:44)
[2021-12-02] MEDS: PHENobarbitaL 15 MG TABLET 45 MG PO ×2 (07:49→19:45)
[2021-12-02 07:51] VITALS: BP 109/57; PULSE 84; RESP 16
[2021-12-02 08:00] VITALS: BP 105/62; PULSE 88; RESP 18; TEMP 37.2; O2SAT 95
--- NOTE | 2021-12-02 08:19 | HE.PHANOTE ---
Vancomycin Dosing Addendum Renal function stable. Continue current regiment 1000 mg Q12H. Expected AUC 536 with a trough of 16.4. Next level 12/03 @ 1737. Kahlil CoxD
--- NOTE | 2021-12-02 08:37 | MHC.CM.PN ---
CM met with Patient at bedside. Patient lives in a house with his Mother and he is functionally independent. Patient [facility] on [address] in [facility] and home/resume said services is the goal. CM has initiated and will follow for dc planning. Patient has received Covid vax x2 and his PCP is Dr. Rosalino La.
--- NOTE | 2021-12-02 13:04 | PM.CNGS ---
History of Present Illness Consult details Consult date: 12/02/21 Narrative: 61-year-old male with multiple medical problems opioid abuse, alcohol abuse, IV drug abuse, admitted for an open wound on the right leg. He apparently has had this for about a year. He was being followed by wound clinic and was sent yesterday to the ER because of follow and drainage on the wound. He has states that he has had some pain on this area as well. He had an x-ray in the ER showing a very subtle effect on the cortex of the tibia on this area so osteomyelitis could not be completely excluded. Review of Systems Constitutional: Constitutional: Denies chills and Denies fever(s) Cardiovascular: Cardiovascular: Denies chest pain at rest Respiratory: Respiratory: Reports cough Gastrointestinal: Gastrointestinal: Denies abdominal pain Genitourinary: Genitourinary: Denies hematuria Musculoskeletal: Musculoskeletal: Reports atrophy Psychiatric: Psychiatric: Reports depression PMFSH Past Medical History Medical History Asthma Cirrhosis COVID-19 virus infection Erosive esophagitis Erosive gastritis GERD (gastroesophageal reflux disease) Hepatitis C Infected wound Nasal bone fracture Recurrent major depression Right wrist drop Substance abuse Family History Family History Mother CKD (chronic kidney disease) Father Diabetes Surgical History Surgical History No pertinent past surgical history Social History Social History Household Members: Family Household Members Other:: mother Housing: House Do you presently have visiting nurse or other home services: No Alcohol intake: current Alcohol intake frequency: 3 or more drinks per day Alcohol type: hard liquor Patient Tobacco Use Status: Never used Tobacco Tobacco use type: Cigarette and Cigar Cigarettes Per Day: 4 Smoked in Last 30 Days: Yes Second Hand Smoke Exposure: No Use of substances other than those prescribed or required for medical reasons: Yes Substance Use Type: Crack/Cocaine Currently Displaying Signs/Symptoms of Drug Intoxication Withdrawal: No Any prior treatment program specific to substance use: Yes Have you been hit, kicked, punched, or otherwise hurt by someone within the past year? If so, by whom?: No Do you feel safe in your current relationship?: No Current Relationship Is there a partner from a previous relationship who is making you feel unsafe now?: No Are you made to feel afraid or neglected: No Advance Directives: No Advance Directives Information Provided: Yes Advance Directives on File: Yes Advance Directives Date on File: 12/01/21 Do you have thoughts of harming others: None Do you have a plan to hurt others: No Plan Recently lost weight without trying: No Eating poorly because of decreased appetite: No Nutrition Risks: No Nutritional Risk Poor oral hygiene: No service: No Current occupational status: unemployed Meds Allergies Allergy/AdvReac Type Severity Reaction Status Date / Time No Known Allergies Allergy Unknown Verified 06/28/21 07:41 Active Medications: Current Medications Acetaminophen (Acetaminophen 325 Mg Tablet) 650 mg PO Q6H PRN PRN Reason: Pain, Mild, fever >100.4 Docusate Sodium (Docusate Sodium 100 Mg Capsule) 100 mg PO BID PRN PRN Reason: Constipation Hydromorphone HCl (Hydromorphone Hcl 0.5 Mg/0.5 Ml Syringe) 0.5 mg IVPUSH Q3H PRN; Protocol PRN Reason: Pain, Severe (Pain Scale 7-10) Sodium Chloride (Ns) 1,000 mls @ 100 mls/hr IVCONT .Q10H [facility] Last Admin: 12/02/21 07:40 Dose: 100 mls/hr Vancomycin HCl 1,000 mg/ (Sodium Chloride) 270 mls @ 270 mls/hr IV Q12H [facility] Last Infusion: 12/02/21 10:19 Dose: Infused Ondansetron HCl (Ondansetron Hcl 4 Mg/2 Ml Vial) 4 mg IVPUSH Q8H PRN PRN Reason: Nausea and Vomiting Oxycodone HCl (Oxycodone Hcl Immed Release 5 Mg Tablet) 5 mg PO Q6H PRN PRN Reason: Pain, Moderate (Pain Scale 4-6 Last Admin: 12/02/21 00:27 Dose: 5 mg Pharmacy Consult (Consult Rx Perform Med Rec) 1 each MISCELLANE ONCE PRN PRN Reason: Consult order Pharmacy Consult (Consult Rx Etoh Phenob Im/Po) 1 each MISCELLANE ONCE PRN; Protocol PRN Reason: Consult order Pharmacy Consult (Consult Rx Vancomycin Dosing) 1 each MISCELLANE DAILY PRN PRN Reason: Consult order Phenobarbital (Phenobarbital 15 Mg Tablet) 45 mg PO BID [facility] Stop: 12/03/21 21:01 Last Admin: 12/02/21 07:49 Dose: 45 mg Phenobarbital (Phenobarbital 30 Mg Tablet) 30 mg PO BID [facility] Stop: 12/05/21 21:01 Phenobarbital (Phenobarbital 15 Mg Tablet) 15 mg PO DAILY [facility] Stop: 12/07/21 09:01 Sodium Chloride (0.9 % Sodium Chloride Flush 3 Ml Syringe) 3 ml IVFLUSH QSHIFT [facility] Last Admin: 12/02/21 07:45 Dose: 3 ml Home Medications Medication Instructions Recorded Confirmed Last Taken Type methadone 10 mg/mL oral 45 mg PO DAILY 12/01/21 Unknown History concentrate (Methadose) Physical Exam Vital Signs: Vital Signs: Last Vital Signs Temp 98.9 F 12/02/21 08:00 Pulse 88 12/02/21 08:00 Resp 18 12/02/21 08:00 BP 105/62 12/02/21 08:00 Pulse Ox 95 12/02/21 08:00 O2 Del Method 12/02/21 08:00 BMI result Body Mass Index 24.6 Const: General: comfortable and no acute distress Resp: Effort & Inspection: normal respiratory effort Cardio: Rate: regular rate GI: Palpation (GI): Soft to palpation, not firm and nontender Extrem: Other: Right leg - note of an open wound, 10 cm long by 2 cm wide, eschar, scanty drainage; lateral to this is another wound with an eschar, 2 x 1 cm in size; there is note of this of the area Results Labs Result diagrams: 12/01/21 14:50 12/02/21 04:04 Labs: Abnormal lab results 12/01/21 12/01/21 12/01/21 Range/Units 14:50 14:50 14:50 RBC 3.62 L (4.60-5.80) X10*6/uL Hgb 10.5 L (14.0-18.0) g/dl Hct 32.2 L (42.0-52.0) % RDW 16.9 H (11.0-16.0) % Plt Count 82 L D (160-400) X10*3/uL Neutrophils % (Manual) 75 H (45-73) % Band Neutrophils % 19 H (3-5) % Lymphocytes % (Manual) 1 L (20-40) % Lymphocytes # (Manual) 0.1 L (1.2-4.9) X10*3/uL ESR 59 H (0-15) MM/HR PT 17.9 H (10.0-13.1) SEC INR 1.5 H (0.9-1.1) Sodium (135-145) mmol/L Anion Gap (12-20) BUN (9-16) mg/dL Calcium (8.4-10.2) mg/dL Total Bilirubin (0.0-1.0) mg/dL AST (5-37) U/L C-Reactive Protein (< or = 0.50) mg/dL Total Protein (6.5-8.0) g/dL Albumin (3.5-5.0) g/dL 12/01/21 12/02/21 Range/Units 17:03 04:04 RBC (4.60-5.80) X10*6/uL Hgb (14.0-18.0) g/dl Hct (42.0-52.0) % RDW (11.0-16.0) % Plt Count (160-400) X10*3/uL Neutrophils % (Manual) (45-73) % Band Neutrophils % (3-5) % Lymphocytes % (Manual) (20-40) % Lymphocytes # (Manual) (1.2-4.9) X10*3/uL ESR (0-15) MM/HR PT (10.0-13.1) SEC INR (0.9-1.1) Sodium 131 L 131 L (135-145) mmol/L Anion Gap 11 L 10 L (12-20) BUN 18 H (9-16) mg/dL Calcium 8.1 L (8.4-10.2) mg/dL Total Bilirubin 1.8 H 1.5 H (0.0-1.0) mg/dL AST 39 H 46 H (5-37) U/L C-Reactive Protein 15.39 H (< or = 0.50) mg/dL Total Protein 6.4 L (6.5-8.0) g/dL Albumin 2.1 L 1.8 L (3.5-5.0) g/dL Short CBC 12/01/21 Range/Units 14:50 WBC 6.0 (4.8-10.8) X10*3/uL Hgb 10.5 L (14.0-18.0) g/dl Hct 32.2 L (42.0-52.0) % Plt Count 82 L D (160-400) X10*3/uL BMP 12/01/21 12/02/21 17:03 04:04 Sodium 131 L 131 L Potassium 3.8 3.9 Chloride 98 100 Carbon Dioxide 26 25 BUN 15 18 H Creatinine 0.74 0.77 Calcium 8.4 8.1 L Liver Function 12/01/21 12/02/21 Range/Units 17:03 04:04 Total Bilirubin 1.8 H 1.5 H (0.0-1.0) mg/dL AST 39 H 46 H (5-37) U/L ALT 14 14 (0-40) U/L Alkaline Phosphatase 83 D 78 (39-117) U/L Albumin 2.1 L 1.8 L (3.5-5.0) g/dL All other labs normal. Assessment and Plan (1) Wound of right leg: Status: Acute There are 2 open wounds with an eschar on the right lower leg. One of these measures 10 x 2 cm and the 2nd measures 2 x 1 cm. I did sharp excisional debridement of both of these areas using fine scissors to excise the eschar. I cleaned up the base of the wound as well using gauze. I applied wet to dry dressings on both areas because of the purulent drainage. I wrapped the leg with Kerlix roll and elevated this on a pillow. He tolerated procedure well. I will do being changes tomorrow. We will continue with IV antibiotics for now. Procedures Date of Service Date of Service: 12/02/21
--- NOTE | 2021-12-02 14:40 | MHC.RECOVRN ---
T/W met w/ pt, pt sleeping, awake to verbal stimuli, sedated and falling asleep during parts of conversation. Pt reports IV ANDREW use $40 per day, 1 pint ETOH daily for many years. Pt reports for past 1.5 years 45mg daily MTD at [facility]. Pt reports has had many months recovery from opiates, in past 1.5 years, reports using 1 bag heroin every 6 months. Pt states changed friend group which has contributed to sustained recovery time related to opiates. Pt reports difficulty w/ decreasing use of ANDREW and ETOH. Pt reports in the past went through [facility], [facility], T[facility], [facility] many times for opiates/ETOH. Pt reports participated in many [facility] programs over the years. Pt reports at one time tried Campral for AUD with no success. Pt reports has a good relationship at [facility], attends a group every Monday. Pt reports IV ANDREW use, pt reported injected in legs, which led to wound. Harm reduction strategies reviewed. Pt verbalized understanding. Pt reports strong supportive relationship with [facility] and [facility] clinic. 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 Reviewed recovery resources, resources provided, left at bedside as pt states would like to review.
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
[2021-12-02 15:52] VITALS: BP 122/68; PULSE 94; RESP 19; TEMP 36.6; O2SAT 95
[2021-12-02 19:46] VITALS: BP 141/73; PULSE 104; RESP 18; TEMP 37.2; O2SAT 95
[2021-12-02 23:31] VITALS: BP 111/56; PULSE 95; RESP 16; TEMP 37.1; O2SAT 94
[2021-12-03] MEDS: 0.9 % Sodium Chloride 1,000 ML 100 ML IVCONT ×2 (03:50→14:44)
--- NOTE | 2021-12-03 06:42 | PC.NURSE ---
Eze oTrres ordered stat for 0500. I called lab at 0600 for results. They had to send someone to draw. Awaiting results. Will pass along to next shift.
[2021-12-03 07:07] LABS: Vancomycin Trough 10.7 mcg/mL (10.0-20.0)
[2021-12-03 07:23] VITALS: BP 106/59; PULSE 86; RESP 18; TEMP 37.1; O2SAT 97
[2021-12-03] MEDS: vancomycin HCL 1,000 MG in 0.9 % Sodium Chloride 250 ML 270 MG IV (08:36)
[2021-12-03] MEDS: PHENobarbitaL 15 MG TABLET 45 MG PO ×2 (08:37→20:49)
[2021-12-03] MEDS: 0.9 % Sodium Chloride Flush 3 ML SYRINGE IVFLUSH ×2 (08:37→20:56)
[2021-12-03 09:37] LABS: Creatinine Clr Calc Pharmacy 96.2; Estimated Glomerular Filt Rate > 60
--- NOTE | 2021-12-03 09:42 | MHC.RECOVSUP ---
Recovery Support note: Patient is a 61 year old [place] speaking male in room 458-1. This service writer met with patient to discuss methadone dosing. Patient was awake and alert, eating his breakfast. Patient expressed frustration that he had not gotten his methadone in several days, stating he feels sick. Patient reports he receives 45mg from [facility] [place] and that he was last dosed 5 days ago. Michael at [facility] reports patient received 45mg on 11/29/21. Verification form faxed to pharmacy. Discussed case with Misa Lagunas NP.
--- NOTE | 2021-12-03 09:45 | HE.PHANOTE ---
Received methadone verification form 45mg daily [facility]
[2021-12-03] MEDS: methADONE HCl 20 MG/2 ML ORAL.CONC 40 MG PO (11:43)
--- NOTE | 2021-12-03 12:22 | P.PNGS_ITS ---
Subjective Subjective Date of Service: 12/03/21 Interval history: no new complaints does admit to pain on right leg Physical Exam Vital Signs: Vital Signs: Last Vital Signs Temp 98.8 F 12/03/21 07:23 Pulse 86 12/03/21 07:23 Resp 18 12/03/21 07:23 BP 106/59 L 12/03/21 07:23 Pulse Ox 97 12/03/21 07:23 O2 Del Method 12/03/21 07:23 BMI result Body Mass Index 24.6 Const: General: comfortable and no acute distress Resp: Effort & Inspection: normal respiratory effort Cardio: Rate: regular rate Extrem: Other: right leg open wound now clean, good healthy granulation no pus Objective Data Active Medications Acetaminophen (Acetaminophen 325 Mg Tablet) 650 mg PO Q6H PRN PRN Reason: Pain, Mild, fever >100.4 Docusate Sodium (Docusate Sodium 100 Mg Capsule) 100 mg PO BID PRN PRN Reason: Constipation Hydromorphone HCl (Hydromorphone Hcl 0.5 Mg/0.5 Ml Syringe) 0.5 mg IVPUSH Q3H PRN; Protocol PRN Reason: Pain, Severe (Pain Scale 7-10) Sodium Chloride (Ns) 1,000 mls @ 100 mls/hr IVCONT .Q10H [facility] Last Admin: 12/03/21 03:50 Dose: 100 mls/hr Documented By: IBAN Vancomycin HCl 1,000 mg/ (Sodium Chloride) 270 mls @ 270 mls/hr IV Q12H [facility] Last Infusion: 12/03/21 10:31 Dose: 0 mls/hr Documented By: SHAHNAZ Methadone HCl (Methadone Hcl 20 Mg/2 Ml Oral.Conc) 40 mg PO DAILY [facility] Last Admin: 12/03/21 11:43 Dose: 40 mg Documented By: SHAHNAZ Ondansetron HCl (Ondansetron Hcl 4 Mg/2 Ml Vial) 4 mg IVPUSH Q8H PRN PRN Reason: Nausea and Vomiting Oxycodone HCl (Oxycodone Hcl Immed Release 5 Mg Tablet) 5 mg PO Q6H PRN PRN Reason: Pain, Moderate (Pain Scale 4-6 Last Admin: 12/02/21 19:48 Dose: 5 mg Documented By: IBAN Pharmacy Consult (Consult Rx Perform Med Rec) 1 each MISCELLANE ONCE PRN PRN Reason: Consult order Pharmacy Consult (Consult Rx Etoh Phenob Im/Po) 1 each MISCELLANE ONCE PRN; Protocol PRN Reason: Consult order Pharmacy Consult (Consult Rx Vancomycin Dosing) 1 each MISCELLANE DAILY PRN PRN Reason: Consult order Phenobarbital (Phenobarbital 15 Mg Tablet) 45 mg PO BID [facility] Stop: 12/03/21 21:01 Last Admin: 12/03/21 08:37 Dose: 45 mg Documented By: SHAHNAZ Phenobarbital (Phenobarbital 30 Mg Tablet) 30 mg PO BID [facility] Stop: 12/05/21 21:01 Phenobarbital (Phenobarbital 15 Mg Tablet) 15 mg PO DAILY [facility] Stop: 12/07/21 09:01 Sodium Chloride (0.9 % Sodium Chloride Flush 3 Ml Syringe) 3 ml IVFLUSH QSHIFT [facility] Last Admin: 12/03/21 08:37 Dose: 3 ml Documented By: SHAHNAZ Labs CBC & Chem 7: 12/01/21 14:50 12/03/21 08:33 Labs: Laboratory Results - last 24 hr 12/03/21 12/03/21 06:33 08:33 Estim Creat Clear Calc 96.2 Estimated GFR > 60 Vancomycin Trough 10.7 Microbiology Microbiology Results: Microbiology 12/01/21 14:51 Blood Culture - Preliminary Blood - Venous Streptococcus pyogenes (Grp A) 12/01/21 14:50 Blood Culture - Preliminary Blood - Venous Streptococcus pyogenes (Grp A) 12/02/21 04:04 Blood Culture - Preliminary Blood - Venous No growth after 24 hours. 12/02/21 04:04 Blood Culture - Preliminary Blood - Venous No growth after 24 hours. Procedures Date of Service Date of Service: 12/03/21 Progress Note: A&P Assessment and plan (1) Leg wound, right: Status: Acute Assessment and Plan: sharp excisional debridement done at bedside yesterday dressings changed - silver alginate applied leg wrapped in Pawan roll continue wound care leg elevation Time Spent With Patient Time: Total time spent is greater than 50% in coordination of care (as documented) at patient's floor/unit and/or counseling patient: Quality Stroke Does the patient have a stroke diagnosis?: No VTE Prior VTE?: No VTE Risk Level:: Medical - moderate - high VTE Device Contraindication: Treatment Not Indicated VTE Drug Contraindication: N/A - Med Ordered
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
[2021-12-03 15:47] VITALS: BP 96/63; PULSE 76; RESP 17; TEMP 36.8; O2SAT 94
[2021-12-03] MEDS: cefTRIAXone sodium 2 GM in 0.9 % Sodium Chloride 50 ML IV (16:46)
[2021-12-03 21:01] VITALS: BP 150/81; PULSE 87; RESP 20; TEMP 37.1; O2SAT 95
[2021-12-04 07:20] LABS: Creatinine Clr Calc Pharmacy 105.1; Estimated Glomerular Filt Rate > 60
[2021-12-04 07:49] VITALS: BP 99/61; PULSE 73; RESP 20; TEMP 36.4; O2SAT 96
[2021-12-04] MEDS: methADONE HCl 20 MG/2 ML ORAL.CONC 40 MG PO (08:38)
[2021-12-04] MEDS: 0.9 % Sodium Chloride Flush 3 ML SYRINGE IVFLUSH ×2 (08:38→21:20)
[2021-12-04] MEDS: PHENobarbitaL 30 MG TABLET PO ×2 (08:38→21:20)
[2021-12-04 11:44] VITALS: BP 103/65; PULSE 72; RESP 16; TEMP 36.6; O2SAT 96
--- NOTE | 2021-12-04 11:47 | PC.NURSE ---
Report received from overnight RN, pt A+Ox4 this morning, pt appears to be very drowsy. Assisted pt to sit up on side of bed, tolerated movement well. helpdesk administrator per APR. Call yo within reach, bed alarm on, nonskid socks in place, safety precautions taken.
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
[2021-12-04] MEDS: Multivitamin TABLET 1 TAB PO (14:46)
[2021-12-04] MEDS: Folic Acid 1 MG TABLET PO (14:46)
[2021-12-04] MEDS: Thiamine HCL 100 MG TABLET PO (14:46)
[2021-12-04] MEDS: cefTRIAXone sodium 2 GM in 0.9 % Sodium Chloride 50 ML IV (14:51)
[2021-12-04 15:06] VITALS: BP 119/74; PULSE 78; RESP 18; TEMP 36.4; O2SAT 96
[2021-12-05 07:32] LABS: Anion Gap 14 (12-20); Blood Urea Nitrogen 23 mg/dL (9-16); C Reactive Protein 7.17 mg/dL (< or = 0.50); Carbon Dioxide 19 mmol/L (22-29); Chloride 104 mmol/L (96-108); Estimated Glomerular Filt Rate > 60; Glucose Random 106 mg/dL (60-115); Potassium 4.1 mmol/L (3.3-5.1); Sodium 133 mmol/L (135-145)
[2021-12-05 07:44] VITALS: BP 103/68; PULSE 66; RESP 18; TEMP 36.2; O2SAT 98
[2021-12-05] MEDS: PHENobarbitaL 30 MG TABLET PO ×2 (08:02→22:12)
[2021-12-05] MEDS: Multivitamin TABLET 1 TAB PO (08:02)
[2021-12-05] MEDS: Folic Acid 1 MG TABLET PO (08:02)
[2021-12-05] MEDS: methADONE HCl 20 MG/2 ML ORAL.CONC 40 MG PO (08:02)
[2021-12-05] MEDS: Thiamine HCL 100 MG TABLET PO (08:02)
[2021-12-05] MEDS: 0.9 % Sodium Chloride Flush 3 ML SYRINGE IVFLUSH ×3 (08:07→22:12)
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
[2021-12-05 12:21] VITALS: BP 115/67; PULSE 63; RESP 20; TEMP 36.2; O2SAT 97
[2021-12-05 15:20] VITALS: BP 101/57; PULSE 80; RESP 18; TEMP 36.2; O2SAT 98
[2021-12-05] MEDS: cefTRIAXone sodium 2 GM in 0.9 % Sodium Chloride 50 ML IV (15:28)
[2021-12-05 16:12] LABS: Hemoglobin 10.6 g/dl (14.0-18.0); Mean Corpuscular Hemoglobin 28.6 pg (27.0-33.0)
[2021-12-05 16:14] LABS: Hematocrit 32.3 % (42.0-52.0); Mean Corpuscular HGB Conc 32.8 g/dl (31.0-36.0); Mean Corpuscular Volume 87.3 fL (80.0-98.0); Platelet Count 44 X10*3/uL (160-400); Red Cell Distribution Width 16.8 % (11.0-16.0); White Blood Count 1.7 X10*3/uL (4.8-10.8)
[2021-12-05 16:15] LABS: PLT ABN DIST 1
--- NOTE | 2021-12-05 18:16 | PC.NURSE ---
PATIENT ALERT AND ORIENTATED X3, UNABLE TO REMEMBER THE DAY OF THE MONTH. PATIENT LEFT FOREARM SWOLLEN AND FIRM, MD AWARE, NO FURTHER ORDERS GIVEN. PATIENT WOUND PHOTOGRAPHED AND DOCUMENTED IN PATIENT CHART. DRESSING CHANGED, MD BEDSIDE TO ASSESS. SILVER ALGINATE DRESSING APPLIED WITH GAUZE PAD REINFORCEMENT AND WRAP. PATIENT AND FAMILY UPDATED ON CURRENT HEALTH STATUS. PATIENT BATHED, REPOSITIONED Q2HR.
[2021-12-05 23:07] VITALS: BP 113/73; PULSE 80; RESP 18; TEMP 37.7; O2SAT 94
[2021-12-06 03:45] VITALS: BP 104/56; PULSE 70; RESP 15; TEMP 36.9; O2SAT 96
[2021-12-06 05:04] LABS: ~HepC Num1 9.17 S/CO (0.00-0.79); ~Hepatitis C Antibody Reactive (Nonreactive)
[2021-12-06 05:05] LABS: HBS Num1 0.58 mIU/mL (0-7.99); HBc Num1 0.32 S/CO (0.00-0.79); HBsAGNum1 0.17 S/CO (0.00-0.99); HIV AB/AG Nonreactive (Nonreactive); Hepatitis B Core Antibody Nonreactive (Nonreactive); Hepatitis B Surface Antigen Negative (Negative); ~Hepatitis B Surface Antibody NONREACTIVE (Nonreactive)
[2021-12-06 07:54] VITALS: BP 117/65; PULSE 67; RESP 20; TEMP 36.6; O2SAT 97
[2021-12-06] MEDS: PHENobarbitaL 15 MG TABLET PO (08:17)
[2021-12-06] MEDS: Multivitamin TABLET 1 TAB PO (08:17)
[2021-12-06] MEDS: Thiamine HCL 100 MG TABLET PO (08:17)
[2021-12-06] MEDS: methADONE HCl 20 MG/2 ML ORAL.CONC 40 MG PO (08:17)
[2021-12-06] MEDS: Folic Acid 1 MG TABLET PO (08:17)
[2021-12-06] MEDS: 0.9 % Sodium Chloride Flush 3 ML SYRINGE IVFLUSH ×2 (09:33→15:49)
--- NOTE | 2021-12-06 11:01 | P.F2F_ITS ---
Service Date Service Date: 12/06/21 Encounter Date of encounter: 12/06/21 Reasons for Services Signs and symptoms assessed: wound care PT Reason for detention: wound care Reason for physical therapy: home safety and mobility, therapeutic exercises, gait/transfer training, ADL training and energy conservation Overseeing Care: Rosalino La Homebound: Leaving the home is medically contraindicated at this time without the asist of a device and/or another person due th the listed conditions above and below. Reason homebound: unsteady gait / fall risk, immunosuppression / infection risk and weakness related to hospital stay Homebound supporting statement: wound care daily to RLE ulcers: silver alginate, then dry sterile gauze, then roller gauze wrap Certification: Based on the above findings, I certify that this patient is confined to the home and needs intermittent detention care, physical therapy and/or speech therapy, or continues to need occupational therapy. The patient is under my care, and I have initiated the establishment of the plan of care. The patient will be followed by a physician who will periodically review the plan of care.
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
[2021-12-06 11:33] LABS: Hematocrit 30.3 % (42.0-52.0); Hemoglobin 9.9 g/dl (14.0-18.0); Mean Corpuscular HGB Conc 32.7 g/dl (31.0-36.0); Mean Corpuscular Hemoglobin 28.4 pg (27.0-33.0); Mean Corpuscular Volume 86.8 fL (80.0-98.0); Red Blood Count 3.49 X10*6/uL (4.60-5.80); Red Cell Distribution Width 16.8 % (11.0-16.0)
[2021-12-06 11:34] LABS: Platelet Count 50 X10*3/uL (160-400); White Blood Count 2.2 X10*3/uL (4.8-10.8)
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
[2021-12-06 12:34] VITALS: BP 102/63; PULSE 70; RESP 20; O2SAT 95
[2021-12-06 15:18] VITALS: BP 117/57; PULSE 66; RESP 18; TEMP 36.3; O2SAT 96
[2021-12-06 15:22] VITALS: BMI 24.6
--- NOTE | 2021-12-06 15:29 | MHC.CLN ---
NUTRITION CONSULT FOR SKIN. REGULAR DIET. SUPPLEMENT ENSURE TID PROVIDES ADDITIONAL 1050 KCALS, 60 G PROTEIN. WOUND CLASSIFIED STAGE II-OSTEOMYELITIS WITH CHRONIC WOUND. SUPPLEMENT APPROPRIATE TO PROMOTE WOUND HEALING. INTAKE APPEARS GOOD. FOLLOW FOR INTAKE AND WOUND.
[2021-12-06] MEDS: cefTRIAXone sodium 2 GM in 0.9 % Sodium Chloride 50 ML IV (15:48)
[2021-12-06] MEDS: oxyCODONE HCl Immed Release 5 MG TABLET PO (15:55)
[2021-12-06 23:24] VITALS: BP 106/57; PULSE 70; RESP 17; TEMP 36.1; O2SAT 98
[2021-12-07] MEDS: 0.9 % Sodium Chloride Flush 3 ML SYRINGE IVFLUSH ×2 (01:16→11:10)
[2021-12-07 06:34] LABS: Hematocrit 29.2 % (42.0-52.0); Hemoglobin 9.6 g/dl (14.0-18.0); Mean Corpuscular HGB Conc 32.9 g/dl (31.0-36.0); Mean Corpuscular Volume 85.1 fL (80.0-98.0); Red Blood Count 3.43 X10*6/uL (4.60-5.80); Red Cell Distribution Width 16.6 % (11.0-16.0)
[2021-12-07 06:35] LABS: PLT ABN DIST 1; Platelet Count 49 X10*3/uL (160-400); White Blood Count 1.6 X10*3/uL (4.8-10.8)
[2021-12-07 07:18] LABS: Alanine Aminotransferase 18 U/L (0-40); Albumin Level 1.5 g/dL (3.5-5.0); Alkaline Phosphatase 186 U/L (39-117); Anion Gap 10 (12-20); Aspartate Amino Transferase 63 U/L (5-37); Bilirubin Total 5.7 mg/dL (0.0-1.0); Blood Urea Nitrogen 17 mg/dL (9-16); Calcium 7.8 mg/dL (8.4-10.2); Carbon Dioxide 23 mmol/L (22-29); Chloride 107 mmol/L (96-108); Estimated Glomerular Filt Rate > 60; Glucose Random 103 mg/dL (60-115); Potassium 3.7 mmol/L (3.3-5.1); Sodium 136 mmol/L (135-145); Total Protein 6.3 g/dL (6.5-8.0)
[2021-12-07 07:37] VITALS: BP 125/78; PULSE 65; RESP 18; TEMP 36.7; O2SAT 99
[2021-12-07] MEDS: methADONE HCl 20 MG/2 ML ORAL.CONC 40 MG PO (10:31)
[2021-12-07] MEDS: Folic Acid 1 MG TABLET PO (10:32)
[2021-12-07] MEDS: Multivitamin TABLET 1 TAB PO (10:32)
[2021-12-07] MEDS: PHENobarbitaL 15 MG TABLET PO (10:32)
[2021-12-07] MEDS: Omeprazole 20 MG CAPSULE.DR PO (10:32)
[2021-12-07] MEDS: Thiamine HCL 100 MG TABLET PO (10:32)
[2021-12-07 10:36] LABS: Ammonia 41 umol/L (13-55)
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
[2021-12-07 15:25] VITALS: BP 125/65; PULSE 73; RESP 17; TEMP 37.1; O2SAT 98
--- NOTE | 2021-12-07 18:40 | PC.NURSE ---
No IV access, attempts to obtain one in progress. 1515 ceftriaxone administration is late ,Dr Vu aware.
[2021-12-07 19:29] VITALS: BP 118/69; PULSE 76; RESP 17; TEMP 36.6; O2SAT 97
--- NOTE | 2021-12-07 20:36 | HO.ADDICT_ITS ---
History of Present Illness Date of Service: 12/07/2021 Chief Complaint: osteomyelitis Reason for Consult: somnolence ?methadone dose too high Requesting physician: Hugo Vu HPI Narrative: Patient is a 61 year old male currently medically admitted with osteo and leg wound Dx of OUD (engaged in treatment with [facility]), cocaine use disorder and alcohol use disorder. Phenobarb started at admission to treat alcohol withdrawal sx. Seen by recovery support RN at start of admission and discussed harm reduction strategies related to cocaine use. Consult requested as patient has been reportedly increasingly somnolent and question if methadone dose needs to be adjusted. Patient seen room 458. Patient's mother at bedside during interview. While patient was awake, he did appear to have difficulty keeping his eyes open and during interview. Mother reporting this is not his baseline, he is usually quite active. Methadone dose 45mg QD. Ammonia level checked and WNL Review of Systems Constitutional: Reports as per HPI and Reports no additional constitutional complaints Diagnostics Vital Signs (24Hr): Vital Signs - 24 hr 12/06/21 23:24 12/07/21 07:37 12/07/21 15:25 Temperature 96.9 F 98.1 F 98.8 F Pulse Rate 70 65 73 Respiratory Rate 17 18 17 Blood Pressure 106/57 L 125/78 125/65 Pulse Oximetry 98 99 98 Oxygen Delivery Method Room Air Room Air Room Air 12/07/21 19:29 Temperature 97.9 F Pulse Rate 76 Respiratory Rate 17 Blood Pressure 118/69 Pulse Oximetry 97 Oxygen Delivery Method Room Air BMI result Body Mass Index 24.6 Labs Results: 12/07/21 06:17 12/07/21 06:17 Labs: Laboratory Results - last 48 hr 12/05/21 12/05/21 12/06/21 07:03 07:03 11:24 WBC 2.2 L RBC 3.49 L Hgb 9.9 L Hct 30.3 L MCV 86.8 MCH 28.4 MCHC 32.7 RDW 16.8 H Plt Count 50 L MPV Not Reportable Absolute Nucleated RBC 0.000 Nucleated RBC % (auto) 0.0 Smear Path Review SEE NOTE Sodium Potassium Chloride Carbon Dioxide Anion Gap BUN Creatinine Estim Creat Clear Calc Estimated GFR Random Glucose Calcium Total Bilirubin AST ALT Alkaline Phosphatase Ammonia Total Protein Albumin Hep Bs Antigen Negative Hep Bs Antibody NONREACTIVE Hep B Core Total Ab Nonreactive Hepatitis C Ab (EIA) Reactive H HIV 1&2 Ab/P24 Ag 4thGn Nonreactive 12/07/21 12/07/21 12/07/21 06:17 06:17 10:22 WBC 1.6 L RBC 3.43 L Hgb 9.6 L Hct 29.2 L MCV 85.1 MCH 28.0 MCHC 32.9 RDW 16.6 H Plt Count 49 L MPV Not Reportable Absolute Nucleated RBC 0.000 Nucleated RBC % (auto) 0.0 Smear Path Review Sodium 136 Potassium 3.7 Chloride 107 Carbon Dioxide 23 Anion Gap 10 L BUN 17 H Creatinine 0.61 Estim Creat Clear Calc 112.0 Estimated GFR > 60 Random Glucose 103 Calcium 7.8 L Total Bilirubin 5.7 H AST 63 H ALT 18 Alkaline Phosphatase 186 H D Ammonia 41 Total Protein 6.3 L Albumin 1.5 L Hep Bs Antigen Hep Bs Antibody Hep B Core Total Ab Hepatitis C Ab (EIA) HIV 1&2 Ab/P24 Ag 4thGn Imaging Radiology Impressions: ITS Impressions Tibia/Fibula X-Ray 12/01/21 14:25 IMPRESSION: Very subtle defect in the cortex the mid tibia anteriorly. A focus of osteomyelitis cannot be excluded. Recommend MR to further evaluate if clinically indicated Lower Extremity CT 12/01/21 21:04 IMPRESSION: 1. No aggressive bone destruction identified to suggest specific evidence of osteomyelitis via CT. There is a small focus of very subtle periosteal thickening in the medial distal tibial diaphysis just inferior to the ulcer which is nonspecific. If there is clinical concern for acute osteomyelitis, would recommend MRI as previously suggested, given that CT is relatively insensitive for detecting early acute osteomyelitis. 2. No tracking soft tissue gas or loculated fluid collection to suggest abscess. 3. Diffuse subcutaneous edema and skin thickening. Correlate with evidence of cellulitis on exam. Abdomen Ultrasound 12/07/21 10:10 IMPRESSION: Trace ascites. Mental Status Exam Mental Status Exam Level of Consciousness: Drowsy Affect Description: Blunted Speech Pattern: Slurred Medications Medications Current Medications Acetaminophen (Acetaminophen 325 Mg Tablet) 650 mg PO Q6H PRN PRN Reason: Pain, Mild, fever >100.4 Docusate Sodium (Docusate Sodium 100 Mg Capsule) 100 mg PO BID PRN PRN Reason: Constipation Folic Acid (Folic Acid 1 Mg Tablet) 1 mg PO DAILY [facility] Last Admin: 12/07/21 10:32 Dose: 1 mg Ceftriaxone Sodium 2 gm/ (Sodium Chloride) 50 mls @ 100 mls/hr IV Q24H [facility] Last Infusion: 12/06/21 20:10 Dose: Infused Methadone HCl (Methadone Hcl 20 Mg/2 Ml Oral.Conc) 40 mg PO DAILY [facility] Last Admin: 12/07/21 10:31 Dose: 40 mg Multivitamins/Vitamin C (Multivitamin Tablet) 1 tab PO DAILY [facility] Last Admin: 12/07/21 10:32 Dose: 1 tab Omeprazole (Omeprazole 20 Mg Capsule.Dr) 20 mg PO DAILY@0630 [facility] Last Admin: 12/07/21 10:32 Dose: 20 mg Ondansetron HCl (Ondansetron Hcl 4 Mg/2 Ml Vial) 4 mg IVPUSH Q8H PRN PRN Reason: Nausea and Vomiting Pharmacy Consult (Consult Rx Perform Med Rec) 1 each MISCELLANE ONCE PRN PRN Reason: Consult order Pharmacy Consult (Consult Rx Etoh Phenob Im/Po) 1 each MISCELLANE ONCE PRN; Protocol PRN Reason: Consult order Pharmacy Consult (Consult Rx Vancomycin Dosing) 1 each MISCELLANE DAILY PRN PRN Reason: Consult order Sodium Chloride (0.9 % Sodium Chloride Flush 3 Ml Syringe) 3 ml IVFLUSH QSHIFT [facility] Last Admin: 12/07/21 18:39 Dose: Not Given Thiamine HCl (Thiamine Hcl 100 Mg Tablet) 100 mg PO DAILY [facility] Last Admin: 12/07/21 10:32 Dose: 100 mg Allergies Allergies Allergy/AdvReac Type Severity Reaction Status Date / Time No Known Allergies Allergy Unknown Verified 06/28/21 07:41 Assessment & Plan Assessment & Plan (1) Opioid use disorder: Status: Acute Code(s): F11.90 - Opioid use, unspecified, uncomplicated Assessment and Plan: * methadone dose has been 45mg since before admission. * ? if phenobarbitol and methadone is causing reported somnolence --today, methadone and phenobarbitol were administered together * reassess tomorrow--phenobarb taper is now complete * discussed with hospitalist I spent __35____ minutes with the patient and/or on the patient floor today, greater than?50% of which was spent counseling/coordinating care. [facility] Past Medical History Medical History (Updated 12/06/21 @ 11:08 by Hugo Vu MD) Asthma Cirrhosis Cirrhosis COVID-19 virus infection Erosive esophagitis Erosive gastritis GERD (gastroesophageal reflux disease) Hepatitis C Infected wound Nasal bone fracture Recurrent major depression Right wrist drop Substance abuse Family History Family History Mother CKD (chronic kidney disease) Father Diabetes Surgical History Surgical History No pertinent past surgical history Social History Social History Household Members: Family Household Members Other:: mother Housing: House Do you presently have visiting nurse or other home services: No Alcohol intake: current Alcohol intake frequency: 3 or more drinks per day Alcohol type: hard liquor Patient Tobacco Use Status: Never used Tobacco Tobacco use type: Cigarette and Cigar Cigarettes Per Day: 4 Second Hand Smoke Exposure: No Substance Use Type: Crack/Cocaine Advance Directives Date on File: 12/01/21 service: No Current occupational status: unemployed
[2021-12-07 23:06] VITALS: BP 108/61; PULSE 75; RESP 18; TEMP 36.7; O2SAT 95
[2021-12-08] MEDS: cefTRIAXone sodium 2 GM in 0.9 % Sodium Chloride 50 ML IV (02:29)
[2021-12-08] MEDS: 0.9 % Sodium Chloride Flush 3 ML SYRINGE IVFLUSH ×4 (02:30→21:31)
[2021-12-08] MEDS: Omeprazole 20 MG CAPSULE.DR PO (05:31)
[2021-12-08 07:37] VITALS: BP 122/69; PULSE 66; RESP 18; TEMP 36.6; O2SAT 98
[2021-12-08 07:41] LABS: Hematocrit 28.8 % (42.0-52.0); Hemoglobin 9.4 g/dl (14.0-18.0); Mean Corpuscular HGB Conc 32.6 g/dl (31.0-36.0); Mean Corpuscular Hemoglobin 28.7 pg (27.0-33.0); Mean Corpuscular Volume 88.1 fL (80.0-98.0); PLT CLUMP 1; Red Blood Count 3.27 X10*6/uL (4.60-5.80); Red Cell Distribution Width 17.2 % (11.0-16.0)
[2021-12-08 07:46] LABS: Ammonia 43 umol/L (13-55)
[2021-12-08 07:47] LABS: INTERNATIONAL NORM RATIO 1.7 (0.9-1.1); Prothrombin Time 20.3 SEC (10.0-13.1)
[2021-12-08 08:18] LABS: Alanine Aminotransferase 23 U/L (0-40); Albumin Level 1.5 g/dL (3.5-5.0); Alkaline Phosphatase 207 U/L (39-117); Anion Gap 13 (12-20); Aspartate Amino Transferase 80 U/L (5-37); Bilirubin Total 4.8 mg/dL (0.0-1.0); Blood Urea Nitrogen 13 mg/dL (9-16); Calcium 7.4 mg/dL (8.4-10.2); Carbon Dioxide 21 mmol/L (22-29); Chloride 106 mmol/L (96-108); Creatinine Clr Calc Pharmacy 106.7; Estimated Glomerular Filt Rate > 60; Glucose Random 80 mg/dL (60-115); Sodium 136 mmol/L (135-145); Total Protein 6.9 g/dL (6.5-8.0)
[2021-12-08 08:23] LABS: Platelet Count 54 X10*3/uL (160-400); White Blood Count 1.8 X10*3/uL (4.8-10.8)
[2021-12-08] MEDS: Folic Acid 1 MG TABLET PO (08:33)
[2021-12-08] MEDS: Thiamine HCL 100 MG TABLET PO (08:33)
[2021-12-08] MEDS: Multivitamin TABLET 1 TAB PO (08:33)
[2021-12-08] MEDS: methADONE HCl 20 MG/2 ML ORAL.CONC 40 MG PO (08:33)
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
--- NOTE | 2021-12-08 09:35 | MHC.CDI.CONC ---
CDI Concurrent Query Documentation Clarification: PHYSICIAN'S DOCUMENTATION REQUEST Date of Query: 12/08/21 0935 Patient Name: Ronnie Rodriguez Admit Date: 12/01/21 Dear Doctor, A review of the medical record indicates additional documentation may be indicated. Please review below and update the documentation accordingly. Clinical Indicators: Risk Factors/Clinical Indicators/Treatments Wound care notes 12/05 - Pressure injury assessment/wound, right casanova, Stage III Beefy red, edematous non pitting. Silver dressing, gauze roll/wrap. PN: 12/06 - RLE ulcers with granulation tissue, swelling with minimal erythema. Based on the above, could you please provide, in the Progress Notes, further information regarding the ulcer/wound: If a pressure ulcer/injury, please also include the stage* of the ulcer: Stage 1 - Skin intact, non-blanchable redness Stage 2 - Partial thickness loss of dermis, includes intact or open blister Stage 3 - Full thickness tissue not including bone, tendon, or muscle Stage 4 - Full thickness tissue loss, including exposed bones, tendon, or muscle Other Unable to determine *Source: National Pressure Ulcer Advisory Panel (NPUAP) Use of terms such as suspected, likely, concern for, or probable (associated with a specific diagnosis that is being evaluated, monitored, or treated as if it exists) are acceptable and can be coded in the inpatient setting, when documented at the time of discharge. Thank you, Carol Thapa [facility], CDIS Extension: [phone] Please use your independent medical judgment in providing your response. THIS QUERY IS PART OF THE PERMANENT MEDICAL RECORD
--- NOTE | 2021-12-08 10:42 | MHC.RECOVRN ---
This television script writer met w/ pt, pt sleeping, awake to verbal stimuli. Pt confused, tangential. Pt could not verbalize needs. After some time in the room, this television script writer determined that pt was attempting to state in need of breakfast. This television script writer set up breakfast tray, pt eating comfortably. T/W inquired about methadone dose, pt states not feeling withdrawal. Provider aware.
--- NOTE | 2021-12-08 12:21 | MHC.CLN ---
F/U WOUND NOW REFLECTED VENOUS ULCER PO INTAKE 100% DIET RX: REGULAR-APPROPRIATE PT RECEIVING ENSURE TID TO INCREASE KCALS PROVIDES 1050KCALS, 60G PROTEIN MONITOR PO INTAKE CLOSELY RD TO FOLLOW WEEKLY
[2021-12-08 14:56] LABS: HCV Log PCR 5.82 Log IU/mL (NOT DETECTED); HepC Viral Load 661000 IU/mL (NOT DETECTED)
[2021-12-08 15:07] VITALS: BP 113/63; PULSE 78; RESP 18; TEMP 36.4; O2SAT 98
--- NOTE | 2021-12-08 15:19 | MHC.CM.PN ---
per rounds pt ready for dc bed search in place
--- NOTE | 2021-12-08 18:38 | PC.NURSE ---
assess right lower leg venous ulcer, did dressing change with alginate silver dressing, abd pad, and roll gauze, c/d/i
[2021-12-09] VITALS: BP 125/65; PULSE 71; RESP 18; TEMP 37.3; O2SAT 96
[2021-12-09] MEDS: cefTRIAXone sodium 2 GM in 0.9 % Sodium Chloride 50 ML IV (03:03)
[2021-12-09] MEDS: Omeprazole 20 MG CAPSULE.DR PO (06:03)
[2021-12-09 06:45] LABS: Hematocrit 29.7 % (42.0-52.0); Hemoglobin 9.7 g/dl (14.0-18.0); Mean Corpuscular HGB Conc 32.7 g/dl (31.0-36.0); Mean Corpuscular Hemoglobin 28.4 pg (27.0-33.0); Mean Corpuscular Volume 87.1 fL (80.0-98.0); Platelet Count 66 X10*3/uL (160-400); Red Blood Count 3.41 X10*6/uL (4.60-5.80); Red Cell Distribution Width 17.3 % (11.0-16.0)
[2021-12-09 07:05] LABS: Alanine Aminotransferase 23 U/L (0-40); Albumin Level 1.5 g/dL (3.5-5.0); Alkaline Phosphatase 220 U/L (39-117); Anion Gap 12 (12-20); Aspartate Amino Transferase 81 U/L (5-37); Bilirubin Total 4.2 mg/dL (0.0-1.0); Blood Urea Nitrogen 13 mg/dL (9-16); Calcium 7.5 mg/dL (8.4-10.2); Carbon Dioxide 22 mmol/L (22-29); Chloride 105 mmol/L (96-108); Creatinine Clr Calc Pharmacy 103.5; Estimated Glomerular Filt Rate > 60; Glucose Random 101 mg/dL (60-115); Magnesium 1.8 mg/dL (1.6-2.6); Potassium 4.3 mmol/L (3.3-5.1); Sodium 135 mmol/L (135-145); Total Protein 7.3 g/dL (6.5-8.0)
[2021-12-09 07:32] VITALS: BP 130/78; PULSE 71; RESP 16; TEMP 36.5; O2SAT 98
[2021-12-09] MEDS: methADONE HCl 20 MG/2 ML ORAL.CONC 40 MG PO (07:57)
[2021-12-09] MEDS: Folic Acid 1 MG TABLET PO (07:57)
[2021-12-09] MEDS: Thiamine HCL 100 MG TABLET PO (07:57)
[2021-12-09] MEDS: Multivitamin TABLET 1 TAB PO (07:57)
[2021-12-09] MEDS: 0.9 % Sodium Chloride Flush 3 ML SYRINGE IVFLUSH ×3 (07:58→19:53)
[2021-12-09] MEDS: oxyCODONE HCl Immed Release 5 MG TABLET PO ×2 (08:02→19:50)
[2021-12-09 10:19] VITALS: BP 130/78; PULSE 71; O2SAT 98
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
[2021-12-09 15:42] VITALS: BP 131/79; PULSE 67; RESP 19; TEMP 36.7
[2021-12-09 23:20] VITALS: BP 126/77; PULSE 77; RESP 16; TEMP 37.2; O2SAT 96
[2021-12-10] VITALS (8 sets, daily range): BP systolic 116–137; BP diastolic 70–81; PULSE 65–79; RESP 16–18; TEMP 36.2–37.2; O2SAT 94–97
[2021-12-10] MEDS: cefTRIAXone sodium 2 GM in 0.9 % Sodium Chloride 50 ML IV (01:46)
[2021-12-10] MEDS: Omeprazole 20 MG CAPSULE.DR PO (05:48)
[2021-12-10] MEDS: methADONE HCl 20 MG/2 ML ORAL.CONC 40 MG PO (09:27)
[2021-12-10] MEDS: 0.9 % Sodium Chloride Flush 3 ML SYRINGE IVFLUSH ×3 (09:27→21:22)
[2021-12-10] MEDS: Folic Acid 1 MG TABLET PO (09:27)
[2021-12-10] MEDS: Multivitamin TABLET 1 TAB PO (09:27)
[2021-12-10] MEDS: Thiamine HCL 100 MG TABLET PO (09:27)
[2021-12-10] MEDS: oxyCODONE HCl Immed Release 5 MG TABLET PO ×2 (09:37→21:20)
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
--- NOTE | 2021-12-10 13:06 | MHC.CM.PN ---
per rounds pt is ready for dc [facility] bed at [facility]
[2021-12-11] MEDS: cefTRIAXone sodium 2 GM in 0.9 % Sodium Chloride 50 ML IV (01:35)
[2021-12-11] MEDS: Omeprazole 20 MG CAPSULE.DR PO (06:13)
[2021-12-11 06:49] LABS: Alanine Aminotransferase 22 U/L (0-40); Albumin Level 1.5 g/dL (3.5-5.0); Alkaline Phosphatase 225 U/L (39-117); Aspartate Amino Transferase 66 U/L (5-37); Bilirubin Direct 2.5 mg/dL (0.0-0.5); Bilirubin Total 3.4 mg/dL (0.0-1.0); Total Protein 7.6 g/dL (6.5-8.0)
[2021-12-11 07:36] VITALS: BP 129/71; PULSE 75; RESP 18; TEMP 36.9; O2SAT 98
[2021-12-11] MEDS: oxyCODONE HCl Immed Release 5 MG TABLET PO (07:45)
[2021-12-11] MEDS: Folic Acid 1 MG TABLET PO (07:45)
[2021-12-11] MEDS: Multivitamin TABLET 1 TAB PO (07:45)
[2021-12-11] MEDS: Thiamine HCL 100 MG TABLET PO (07:45)
[2021-12-11] MEDS: methADONE HCl 20 MG/2 ML ORAL.CONC 40 MG PO (07:46)
[2021-12-11] MEDS: 0.9 % Sodium Chloride Flush 3 ML SYRINGE IVFLUSH ×2 (07:46→17:06)
--- NOTE | 2021-12-11 14:04 | PM.EVENT ---
Event Note Date of Service: 12/11/21 Event Note: continue Ceftriaxone for now Group A strep,on discharge po Augmentin 875 bid to complete four weeks therapy
[2021-12-11 15:02] VITALS: BP 119/62; PULSE 76; RESP 18; TEMP 36.8; O2SAT 94
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
--- NOTE | 2021-12-11 18:04 | MHC.RECOVSUP ---
Recovery Support note: Patient is a 61 year old [place] speaking male in [facility] currently awaiting placement. This promotion writer met with patient to discuss alcohol use and recovery supports. Patient was sitting in recliner watching TV, reporting that he is feeling well. Patient reports he drinks about a quart of whiskey a day and last drank the day prior to coming to the hospital. Patient reports no significant periods of sobriety outside of incarceration. Patient reports his father due to complications related to alcoholism and he acknowledges the negative health consequences of his alcohol use. Patient expressed a desire to stop drinking and maintain sobriety however states it's not easy. Patient reports he has been to thousands of AA meetings and that he finds them helpful. Patient reports he has cut some people out of his life who were negative influences and that he has sober friends. Patient is connected with the [facility] methadone clinic and has found this helpful to his recovery. Discussed relapse prevention and recovery coaching with patient. Patient agreeable to being referred to a tissue recovery technician for ongoing support.
[2021-12-11 23:34] VITALS: BP 136/65; PULSE 79; RESP 18; TEMP 37.2; O2SAT 97
[2021-12-12] MEDS: 0.9 % Sodium Chloride Flush 3 ML SYRINGE IVFLUSH ×3 (01:18→17:17)
[2021-12-12] MEDS: cefTRIAXone sodium 2 GM in 0.9 % Sodium Chloride 50 ML IV (01:19)
[2021-12-12] MEDS: oxyCODONE HCl Immed Release 5 MG TABLET PO (01:23)
[2021-12-12] MEDS: Omeprazole 20 MG CAPSULE.DR PO (05:48)
[2021-12-12 08:00] VITALS: BP 109/69; PULSE 75; RESP 16; TEMP 36.7; O2SAT 98
[2021-12-12 08:57] LABS: Alanine Aminotransferase 25 U/L (0-40); Albumin Level 1.5 g/dL (3.5-5.0); Alkaline Phosphatase 239 U/L (39-117); Aspartate Amino Transferase 69 U/L (5-37); Bilirubin Total 2.9 mg/dL (0.0-1.0); Total Protein 8.3 g/dL (6.5-8.0)
[2021-12-12] MEDS: Multivitamin TABLET 1 TAB PO (08:58)
[2021-12-12] MEDS: methADONE HCl 20 MG/2 ML ORAL.CONC 40 MG PO (08:58)
[2021-12-12] MEDS: Thiamine HCL 100 MG TABLET PO (08:59)
[2021-12-12] MEDS: Folic Acid 1 MG TABLET PO (08:59)
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
[2021-12-12 15:53] VITALS: BP 134/73; PULSE 90; RESP 16; TEMP 36.7; O2SAT 98
[2021-12-12 19:47] VITALS: BP 133/78; PULSE 81; RESP 18; TEMP 36.9; O2SAT 96
[2021-12-12 23:12] VITALS: BP 132/70; PULSE 74; RESP 18; TEMP 36.7; O2SAT 95
[2021-12-13] MEDS: cefTRIAXone sodium 2 GM in 0.9 % Sodium Chloride 50 ML IV (03:26)
[2021-12-13] MEDS: Omeprazole 20 MG CAPSULE.DR PO (05:48)
[2021-12-13] MEDS: oxyCODONE HCl Immed Release 5 MG TABLET PO (05:49)
[2021-12-13 07:09] LABS: Alanine Aminotransferase 23 U/L (0-40); Albumin Level 1.5 g/dL (3.5-5.0); Alkaline Phosphatase 225 U/L (39-117); Aspartate Amino Transferase 62 U/L (5-37); Bilirubin Direct 1.9 mg/dL (0.0-0.5); Bilirubin Total 2.9 mg/dL (0.0-1.0); Total Protein 8.3 g/dL (6.5-8.0)
[2021-12-13 07:44] LABS: Glucose, Whole Blood 61 mg/dL (60-115)
[2021-12-13 08:06] VITALS: BP 123/76; PULSE 73; RESP 14; TEMP 36.7; O2SAT 98
[2021-12-13] MEDS: Folic Acid 1 MG TABLET PO (08:42)
[2021-12-13] MEDS: Multivitamin TABLET 1 TAB PO (08:42)
[2021-12-13] MEDS: Thiamine HCL 100 MG TABLET PO (08:42)
[2021-12-13] MEDS: methADONE HCl 20 MG/2 ML ORAL.CONC 40 MG PO (08:42)
[2021-12-13] MEDS: 0.9 % Sodium Chloride Flush 3 ML SYRINGE IVFLUSH ×2 (08:44→16:37)
[2021-12-13] MEDS: Acetaminophen 325 MG TABLET 650 MG PO (10:09)
[2021-12-13 10:55] VITALS: BP 123/76; PULSE 73; O2SAT 98
[2021-12-13 11:29] VITALS: BP 125/75; PULSE 79; RESP 14; TEMP 36.5; O2SAT 98
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
[2021-12-13 15:39] VITALS: BP 125/74; PULSE 69; RESP 18; TEMP 36.1; O2SAT 96
[2021-12-14] VITALS: BP 120/66; PULSE 76; RESP 20; TEMP 36.7; O2SAT 95
[2021-12-14] MEDS: cefTRIAXone sodium 2 GM in 0.9 % Sodium Chloride 50 ML IV (03:04)
[2021-12-14] MEDS: Omeprazole 20 MG CAPSULE.DR PO (06:08)
[2021-12-14 07:17] VITALS: BP 156/86; PULSE 69; RESP 12; TEMP 36.7; O2SAT 98
[2021-12-14 08:23] VITALS: BP 156/86; PULSE 69; O2SAT 98
[2021-12-14] MEDS: Multivitamin TABLET 1 TAB PO (08:25)
[2021-12-14] MEDS: Folic Acid 1 MG TABLET PO (08:25)
[2021-12-14] MEDS: methADONE HCl 20 MG/2 ML ORAL.CONC 40 MG PO (08:25)
[2021-12-14] MEDS: Thiamine HCL 100 MG TABLET PO (08:25)
[2021-12-14] MEDS: 0.9 % Sodium Chloride Flush 3 ML SYRINGE IVFLUSH (08:26)
[2021-12-14] MEDS: Acetaminophen 325 MG TABLET 650 MG PO (08:30)
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
[2021-12-14 15:17] VITALS: BP 119/69; PULSE 69; RESP 13; TEMP 36.3; O2SAT 98
[2021-12-14 19:12] VITALS: BP 127/69; PULSE 73; RESP 18; TEMP 37.1; O2SAT 100
[2021-12-14 23:39] VITALS: BP 124/74; PULSE 73; RESP 16; TEMP 37.3; O2SAT 96
[2021-12-15] MEDS: cefTRIAXone sodium 2 GM in 0.9 % Sodium Chloride 50 ML IV (01:22)
[2021-12-15] MEDS: 0.9 % Sodium Chloride Flush 3 ML SYRINGE IVFLUSH ×4 (01:26→21:14)
[2021-12-15 03:23] VITALS: BP 120/76; PULSE 77; RESP 14; TEMP 37.3; O2SAT 94
[2021-12-15] MEDS: Omeprazole 20 MG CAPSULE.DR PO (05:17)
--- NOTE | 2021-12-15 06:43 | PC.NURSE ---
Addendum entered by Liudmila Rehman 12/15/21 06:48: CIWA Scores remain at 1 Original Note: Patient received and tolerated well Antibiotic Ceftriaxone 2gm in 100ml NS.
[2021-12-15 07:58] VITALS: BP 125/75; PULSE 70; RESP 18; TEMP 36.8; O2SAT 97
[2021-12-15 08:48] VITALS: BP 125/75; PULSE 70; O2SAT 97
[2021-12-15] MEDS: Folic Acid 1 MG TABLET PO (10:46)
[2021-12-15] MEDS: Thiamine HCL 100 MG TABLET PO (10:46)
[2021-12-15] MEDS: Multivitamin TABLET 1 TAB PO (10:46)
[2021-12-15] MEDS: methADONE HCl 20 MG/2 ML ORAL.CONC 40 MG PO (10:46)
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
--- NOTE | 2021-12-15 14:22 | MHC.CLN ---
F/U DIET=REGULAR. ENSURE TID PROVIDES ADDITIONAL 1050 KCALS, 60 G PROTEIN. INTAKE APPEARS EXCELLENT WITH MOST MEALS 100%. FABBY=20. WOUND TO RIGHT HERNANDEZ IS VENOUS STASIS ULCER, NOT PRESSURE INJURY. CONTINUE REGULAR DIET AND SUPPLEMENTS. RD TO FOLLOW WEEKLY.
--- NOTE | 2021-12-15 15:10 | MHC.CM.PN ---
PT ACCEPTED AT [facility] PENDING APPROVAL OF GUEST DOSING FOR METHADONE BY [facility] AND BY [facility]. WAIVER FAXED FROM BOTH [facility] AND [facility] REP RANJAN POLLACK, PT SIGNED AND THEN FAXED BACK TO [facility] LIACARLOS CAINFER ALEXIS AT . AWAITING DECISION. BLS BOOKED FOR 6 PM PENDING METHADONE GUEST DOSING APPROVAL.WILL CONTINUE TO FOLLOW. DP: PATIENT MEDICALLY CLEARED FOR DC, AWAITING ACCEPTANCE/APPROVAL FOR GUEST METHADONE DOSING FROM [facility] AND [facility].
[2021-12-15 15:24] LABS: COVID-19 Test Negative (Negative); IDNOW Serial# 55D5AD1C
[2021-12-15 16:00] VITALS: BP 123/71; PULSE 78; RESP 17; TEMP 36.7; O2SAT 98
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
[2021-12-15 23:10] VITALS: BP 130/73; PULSE 80; RESP 16; TEMP 37.3; O2SAT 98
[2021-12-16] MEDS: cefTRIAXone sodium 2 GM in 0.9 % Sodium Chloride 50 ML IV (01:53)
[2021-12-16 03:17] VITALS: BP 125/69; PULSE 77; RESP 16; TEMP 37.4; O2SAT 95
[2021-12-16] MEDS: Omeprazole 20 MG CAPSULE.DR PO (06:22)
[2021-12-16 07:24] VITALS: BP 123/70; PULSE 72; RESP 20; TEMP 36.6; O2SAT 97
[2021-12-16] MEDS: Multivitamin TABLET 1 TAB PO (09:04)
[2021-12-16] MEDS: Thiamine HCL 100 MG TABLET PO (09:04)
[2021-12-16] MEDS: 0.9 % Sodium Chloride Flush 3 ML SYRINGE IVFLUSH (09:04)
[2021-12-16] MEDS: Folic Acid 1 MG TABLET PO (09:04)
[2021-12-16] MEDS: methADONE HCl 20 MG/2 ML ORAL.CONC 40 MG PO (09:04)
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
--- NOTE | 2021-12-16 12:08 | PC.NURSE ---
Addendum entered by Raeann Pang RN 12/16/21 15:05: EMS to transport pt, report given. Pt states he has no further questions, verbalized and demonstrates understanding of all discharge teaching. Addendum entered by Raeann Pang RN 12/16/21 14:46: pt requested to take a shower before discharge, assisted/set up for shower. Dressing to wound on R leg changed per orders. Call yo within reach and pt encouraged to call for assistance. Addendum entered by Raeann Pang RN 12/16/21 14:22: Report called to RN at [facility] in [place], pt updated on plan of discharge. Discharge education given. Call yo within reach, pt still refusing bed alarm - encouraged to call for help, safety precautions taken. Original Note: Report received from overnight RN. medical records supervisor per APR. no c/o pain. pt refusing bed alarms and camera. pt educated about importance of safety and calling for assistance, hourly rounding, call yo within reach. Pt to be discharged today.
--- NOTE | 2021-12-16 12:32 | MHC.CM.PN ---
DP: PT MEDICALLY CLEARED FOR DC. [employer] HAS OBTAINED INSURANCE AUTH. AND ACCEPTANCE FOR GUEST DOSING FOR METHADONE. BLS BOOKED FOR 3 PM. RN AWARE.
== END 2021-12-16 15:16 | DRG 344 ==
LOC: HO.ED 17:01 → HO.EDOVER 18:17 → HO.IMC 19:44
PROVIDERS: Family Medicine; Nurse Practitioner Acute Care; Physician Assistant; Physician Assistant Medical; Admitting Provider Physician Assistant; Emergency Provider Student in an Organized Health Care Education/Training Program; PCP Family Medicine; Visit Provider Hospitalist
DX: M86.161 Other acute osteomyelitis, right tibia and fibula (principal); D61.818 Other pancytopenia; R78.81 Bacteremia; K70.30 Alcoholic cirrhosis of liver without ascites; L89.893 Pressure ulcer of other site, stage 3; E87.1 Hypo-osmolality and hyponatremia; E88.09 Other disorders of plasma-protein metabolism, not elsewhere classified; F10.20 Alcohol dependence, uncomplicated; F11.20 Opioid dependence, uncomplicated; B19.20 Unspecified viral hepatitis C without hepatic coma; F32.9 Major depressive disorder, single episode, unspecified; B95.0 Streptococcus, group A, as the cause of diseases classified elsewhere; K21.9 Gastro-esophageal reflux disease without esophagitis; M54.50 Low back pain, unspecified; G89.21 Chronic pain due to trauma; F40.240 Claustrophobia; Z20.822 Contact with and (suspected) exposure to COVID-19; Z86.19 Personal history of other infectious and parasitic diseases
CPT/HCPCS: 36415; 73590; 73700; 76705; 80048; 80053; 80076; 80202; 82140; 82565; 82947; 83605; 83735; 85007; 85025; 85027; 85610; 85652; 85730; 86140; 86704; 86706; 86803; 87040; 87147; 87186; 87205; 87340; 87389; 87522; 87635; 97116; 97162; 97530; 99284; J0692; J0696; J2543; J2560; J3370

== ENCOUNTER 2021-12-28 13:26 | Outpatient (RCR) | payer OTHER, SELFPAY | END 2022-03-29 13:54 | disposition home or self-care (01) | LOC: HO.WCC 13:26 | PROVIDERS: Visit Provider Physician Assistant | DX: L97.815 Non-pressure chronic ulcer of other part of right lower leg with muscle involvement without evidence of necrosis (principal); R78.81 Bacteremia; B95.0 Streptococcus, group A, as the cause of diseases classified elsewhere; D69.6 Thrombocytopenia, unspecified; M86.9 Osteomyelitis, unspecified; F17.210 Nicotine dependence, cigarettes, uncomplicated; F11.20 Opioid dependence, uncomplicated; Z79.2 Long term (current) use of antibiotics; Z86.19 Personal history of other infectious and parasitic diseases | CPT/HCPCS: 11042; 11045 ==

== ENCOUNTER 2021-12-30 19:19 | Emergency (ER) | payer OTHER, SELFPAY ==
[2021-12-30 20:38] VITALS: BP 164/100; BP 182/102; PULSE 88; RESP 20; TEMP 36.7; O2SAT 95; O2SAT 98; BMI 21.5
[2021-12-30 20:42] VITALS: BP 164/100; PULSE 88; RESP 20; TEMP 36.6; O2SAT 95
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
== END 2021-12-30 22:07 | disposition home or self-care (01) ==
PROVIDERS: Emergency Provider Internal Medicine
DX: F10.120 Alcohol abuse with intoxication, uncomplicated (principal); Y90.9 Presence of alcohol in blood, level not specified; F11.20 Opioid dependence, uncomplicated
CPT/HCPCS: 99282; 99284

== ENCOUNTER → 2022-01-19 14:08 | Outpatient (BNVA) | payer OTHER, SELFPAY | PROVIDERS: Visit Provider Internal Medicine | DX: S81.801A Unspecified open wound, right lower leg, initial encounter (principal); Z79.2 Long term (current) use of antibiotics | CPT/HCPCS: 99212 ==

== ENCOUNTER 2022-01-30 13:01 | Inpatient (IN) | payer OTHER, SELFPAY ==
[2022-01-30] VITALS (12 sets, daily range): BP systolic 100–116; BP diastolic 51–72; PULSE 88–132; RESP 9–22; TEMP 36.3–36.7; O2SAT 93–97; BMI 24.3
--- NOTE | ~2022-01-30 | CT_ITS ---
EXAMINATION: CT HEAD WITHOUT CONTRAST CLINICAL INFORMATION: Altered mental status COMPARISON: 10/11/2016 TECHNIQUE: Contiguous axial imaging was performed from the skull base to vertex without intravenous administration of contrast. This CT examination was performed using dose optimization techniques as appropriate, variously including the following: *Automated exposure control *Adjustment of mA and/or kV according to patient size (this includes techniques or standardized protocols for targeted exams where dose is matched to indication/reason for exam; i.e. extremities or head) *Use of iterative reconstruction technique DLP: 1630 mGy-cm FINDINGS: There is no evidence of acute intracranial hemorrhage or territorial infarction. No abnormal mass-effect or midline shift is seen. Griffith to white matter differentiation is well preserved. No extra-axial fluid collections are identified. The ventricles are normal in size. There is mild periventricular white matter hypoattenuation consistent with chronic small vessel ischemic disease. No acute fracture is seen. There is left facial soft tissue swelling. Slight mucosal thickening of the paranasal sinuses. The mastoid air cells are well-aerated. CT/CT head/brain wo IV con IMPRESSION: No acute intracranial pathology. Left facial soft tissue swelling.
--- NOTE | ~2022-01-30 | CT_ITS ---
EXAMINATION: CT ABDOMEN AND PELVIS WITHOUT CONTRAST CLINICAL INFORMATION: GI bleed COMPARISON: 08/22/2021 TECHNIQUE: Multidetector volumetric imaging was performed from the superior aspect of the liver through the pubic symphysis. Per technologist report, IV access was not able to be obtained for contrast administration. Sagittal and coronal reformatted images were obtained on the technologist's workstation. This CT examination was performed using dose optimization techniques as appropriate, variously including the following: *Automated exposure control *Adjustment of mA and/or kV according to patient size (this includes techniques or standardized protocols for targeted exams where dose is matched to indication/reason for exam; i.e. extremities or head) *Use of iterative reconstruction technique DLP: 1630 mGy-cm FINDINGS: LUNG BASES: Minimal atelectasis. LIVER, GALLBLADDER, AND BILIARY TREE: The liver demonstrates a nodular contour suspicious for cirrhosis. No focal hepatic abnormality identified on this noncontrast exam. No biliary ductal dilatation. Gallbladder is physiologically distended and otherwise unremarkable. PANCREAS: Mild atrophy noted. SPLEEN: Enlarged, measuring approximately 15.2 cm in the axial plane. ADRENAL GLANDS: Unremarkable. KIDNEYS AND URETERS: The kidneys are normal in size, shape, and attenuation. No hydronephrosis, hydroureter, or calculi seen. No perinephric stranding. BLADDER: Unremarkable. GASTROINTESTINAL TRACT: Per technologist report, IV access was not able to be obtained for contrast administration; therefore, evaluation cannot be made for possible active gastrointestinal hemorrhage. No evidence of bowel obstruction. Colonic diverticulosis is noted without convincing diverticulitis. There is some thickening of the ascending colon, which may represent portal colopathy in the setting of cirrhosis no acute infectious/inflammatory colitis cannot be excluded. The appendix is unremarkable. Small volume of free fluid is present. No free air is seen. ABDOMINAL WALL: Diffuse anasarca noted. LYMPH NODES: No discrete lymphadenopathy is seen, though evaluation is limited in the absence of intravenous contrast and presence of diffuse mesenteric edema. VASCULAR: Mild scattered atherosclerotic calcifications. PELVIC VISCERA: Unremarkable. OSSEOUS STRUCTURES: There is an abnormal appearance of the L2 and L3 vertebral bodies centered around the disc space, with partial loss of heights and irregular contour and cortical margins of the disc space. This is new from prior and suspicious for sequelae of discitis/osteomyelitis. Mild retropulsion noted resulting in at least mild central stenosis. Degenerative changes are noted in the spine. CT/CT abdomen pelvis wo IV con IMPRESSION: 1. Per technologist report, IV access was not able to be obtained for contrast administration; therefore, evaluation cannot be made for possible active gastrointestinal hemorrhage. 2. Thickening of the ascending colon, which may represent portal colopathy in the setting of cirrhosis, though acute infectious/inflammatory colitis cannot be excluded in the proper clinical setting. 3. Abnormal appearance of the L2 and L3 vertebral bodies centered around the disc space, new from 08/23/2021 and suspicious for sequelae of discitis/osteomyelitis. Chronicity may be better established with MRI. 4. Cirrhotic morphology of the liver. Splenomegaly. Small volume ascites. Diffuse anasarca.
--- NOTE | 2022-01-30 13:33 | ED.GENADULT ---
HPI - General Adult General Chief complaint: Fall Stated complaint: Crack Cocaine use per EMS Source: patient, EMS, RN notes reviewed and old records reviewed Mode of arrival: EMS History of Present Illness HPI narrative: 61-year-old male presents to the emergency department today with a history of recent cocaine and PCP abuse. The patient is awake and alert, but is having intermittent episodes of yelling and odd movements. HPI, review of systems, and physical exam may be limited secondary to the patient's altered mental status Onset (ago): unknown Related Data Home Medications Medication Instructions Recorded Confirmed methadone 10 mg/mL oral 45 mg PO DAILY 12/01/21 12/23/21 concentrate (Methadose) Previous Rx's Medication Instructions Recorded folic acid 1 mg tablet 1 mg PO DAILY #30 tabs 12/06/21 multivitamin (Daily-Silvio tablet) 1 tab PO DAILY #30 tabs 12/06/21 thiamine mononitrate (vit B1) 100 100 mg PO DAILY #30 tabs 12/06/21 mg tablet amoxicillin 875 mg-potassium 1 tab PO Q12H #28 tabs 12/15/21 clavulanate 125 mg tablet ibuprofen 600 mg tablet 600 mg PO Q8H PRN pain #20 tabs 12/23/21 lidocaine 4 % topical patch 1 patch topical DAILY PRN pain #30 12/28/21 (Aspercreme (lidocaine)) ea Allergies Allergy/AdvReac Type Severity Reaction Status Date / Time No Known Allergies Allergy Unknown Verified 01/30/22 13:04 Review of Systems Review of Systems: Yes Unobtainable due to mental condition and Unobtainable due to mental status PMFSH Past Medical History Source: old records reviewed and nursing notes reviewed Medical History Asthma Cirrhosis Cirrhosis COVID-19 virus infection Erosive esophagitis Erosive gastritis GERD (gastroesophageal reflux disease) Hepatitis C Infected wound IV drug abuse Nasal bone fracture Open wound of left foot Pneumonia Recurrent major depression Right wrist drop Substance abuse Surgical History No pertinent past surgical history Family History Family History Mother CKD (chronic kidney disease) Father Diabetes Social History Social History Household Members: Family Household Members Other:: mother Housing: House Do you presently have visiting nurse or other home services: No Alcohol intake: current Alcohol intake frequency: 3 or more drinks per day Alcohol type: hard liquor Patient Tobacco Use Status: Current someday Tobacco user Tobacco use type: Cigarette and Cigar Cigarettes Per Day: 4 Second Hand Smoke Exposure: No Substance Use Type: Heroin Advance Directives: No Advance Directives Information Provided: No Advance Directives Date on File: 12/01/21 service: No Current occupational status: unemployed Cognitive needs: No Hearing needs: No Vision needs: No Physical Exam ED Vital Signs: Vital Signs - 24 hr 01/30/22 13:05 Temperature 97.9 F Pulse Rate 132 H Respiratory Rate 22 H Pulse Oximetry 95 Oxygen Delivery Method Room Air BMI result Body Mass Index 24.3 vital signs reviewed, tachycardia noted Const Other: the patient is awake alert, is experiencing rapid movements of the extremities, but appears to be lucid General: alert, awake and anxious Medications Administered Discontinued Medications Generic Name Dose Route Start Last Admin Trade Name Carlos Eduardo PRN Reason Stop Dose Admin Acetaminophen 650 mg 01/30/22 13:57 01/30/22 14:02 Acetaminophen 325 Mg Tablet PO 01/30/22 13:58 650 mg ONCE ONE Administration Midazolam HCl 1 mg 01/30/22 13:44 01/30/22 14:10 Midazolam Hcl/Pf 2 Mg/2 Ml Vial IVPUSH 01/30/22 13:45 1 mg ONCE ONE Administration Medical Decision Making Lab Data Result diagrams: 01/30/22 13:20 01/30/22 13:20 Labs: Lab Results 01/30/22 01/30/22 01/30/22 Range/Units 13:20 13:20 13:20 WBC 8.4 (4.8-10.8) X10*3/uL RBC 1.80 L D (4.60-5.80) X10*6/uL Hgb 4.5 L* D (14.0-18.0) g/dl Hct 16.4 L* D (42.0-52.0) % MCV 91.1 (80.0-98.0) fL MCH 25.0 L (27.0-33.0) pg MCHC 27.4 L (31.0-36.0) g/dl RDW 18.9 H (11.0-16.0) % Plt Count 131 L D (160-400) X10*3/uL MPV 12.1 (9.4-12.4) fL Immature Gran % (Auto) 0.2 (0.0-0.4) % Neut % (Auto) 65.8 (45-73) % Lymph % (Auto) 20.6 (20-40) % Grainger % (Auto) 9.2 (2-11) % Eos % (Auto) 3.6 (0-4) % Baso % (Auto) 0.6 (0-2) % Lymph # (Auto) 1.7 (1.2-4.9) X10*3/uL Grainger # (Auto) 0.8 (0.1-1.2) X10*3/uL Eos # (Auto) 0.3 (0.0-0.4) X10*3/uL Baso # (Auto) 0.1 (0.0-0.2) X10*3/uL Abs Immat Gran (auto) 0.02 (0.00-0.03) X10*3/uL Absolute Neuts (auto) 5.5 (2.0-8.3) x10*3/uL Absolute Nucleated RBC 0.000 (0.0-0.012) X10*3/uL Nucleated RBC % (auto) 0.0 (0.0-0.2) /100WBC Smear Tech's Comments VERIFIED Sodium 132 L (135-145) mmol/L Potassium 4.7 (3.3-5.1) mmol/L Chloride 107 (96-108) mmol/L Carbon Dioxide 16 L (22-29) mmol/L Anion Gap 14 (12-20) BUN 15 (9-16) mg/dL Creatinine 1.11 (0.5-1.4) mg/dL Estim Creat Clear Calc 73.0 Estimated GFR > 60 Random Glucose 51 L* (60-115) mg/dL Lactic Acid 10.8 H* (0.5-2.0) mmol/L Calcium 8.0 L D (8.4-10.2) mg/dL Total Bilirubin 1.1 H (0.0-1.0) mg/dL AST 70 H (5-37) U/L ALT 21 (0-40) U/L Alkaline Phosphatase 163 H (39-117) U/L Total Protein 7.5 (6.5-8.0) g/dL Albumin 2.1 L (3.5-5.0) g/dL Discharge Plan Discharge Prescriptions: No Action lidocaine [Aspercreme (lidocaine)] 4 % adhesive patch,medicated 1 patch topical DAILY PRN (Reason: pain) Qty: 30 0RF methadone [Methadose] 10 mg/mL concentrate 45 mg PO DAILY Rx Instructions: Partial Fill upon patient request. multivitamin [Daily-Silvio] Tablet 1 tab PO DAILY Qty: 30 0RF folic acid 1 mg Tablet 1 mg PO DAILY Qty: 30 0RF thiamine mononitrate (vit B1) 100 mg Tablet 100 mg PO DAILY Qty: 30 0RF amoxicillin-pot clavulanate 875-125 mg tablet 1 tab PO Q12H Qty: 28 0RF ibuprofen 600 mg tablet 600 mg PO Q8H PRN (Reason: pain) Qty: 20 0RF
[2022-01-30 13:58] LABS: Basophils Absolute Auto 0.1 X10*3/uL (0.0-0.2); Basophils Percent Auto 0.6 % (0-2); Eosinophils Absolute Auto 0.3 X10*3/uL (0.0-0.4); Eosinophils Percent Auto 3.6 % (0-4); Imm Gran Abs Auto 0.02 X10*3/uL (0.00-0.03); Imm Gran Pct Auto 0.2 % (0.0-0.4); Lymphocytes Absolute Auto 1.7 X10*3/uL (1.2-4.9); Lymphocytes Percent Auto 20.6 % (20-40); MANUAL DIFF FLAG SCAN; Mean Corpuscular HGB Conc 27.4 g/dl (31.0-36.0); Mean Corpuscular Volume 91.1 fL (80.0-98.0); Mean Platelet Volume 12.1 fL (9.4-12.4); Monocytes Absolute Auto 0.8 X10*3/uL (0.1-1.2); Monocytes Percent Auto 9.2 % (2-11); Neutrophils Absolute Auto 5.5 x10*3/uL (2.0-8.3); Neutrophils Percent Auto 65.8 % (45-73); PLT CLUMP 1; Red Cell Distribution Width 18.9 % (11.0-16.0); SCAN SMEAR FLAG 1
[2022-01-30] MEDS: Acetaminophen 325 MG TABLET 650 MG PO (14:02)
[2022-01-30 14:04] LABS: Hemoglobin 4.5 g/dl (14.0-18.0)
[2022-01-30 14:05] LABS: Hematocrit 16.4 % (42.0-52.0)
--- NOTE | 2022-01-30 14:06 | PC.NURSE ---
pt warm to touch, unable to get accurate oral temp - pt declined rectal temp, medicated w PO tylenol.
[2022-01-30 14:10] LABS: Platelet Count 131 X10*3/uL (160-400); SLIDE REVIEW VERIFIED; White Blood Count 8.4 X10*3/uL (4.8-10.8)
[2022-01-30] MEDS: Midazolam HCl/PF 2 MG/2 ML VIAL 1 MG IVPUSH (14:10)
--- NOTE | 2022-01-30 14:18 | PC.NURSE ---
pt medicated w versed IM, unable to obtain IV access.
[2022-01-30 14:19] LABS: Alanine Aminotransferase 21 U/L (0-40); Albumin Level 2.1 g/dL (3.5-5.0); Alkaline Phosphatase 163 U/L (39-117); Anion Gap 14 (12-20); Aspartate Amino Transferase 70 U/L (5-37); Bilirubin Total 1.1 mg/dL (0.0-1.0); Blood Urea Nitrogen 15 mg/dL (9-16); Carbon Dioxide 16 mmol/L (22-29); Chloride 107 mmol/L (96-108); Estimated Glomerular Filt Rate > 60; Glucose Random 51 mg/dL (60-115); Lactic Acid 10.8 mmol/L (0.5-2.0); Potassium 4.7 mmol/L (3.3-5.1); Sodium 132 mmol/L (135-145); Total Protein 7.5 g/dL (6.5-8.0)
--- NOTE | 2022-01-30 14:59 | PC.NURSE ---
multiple attempts made by nurses to obtain additional labs/IV access - all unsuccessful.
[2022-01-30 15:47] LABS: Reflex Lactate? Lactic Acid Added
[2022-01-30] MEDS: Midazolam HCl/PF 2 MG/2 ML VIAL 5 MG IM (15:49)
[2022-01-30] MEDS: Haloperidol Lactate 5 MG/ML VIAL IM (15:49)
--- NOTE | 2022-01-30 17:55 | PHA.MEDREC ---
Pharmacy Consult ? Medication Reconciliation Pharmacy has completed the medication reconciliation.
[2022-01-30] MEDS: Dextrose 5 % and Lactated Ring 1,000 ML 50 ML IVCONT (19:31)
[2022-01-30] MEDS: Dextrose 50 % 25 GM/50 ML SYRINGE IVPUSH (19:31)
[2022-01-30 19:40] LABS: Glucose, Whole Blood 55 mg/dL (60-115)
--- NOTE | 2022-01-30 19:59 | P.HPCC_ITS ---
History of Present Illness Date of Service: 01/30/22 Attending physician on admission: Blair Syed Chief Complaint: altered mental status The patient is a 61-year-old male with a past medical history of? polysubstance abuse? ( on methadone),? hepatitis-C, liver cirrhosis and active alcohol abuse who presented to the emergency room? via EMS? after patient was? found to have altered mental status.? According to EMS,? patient admitted to using crack cocaine? and PCP.?? In the emergency room,? patient? with altered mental status? with episodes intermittently yelling.? Patient hemodynamically stable.? Laboratory data significant for? hemoglobin of 4.5 hematocrit 16.4, platelet 131,? sodium 132, bicarb 16, serum glucose 51, lactic acid 10.8, total bilirubin 1.1, AST 70, alk-phos 163, albumin 2.1 ? ED course:? patient received? total dose of 6 of Versed, and Haldol during the emergency room. ? Patient will be admitted to the ICU for? hemodynamic management of? acute blood loss anemia Review of Systems Review of Systems: Yes Unobtainable due to mental status PMFSH Past Medical History Medical History Asthma Cirrhosis Cirrhosis COVID-19 virus infection Erosive esophagitis Erosive gastritis GERD (gastroesophageal reflux disease) Hepatitis C Infected wound IV drug abuse Nasal bone fracture Open wound of left foot Pneumonia Recurrent major depression Right wrist drop Substance abuse Family History Family History Mother CKD (chronic kidney disease) Father Diabetes Surgical History Surgical History No pertinent past surgical history Social History Social History Household Members: Family Household Members Other:: mother Housing: House Do you presently have visiting nurse or other home services: No Alcohol intake: current Alcohol intake frequency: 3 or more drinks per day Alcohol type: hard liquor Patient Tobacco Use Status: Current someday Tobacco user Tobacco use type: Cigarette and Cigar Cigarettes Per Day: 4 Second Hand Smoke Exposure: No Substance Use Type: Heroin Advance Directives: No Advance Directives Information Provided: No Advance Directives Date on File: 12/01/21 service: No Current occupational status: unemployed Cognitive needs: No Hearing needs: No Vision needs: No Meds Allergies Allergy/AdvReac Type Severity Reaction Status Date / Time No Known Allergies Allergy Unknown Verified 01/30/22 13:04 Active Medications: Current Medications Dextrose/Lactated Ringer's (D5lr) 1,000 mls @ 50 mls/hr IVCONT .Q20H ERIKA Last Admin: 01/30/22 19:31 Dose: 50 mls/hr Home Medications Medication Instructions Recorded Confirmed Last Taken Type methadone 10 mg/mL oral 45 mg PO DAILY 12/01/21 12/23/21 Unknown History concentrate (Methadose) Physical Exam Vital Signs: Vital Signs: Last Vital Signs Temp 97.3 F 01/30/22 19:53 Pulse 88 01/30/22 19:53 Resp 10 L 01/30/22 19:53 BP 100/51 L 01/30/22 19:53 Pulse Ox 96 01/30/22 19:10 O2 Del Method 01/30/22 19:10 BMI result Body Mass Index 24.3 ?General:? Alert oriented x person and place. Unable to state date. speech is clear, following command ?HEENT:? Head is normocephalic, atraumatic, pupils equal round reactive to light accommodation bilaterally.? Extraocular movements appear intact.? Buccal mucosa is dry, Neck is supple without lymphadenopathy. ?Cardiac:? Clear S1-S2, no murmurs rubs or gallops. + 1 BLE edema ?Pulmonary:? Clear to auscultation, no wheezes, rales or rhonchi. ?Abdomen:? ?Abdomen soft, non-tender, slightly distended. Normal bowel sounds. No pulsatile mass. ?Musculoskeletal:? Moving all 4 extremities upon request a major joints, there is no crepitus or tenderness.? The strength is 5/5 bilaterally and throughout all 4 extremities.? Gait not assessed at this point. ?Neurologic:? No focal deficits noted.Motor strength as above.?? ?Skin: Right lower extremity with old surgical wound. Vascular:? 2+ pulses upper and lower extremities distally.? Results Labs CBC and Chem 7: 01/30/22 13:20 01/30/22 13:20 Labs: Laboratory Results - last 24 hr 01/30/22 01/30/22 01/30/22 13:20 13:20 13:20 MCV 91.1 MCH 25.0 L MCHC 27.4 L RDW 18.9 H Plt Count 131 L D MPV 12.1 Immature Gran % (Auto) 0.2 Neut % (Auto) 65.8 Lymph % (Auto) 20.6 [place] % (Auto) 9.2 Eos % (Auto) 3.6 Baso % (Auto) 0.6 Lymph # (Auto) 1.7 [place] # (Auto) 0.8 Eos # (Auto) 0.3 Baso # (Auto) 0.1 Abs Immat Gran (auto) 0.02 Absolute Neuts (auto) 5.5 Absolute Nucleated RBC 0.000 Nucleated RBC % (auto) 0.0 Smear Tech's Comments VERIFIED Anion Gap 14 Estim Creat Clear Calc 73.0 Estimated GFR > 60 POC Glucose Random Glucose 51 L* Lactic Acid 10.8 H* Calcium 8.0 L D Total Bilirubin 1.1 H AST 70 H ALT 21 Alkaline Phosphatase 163 H Total Protein 7.5 Albumin 2.1 L Blood Type Antibody Screen Crossmatch 01/30/22 01/30/22 17:34 19:20 MCV MCH MCHC RDW Plt Count MPV Immature Gran % (Auto) Neut % (Auto) Lymph % (Auto) [place] % (Auto) Eos % (Auto) Baso % (Auto) Lymph # (Auto) [place] # (Auto) Eos # (Auto) Baso # (Auto) Abs Immat Gran (auto) Absolute Neuts (auto) Absolute Nucleated RBC Nucleated RBC % (auto) Smear Tech's Comments Anion Gap Estim Creat Clear Calc Estimated GFR POC Glucose 55 L* Random Glucose Lactic Acid Calcium Total Bilirubin AST ALT Alkaline Phosphatase Total Protein Albumin Blood Type B Negative Antibody Screen NEGATIVE Crossmatch See Detail Assessment and Plan (1) Acute blood loss anemia: Status: Acute (2) Elevated lactic acid level: Status: Acute (3) GI bleed: Status: Acute (4) Altered mental status: Status: Acute (5) Hypoglycemia: Status: Acute (6) Alcohol abuse: Status: Acute (7) Thrombocytopenia: Status: Acute Plan Neuro:? ?Altered mental status- ? patient was brought to the emergency room after found by EMS with altered mental status.? That admit to crack cocaine use and PCP.? Head CT pending,? but mentation is improving.? AMS likely from drug abuse Cardiac:?? ?Elevated lactic:? lacric acid elevated to 10.8. patient does not have an elevated white count,? does not seem? to have an active infection. ? Hemodynamically stable.? No evidence of severe septic shock. On my assessment denied any pain.?Patient has underlying liver cirrhosis Will obtain CT of the abdomen for possible cause of elevated lactic.? repeat lactic stat. Continue to trend lactic Pulmonary: No acute issues? Endo:?? hypoglycemia-? patient does have history of liver cirrhosis,? he will likely be likely in the setting of acute GI bleed.? Running D5 LR.? continue frequent blood sugar checks Renal:? ?? GI bleed:? patient had a significant drop in hemoglobin,? also significant? elevation in lactic acid, and does admit to alcohol abuse. ? GI bleed is likely cause of significant drop in hemoglobin.? ? Will order a CT of the abdomen. Will obtain occult blood. GI consult in the morning. NPO tonight? Heme/Onc:? Acute blood loss Anemia: ? hemoglobin hematocrit 4.5/16.4.? Order 2 units of RBC.? will repeat CBC? after administration of blood products? ?Thrombocytopenia-? platelet is 131 today,? patient chronically thrombocytopenic.? Will avoid subQ heparin? for DVT prophylaxis.? Continue with compression? boots ID: ? no acute issues Psych:? patient admits to polysubstance abuse including alcohol use. U tox pending.? Will start patient on? phenobarb protocol Diet: NPO? Prophylaxis:? Compression devices//? Protonix? for GI prophylaxis Code? status: ? ? FULL CODE.? ? critical care time: x 30 min Critical Care Time Critical Care Time (minutes): 30
[2022-01-30 20:14] LABS: Glucose, Whole Blood 52 mg/dL (60-115)
[2022-01-30 20:14] LABS: Glucose, Whole Blood 102 mg/dL (60-115)
--- NOTE | 2022-01-30 21:00 | PC.NURSE ---
late noted: continued attempts by RNs and MDs for access, 22g IV in left shoulder, 20g right EJ placed by provider - swelling around EJ/iv flushing well. 1st u PRBCs started, D5LR running at 50mL/hr, vss. pt denies any pain at this time. unable to obtain peripheral IV access for CT w contrast, provider notified. pt has bruising and swelling to bilateral upper extremities from prior IV attempts. edema noted in both upper and lower extremities. RN-RN report given to ICU, pt holding in ED for CT scan.
[2022-01-30 21:51] LABS: Lactic Acid 4.2 mmol/L (0.5-2.0)
[2022-01-30] MEDS: PHENobarbitaL sodium 130 MG/ML IM ONCE 182 MG IM (22:17)
[2022-01-30] MEDS: Pantoprazole Sodium 40 MG/10 ML VIAL IVPUSH (22:17)
[2022-01-30 22:44] LABS: COVID-19 Test Negative (Negative)
[2022-01-30 23:11] LABS: Reflex Lactate? Lactic Acid Added
[2022-01-31] VITALS (25 sets, daily range): BP systolic 103–137; BP diastolic 54–85; PULSE 73–96; RESP 6–18; TEMP 36.4–37; O2SAT 94–99; BMI 26.9
--- NOTE | 2022-01-31 | ECG_ITS ---
Test Reason : Pre-op Blood Pressure : / mmHG Vent. Rate : 091 BPM Atrial Rate : 091 BPM P-R Int : 136 ms QRS Dur : 084 ms QT Int : 408 ms P-R-T Axes : 035 041 036 degrees QTc Int : 501 ms Normal sinus rhythm Possible Left atrial enlargement Low voltage QRS Nonspecific T wave abnormality Prolonged QT Abnormal ECG When compared with ECG of 11-JUN-2007 23:57, QRS voltage has decreased Nonspecific T wave abnormality now evident in Anterolateral leads Referred By: Felicia Perez Electronically Signed By:SUSAN QUIÑONEZ MD
[2022-01-31 00:34] LABS: Glucose, Whole Blood 72 mg/dL (60-115)
[2022-01-31] MEDS: PHENobarbitaL sodium 130 MG/ML VIAL IM Q3Hx2 IM ×2 (02:03→04:19)
[2022-01-31 02:43] LABS: MANUAL DIFF FLAG NO
[2022-01-31 02:45] LABS: Basophils Absolute Auto 0.1 X10*3/uL (0.0-0.2); Eosinophils Absolute Auto 0.3 X10*3/uL (0.0-0.4); Eosinophils Percent Auto 6.4 % (0-4); Hematocrit 22.1 % (42.0-52.0); Imm Gran Abs Auto 0.02 X10*3/uL (0.00-0.03); Imm Gran Pct Auto 0.4 % (0.0-0.4); Lymphocytes Percent Auto 20.2 % (20-40); Mean Corpuscular HGB Conc 31.2 g/dl (31.0-36.0); Mean Corpuscular Hemoglobin 27.1 pg (27.0-33.0); Mean Corpuscular Volume 86.7 fL (80.0-98.0); Mean Platelet Volume 11.7 fL (9.4-12.4); Monocytes Absolute Auto 0.5 X10*3/uL (0.1-1.2); Monocytes Percent Auto 9.3 % (2-11); Neutrophils Absolute Auto 3.1 x10*3/uL (2.0-8.3); Neutrophils Percent Auto 62.7 % (45-73); Red Blood Count 2.55 X10*6/uL (4.60-5.80); Red Cell Distribution Width 16.7 % (11.0-16.0); White Blood Count 4.9 X10*3/uL (4.8-10.8)
[2022-01-31 02:52] LABS: Platelet Count 93 X10*3/uL (160-400); ~Lactic Acid-LAB USE ONLY 1.2 mmol/L (0.5-2.0)
[2022-01-31 02:54] LABS: Hemoglobin 6.9 g/dl (14.0-18.0)
[2022-01-31 03:00] LABS: INTERNATIONAL NORM RATIO 1.5 (0.9-1.1); Prothrombin Time 17.9 SEC (10.0-13.1)
[2022-01-31 06:03] LABS: Amphetamine Screen Urine Not Detected (Not Detect); Barbiturates, Urine POSITIVE (Not Detect); Benzodiazepines Screen Urine POSITIVE (Not Detect); Cannabinoid Screen Urine Not Detected (Not Detect); Cocaine Screen Urine POSITIVE (Not Detect); Fentanyl, urine POSITIVE (Not Detect); Opiate Screen Urine POSITIVE (Not Detect); Phencyclidine Screen Urine Not Detected (Not Detect)
--- NOTE | 2022-01-31 06:47 | PC.NURSE ---
Patient arrived from ED, COVID swab done as ordered. x3 units PRBC infused w/o incident, repeat H/H 6.9/22.1. Mariola Damico SENIOR SCHEDULER notified ongoing anemia, additional unit of PRBC and FFP ordered. 4th unit of PRBC transfusing at this time, oncoming RN aware. Patient resistive with care intermittently, refusing to be repositioned or to have buttocks observed for skin impairment. Admitted w/2 open wounds to right proximal casanova, recently treated here for osteomyelitis. Wounds with yellowish dry wound bed w/surrounding bright red skin. SENIOR SCHEDULER aware regarding warmth to bilateral calves and wounds, no new orders. Both areas photographed per policy and placed in chart, wound consult placed.
[2022-01-31 07:07] LABS: Glucose, Whole Blood 78 mg/dL (60-115)
[2022-01-31] MEDS: Phytonadione (Vit K1) 10 MG in 0.9 % Sodium Chloride 50 ML 51 MG IV ×3 (08:40→15:58)
[2022-01-31] MEDS: PHENobarbitaL 15 MG TABLET 45 MG PO (08:40)
[2022-01-31] MEDS: Pantoprazole Sodium 40 MG/10 ML VIAL IVPUSH ×2 (08:41→17:35)
[2022-01-31 09:22] LABS: VBG Base Excess 1.3 mmol/L; VBG HCO3 25 mmol/L (22-26); VBG pCO2 36 mmHg; VBG pH 7.44 (7.32-7.43); VBG pO2 89 mmHg
[2022-01-31 09:24] LABS: MANUAL DIFF FLAG NO
[2022-01-31 09:32] LABS: Basophils Percent Auto 0.7 % (0-2); Eosinophils Absolute Auto 0.2 X10*3/uL (0.0-0.4); Eosinophils Percent Auto 4.5 % (0-4); Hematocrit 23.8 % (42.0-52.0); Hemoglobin 7.6 g/dl (14.0-18.0); Imm Gran Abs Auto 0.02 X10*3/uL (0.00-0.03); Imm Gran Pct Auto 0.5 % (0.0-0.4); Lymphocytes Absolute Auto 0.7 X10*3/uL (1.2-4.9); Lymphocytes Percent Auto 16.7 % (20-40); Mean Corpuscular HGB Conc 31.9 g/dl (31.0-36.0); Mean Corpuscular Hemoglobin 27.6 pg (27.0-33.0); Mean Corpuscular Volume 86.5 fL (80.0-98.0); Mean Platelet Volume 11.2 fL (9.4-12.4); Monocytes Absolute Auto 0.2 X10*3/uL (0.1-1.2); Monocytes Percent Auto 5.7 % (2-11); Neutrophils Absolute Auto 3.1 x10*3/uL (2.0-8.3); Neutrophils Percent Auto 71.9 % (45-73); Red Blood Count 2.75 X10*6/uL (4.60-5.80); Red Cell Distribution Width 16.6 % (11.0-16.0); White Blood Count 4.2 X10*3/uL (4.8-10.8)
--- NOTE | 2022-01-31 09:33 | P.CNGI_ITS ---
History of Present Illness Data of Consult Service Date: 01/31/22 Requesting physician: Laura Damico Primary Care Provider: Unknown Physician HPI Reason for consult: acute blood loss anemia 61 YM with polysubstance abuse? ( on methadone),? hepatitis-C, liver cirrhosis and active alcohol abuse seen in [facility] ED on 01/30/22 (via EMS)? with altered mental status.? According to EMS,? patient admitted to using crack cocaine and PCP.?? In the emergency room,? patient? with altered mental status? with episodes intermittently yelling.? Patient hemodynamically stable.? Labs showed hemoglobin of 4.5 hematocrit 16.4, platelet 131,? sodium 132, bicarb 16, serum glucose 51, lactic acid 10.8, total bilirubin 1.1, AST 70, alk-phos 163, albumin 2.1 ? ED course:? patient received? total dose of 6 of Versed, and Haldol during the emergency room. ? Patient was admitted to the ICU for? hemodynamic management of? acute blood loss anemia Patient denies major cardiac or pulmonary problems. Denies being on chronic anticoagulation. Pt is single, has no children, is homeless and works in an [employer] shop. He admits to smoking 1 PPD x past several yrs and is trying to cut back. He admits to drinking 1/5 of whiskey daily. Known hx ov IVDA (Crack/Cocaine/Heroin) for the past several yrs and admits to continuing to use drugs while on methadone. He states he acquired Hep C by needle sharing several yrs ago and denies sharing needles recently Patient denies known family history of colon polyps, colon cancer or other GI malignancies. Review of Systems Review of Systems: Yes Unobtainable due to mental status PMFSH Past Medical History Medical History Asthma Cirrhosis Cirrhosis COVID-19 virus infection Erosive esophagitis Erosive gastritis GERD (gastroesophageal reflux disease) Hepatitis C Infected wound IV drug abuse Nasal bone fracture Open wound of left foot Pneumonia Recurrent major depression Right wrist drop Substance abuse Family History Family History Mother CKD (chronic kidney disease) Father Diabetes Surgical History Surgical History No pertinent past surgical history Social History Social History Household Members: Family Household Members Other:: mother Housing: House Do you presently have visiting nurse or other home services: No Alcohol intake: current Alcohol intake frequency: 3 or more drinks per day Alcohol type: hard liquor Patient Tobacco Use Status: Never used Tobacco Tobacco use type: Cigarette and Cigar Cigarettes Per Day: 4 Smoked in Last 30 Days: Yes Second Hand Smoke Exposure: No Substance Use Type: Crack/Cocaine and Opiates Advance Directives: Yes Advance Directives Information Provided: No Advance Directives on File: No Advance Directives Date on File: 12/01/21 service: No Current occupational status: unemployed Cognitive needs: No Hearing needs: No Vision needs: No Meds Allergies Allergy/AdvReac Type Severity Reaction Status Date / Time No Known Allergies Allergy Unknown Verified 01/30/22 13:04 Active Medications: Current Medications Dextrose/Lactated Ringer's (D5lr) 1,000 mls @ 50 mls/hr IVCONT .Q20H [facility] Last Infusion: 01/31/22 06:00 Dose: 0 mls/hr Phytonadione 10 mg/ Sodium (Chloride) 51 mls @ 51 mls/hr IV Q1H ERIKA Stop: 01/31/22 09:59 Last Admin: 01/31/22 08:40 Dose: 51 mls/hr Phytonadione 10 mg/ Sodium (Chloride) 51 mls @ 51 mls/hr IV Q6H ERIKA Stop: 02/01/22 03:59 Pantoprazole Sodium (Pantoprazole Sodium 40 Mg/10 Ml Vial) 40 mg IVPUSH BID@0630,1630 [facility] Last Admin: 01/31/22 08:41 Dose: 40 mg Pharmacy Consult (Consult Rx Etoh Phenob Im/Po) 1 each MISCELLANE ONCE PRN; Protocol PRN Reason: Consult order Phenobarbital (Phenobarbital 15 Mg Tablet) 45 mg PO BID [facility]; Protocol Stop: 02/01/22 21:01 Last Admin: 01/31/22 08:40 Dose: 45 mg Phenobarbital (Phenobarbital 30 Mg Tablet) 30 mg PO BID [facility]; Protocol Stop: 02/03/22 21:01 Phenobarbital (Phenobarbital 30 Mg Tablet) 30 mg PO DAILY [facility]; Protocol Stop: 02/05/22 09:01 Home Medications Medication Instructions Recorded Confirmed Last Taken Type methadone 10 mg/mL oral 45 mg PO DAILY 12/01/21 01/31/22 Unknown History concentrate (Methadose) Physical Exam Vital Signs: Vital Signs: Last Vital Signs Temp 97.5 F 01/31/22 08:00 Pulse 78 01/31/22 09:00 Resp 10 L 01/31/22 09:00 BP 106/70 01/31/22 09:00 Pulse Ox 97 01/31/22 09:00 O2 Del Method 01/31/22 09:00 BMI result Body Mass Index 26.9 Const: General: no acute distress and ill appearing Nutritional Appearance: overweight Limitations: altered mental status HEENT: Head: Yes normal to inspection Ears: hearing grossly normal bilaterally Eyes: Sclerae: sclerae normal Pupils: Equal, round and reactive pupils pr esent Neck: Neck: Yes normal visual inspection Chest: Chest palpation & inspection: normal inspection of the chest Resp: Effort & Inspection: normal respiratory effort Auscultation: clear to auscultation bilaterally Cardio: Palpation: normal PMI Rate: regular rate Rhythm: regular rhythm Heart sounds: S1 normal heart sound present, S2 normal heart sound present and no murmurs GI: Palpation (GI): Soft to palpation, nontender and No hepatosplenomegaly present Auscultation: normal bowel sounds Rectal Exam - Male: Yes deferred Skin: General skin exam: no rashes or lesions noted Neuro: General: gait normal and moves all extremities Cranial nerves: Yes Equal, round and reactive pupils present Psych: Appearance: grossly normal Results Labs CBC & Chem 7: 02/02/22 12:39 02/01/22 07:05 Labs: Short CBC 01/30/22 01/31/22 Range/Units 13:20 02:38 WBC 8.4 4.9 (4.8-10.8) X10*3/uL Hgb 4.5 L* D 6.9 L* D (14.0-18.0) g/dl Hct 16.4 L* D 22.1 L D (42.0-52.0) % Plt Count 131 L D 93 L D (160-400) X10*3/uL BMP 01/30/22 13:20 Sodium 132 L Potassium 4.7 Chloride 107 Carbon Dioxide 16 L BUN 15 Creatinine 1.11 Calcium 8.0 L D Liver Function 01/30/22 Range/Units 13:20 Total Bilirubin 1.1 H (0.0-1.0) mg/dL AST 70 H (5-37) U/L ALT 21 (0-40) U/L Alkaline Phosphatase 163 H (39-117) U/L Albumin 2.1 L (3.5-5.0) g/dL Assessment and Plan (1) GI bleed: Status: Resolved (2) Altered mental status: Status: Resolved (3) Hepatitis C: Status: Inactive (4) Cirrhosis: Status: Inactive (5) Alcohol abuse: Status: Acute Plan 61 YM with known hx of IVDA, ETOH abuse and smoking brought with a change in mental status and labs revealed severe anemia. Past labs Hepatitis-B serologies were negative, hepatitis-C antibody was positive (positive since 11/2017 likely acquired by a needle sharing). Past EGD in feb, 2021 showed severe erosive esophagitis and portal hypertensive gastropathy.. Anemia is likely chronic and related to erosive esophagitis versus lower GI source. Pt refused to have a colonoscopy during past hospitalization. RECOMMENDATIONS: 1.? Monitor CBC Q 8 hrly x 24 hrs.? 2.? Agree with IV PPI twice daily 3.? Urgent EGD today with Dr Yeboah Procedures Date of Service Date of Service: 01/31/22
[2022-01-31 09:35] LABS: Platelet Count 68 X10*3/uL (160-400)
[2022-01-31 09:37] LABS: Venous Blood Gas Refer to POC result
[2022-01-31 09:51] LABS: Alanine Aminotransferase 19 U/L (0-40); Albumin Level 1.8 g/dL (3.5-5.0); Alkaline Phosphatase 129 U/L (39-117); Anion Gap 8 (12-20); Aspartate Amino Transferase 41 U/L (5-37); Bilirubin Total 5.1 mg/dL (0.0-1.0); Blood Urea Nitrogen 16 mg/dL (9-16); Calcium 7.6 mg/dL (8.4-10.2); Carbon Dioxide 26 mmol/L (22-29); Chloride 109 mmol/L (96-108); Creatinine Clr Calc Pharmacy 96.5; Estimated Glomerular Filt Rate > 60; Glucose Random 83 mg/dL (60-115); Magnesium 1.6 mg/dL (1.6-2.6); Phosphorus 2.5 mg/dL (2.7-4.5); Potassium 3.7 mmol/L (3.3-5.1); Sodium 139 mmol/L (135-145); Total Protein 6.2 g/dL (6.5-8.0)
[2022-01-31 11:55] LABS: Glucose, Whole Blood 81 mg/dL (60-115)
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
--- NOTE | 2022-01-31 13:38 | MHC.SHP ---
Pre-Procedural Eval Section A Date of Service: 01/31/22 The patient is an INPATIENT: Yes The History & Physical has been completed within 30 days and I have reviewed it.: Yes Section B Chief Complaint: lactic acidosis, subacute anemia, agitation Allergies: Allergies Allergy/AdvReac Type Severity Reaction Status Date / Time No Known Allergies Allergy Unknown Verified 01/30/22 13:04 Plan Diagnosis/Plan: Unchanged I have reviewed the history and physical and performed a pertinent physical examination on my patient. No changes have occurred unless specified. Pt continues to be encephalopathic, consent was obtained from mother/HCP Ning.
[2022-01-31 13:47] LABS: Albumin Level 1.9 g/dL (3.5-5.0); Anion Gap 10 (12-20); Blood Urea Nitrogen 16 mg/dL (9-16); Calcium 7.6 mg/dL (8.4-10.2); Carbon Dioxide 23 mmol/L (22-29); Chloride 110 mmol/L (96-108); Creatinine Clr Calc Pharmacy 97.7; Estimated Glomerular Filt Rate > 60; Glucose Random 81 mg/dL (60-115); Magnesium 1.7 mg/dL (1.6-2.6); Phosphorus 2.6 mg/dL (2.7-4.5); Potassium 3.7 mmol/L (3.3-5.1); Sodium 139 mmol/L (135-145)
--- NOTE | 2022-01-31 13:50 | MHC.SLORD ---
Addendum entered and electronically signed by Selin Marie MA, CCC-ASSISTANT CHIEF ENGINEER 01/31/22 13:54: D.S. Original Note: Speech Language Pathology Order Status: Per RN, pt is going in for upper endoscopy and will follow-up with ASSISTANT CHIEF ENGINEER once procedure is complete and pt is appropriate for swallow evaluation.
--- NOTE | 2022-01-31 14:53 | P.OP_ITS ---
Operative Note Operative Note Date of Service: 01/31/22 Narrative: Procedure: Esophagogastroduodenoscopy Endoscopist: Amanda Yeboah MD Indication: Anemia, cirrhosis Anesthesia Provider: Dr Felicia Perez Anesthesia Type: MAC ?? EGD Procedure:?? The procedure, indications, preparation and potential complications were reviewed with the patient's healthcare proxy Ning Rodriguez (mother) over the phone, who indicated understanding and gave informed consent to proceed. This was witnessed by the RN in attendance. A physical exam was performed. The endoscope was introduced through the mouth, and advanced to the second part of duodenum. The mucosa was carefully examined on slow withdrawal of the endoscope. The patient tolerated the procedure well. There were no immediate complications.? ? EGD Findings:? * Esophagus:? Multiple mucosal breaks from 30 cm to 35 cm circumferentially in the lower esophagus associated with clean based ulcers and contact bleeding. The Z line was at 35 cm. Small hiatal hernia with diaphragmatic pinch at 38 cm. * Stomach:? Diffuse congestion and erythema in mosaic pattern consistent with portal hypertensive gastropathy was noted in the whole stomach. On retroflexion there appears to be a small gastric varix (GOV-1) without any high risk stigmata of bleeding. * Duodenum:? Normal mucosa was noted in the whole of the examined duodenum. ? EGD Impressions:? * LA Grade D esophagitis * Hiatal hernia * Gastric varix * Portal hypertensive gastropathy * Normal duodenum ?? Recommendations:?? * Severe anemia likely due to erosive esophagitis, the gastric varix did not have stigmata of bleeding. Lower GI source not excluded. * Please maintain adequate IV access at all times. * Continue IV PPI until pt able to take PO can then switch to Omeprazole 40mg BID for at least 8 weeks and then 40mg once daily indefinitely. * Can add liquid carafate 1g QID x 2 weeks when pt able to take PO. * Repeat EGD in 8-10 weeks to assess for healing of esophagitis * IV Ceftriaxone for infection prophylaxis in the setting of subacute GIB in a cirrhotic. * Consider NSBB for primary prophylaxis of variceal bleeding given Child Class C. * Avoid NSAIDs. * Remaining care as per primary commercial project manager Dr Chapa Above has been reviewed with the patient's mother as well. ?
[2022-01-31] MEDS: Dextrose 5 % and Lactated Ring 1,000 ML 50 ML IVCONT (15:25)
--- NOTE | 2022-01-31 16:03 | P.CONWO_ITS ---
History of Present Illness Data of Consult Service Date: 01/31/22 Requesting physician: Eldon Bo Primary Care Provider: Unknown Physician HPI Reason for consult: left leg ulcer [id number]: This is a 61-year-old male well known to the wound center for history of self injection in the right leg and recurrent cellulitis. Was brought into the emergency department with altered mental status and admitted to crack cocaine. He was found to be anemic and encephalopathic with elevated lactic aci d. He has a history of hepatitis C and cirrhosis. His wound in his right leg is usually necrotic and laden with slough when he strays from wound care. He has told this in the past that he has stop self injection which is consistent with findings on the right leg today. Review of Systems Review of Systems: Yes Unobtainable due to mental condition [facility] Medical History Asthma Cirrhosis Cirrhosis COVID-19 virus infection Erosive esophagitis Erosive gastritis GERD (gastroesophageal reflux disease) Hepatitis C Infected wound IV drug abuse Nasal bone fracture Open wound of left foot Pneumonia Recurrent major depression Right wrist drop Substance abuse Family History Mother CKD (chronic kidney disease) Father Diabetes Surgical History No pertinent past surgical history Social History (Updated 01/31/22 @ 13:53 by Felicia Perez MD) Household Members: Family Household Members Other:: mother Housing: House Do you presently have visiting nurse or other home services: No Alcohol intake: current Alcohol intake frequency: 3 or more drinks per day Alcohol type: hard liquor Patient Tobacco Use Status: Never used Tobacco Tobacco use type: Cigarette and Cigar Cigarettes Per Day: 4 Second Hand Smoke Exposure: No Use of substances other than those prescribed or required for medical reasons: Yes Substance Use Type: Crack/Cocaine and Opiates Substance Use Frequency: Chronic Longstanding Last Used Substance: Hours (ago) Last Used Substance Other:: Used IV Cocaine this AM Currently Displaying Signs/Symptoms of Drug Intoxication Withdrawal: No Have you been hit, kicked, punched, or otherwise hurt by someone within the past year? If so, by whom?: No Do you feel safe in your current relationship?: No Current Relationship Is there a partner from a previous relationship who is making you feel unsafe now?: No Are you made to feel afraid or neglected: No Advance Directives: No Advance Directives Information Provided: Yes Advance Directives Date on File: 12/01/21 Do you have thoughts of harming others: None Do you have a plan to hurt others: No Plan Recently lost weight without trying: Unsure Eating poorly because of decreased appetite: No Nutrition Risks: No Nutritional Risk Poor oral hygiene: Yes service: No Current occupational status: unemployed Cognitive needs: No Hearing needs: No Vision needs: No Meds Allergies Allergy/AdvReac Type Severity Reaction Status Date / Time No Known Allergies Allergy Unknown Verified 01/30/22 13:04 Active Medications: Current Medications Dextrose/Lactated Ringer's (D5lr) 1,000 mls @ 50 mls/hr IVCONT .Q20H [facility] Last Admin: 01/31/22 15:25 Dose: 50 mls/hr Phytonadione 10 mg/ Sodium (Chloride) 51 mls @ 51 mls/hr IV Q6H [facility] Stop: 02/01/22 03:59 Last Admin: 01/31/22 15:58 Dose: 51 mls/hr Ceftriaxone Sodium 1 gm/ (Sodium Chloride) 50 mls @ 100 mls/hr IV Q24H [facility] Stop: 02/05/22 15:29 Pantoprazole Sodium (Pantoprazole Sodium 40 Mg/10 Ml Vial) 40 mg IVPUSH BID@0630,1630 [facility] Last Admin: 01/31/22 08:41 Dose: 40 mg Pharmacy Consult (Consult Rx Etoh Phenob Im/Po) 1 each MISCELLANE ONCE PRN; Protocol PRN Reason: Consult order Phenobarbital (Phenobarbital 15 Mg Tablet) 45 mg PO BID [facility]; Protocol Stop: 02/01/22 21:01 Last Admin: 01/31/22 08:40 Dose: 45 mg Phenobarbital (Phenobarbital 30 Mg Tablet) 30 mg PO BID [facility]; Protocol Stop: 02/03/22 21:01 Phenobarbital (Phenobarbital 30 Mg Tablet) 30 mg PO DAILY [facility]; Protocol Stop: 02/05/22 09:01 Sucralfate (Sucralfate Oral Suspension 1 Gm/10 Ml Oral.Susp) 1 gm PO QIDACHS [facility] Home Medications Medication Instructions Recorded Confirmed Last Taken Type methadone 10 mg/mL oral 45 mg PO DAILY 12/01/21 01/31/22 Unknown History concentrate (Methadose) Physical Exam Vital Signs and Narrative: Vital Signs: Last Vital Signs Temp 98.3 F 01/31/22 13:00 Pulse 80 01/31/22 15:00 Resp 11 L 01/31/22 15:00 BP 116/67 01/31/22 15:00 Pulse Ox 99 01/31/22 15:00 O2 Del Method 01/31/22 15:00 BMI result Body Mass Index 26.9 Slough aggressively removed from longstanding right leg wound with saline and gauze revealing relatively pink and healthy tissue beneath. No convincing periosteal exposure. Minimal periwound redness, no warmth. Edema is minimal. No necrotic tissue is seen which we typically see when this patient is self injecting. Results Labs CBC and Chem 7: 01/31/22 09:17 01/31/22 09:17 Labs: Laboratory Results - last 24 hr 01/30/22 01/30/22 01/30/22 13:05 13:20 17:34 MCV MCH MCHC RDW Plt Count MPV Immature Gran % (Auto) Neut % (Auto) Lymph % (Auto) [place] % (Auto) Eos % (Auto) Baso % (Auto) Lymph # (Auto) [place] # (Auto) Eos # (Auto) Baso # (Auto) Abs Immat Gran (auto) Absolute Neuts (auto) Absolute Nucleated RBC Nucleated RBC % (auto) Smear Path Review PT INR VBG pH VBG pCO2 VBG pO2 VBG HCO3 VBG O2 Saturation VBG Base Excess Anion Gap Estim Creat Clear Calc Estimated GFR POC Glucose 52 L* Random Glucose Lactic Acid Lactic Acid F/U @ 2Hr Calcium Phosphorus Magnesium Total Bilirubin AST ALT Alkaline Phosphatase Total Protein Albumin Urine Opiates Screen Urine Fentanyl Screen Ur Barbiturates Screen Ur Phencyclidine Scrn Ur Amphetamines Screen U Benzodiazepines Scrn Urine Cocaine Screen U Marijuana (THC) Screen COVID-19 ([facility]) COVID-19 Clin Com Blood Type B Negative Antibody Screen NEGATIVE Crossmatch See Detail 01/30/22 01/30/22 01/30/22 19:20 20:03 21:08 MCV MCH MCHC RDW Plt Count MPV Immature Gran % (Auto) Neut % (Auto) Lymph % (Auto) [place] % (Auto) Eos % (Auto) Baso % (Auto) Lymph # (Auto) [place] # (Auto) Eos # (Auto) Baso # (Auto) Abs Immat Gran (auto) Absolute Neuts (auto) Absolute Nucleated RBC Nucleated RBC % (auto) Smear Path Review PT INR VBG pH VBG pCO2 VBG pO2 VBG HCO3 VBG O2 Saturation VBG Base Excess Anion Gap Estim Creat Clear Calc Estimated GFR POC Glucose 55 L* 102 Random Glucose Lactic Acid 4.2 H* Lactic Acid F/U @ 2Hr Calcium Phosphorus Magnesium Total Bilirubin AST ALT Alkaline Phosphatase Total Protein Albumin Urine Opiates Screen Urine Fentanyl Screen Ur Barbiturates Screen Ur Phencyclidine Scrn Ur Amphetamines Screen U Benzodiazepines Scrn Urine Cocaine Screen U Marijuana (THC) Screen COVID-19 ([facility]) COVID-19 [employer] [facility] [employer] Com Blood Type Antibody Screen Crossmatch 01/30/22 01/31/22 01/31/22 22:15 00:30 02:38 MCV 86.7 MCH 27.1 MCHC 31.2 RDW 16.7 H Plt Count 93 L D MPV 11.7 Immature Gran % (Auto) 0.4 Neut % (Auto) 62.7 Lymph % (Auto) 20.2 [place] % (Auto) 9.3 Eos % (Auto) 6.4 H Baso % (Auto) 1.0 Lymph # (Auto) 1.0 L [place] # (Auto) 0.5 Eos # (Auto) 0.3 Baso # (Auto) 0.1 Abs Immat Gran (auto) 0.02 Absolute Neuts (auto) 3.1 Absolute Nucleated RBC 0.000 Nucleated RBC % (auto) 0.0 Smear Path Review PT INR VBG pH VBG pCO2 VBG pO2 VBG HCO3 VBG O2 Saturation VBG Base Excess Anion Gap Estim Creat Clear Calc Estimated GFR POC Glucose 72 Random Glucose Lactic Acid Lactic Acid F/U @ 2Hr Calcium Phosphorus Magnesium Total Bilirubin AST ALT Alkaline Phosphatase Total Protein Albumin Urine Opiates Screen Urine Fentanyl Screen Ur Barbiturates Screen Ur Phencyclidine Scrn Ur Amphetamines Screen U Benzodiazepines Scrn Urine Cocaine Screen U Marijuana (THC) Screen COVID-19 ([facility]) Negative COVID-[employer] See Note Blood Type Antibody Screen Crossmatch 01/31/22 01/31/22 01/31/22 02:38 02:38 05:04 MCV MCH MCHC RDW Plt Count MPV Immature Gran % (Auto) Neut % (Auto) Lymph % (Auto) [place] % (Auto) Eos % (Auto) Baso % (Auto) Lymph # (Auto) [place] # (Auto) Eos # (Auto) Baso # (Auto) Abs Immat Gran (auto) Absolute Neuts (auto) Absolute Nucleated RBC Nucleated RBC % (auto) Smear Path Review PT 17.9 H INR 1.5 H VBG pH VBG pCO2 VBG pO2 VBG HCO3 VBG O2 Saturation VBG Base Excess Anion Gap Estim Creat Clear Calc Estimated GFR POC Glucose Random Glucose Lactic Acid Lactic Acid F/U @ 2Hr 1.2 Calcium Phosphorus Magnesium Total Bilirubin AST ALT Alkaline Phosphatase Total Protein Albumin Urine Opiates Screen POSITIVE H Urine Fentanyl Screen POSITIVE H Ur Barbiturates Screen POSITIVE H Ur Phencyclidine Scrn Not Detected Ur Amphetamines Screen Not Detected U Benzodiazepines Scrn POSITIVE H Urine Cocaine Screen POSITIVE H U Marijuana (THC) Screen Not Detected COVID-19 ([facility]) COVID-19 Clin [facility] Blood Type Antibody Screen Crossmatch 01/31/22 01/31/22 01/31/22 06:15 09:15 09:17 MCV 86.5 MCH 27.6 MCHC 31.9 RDW 16.6 H Plt Count 68 L D MPV 11.2 Immature Gran % (Auto) 0.5 H Neut % (Auto) 71.9 Lymph % (Auto) 16.7 L [place] % (Auto) 5.7 Eos % (Auto) 4.5 H Baso % (Auto) 0.7 Lymph # (Auto) 0.7 L [place] # (Auto) 0.2 Eos # (Auto) 0.2 Baso # (Auto) 0.0 Abs Immat Gran (auto) 0.02 Absolute Neuts (auto) 3.1 Absolute Nucleated RBC 0.000 Nucleated RBC % (auto) 0.0 Smear Path Review PT INR VBG pH 7.44 H VBG pCO2 36 VBG pO2 89 VBG HCO3 25 VBG O2 Saturation 99.0 VBG Base Excess 1.3 Anion Gap Estim Creat Clear Calc Estimated GFR POC Glucose 78 Random Glucose Lactic Acid Lactic Acid F/U @ 2Hr Calcium Phosphorus Magnesium Total Bilirubin AST ALT Alkaline Phosphatase Total Protein Albumin Urine Opiates Screen Urine Fentanyl Screen Ur Barbiturates Screen Ur Phencyclidine Scrn Ur Amphetamines Screen U Benzodiazepines Scrn Urine Cocaine Screen U Marijuana (THC) Screen COVID-19 ([facility]) COVID-19 Clin Com Blood Type Antibody Screen Crossmatch 01/31/22 01/31/22 01/31/22 09:17 09:17 11:52 MCV MCH MCHC RDW Plt Count MPV Immature Gran % (Auto) Neut % (Auto) Lymph % (Auto) [place] % (Auto) Eos % (Auto) Baso % (Auto) Lymph # (Auto) [place] # (Auto) Eos # (Auto) Baso # (Auto) Abs Immat Gran (auto) Absolute Neuts (auto) Absolute Nucleated RBC Nucleated RBC % (auto) Smear Path Review PT INR VBG pH VBG pCO2 VBG pO2 VBG HCO3 VBG O2 Saturation VBG Base Excess Anion Gap 8 L 10 L Estim Creat Clear Calc 96.5 97.7 Estimated GFR > 60 > 60 POC Glucose 81 Random Glucose 83 81 Lactic Acid Lactic Acid F/U @ 2Hr Calcium 7.6 L 7.6 L Phosphorus 2.5 L 2.6 L Magnesium 1.6 1.7 Total Bilirubin 5.1 H AST 41 H ALT 19 Alkaline Phosphatase 129 H Total Protein 6.2 L Albumin 1.8 L 1.9 L D Urine Opiates Screen Urine Fentanyl Screen Ur Barbiturates Screen Ur Phencyclidine Scrn Ur Amphetamines Screen U Benzodiazepines Scrn Urine Cocaine Screen U Marijuana (THC) Screen COVID-19 ([facility]) COVID-19 Clin Com Blood Type Antibody Screen Crossmatch Imaging Radiologist's Impressions: Impressions Abdomen/Pelvis CT 01/31/22 03:50 IMPRESSION: 1. Per technologist report, IV access was not able to be obtained for contrast administration; therefore, evaluation cannot be made for possible active gastrointestinal hemorrhage. 2. Thickening of the ascending colon, which may represent portal colopathy in the setting of cirrhosis, though acute infectious/inflammatory colitis cannot be excluded in the proper clinical setting. 3. Abnormal appearance of the L2 and L3 vertebral bodies centered around the disc space, new from 08/23/2021 and suspicious for sequelae of discitis/osteomyelitis. Chronicity may be better established with MRI. 4. Cirrhotic morphology of the liver. Splenomegaly. Small volume ascites. Diffuse anasarca. Head CT 01/31/22 03:50 IMPRESSION: No acute intracranial pathology. Left facial soft tissue swelling. Assessment and Plan (1) Non-pressure chronic ulcer of 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: Status: Acute Plan 61-year-old male with polysubstance abuse on methadone, history of hepatitis C and cirrhosis coming in with acute encephalopathy, lactic acidosis and anemia with chronic right leg wounds not particularly impressive for acute cellulitis or infection at this juncture. X-rays the left tibia are not convincing for periosteal edema or erosion on the lateral view and in comparison, his right leg wounds look fairly improved compared to November. Question similar defect on films from July 2021. These subtle changes on x-ray might suggest outpatient workup and wound care if the wound does not heal. CT is usually not helpful for osteomyelitis. In the meantime, calcium alginate with silver was applied to open areas, cut to fit. Add zinc oxide if desired to periwound for protection from maceration from sweat, drainage. Change q 48 hours.
[2022-01-31] MEDS: Sucralfate Oral Suspension 1 GM/10 ML ORAL.SUSP PO ×2 (17:34→22:44)
[2022-01-31] MEDS: cefTRIAXone sodium 1 GM in 0.9 % Sodium Chloride 50 ML IV (17:35)
[2022-01-31 18:24] LABS: Glucose, Whole Blood 116 mg/dL (60-115)
--- NOTE | 2022-01-31 18:32 | PM.CCPN ---
Subjective Subjective Date of Service: 01/31/22 Interval History: Mr. Rodriguez was admitted to ICU last night with lactic acidosis and profound acute anemia thought likely 2? UGI bleed. The patient is a 61-year-old male with a past medical history of polysubstance abuse (on methadone), hepatitis-C, liver cirrhosis and active alcohol abuse who was BIBA yesterday after he was found with AMS.? The patient admitted to using crack cocaine and PCP. In the ED, the patient was hemodynamically stable. ?He had periods of agitated delirium.? Laboratory data was notable for Hb 4.5, platelets 131, PT 17/1.5, sodium 132, BUN/creat 16/0.8, bicarb 16, serum glucose 51, lactic acid 10.8, total bilirubin 1.1, AST 70, alk-phos 163, albumin 2.1.? He was given Patient was started on blood transfusions, and admitted to the ICU for management of hemorrhagic shock thoughts likely secondary to upper GI bleeding, although the patient denied hematemesis or blood per rectum.? He was given Versed and Haldol in the ED, plus Protonix. In the ICU, Protonix and blood transfusions were continued, and by the morning, he was given his 4th unit of blood.? After his 4th unit, the hemoglobin was 7.6, platelet count was 13263.? He was also given vitamin K, for a total of 50 mg.? He underwent EGD this afternoon which showed ?Grade D esophagitis, a Hiatal hernia, a gastric varix, Portal hypertensive gastropathy, and normal duodenum.? It was noted that a lower GI source of bleeding was not excluded. Recommendations included - continuing high-dose PPI for least 8 weeks, then 40mg once daily indefinitely. - add liquid carafate 1g QID x 2 weeks. - repeat EGD in 8-10 weeks to assess for healing of esophagitis - IV Ceftriaxone for infection prophylaxis in the setting of subacute GIB in a cirrhotic. - beta raul for primary prophylaxis of variceal bleeding given Child Class C. - avoid NSAIDs. Post op, the patient is stable and eating a regular diet.? HR 94, BP 122/77.? Last POC was 116. IMPRESSION: 1. Underlying polysubstance abuse, hepatitis-C, hepatic cirrhosis, and active alcohol abuse. 2. Acute blood loss anemia, most likely 2? UGI bleed, altho LGI source not conclusively ruled out.? Follow-up recommendations per the above. 3. Lactic acidosis.? 2? hemorrhagic shock in the presence of a cirrhotic liver. 4. Hypoglycemia.? Likely secondary to caloric deficiency in the presence of a cirrhotic liver. 5. Possible at least mild protein calorie malnutrition. 6. Coagulopathy.? Secondary to cirrhotic liver.? Ordered a follow-up PT tomorrow to see if he is correctable after vitamin K. Stable for transfer to med surg.? Have ordered f/u labs for tomorrow morning.? Will sign out to the night hospitalist. Critical Care Time (minutes): 0 Physical Exam Vital Signs: Vital Signs: Last Vital Signs Temp 98.3 F 01/31/22 13:00 Pulse 94 01/31/22 18:00 Resp 11 L 01/31/22 18:00 BP 122/77 01/31/22 18:00 Pulse Ox 96 01/31/22 18:00 O2 Del Method 01/31/22 18:00 BMI result Body Mass Index 26.9 Objective Data Labs CBC & Chem 7: 01/31/22 09:17 01/31/22 09:17 Labs: Laboratory Results - last 24 hr 01/30/22 01/30/22 01/30/22 13:05 13:20 17:34 WBC RBC Hgb Hct MCV MCH MCHC RDW Plt Count MPV Immature Gran % (Auto) Neut % (Auto) Lymph % (Auto) [place] % (Auto) Eos % (Auto) Baso % (Auto) Lymph # (Auto) [place] # (Auto) Eos # (Auto) Baso # (Auto) Abs Immat Gran (auto) Absolute Neuts (auto) Absolute Nucleated RBC Nucleated RBC % (auto) Smear Path Review PT INR VBG pH VBG pCO2 VBG pO2 VBG HCO3 VBG O2 Saturation VBG Base Excess Sodium Potassium Chloride Carbon Dioxide Anion Gap BUN Creatinine Estim Creat Clear Calc Estimated GFR POC Glucose 52 L* Random Glucose Lactic Acid Lactic Acid F/U @ 2Hr Calcium Phosphorus Magnesium Total Bilirubin AST ALT Alkaline Phosphatase Total Protein Albumin Urine Opiates Screen Urine Fentanyl Screen Ur Barbiturates Screen Ur Phencyclidine Scrn Ur Amphetamines Screen U Benzodiazepines Scrn Urine Cocaine Screen U Marijuana (THC) Screen COVID-19 ([facility]) COVID-19 Clin Com Blood Type B Negative Antibody Screen NEGATIVE Crossmatch See Detail 01/30/22 01/30/22 01/30/22 19:20 20:03 21:08 WBC RBC Hgb Hct MCV MCH MCHC RDW Plt Count MPV Immature Gran % (Auto) Neut % (Auto) Lymph % (Auto) [place] % (Auto) Eos % (Auto) Baso % (Auto) Lymph # (Auto) [place] # (Auto) Eos # (Auto) Baso # (Auto) Abs Immat Gran (auto) Absolute Neuts (auto) Absolute Nucleated RBC Nucleated RBC % (auto) Smear Path Review PT INR VBG pH VBG pCO2 VBG pO2 VBG HCO3 VBG O2 Saturation VBG Base Excess Sodium Potassium Chloride Carbon Dioxide Anion Gap BUN Creatinine Estim Creat Clear Calc Estimated GFR POC Glucose 55 L* 102 Random Glucose Lactic Acid 4.2 H* Lactic Acid F/U @ 2Hr Calcium Phosphorus Magnesium Total Bilirubin AST ALT Alkaline Phosphatase Total Protein Albumin Urine Opiates Screen Urine Fentanyl Screen Ur Barbiturates Screen Ur Phencyclidine Scrn Ur Amphetamines Screen U Benzodiazepines Scrn Urine Cocaine Screen U Marijuana (THC) Screen COVID-19 ([facility]) COVID-[address] [facility] Blood Type Antibody Screen Crossmatch 01/30/22 01/31/22 01/31/22 22:15 00:30 02:38 WBC 4.9 RBC 2.55 L D Hgb 6.9 L* D Hct 22.1 L D MCV 86.7 MCH 27.1 MCHC 31.2 RDW 16.7 H Plt Count 93 L D MPV 11.7 Immature Gran % (Auto) 0.4 Neut % (Auto) 62.7 Lymph % (Auto) 20.2 [place] % (Auto) 9.3 Eos % (Auto) 6.4 H Baso % (Auto) 1.0 Lymph # (Auto) 1.0 L [place] # (Auto) 0.5 Eos # (Auto) 0.3 Baso # (Auto) 0.1 Abs Immat Gran (auto) 0.02 Absolute Neuts (auto) 3.1 Absolute Nucleated RBC 0.000 Nucleated RBC % (auto) 0.0 Smear Path Review PT INR VBG pH VBG pCO2 VBG pO2 VBG HCO3 VBG O2 Saturation VBG Base Excess Sodium Potassium Chloride Carbon Dioxide Anion Gap BUN Creatinine Estim Creat Clear Calc Estimated GFR POC Glucose 72 Random Glucose Lactic Acid Lactic Acid F/U @ 2Hr Calcium Phosphorus Magnesium Total Bilirubin AST ALT Alkaline Phosphatase Total Protein Albumin Urine Opiates Screen Urine Fentanyl Screen Ur Barbiturates Screen Ur Phencyclidine Scrn Ur Amphetamines Screen U Benzodiazepines Scrn Urine Cocaine Screen U Marijuana (THC) Screen COVID-19 ([facility]) Negative COVID-19 Clin Com See Note Blood Type Antibody Screen Crossmatch 01/31/22 01/31/22 01/31/22 02:38 02:38 05:04 WBC RBC Hgb Hct MCV MCH MCHC RDW Plt Count MPV Immature Gran % (Auto) Neut % (Auto) Lymph % (Auto) [place] % (Auto) Eos % (Auto) Baso % (Auto) Lymph # (Auto) [place] # (Auto) Eos # (Auto) Baso # (Auto) Abs Immat Gran (auto) Absolute Neuts (auto) Absolute Nucleated RBC Nucleated RBC % (auto) Smear Path Review PT 17.9 H INR 1.5 H VBG pH VBG pCO2 VBG pO2 VBG HCO3 VBG O2 Saturation VBG Base Excess Sodium Potassium Chloride Carbon Dioxide Anion Gap BUN Creatinine Estim Creat Clear Calc Estimated GFR POC Glucose Random Glucose Lactic Acid Lactic Acid F/U @ 2Hr 1.2 Calcium Phosphorus Magnesium Total Bilirubin AST ALT Alkaline Phosphatase Total Protein Albumin Urine Opiates Screen POSITIVE H Urine Fentanyl Screen POSITIVE H Ur Barbiturates Screen POSITIVE H Ur Phencyclidine Scrn Not Detected Ur Amphetamines Screen Not Detected U Benzodiazepines Scrn POSITIVE H Urine Cocaine Screen POSITIVE H U Marijuana (THC) Screen Not Detected COVID-19 ([facility]) COVID-19 Clin Com Blood Type Antibody Screen Crossmatch 01/31/22 01/31/22 01/31/22 06:15 09:15 09:17 WBC 4.2 L RBC 2.75 L Hgb 7.6 L Hct 23.8 L MCV 86.5 MCH 27.6 MCHC 31.9 RDW 16.6 H Plt Count 68 L D MPV 11.2 Immature Gran % (Auto) 0.5 H Neut % (Auto) 71.9 Lymph % (Auto) 16.7 L [place] % (Auto) 5.7 Eos % (Auto) 4.5 H Baso % (Auto) 0.7 Lymph # (Auto) 0.7 L [place] # (Auto) 0.2 Eos # (Auto) 0.2 Baso # (Auto) 0.0 Abs Immat Gran (auto) 0.02 Absolute Neuts (auto) 3.1 Absolute Nucleated RBC 0.000 Nucleated RBC % (auto) 0.0 Smear Path Review PT INR VBG pH 7.44 H VBG pCO2 36 VBG pO2 89 VBG HCO3 25 VBG O2 Saturation 99.0 VBG Base Excess 1.3 Sodium Potassium Chloride Carbon Dioxide Anion Gap BUN Creatinine Estim Creat Clear Calc Estimated GFR POC Glucose 78 Random Glucose Lactic Acid Lactic Acid F/U @ 2Hr Calcium Phosphorus Magnesium Total Bilirubin AST ALT Alkaline Phosphatase Total Protein Albumin Urine Opiates Screen Urine Fentanyl Screen Ur Barbiturates Screen Ur Phencyclidine Scrn Ur Amphetamines Screen U Benzodiazepines Scrn Urine Cocaine Screen U Marijuana (THC) Screen COVID-19 ([facility]) [facility] Blood Type Antibody Screen Crossmatch 01/31/22 01/31/22 01/31/22 09:17 09:17 11:52 WBC RBC Hgb Hct MCV MCH MCHC RDW Plt Count MPV Immature Gran % (Auto) Neut % (Auto) Lymph % (Auto) [place] % (Auto) Eos % (Auto) Baso % (Auto) Lymph # (Auto) [place] # (Auto) Eos # (Auto) Baso # (Auto) Abs Immat Gran (auto) Absolute Neuts (auto) Absolute Nucleated RBC Nucleated RBC % (auto) Smear Path Review PT INR VBG pH VBG pCO2 VBG pO2 VBG HCO3 VBG O2 Saturation VBG Base Excess Sodium 139 139 Potassium 3.7 D 3.7 Chloride 109 H 110 H Carbon Dioxide 26 23 Anion Gap 8 L 10 L BUN 16 16 Creatinine 0.84 0.83 Estim Creat Clear Calc 96.5 97.7 Estimated GFR > 60 > 60 POC Glucose 81 Random Glucose 83 81 Lactic Acid Lactic Acid F/U @ 2Hr Calcium 7.6 L 7.6 L Phosphorus 2.5 L 2.6 L Magnesium 1.6 1.7 Total Bilirubin 5.1 H AST 41 H ALT 19 Alkaline Phosphatase 129 H Total Protein 6.2 L Albumin 1.8 L 1.9 L D Urine Opiates Screen Urine Fentanyl Screen Ur Barbiturates Screen Ur Phencyclidine Scrn Ur Amphetamines Screen U Benzodiazepines Scrn Urine Cocaine Screen U Marijuana (THC) Screen COVID-19 ([facility]) [facility] Blood Type Antibody Screen Crossmatch 01/31/22 18:20 WBC RBC Hgb Hct MCV MCH MCHC RDW Plt Count MPV Immature Gran % (Auto) Neut % (Auto) Lymph % (Auto) [place] % (Auto) Eos % (Auto) Baso % (Auto) Lymph # (Auto) [place] # (Auto) Eos # (Auto) Baso # (Auto) Abs Immat Gran (auto) Absolute Neuts (auto) Absolute Nucleated RBC Nucleated RBC % (auto) Smear Path Review PT INR VBG pH VBG pCO2 VBG pO2 VBG HCO3 VBG O2 Saturation VBG Base Excess Sodium Potassium Chloride Carbon Dioxide Anion Gap BUN Creatinine Estim Creat Clear Calc Estimated GFR POC Glucose 116 H Random Glucose Lactic Acid Lactic Acid F/U @ 2Hr Calcium Phosphorus Magnesium Total Bilirubin AST ALT Alkaline Phosphatase Total Protein Albumin Urine Opiates Screen Urine Fentanyl Screen Ur Barbiturates Screen Ur Phencyclidine Scrn Ur Amphetamines Screen U Benzodiazepines Scrn Urine Cocaine Screen U Marijuana (THC) Screen COVID-19 ([facility]) COVID-19 Clin Com Blood Type Antibody Screen Crossmatch Microbiology Microbiology Results: Microbiology 01/30/22 13:20 Blood - Venous Blood Culture - Preliminary No growth after 24 hours. Quality Stroke Does the patient have a stroke diagnosis?: No VTE Prior VTE?: No VTE Risk Level:: Medical - moderate - high VTE Device Contraindication: N/A - Device Ordered VTE Drug Contraindication: Treatment Not Indicated
--- NOTE | 2022-01-31 19:07 | MHC.PIE ---
Shift eval 3p-7p - assumed care at 3p. Patient agitated - reports being very hungry and will leave if he can't have food. Swallow eval peformed - passed. Dr Bo made aware of need to increase diet - initially ordered clear liquid diet for 24 hr, but then patient refused & reported he will leave if he doesn't get real food - Dr Bo consulted w/ surgery & ordered regular diet. Patient ate 3+ ice creams and dinner - tolerated at this time. Denies nausea. No stools at this time. Vitals stable, HR 80's, SR.
[2022-01-31] MEDS: Omeprazole 40 MG CAPSULE.DR PO (19:29)
[2022-01-31] MEDS: nadoloL 20 MG TABLET PO (19:29)
--- NOTE | 2022-01-31 21:49 | HE.PHANOTE ---
need methadone verification form filled out in am, let mini shifter nurse know to pass this on and follow up in am
[2022-02-01] MEDS: Phytonadione (Vit K1) 10 MG in 0.9 % Sodium Chloride 50 ML 51 MG IV ×2 (00:23→05:17)
[2022-02-01 03:27] VITALS: BP 112/60; PULSE 69; RESP 18; TEMP 36.7; O2SAT 96
[2022-02-01] MEDS: Omeprazole 40 MG CAPSULE.DR PO ×2 (05:22→15:33)
[2022-02-01 05:49] VITALS: BMI 27.0
[2022-02-01 05:59] LABS: Glucose, Whole Blood 105 mg/dL (60-115)
[2022-02-01 07:15] VITALS: BP 111/73; PULSE 59; RESP 17; TEMP 36.4; O2SAT 98
[2022-02-01 07:29] LABS: Hematocrit 25.4 % (42.0-52.0); Hemoglobin 7.9 g/dl (14.0-18.0); Mean Corpuscular HGB Conc 31.1 g/dl (31.0-36.0); Mean Corpuscular Hemoglobin 27.2 pg (27.0-33.0); Mean Corpuscular Volume 87.6 fL (80.0-98.0); Mean Platelet Volume 10.6 fL (9.4-12.4); Platelet Count 90 X10*3/uL (160-400); Red Cell Distribution Width 16.9 % (11.0-16.0); White Blood Count 3.6 X10*3/uL (4.8-10.8)
[2022-02-01 07:33] LABS: INTERNATIONAL NORM RATIO 1.3 (0.9-1.1); Prothrombin Time 15.6 SEC (10.0-13.1)
[2022-02-01] MEDS: Multivitamin TABLET 1 TAB PO (07:59)
[2022-02-01] MEDS: PHENobarbitaL 15 MG TABLET 45 MG PO ×2 (07:59→21:14)
[2022-02-01] MEDS: Sucralfate Oral Suspension 1 GM/10 ML ORAL.SUSP PO ×4 (07:59→21:14)
[2022-02-01] MEDS: Folic Acid 1 MG TABLET PO (07:59)
[2022-02-01 08:00] LABS: Alanine Aminotransferase 21 U/L (0-40); Albumin Level 1.8 g/dL (3.5-5.0); Alkaline Phosphatase 154 U/L (39-117); Aspartate Amino Transferase 40 U/L (5-37); Bilirubin Total 1.2 mg/dL (0.0-1.0); Blood Urea Nitrogen 15 mg/dL (9-16); Calcium 8.1 mg/dL (8.4-10.2); Creatinine Clr Calc Pharmacy 83.6; Estimated Glomerular Filt Rate > 60; Glucose Random 98 mg/dL (60-115); Magnesium 1.7 mg/dL (1.6-2.6); Total Protein 6.5 g/dL (6.5-8.0)
[2022-02-01] MEDS: Thiamine HCL 100 MG TABLET PO (08:00)
[2022-02-01] MEDS: nadoloL 20 MG TABLET PO (08:00)
[2022-02-01 08:09] LABS: Anion Gap 9 (12-20); Carbon Dioxide 25 mmol/L (22-29); Chloride 109 mmol/L (96-108); Potassium 3.6 mmol/L (3.3-5.1); Sodium 139 mmol/L (135-145)
--- NOTE | 2022-02-01 08:16 | HE.PHANOTE ---
RE METHADONE PT GETS MED FROM [facility]; LAST DOSE 01/29 45MG TRAN
[2022-02-01] MEDS: methADONE HCl 20 MG/2 ML ORAL.CONC 45 MG PO (09:13)
--- NOTE | 2022-02-01 10:03 | MHC.CM.PN ---
pt lives alone has no serveis he goes to [facility] for his methadone is covid vax x 4 has a ride home
[2022-02-01 11:08] LABS: Glucose, Whole Blood 112 mg/dL (60-115)
[2022-02-01 11:37] VITALS: BP 115/82; PULSE 65; RESP 17; TEMP 36.7; O2SAT 98
[2022-02-01] MEDS: cefTRIAXone sodium 1 GM in 0.9 % Sodium Chloride 50 ML IV (15:32)
[2022-02-01 15:38] VITALS: BP 122/78; PULSE 85; RESP 16; TEMP 36.5; O2SAT 98
--- NOTE | 2022-02-01 17:22 | HO.POSTANES ---
Post Anesthesia Evaluation Post Anesthesia Evaluation Vital Signs: Vital Signs Temp Pulse Resp BP Pulse Ox O2 Del Method 02/01/22 15:38 97.7 F 85 16 122/78 98 Room Air 02/01/22 11:37 98.0 F 65 17 115/82 98 Room Air 02/01/22 07:15 97.5 F 59 17 111/73 98 Room Air Anesthesia: TIVA Mental Status: Awake Pain Control: Satisfactory Nausea/Vomiting: None Hydration: Adequate Anesthesia-Related Issues: No Anes. Related Issues
[2022-02-01 19:04] LABS: Glucose, Whole Blood 86 mg/dL (60-115)
[2022-02-01 19:49] VITALS: BP 132/67; PULSE 69; RESP 16; TEMP 36.6; O2SAT 98
[2022-02-01 23:49] LABS: Glucose, Whole Blood 111 mg/dL (60-115)
[2022-02-02] VITALS: BP 111/76; PULSE 76; RESP 20; TEMP 36.7; O2SAT 95
[2022-02-02 03:15] VITALS: BP 127/70; PULSE 66; RESP 20; TEMP 36.6; O2SAT 96
[2022-02-02 06:00] VITALS: BMI 27.6
[2022-02-02 06:02] LABS: Glucose, Whole Blood 109 mg/dL (60-115)
[2022-02-02] MEDS: Omeprazole 40 MG CAPSULE.DR PO (06:02)
[2022-02-02 07:11] VITALS: BP 125/87; PULSE 68; RESP 18; TEMP 36.7; O2SAT 96
[2022-02-02] MEDS: Sucralfate Oral Suspension 1 GM/10 ML ORAL.SUSP PO ×2 (09:48→13:02)
[2022-02-02] MEDS: Thiamine HCL 100 MG TABLET PO (09:49)
[2022-02-02] MEDS: PHENobarbitaL 30 MG TABLET PO (09:49)
[2022-02-02] MEDS: nadoloL 20 MG TABLET PO (09:49)
[2022-02-02] MEDS: Folic Acid 1 MG TABLET PO (09:49)
[2022-02-02] MEDS: Multivitamin TABLET 1 TAB PO (09:49)
[2022-02-02] MEDS: methADONE HCl 20 MG/2 ML ORAL.CONC 45 MG PO (09:51)
--- NOTE | 2022-02-02 10:20 | P.DS_ITS ---
DS: Providers Provider Date of Service: 02/02/22 Date of admission: 01/30/22 18:10 Primary care physician: Unknown Physician Consults: 01/31/22 06:10 Consult to Gastroenterology Routine Consulting Provider: Joaquin Burris Reason for consultation: Acute blood loss anemia Has provider been notified: No 01/31/22 12:17 Consult to Wound Care Stat Consulting Provider: [facility] Wound Care Management Reason for consultation: R casanova wound with foul smelling drainage & slough DS: Diagnosis Discharge Diagnosis (1) GI bleed: Status: Acute (2) Altered mental status: Status: Acute (3) Hepatitis C: Status: Acute (4) Cirrhosis: Status: Acute (5) Alcohol abuse: Status: Acute DS: Summary Hospital Course Hospital Course: Chief Complaint:? altered mental status The patient is a 61-year-old male with a past medical history of? polysubstance abuse? ( on methadone),? hepatitis-C, liver cirrhosis and active alcohol abuse who presented to the emergency room? via EMS? after patient was? found to have altered mental status.? According to EMS,? patient admitted to using crack cocaine? and PCP.?? In the emergency room,? patient? with altered mental status? with episodes intermittently yelling.? Patient hemodynamically stable.? Laboratory data significant for? hemoglobin of 4.5 hematocrit 16.4, platelet 131,? sodium 132, bicarb 16, serum glucose 51, lactic acid 10.8, total bilirubin 1.1, AST 70, alk-phos 163, albumin 2.1 ? ED course:? patient received? total dose of 6 of Versed, and Haldol during the emergency room. ? Patient will be admitted to the ICU for? hemodynamic management of? acute blood loss anemia Hospital course: The patient is a 61-year-old male with a past medical history of polysubstance abuse (on methadone), hepatitis-C, liver cirrhosis and active alcohol abuse who was BIBA yesterday after he was found with AMS.? The patient admitted to using crack cocaine and PCP. In the ED, the patient was hemodynamically stable. ?He had periods of agitated delirium.? Laboratory data was notable for Hb 4.5, platelets 131, PT 17/1.5, sodium 132, BUN/creat 16/0.8, bicarb 16, serum glucose 51, lactic acid 10.8, total bilirubin 1.1, AST 70, alk-phos 163, albumin 2.1.? Patient was started on blood transfusions, and admitted to the ICU for management of hemorrhagic shock thoughts likely secondary to upper GI bleeding, although the patient denied hematemesis or blood per rectum.? He was given Versed and Haldol in the ED, plus Protonix. In the ICU, Protonix and blood transfusions were continued, and by the morning, he was given his 4th unit of blood.? After his 4th unit, the hemoglobin was 7.6, platelet count was 6[address]12.? He was also given vitamin K, for a total of 50 mg.? He underwent EGD which showed??Grade D esophagitis, a Hiatal hernia, a gastric varix, Portal hypertensive gastropathy, and normal duodenum.? It was noted that a lower GI source of bleeding was not excluded. Recommendations included - continuing high-dose PPI for least 8 weeks, then 40mg once daily indefinitely. - add liquid carafate 1g QID x 2 weeks. - repeat EGD in 8-10 weeks to assess for healing of esophagitis - IV Ceftriaxone for infection prophylaxis in the setting of subacute GIB in a cirrhotic. - beta raul for primary prophylaxis of variceal bleeding given Child Class C--Nadalolol started - avoid NSAIDs. He has been on Phenobarbital to prevent alcohol withdrawal and has been advised to avoid alcohol at all cost due to its deleterious health issues that were discussed with him in detail. CARE team gave him resourx Presently remains hemodynamically stable with vital as below. Final diagnoses 1. Underlying polysubstance abuse, hepatitis-C, hepatic cirrhosis, and active alcohol abuse. 2. Acute blood loss anemia, most likely 2? UGI bleed, altho LGI source not conclusively ruled out.? Follow-up recommendations per the above. 3. Lactic acidosis.? 2? hemorrhagic shock in the presence of a cirrhotic liver. 4. Hypoglycemia.? Likely secondary to caloric deficiency in the presence of a cirrhotic liver. 5. Possible at least mild protein calorie malnutrition. 6. Coagulopathy.? Secondary to cirrhotic liver.? Ordered a follow-up PT tomorrow to see if he is correctable after vitamin K. 7. Alcohol dependence with high risk of wedrawal Stable for transfer to med surg.? Have ordered f/u labs for tomorrow morning.? Will sign out to the night hospitalist. Time Spent with Patient Time attestation: Total time spent providing and/or coordinating discharge services: Discharge coordination time: Greater than 30 minutes Quality: Safe Use of Opioids Does Pt have an Active Cancer Diagnosis on the Problem List?: No Quality: Stroke Does the patient have a stroke diagnosis?: No Physical Exam Vital Signs: Vital Signs: Last Vital Signs Temp 98.0 F 02/02/22 07:11 Pulse 68 02/02/22 07:11 Resp 18 02/02/22 07:11 BP 125/87 02/02/22 07:11 Pulse Ox 96 02/02/22 07:11 O2 Del Method 02/02/22 07:11 BMI result Body Mass Index 27.6 Const: Other: General: AO X 3, no acute distress Resp: CTA bilateral CVS: S1,S2,RRR GI: +BS, NT, no distention Skin: No rash Neuro: motor grossly intact Psych: appropriate affect DS: Data Data Completed and Pending Completed studies during hospitalization [Text1]: Procedures Detoxification Services for Substance Abuse Treatment (12/01/21) Excision of Right Lower Leg Skin, External Approach (12/01/21) Insertion of Infusion Device into Superior Vena Cava, Percutaneous Approach (08/23/21) Ultrasonography of Superior Vena Cava, Guidance (08/23/21) Labs on day of discharge: Laboratory Results - last 24 hr 02/01/22 02/01/22 02/01/22 10:59 19:01 23:34 POC Glucose 112 86 111 02/02/22 05:58 POC Glucose 109 Preliminary micro results at discharge 01/30/22 21:08 Blood Culture - Preliminary Blood - Venous No growth after 48 hours. 01/30/22 13:20 Blood Culture - Preliminary Blood - Venous No growth after 48 hours. Discharge Plan Discharge Anticipated Discharge Date/Time: 02/02/22 10:21 Patient Disposition: Home, Self-Care Discharge Diagnosis: Upper GI bleeding, acute blood loss anemia Referrals: Physician,Unknown J [Primary Care Provider] - 1 Week Discharge Medications: New omeprazole 40 mg Capsule,Delayed Release(Dr/Ec) 40 mg PO BID@0630,1630 60 Days Qty: 120 1RF Rx Instructions: Take 1 tab twice daily for 8 weeks, then 1 tab daily indefinately sucralfate 100 mg/mL Suspension 1 g PO QIDACHS 14 Days Qty: 420 0RF nadolol 20 mg Tablet 20 mg PO DAILY Qty: 30 0RF Protocol: Hold for SBP/HR < HOLD for SBP < : 90 HOLD for HR < : 60 Continued lidocaine [Aspercreme (lidocaine)] 4 % adhesive patch,medicated 1 patch topical DAILY PRN (Reason: pain) Qty: 30 0RF methadone [Methadose] 10 mg/mL concentrate 45 mg PO DAILY Rx Instructions: Partial Fill upon patient request. multivitamin [Daily-Silvio] Tablet 1 tab PO DAILY Qty: 30 0RF folic acid 1 mg Tablet 1 mg PO DAILY Qty: 30 0RF thiamine mononitrate (vit B1) 100 mg Tablet 100 mg PO DAILY Qty: 30 0RF Diet: Advance to usual diet Activity on Discharge: As tolerated Stand Alone Forms: Patient Portal Discharge page Care Plan Goals: Prevent further GI bleeding and controlling liver disease Health Concerns: Cirrhosis of liver Alcoholism GI bleeding Plan of Treatment: Tale Prilosec 40 mg twice daily for 8 weeks, then 40 mg daily indefinately Take Carafate as directed for 2 weeks Avoid alcohol at all cost Assessment: As above
[2022-02-02 11:04] VITALS: BP 130/75; PULSE 73; RESP 18; TEMP 36.6; O2SAT 98
[2022-02-02 11:19] LABS: Glucose, Whole Blood 94 mg/dL (60-115)
--- NOTE | 2022-02-02 12:17 | MHC.RECOVRN ---
Met with pt in 453 after consult placed to CARE Team for alochol use. Pt sitting in bed, asleep, easily wakes to voice. Pt is currently on methadone through [facility], 45 mg daily. Pt reports heroin use, approx 1 bag daily, as well as cocaine, INH, $20 daily. Pt reports this is significant decrease since beginning with the OTP. Pt is currently drinking alcohol, 10 nips whiskey daily. Pt states I'm glad youre here. My way wasn't working. Pt is looking to enter into inpatient [facility] tx. Pt has hx multiple ATS admissions as well as residential programs. Pt currently living with elderly mother, not working. Discussed CSS referrals, pt declines at this time. Pt would like to present to [facility] tomorrow for ATS in order to wait for a bed in their CSS program. T/w able to help facilitate and encouraged pt to reach out in order to do so. Provided with t/w contact information. Denies other questions or concerns.
--- NOTE | 2022-02-02 12:29 | MHC.CM.NN ---
pt dcd home no skilled servceis ordered by
[2022-02-02 12:59] LABS: Hematocrit 26.9 % (42.0-52.0); Hemoglobin 8.3 g/dl (14.0-18.0); Mean Corpuscular HGB Conc 30.9 g/dl (31.0-36.0); Mean Corpuscular Hemoglobin 27.9 pg (27.0-33.0); Mean Corpuscular Volume 90.3 fL (80.0-98.0); Mean Platelet Volume 11.8 fL (9.4-12.4); PLT CLUMP 1; Red Blood Count 2.98 X10*6/uL (4.60-5.80); Red Cell Distribution Width 17.4 % (11.0-16.0)
[2022-02-02 13:34] LABS: Platelet Count 76 X10*3/uL (160-400); White Blood Count 4.4 X10*3/uL (4.8-10.8)
== END 2022-02-02 16:22 | disposition home or self-care (01) | DRG 243 ==
LOC: HO.ED 13:18 → HO.EDOVER 18:15 → HO.ICU 19:02 → HO.IMC 01-31 20:10
PROVIDERS: Anesthesiology; Internal Medicine; Registered Nurse Community Health; Student in an Organized Health Care Education/Training Program; Admitting Provider Internal Medicine Pulmonary Disease; Emergency Provider Emergency Medicine; PCP Family Medicine; Visit Provider Internal Medicine
PROC: 0DJ08ZZ Inspection of Upper Intestinal Tract, Via Natural or Artificial Opening Endoscopic (ICD-10-PCS; CPT 43235; principal; 2022-01-31 13:30)
DX: K20.91 Esophagitis, unspecified with bleeding (principal); R57.8 Other shock; E44.1 Mild protein-calorie malnutrition; D68.4 Acquired coagulation factor deficiency; D62 Acute posthemorrhagic anemia; E87.20 Acidosis, unspecified; D69.6 Thrombocytopenia, unspecified; K76.6 Portal hypertension; K74.60 Unspecified cirrhosis of liver; I86.4 Gastric varices; K31.89 Other diseases of stomach and duodenum; Z68.27 Body mass index [BMI] 27.0-27.9, adult; E16.2 Hypoglycemia, unspecified; B19.20 Unspecified viral hepatitis C without hepatic coma; F10.20 Alcohol dependence, uncomplicated; K44.9 Diaphragmatic hernia without obstruction or gangrene; F11.20 Opioid dependence, uncomplicated; F14.10 Cocaine abuse, uncomplicated; Z20.822 Contact with and (suspected) exposure to COVID-19; Z86.16 Personal history of COVID-19; Z79.899 Other long term (current) drug therapy
CPT/HCPCS: 36415; 70450; 74176; 80048; 80053; 80307; 82040; 82803; 82947; 83605; 83735; 84100; 85025; 85027; 85610; 86850; 86900; 86901; 86920; 86923; 87040; 87635; 93005; 99285; J0696; J2250; J2560; J3430; P9016

== ENCOUNTER 2022-02-05 15:53 | Emergency (ER) | payer OTHER, SELFPAY ==
--- NOTE | 2022-02-05 15:56 | ED_ITS ---
HPI - General Adult General Chief complaint: Abdominal Pain <ELI Olivares - Last Filed: 02/05/22 15:59> Stated complaint: abd swelling <ELI Olivares - Last Filed: 02/05/22 15:59> Time Seen by Provider: 02/05/22 18:05 <ELI Olivares - Last Filed: 02/05/22 15:59> Source: patient <Mariano Voss MD - Last Filed: 02/05/22 18:54> Mode of arrival: ambulatory <Mariano Voss MD - Last Filed: 02/05/22 18:54> Limitations: no limitations <Mariano Voss MD - Last Filed: 02/05/22 18:54> History of Present Illness HPI narrative: 61-year-old male who presents emergency department complaining of swelling in his arms, legs and abdomen. The patient has a history of alcoholic cirrhosis and hepatitis C. patient was recently admitted to the hospital and discharged on 02/02/2022 for GI bleed requiring transfusions. Patient states that he continues to drink alcohol but has cut down significantly. He states that he drinks 3 nips of whiskey per day. Patient also states that he continues to use crack cocaine he has use since leaving the hospital. He states that his arms and legs are very swollen feel tense. He states that his abdomen is also swollen but he denies abdominal pain. He states he has had a good appetite. He denied fever, chills, rhinorrhea, sore throat, cough, chest pain. He states he does feel short of breath when he walks around a lies down flat. <Mariano Voss MD - Last Filed: 02/05/22 18:54> Related Data Home medications: Home Medications Medication Instructions Recorded Confirmed methadone 10 mg/mL oral 45 mg PO DAILY 12/01/21 01/31/22 concentrate (Methadose) Previous Rx's Medication Instructions Recorded folic acid 1 mg tablet 1 mg PO DAILY #30 tabs 12/06/21 multivitamin (Daily-Silvio tablet) 1 tab PO DAILY #30 tabs 12/06/21 thiamine mononitrate (vit B1) 100 100 mg PO DAILY #30 tabs 12/06/21 mg tablet lidocaine 4 % topical patch 1 patch topical DAILY PRN pain #30 12/28/21 (Aspercreme (lidocaine)) ea nadolol 20 mg tablet 20 mg PO DAILY #30 tabs 02/02/22 omeprazole 40 mg capsule,delayed 40 mg PO BID@0630,1630 60 days 02/02/22 release #120 caps sucralfate 100 mg/mL oral 1 g (10 mL) PO QIDACHS 14 days 02/02/22 suspension #420 mL furosemide 40 mg tablet (Lasix) 40 mg PO DAILY #14 tabs 02/05/22 spironolactone 50 mg tablet 50 mg PO BID #60 tabs 02/05/22 <ELI Olivares - Last Filed: 02/05/22 15:59> Allergies/adverse reactions: Allergies Allergy/AdvReac Type Severity Reaction Status Date / Time No Known Allergies Allergy Unknown Verified 01/30/22 13:04 <ELI Olivares - Last Filed: 02/05/22 15:59> Review of Systems Review of Systems: Yes all other systems are reviewed and are negative <Mariano Voss MD - Last Filed: 02/05/22 18:54> [facility] Past Medical History [facility] Narrative: Social history: Patient states he smokes 3-4 cigarettes per day for greater than 20 years. Continues to drink alcohol, he drinks 3 nips of whiskey per day. He uses crack cocaine daily. <Mariano Voss MD - Last Filed: 02/05/22 18:54> Medical History: Medical History Asthma Cirrhosis Cirrhosis COVID-19 virus infection Erosive esophagitis Erosive gastritis GERD (gastroesophageal reflux disease) Hepatitis C Infected wound IV drug abuse Nasal bone fracture Open wound of left foot Pneumonia Recurrent major depression Right wrist drop Substance abuse <ELI Olivares - Last Filed: 02/05/22 15:59> Surgical History: Surgical History No pertinent past surgical history <ELI Olivares - Last Filed: 02/05/22 15:59> Family History Family History: Family History Mother CKD (chronic kidney disease) Father Diabetes <ELI Olivares - Last Filed: 02/05/22 15:59> Social History Social History: Social History Household Members: Family Household Members Other:: mother Housing: House Do you presently have visiting nurse or other home services: No Alcohol intake: current Alcohol intake frequency: 3 or more drinks per day Alcohol type: hard liquor Patient Tobacco Use Status: Never used Tobacco Tobacco use type: Cigarette and Cigar Cigarettes Per Day: 4 Smoked in Last 30 Days: Yes Second Hand Smoke Exposure: No Substance Use Type: Crack/Cocaine and Opiates Advance Directives: Yes Advance Directives Information Provided: No Advance Directives on File: No Advance Directives Date on File: 12/01/21 service: No Current occupational status: unemployed Cognitive needs: No Hearing needs: No Vision needs: No <ELI Olivares - Last Filed: 02/05/22 15:59> Physical Exam ED Vital Signs: Vital Signs - 24 hr 02/05/22 15:57 Temperature 99 F Pulse Rate 82 Respiratory Rate 18 Blood Pressure 142/89 H Pulse Oximetry 98 Oxygen Delivery Method Room Air BMI result Body Mass Index 24.3 <ELI Olivares - Last Filed: 02/05/22 15:59> Vital Signs - 24 hr 02/05/22 15:57 Temperature 99 F Pulse Rate 82 Respiratory Rate 18 Blood Pressure 142/89 H Pulse Oximetry 98 Oxygen Delivery Method Room Air BMI result Body Mass Index 24.3 <Mariano Voss MD - Last Filed: 02/05/22 18:54> Const Other: Awake alert patient, very pleasant cooperative, does not appear to be in distress, answers all questions appropriately <Mariano Voss MD - Last Filed: 02/05/22 18:54> HENMT Head: Yes normal to inspection, Yes normocephalic and Yes atraumatic <Mariano Voss MD - Last Filed: 02/05/22 18:54> Ears: external ears normal <Mariano Voss MD - Last Filed: 02/05/22 18:54> General nose exam: Normal external nose present <MD Lilli Saldana Last Filed: 02/05/22 18:54> Face and sinus: Yes normal facial exam <Mariano Voss MD - Last Filed: 02/05/22 18:54> Mouth: Normal oral and palatal mucosa present <MD Lilli Saldana Last Filed: 02/05/22 18:54> Throat: Yes posterior oropharynx normal <Mariano Voss MD - Last Filed: 02/05/22 18:54> Eyes General: appearance normal, both eyes and all related structures <MD Lilli Saldana Last Filed: 02/05/22 18:54> Pupils: Equal, round and reactive pupils present <MD Lilli Saldana Last Filed: 02/05/22 18:54> Neck Neck: Yes normal visual inspection, Yes no lymphadenopathy, Yes trachea midline and Yes supple <MD Lilli Saldana Last Filed: 02/05/22 18:54> Chest Chest palpation & inspection: normal inspection of the chest and normal palpation of entire chest wall <MD Lilli Saldana Last Filed: 02/05/22 18:54> Resp Effort & Inspection: normal respiratory effort and able to speak in complete sentences <MD Lilli Saldana Last Filed: 02/05/22 18:54> Auscultation: clear to auscultation bilaterally <MD Lilli Saldana Last Filed: 02/05/22 18:54> Cardio Rate: regular rate <MD Lilli Saldana Last Filed: 02/05/22 18:54> Rhythm: regular rhythm <MD Lilli Saldana Last Filed: 02/05/22 18:54> Heart sounds: S1 normal heart sound present, S2 normal heart sound present and no murmurs <MD Lilli Saldana Last Filed: 02/05/22 18:54> GI Other: Abdomen is distended secondary to ascites, he has no abdominal tenderness, has normal active bowel sounds <MD Lilli Saldana Last Filed: 02/05/22 18:54> Palpation (GI): Guarding due to palpation present (GI) <Mariano Voss MD - Last Filed: 02/05/22 18:54> General: Yes no CVA tenderness <aMriano Voss MD - Last Filed: 02/05/22 18:54> Back/Spine/Pelvis Back: no CVA tenderness <Mariano Voss MD - Last Filed: 02/05/22 18:54> Skin General skin exam: no rashes or lesions noted <Mariano Voss MD - Last Filed: 02/05/22 18:54> Neuro Cranial nerves: Yes CN's II-XII intact bilaterally and Yes Equal, round and reactive pupils present <Mariano Voss MD - Last Filed: 02/05/22 18:54> Cognition (Neuro): normal cognition <Mariano Vsos MD - Last Filed: 02/05/22 18:54> Motor exam (neuro): 5/5 motor strength present throughout <Mariano Voss MD - Last Filed: 02/05/22 18:54> Extrem Other: Patient has significant edema of his lower extremities and also has edema of his upper extremities <Mariano Voss MD - Last Filed: 02/05/22 18:54> Psych Appearance: grossly normal <Mariano Voss MD - Last Filed: 02/05/22 18:54> Speech and movement: Normal speech and movement present <Mariano Voss MD - Last Filed: 02/05/22 18:54> Affect: normal affect <Mariano Voss MD - Last Filed: 02/05/22 18:54> Attitude: cooperative <Mariano Voss MD - Last Filed: 02/05/22 18:54> Thought process: Normal thought process present <Mariano Voss MD - Last Filed: 02/05/22 18:54> Thought content: Normal thought content present <Mariano Voss MD - Last Filed: 02/05/22 18:54> Course Course Course Narrative: RME 61 yo m hx of thrombocytopenia, hep c, cirrhosis , opiate use do and alcohol abuse presents w/ swelling all over my body tells me its worse from abd down, reporting abdominal discomfort, and shortness of breath. [place] [facility] [place] PE slightly distended abdomen, no TTP Plan labs <ELI Olivares - Last Filed: 02/05/22 15:59> RME 61 yo m hx of thrombocytopenia, hep c, cirrhosis , opiate use do and alcohol abuse presents w/ swelling all over my body tells me its worse from abd down, reporting abdominal discomfort, and shortness of breath. Recently [place] [facility] [place] PE slightly distended abdomen, no TTP Plan labs 16:52: 61-year-old male with a history of hepatitis C and alcoholic cirrhosis who presents emergency department for evaluation of swelling of his arms, legs and abdomen. Patient was recently hospitalized for an upper GI bleed requiring transfusions and was discharged on 02/02/2022. He does feel short of breath and has dyspnea on exertion but otherwise he states that he has no abdominal pain, he has been eating and drinking well. The patient's physical examination is consistent with him being fluid overloaded most likely related to his cirrhosis. The patient is not on diuretics. Patient was started on spironolactone 50 mg twice a day and Lasix 40 mg once a day. Patient was advised to restrict his fluid intake to 1.5 L per day as well. Patient will need to follow-up with his PCP for further evaluation treatment of his cirrhosis. <Mariano Voss MD - Last Filed: 02/05/22 18:54> Discharge Plan Discharge Clinical Impression: Edema Qualifiers: Edema type: generalized Qualified Code(s): R60.1 - Generalized edema Cirrhosis Qualifiers: Hepatic cirrhosis type: alcoholic cirrhosis Ascites presence: with ascites Qualified Code(s): K70.31 - Alcoholic cirrhosis of liver with ascites Abdominal ascites Qualifiers: Ascites type: due to alcoholic cirrhosis Qualified Code(s): K70.31 - Alcoholic cirrhosis of liver with ascites <ELI Olivares - Last Filed: 02/05/22 15:59> Patient Disposition: Home, Self-Care <ELI Olivares - Last Filed: 02/05/22 15:59> Instructions: Cirrhosis (ED), Edema (ED) <ELI Olivares Last Filed: 02/05/22 15:59> Additional Instructions: The swelling in your arms, legs and belly are caused by your liver cirrhosis. Restrict the amount of fluid that you drink to 1.5 L a day. I am starting you on 2 diuretics (water pills). Take Lasix (furosemide) 40 mg, 1 pill in the morning. This medication will make you pee for approximately 6 hours. Take spironolactone 50 mg 1 pill twice a day. You should follow-up with your doctor to determine if you need higher doses these 2 water pills. Your doctor needs to give you a refill the medications so that you can continue to keep fluid off her body. Follow-up with your doctor in 2 days. Please return to the emergency department if your symptoms get worse or if you develop any symptoms that are concerning to you. <ELI Olivares - Last Filed: 02/05/22 15:59> Prescriptions: New furosemide [Lasix] 40 mg tablet 40 mg PO DAILY Qty: 14 0RF spironolactone 50 mg tablet 50 mg PO BID Qty: 60 0RF No Action lidocaine [Aspercreme (lidocaine)] 4 % adhesive patch,medicated 1 patch topical DAILY PRN (Reason: pain) Qty: 30 0RF methadone [Methadose] 10 mg/mL concentrate 45 mg PO DAILY Rx Instructions: Partial Fill upon patient request. multivitamin [Daily-Silvio] Tablet 1 tab PO DAILY Qty: 30 0RF folic acid 1 mg Tablet 1 mg PO DAILY Qty: 30 0RF thiamine mononitrate (vit B1) 100 mg Tablet 100 mg PO DAILY Qty: 30 0RF omeprazole 40 mg Capsule,Delayed Release(Dr/Ec) 40 mg PO BID@0630,1630 60 Days Qty: 120 1RF Rx Instructions: Take 1 tab twice daily for 8 weeks, then 1 tab daily indefinately nadolol 20 mg Tablet 20 mg PO DAILY Qty: 30 0RF Protocol: Hold for SBP/HR < HOLD for SBP < : 90 HOLD for HR < : 60 sucralfate 100 mg/mL Suspension 1 g PO QIDACHS 14 Days Qty: 420 0RF <ELI Olivares Last Filed: 02/05/22 15:59>
[2022-02-05 15:57] VITALS: BP 142/89; PULSE 82; RESP 18; TEMP 37.2; O2SAT 98; BMI 24.3
[2022-02-05 17:04] LABS: COVID-19 Test Negative (Negative)
[2022-02-05 18:51] LABS: Alanine Aminotransferase 21 U/L (0-40); Albumin Level 1.9 g/dL (3.5-5.0); Alkaline Phosphatase 185 U/L (39-117); Anion Gap 9 (12-20); Aspartate Amino Transferase 46 U/L (5-37); Blood Urea Nitrogen 10 mg/dL (9-16); Calcium 7.6 mg/dL (8.4-10.2); Carbon Dioxide 27 mmol/L (22-29); Chloride 110 mmol/L (96-108); Creatinine Clr Calc Pharmacy 112.6; Estimated Glomerular Filt Rate > 60; Glucose Random 69 mg/dL (60-115); Lipase 18 U/L (8-78); Magnesium 1.6 mg/dL (1.6-2.6); Potassium 3.5 mmol/L (3.3-5.1); Sodium 142 mmol/L (135-145); Total Protein 6.9 g/dL (6.5-8.0)
== END 2022-02-05 19:14 | disposition home or self-care (01) ==
PROVIDERS: Physician Assistant; Emergency Provider Emergency Medicine Emergency Medical Services; PCP Nurse Practitioner Family
DX: R60.1 Generalized edema (principal); K70.31 Alcoholic cirrhosis of liver with ascites; B19.20 Unspecified viral hepatitis C without hepatic coma; F19.10 Other psychoactive substance abuse, uncomplicated; F11.20 Opioid dependence, uncomplicated; F10.10 Alcohol abuse, uncomplicated; Y90.9 Presence of alcohol in blood, level not specified; Z79.899 Other long term (current) drug therapy
CPT/HCPCS: 36415; 80053; 83690; 83735; 87635; 99283; 99284

== ENCOUNTER 2022-11-27 13:43 | Inpatient (IN) | payer OTHER, SELFPAY ==
[2022-11-27] VITALS (22 sets, daily range): BP systolic 99–164; BP diastolic 59–83; PULSE 105–127; RESP 16–36; TEMP 36.1–37.3; O2SAT 95–100; BMI 24.0
--- NOTE | ~2022-11-27 | CT_ITS ---
EXAMINATION: CT CHEST abdomen pelvis CLINICAL INFORMATION: Altered mental status COMPARISON: Previous abdomen dated 01/31/2022 TECHNIQUE: Multidetector volumetric CT imaging of the chest was done. Axial MIP volume rendering provided. Sagittal and coronal reformatted images were obtained. This CT examination was performed using dose optimization techniques as appropriate, variously including the following: *Automated exposure control *Adjustment of mA and/or kV according to patient size (this includes techniques or standardized protocols for targeted exams where dose is matched to indication/reason for exam; i.e. extremities or head) *Use of iterative reconstruction technique DLP: 257 and 505 mGy-cm FINDINGS: CT chest; Motion significantly limits this exam. The thoracic inlet is grossly within normal limits. The axillary regions are unremarkable. Centrally moderate coronary calcium felt to be present. There is no bulky central adenopathy. Lack of intravenous contrast limits evaluation of the hilar regions. Imaging the lung dior. Right lung; Again motion is significantly limiting this exam. Right basilar atelectasis or infiltrate is noted. Left lung; Mild left basilar atelectasis. Scattered small areas of lung nodularity. No nodule is seen over 3 mm. Upper abdomen; Once again liver is corrugated in contour consistent with cirrhosis. Lack of intravenous contrast limits the exam for detection of a lesion. Gallbladder shows a probable edematous change in the wall. This could be reactive to the liver. Correlation recommended clinically. Splenomegaly is once again present. Mild ascites in the upper abdomen. The area the adrenal glands is unremarkable. The region of the pancreas is poorly visualized. No intravenous or oral contrast is given here. Cannot exclude some decreased attenuation within the region of the head of the pancreas. The kidneys appear nonhydronephrotic. Bladder is mildly thick-walled. Mild ascites in the pelvis. The bowel pattern is felt to be nonobstructing. There is diverticulosis here. Difficult to evaluate for diverticulitis due to fluid. There is no bulky adenopathy here. Mild adenopathy in the soren cannot be excluded. This could be reactive. Abdominal wall is within normal limits. Review of the bone windows demonstrates significant destruction at the level of L2-L3 with some retropulsion of bone into the canal region. Appearance is similar to previous. 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 CT/CT abdomen pelvis wo IV con IMPRESSION: Motion limits evaluation of the chest. There is felt to be right lower lobe atelectasis or infiltrate with a trace effusion. Some scattered small areas of lung nodularity none over 3 mm. Follow-up as per Fleischner protocol In the abdomen pelvis cirrhotic appearing liver once again seen. Splenomegaly which is increasing from previous. Some mildly prominent nodes in the portal region could be reactive. Underlying malignancy of course cannot be excluded. Lack of contrast on this exam limits evaluation of the liver for lesion. It should be noted that MR is the test of choice for hepatoma Mild ascites in the abdomen pelvis. Malignant ascites cannot be excluded Probable gallbladder wall edema. This could be reactive to liver. Correlation recommended clinically The bowel pattern is overall nonobstructing. Some mild decreased attenuation in the region of the head of the pancreas. Sequela of pancreatitis cannot be excluded here but this finding is somewhat equivocal. Correlation recommended clinically. Other findings are as noted above
--- NOTE | ~2022-11-27 | CT_ITS ---
EXAM: CT scan of the head and cervical spine. INDICATION: Reason for Exam fall 5 days ago, ams TECHNIQUE: A noncontrast CT scan was performed from the skull base to the vertex. A noncontrast CT scan of the cervical spine was performed from the base of the skull through T1 at 2.5 mm and 1.25 mm collimation. Coronal and sagittal reformats were obtained at the acquisition workstation. This CT examination was performed using dose optimization techniques as appropriate, variously including the following: *Automated exposure control *Adjustment of mA and/or kV according to patient size (this includes techniques or standardized protocols for targeted exams where dose is matched to indication/reason for exam; i.e. extremities or head) *Use of iterative reconstruction technique DLP: 251 mGy-cm COMPARISON: 01/31/2022 FINDINGS: Head: There is no evidence of acute intracranial hemorrhage or territorial infarction. Griffith-white matter differentiation is preserved. No abnormal mass effect or midline shift. No extra-axial fluid collections. No abnormal attenuation is demonstrated within the brain parenchyma. Scattered periventricular and deep white matter hypodensities consistent with microangiopathy. The ventricles and sulcal spaces are proportional without hydrocephalus. Proportional prominence of the ventricles and sulcal spaces. No acute osseous or soft tissue abnormalities. The mastoid air cells and visualized portions of the paranasal sinuses are well aerated. Cervical Spine: The atlantooccipital and atlantoaxial articulations is well aligned. Straightening of the normal cervical lordosis. Otherwise, there is anatomic alignment of the vertebral bodies and posterior elements. No evidence of acute fracture or subluxation. Notable degeneration of the disc spaces with probable inflammatory arthropathy changes C2-C3 likely involving the right apophyseal joint. There is no prevertebral soft tissue swelling. The thyroid gland and remaining cervical soft tissues are normal in appearance. The lung apices demonstrate no abnormalities. CT/CT cervical spine wo IV con IMPRESSION: No acute intracranial pathology. No acute fracture subluxation cervical spine.
--- NOTE | ~2022-11-27 | XR_ITS ---
EXAMINATION: XR CHEST CLINICAL INFORMATION: Acute mental status change COMPARISON: 08/23/2021 TECHNIQUE: Frontal view of the chest was obtained. FINDINGS: Relative expiratory technique eccentric lung markings. Bilateral linear densities at both bases favoring discoid atelectasis. No overt CHF or infiltrate. No pleural disease. XR/XR chest 1V IMPRESSION: Low lung volumes with bibasilar discoid atelectasis.
--- NOTE | ~2022-11-27 | CT_ITS ---
EXAMINATION: CT ABDOMEN AND PELVIS WITH CONTRAST CLINICAL INFORMATION: Abdominal distention, worsening lactic acid COMPARISON: 11/27/2022 TECHNIQUE: Multidetector volumetric images were obtained from the superior aspect of the liver through the pubic symphysis following administration 85 mL of Omnipaque 350 intravenous contrast. Sagittal and coronal reformatted images were obtained on the technologist's workstation. Oral contrast: No This CT examination was performed using dose optimization techniques as appropriate, variously including the following: *Automated exposure control *Adjustment of mA and/or kV according to patient size (this includes techniques or standardized protocols for targeted exams where dose is matched to indication/reason for exam; i.e. extremities or head) *Use of iterative reconstruction technique DLP: 774 mGy-cm FINDINGS: Suboptimal assessment due to motion artifact. LUNG BASES: Subsegmental bibasilar atelectasis. LIVER, GALLBLADDER, AND BILIARY TREE: Nodular hepatic contour suspicious for underlying cirrhosis. No intrahepatic biliary ductal dilatation. Heterogeneous attenuation within the lateral right hepatic lobe, which may be artifactual. Gallbladder remains distended with mural prominence. PANCREAS: Grossly unremarkable. SPLEEN: Spleen is enlarged, measuring approximately 16 cm in the axial plane. Somewhat bandlike regions of hypoattenuation are present in the superior and inferior aspects, suggestive of splenic infarcts. ADRENAL GLANDS: Unremarkable. KIDNEYS AND URETERS: Bilateral nephrograms are symmetric. No hydronephrosis or obstructing calculus identified. BLADDER: Decompressed with Boggs catheter in place. GASTROINTESTINAL TRACT: There is a thick-walled appearance of the duodenum. No evidence of bowel obstruction. Limited assessment for wall thickening in some segments of the colon due to luminal collapse. There is colonic diverticulosis without convincing diverticulitis. There is a somewhat thick-walled appearance of the ascending colon. Appendix appears nondilated. No free air is seen. Small volume of ascites is present. Diffuse mesenteric edema redemonstrated. ABDOMINAL WALL: No significant hernia is appreciated. LYMPH NODES: Normal. VASCULAR: Unremarkable. PELVIC VISCERA: Unremarkable. OSSEOUS STRUCTURES: Multilevel degenerative changes in the spine. Redemonstrated partial collapse at L2-L3 around the intervertebral disc space. CT/CT abdomen pelvis w IV con IMPRESSION: 1. Suboptimal assessment due to motion artifact. Thick-walled appearance of the duodenum and ascending colon, which could be secondary to portal hypertensive enteropathy/colopathy, though a superimposed infectious/inflammatory etiology would be difficult to entirely exclude. 2. Nodular hepatic contour suspicious for cirrhosis. 3. Splenomegaly. Somewhat bandlike regions of hypoattenuation in the superior and inferior aspects, suggestive of splenic infarcts. 4. Small volume of ascites. Diffuse mesenteric edema. 5. Persistent gallbladder distention with mural prominence, which could be reactive in the setting of portal hypertension.
--- NOTE | 2022-11-27 13:54 | ECG_ITS ---
Test Reason : AMS Blood Pressure : / mmHG Vent. Rate : 108 BPM Atrial Rate : 108 BPM P-R Int : 132 ms QRS Dur : 084 ms QT Int : 306 ms P-R-T Axes : 063 051 056 degrees QTc Int : 410 ms Sinus tachycardia Otherwise normal ECG When compared with ECG of 31-JAN-2022 13:54, Nonspecific T wave abnormality no longer evident in Anterolateral leads QT has shortened Referred By: Nicol Carr Electronically Signed By:REBECCA GOODMAN
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
--- NOTE | 2022-11-27 14:29 | PC.NURSE ---
PT IS PALE IN COLOR AND MUMBLES NON-SENSICAL WORDS AT TIMES.
--- NOTE | 2022-11-27 15:08 | MHC.EDTECH ---
pt was cleaned up and changed over
--- NOTE | 2022-11-27 15:12 | PC.NURSE ---
PT IS RAMBUNCTIOUS/RESTLESS TRYING TO CLIMB OUT OF BED. MULTI VERBAL REDIRECTION. PT HAS 5CM ?INFECTED WOUND TO R LOWER LEG ANTERIOR, PURULENT DRAINAGE NOTED. WOUND BED APPEARS HIRSCH AND SOME BLOODY DRAINAGE NOTED. WOUND WASHED WITIH NS FOLLOWED BY TELFA AND BULKY WRAP. PT TOLERATED WELL. PICURE TAKEN BY EARLIER.
[2022-11-27] MEDS: Haloperidol Lactate 5 MG/ML VIAL IM (15:20)
[2022-11-27] MEDS: LORazepam 2 MG/ML VIAL IM (15:20)
[2022-11-27] MEDS: diphenhydrAMINE HCL 50 MG/ML VIAL IM (15:21)
--- NOTE | 2022-11-27 15:30 | PC.NURSE ---
Patient medicated per APR. MD not agreeable to order medication restraint at this time. Restraint paperwork completed by nursing staff without MD signature.
--- NOTE | 2022-11-27 16:07 | PC.NURSE ---
Medication effective, patient at CT at this time.
[2022-11-27] MEDS: cefTRIAXone sodium 2 GM in 0.9 % Sodium Chloride 50 ML IV (17:02)
[2022-11-27 17:04] LABS: Hematocrit 34.6 % (42.0-52.0); Hemoglobin 10.4 g/dl (14.0-18.0); Mean Corpuscular HGB Conc 30.1 g/dl (31.0-36.0); Mean Corpuscular Hemoglobin 25.6 pg (27.0-33.0); NRBC Pct Auto 0.3 /100WBC (0.0-0.2); Red Blood Count 4.07 X10*6/uL (4.60-5.80); Red Cell Distribution Width 20.4 % (11.0-16.0); White Blood Count 6.7 X10*3/uL (4.8-10.8)
[2022-11-27 17:05] LABS: INTERNATIONAL NORM RATIO 1.8 (0.9-1.1)
[2022-11-27 17:06] LABS: PLT ABN DIST 1; Platelet Count 41 X10*3/uL (160-400)
[2022-11-27 17:07] LABS: Ammonia 34 umol/L (13-55)
[2022-11-27 17:15] LABS: Lactic Acid 8.8 mmol/L (0.5-2.0)
[2022-11-27 17:16] LABS: Alanine Aminotransferase 23 U/L (0-40); Alkaline Phosphatase 88 U/L (39-117); Anion Gap 17 (12-20); Aspartate Amino Transferase 61 U/L (5-37); Bilirubin Direct 2.1 mg/dL (0.0-0.5); Bilirubin Total 3.2 mg/dL (0.0-1.0); Blood Urea Nitrogen 33 mg/dL (9-16); Calcium 10.1 mg/dL (8.4-10.2); Carbon Dioxide 18 mmol/L (22-29); Chloride 101 mmol/L (96-108); Creatinine Clr Calc Pharmacy 77.5; Estimated Glomerular Filt Rate > 60; Ethanol < 10 mg/dL; Glucose Random 106 mg/dL (60-115); Lipase 9 U/L (8-78); Magnesium 1.9 mg/dL (1.6-2.6); Potassium 4.2 mmol/L (3.3-5.1); Sodium 132 mmol/L (135-145); Total Protein 7.2 g/dL (6.5-8.0)
[2022-11-27 17:23] LABS: Dohle Bodies PRESENT; Lymphocytes Absolute Manual 0.1 X10*3/uL (1.2-4.9); Lymphocytes Percent Manual 2 % (20-40); Monocytes Absolute Manual 0.2 X10*3/uL (0.1-1.2); Monocytes Percent Manual 3 % (2-11); Neutrophils Absolute Manual 6.4 X10*3/uL (2.0-8.3); Neutrophils Percent Manual 82 % (45-73)
[2022-11-27 17:24] LABS: Toxic Granulation PRESENT; Toxic Vacuolation PRESENT
[2022-11-27 17:25] LABS: Troponin-I High Sensitivity 1379.2 ng/L (<3.5-35.0)
[2022-11-27 17:26] LABS: Acanthocytes 1+ (0-2) /OIF; Burr Cells 3+ (>5) /OIF; Ovalocytes 1+ (5-14) /OIF; RBC Morphology NOTED
[2022-11-27 17:27] LABS: COVID-19 Test Negative (Negative); IDNOW Serial# 6674DD1D; Large Platelet PRESENT; Platelet Estimate DECREASED (NORMAL); Platelet Morphology Comment NOTED; Polychromasia 1+ (0-2) /OIF
[2022-11-27 17:30] LABS: Macrocytosis 1+ (5-14) /OIF
[2022-11-27 17:32] LABS: Band Neutrophils Percent 13 % (3-5)
[2022-11-27 17:55] LABS: B Type Natriuretic Peptide 438 pg/mL (<100)
[2022-11-27 18:56] LABS: Reflex Lactate? Lactic Acid Added
[2022-11-27] MEDS: vancomycin HCL 1,500 MG in 0.9 % Sodium Chloride 500 ML 333.33 MG IV (19:20)
--- NOTE | 2022-11-27 19:24 | MHC.EDTECH ---
This tech assumed care of patient at 1900, Repeat lactic and troponin obtained and sent to lab . Hourly rounds and vitals completed,rectal temp was 99.1 RN is aware.
[2022-11-27 19:39] LABS: ~Lactic Acid-LAB USE ONLY 8.6 mmol/L (0.5-2.0)
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
--- NOTE | 2022-11-27 20:07 | PC.NURSE ---
unable to assess neuro and ciwa as pt is alterered mental status at this time
--- NOTE | 2022-11-27 20:17 | MHC.EDTECH ---
Urine sample collected and sent to lab, Belongings list completed and copy placed in chart.
[2022-11-27 20:31] LABS: Appearance Urine Clear; Color Urine Dark Yellow; Glucose Urine UA Negative (Negative); Leukocyte Esterase Urine Small (1+) (Negative); Nitrite Urine Positive (Negative); UMIC TRIGGER UACC YES; Urine Blood Large (3+) (Negative); Urine Ketones Negative (Negative); Urine Protein Trace mg/dL (Neg-Trace)
[2022-11-27] MEDS: PHENobarbitaL sodium 130 MG/ML IM ONCE 197 MG IM (20:34)
[2022-11-27 20:35] LABS: Bacteria Urine 1+ (None Seen); Hyaline Casts Urine 0-2 /LPF (0-2); RBC Urine >20 /HPF (0-2); Squamous Epithelial Cell Urine 0-2 /HPF (0-2); UACC Culture Trigger YES
[2022-11-27 20:37] LABS: Amphetamine Screen Urine Not Detected (Not Detect); Barbiturates, Urine Not Detected (Not Detect); Benzodiazepines Screen Urine Not Detected (Not Detect); Cannabinoid Screen Urine Not Detected (Not Detect); Cocaine Screen Urine POSITIVE (Not Detect); Fentanyl, urine Not Detected (Not Detect); Opiate Screen Urine Not Detected (Not Detect); Phencyclidine Screen Urine Not Detected (Not Detect)
[2022-11-27 21:23] LABS: Reflex Lactate? 2 Y
--- NOTE | 2022-11-27 21:49 | MHC.EDTECH ---
Repeat lactic and VBG obtained and sent to lab,Hourly rounds and vitals completed,Rectal temp was 99.0 RN aware . Patient repositioned to comfort.
[2022-11-27 21:59] LABS: Venous Blood Gas Refer to POC result
[2022-11-27 22:01] LABS: VBG Base Excess -5.3 mmol/L; VBG HCO3 16 mmol/L (22-26); VBG pCO2 22 mmHg; VBG pH 7.47 (7.32-7.43); VBG pO2 90 mmHg
[2022-11-27 22:17] LABS: ~Lactic Acid-LAB USE ONLY 9.6 mmol/L (0.5-2.0)
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
--- NOTE | 2022-11-27 22:59 | PC.NURSE ---
unable to do CIWA or neuro assessment prior to phenobarb administration as pt is AMS
[2022-11-27] MEDS: PHENobarbitaL sodium 130 MG/ML VIAL IM Q3Hx2 148 MG IM (23:01)
[2022-11-27] MEDS: Lactated Ringers 1,000 ML 100 ML IVCONT (23:02)
[2022-11-28] VITALS (8 sets, daily range): BP systolic 95–106; BP diastolic 47–62; PULSE 101–115; RESP 20–30; TEMP 36.1–36.7; O2SAT 97–99; BMI 25.4
--- NOTE | 2022-11-28 00:15 | PC.NURSE ---
Received telephone call from lab, spoke to Mora who reported critical Trop level 6636. Dr. Le notified.
--- NOTE | 2022-11-28 00:19 | PC.NURSE ---
hospitalist notified of tropponin result and recent vitals
--- NOTE | 2022-11-28 00:25 | MHC.EDTECH ---
Hourly rounds and vitals completed,patient's blood pressure is low at 101/55 RN Babs is aware. Patient is sleeping at this time and call yo within reach.
--- NOTE | 2022-11-28 00:26 | ECG_ITS ---
Test Reason : elevated tropoin Blood Pressure : / mmHG Vent. Rate : 120 BPM Atrial Rate : 120 BPM P-R Int : 126 ms QRS Dur : 078 ms QT Int : 308 ms P-R-T Axes : 064 060 051 degrees QTc Int : 435 ms Sinus tachycardia Otherwise normal ECG When compared with ECG of 27-NOV-2022 14:16, No significant change was found Referred By: Mary Jo Salazar Electronically Signed By:REBECCA GOODMAN
--- NOTE | 2022-11-28 00:45 | ECG_ITS ---
Test Reason : ELEVATED TROP Blood Pressure : / mmHG Vent. Rate : 118 BPM Atrial Rate : 118 BPM P-R Int : 130 ms QRS Dur : 078 ms QT Int : 284 ms P-R-T Axes : 063 056 051 degrees QTc Int : 398 ms Sinus tachycardia Nonspecific T wave abnormality Abnormal ECG When compared with ECG of 28-NOV-2022 00:32, Nonspecific T wave abnormality now evident in Lateral leads Referred By: Mary Jo Salazar Electronically Signed By:REBECCA GOODMAN
[2022-11-28] MEDS: 0.9 % Sodium Chloride Flush 3 ML SYRINGE IVFLUSH ×2 (01:04→07:30)
[2022-11-28] MEDS: Albumin Human 25 % 100 ML IV ×4 (01:04→05:10)
[2022-11-28 01:21] LABS: Lactic Acid 12.1 mmol/L (0.5-2.0)
--- NOTE | 2022-11-28 01:53 | MHC.EDTECH ---
Hourly rounds and vitals completed, patient has a low bp at 97/53 RN Babs aware. Patient was cleaned and repositioned and mouth care giving due to being really dry. Call yo within reach
--- NOTE | 2022-11-28 01:58 | PC.NURSE ---
Telephone call received from the lab, spoke to Jose E who reported patient's both blood cultures grew gram positive cocci clusters. Dr. Le informed.
--- NOTE | 2022-11-28 02:12 | PC.NURSE ---
spoke to provider, per verbal order will hold phenobarb due to ams
[2022-11-28] MEDS: iohexoL 350 MG/ML 100 ML INFUS..BTL 85 ML IV (02:22)
[2022-11-28] MEDS: Piperacillin Sodium/Tazobactam 3.375 GM in 0.9 % Sodium Chloride 50 ML IV ×2 (02:51→07:53)
[2022-11-28 02:55] LABS: Reflex Lactate? Lactic Acid Added
[2022-11-28 04:02] LABS: Venous Blood Gas Refer to POC result
[2022-11-28 04:03] LABS: VBG Base Excess -9.3 mmol/L; VBG HCO3 14 mmol/L (22-26); VBG pCO2 22 mmHg; VBG pO2 71 mmHg
[2022-11-28 04:31] LABS: ~Lactic Acid-LAB USE ONLY 12.7 mmol/L (0.5-2.0)
--- NOTE | 2022-11-28 04:33 | PC.NURSE ---
Critical Lactic 12.[address] Le.
--- NOTE | 2022-11-28 06:05 | MHC.EDTECH ---
Boggs emptied with 300cc of urine output.
[2022-11-28 06:15] LABS: Reflex Lactate? 2 Y
--- NOTE | 2022-11-28 07:00 | CA_ITS ---
Transthoracic Echocardiogram Patient (Last, First, Middle): Ronnie Rodriguez, Gender: Male Date of : 1960 Age: 62 Procedure Date: 11/28/2022 Procedure Type: Transthoracic Echocardiogram [place] [facility] [place]: 165.1 cm Weight: 68.95 kg BSA: 1.76 m2 Heart Rate: 107 bpm BP: 103 / 61 mmHg Director Emergency Department: PRIYA Referring MD: Corine Le MD Symptoms: spsis, endocarditis Study Quality: Technically Difficult/w Contrast ECG Rhythm: Tachycardia Conclusions: - The left ventricular systolic function is hyperdynamic. The visually estimated ejection fraction is >70%. - No obvious valvular pathology seen on this study. Findings Procedure Information Contrast agent, definity, is being given per protocol without apparent complications. The quality of the study was technically difficult. Left Ventricle Normal left ventricular cavity size. There is mildly increased left ventricular wall thickness. The left ventricular systolic function is hyperdynamic. The visually estimated ejection fraction is >70%. There is no evidence of regional wall motion abnormalities. Evidence suggests grade I (mild) diastolic dysfunction. Right Ventricle Normal right ventricular cavity size and systolic function. Atria Both atria are normal in size. Aortic Valve The aortic valve was not well visualized. There is no aortic valve stenosis. There is no aortic valve regurgitation. Mitral Valve The mitral valve appears normal. There is no mitral valve regurgitation. There is no mitral valve stenosis. Pulmonic Valve The pulmonic valve is likely normal. Tricuspid Valve Normal tricuspid valve structure. There is trace tricuspid valve regurgitation. There is no evidence of pulmonary hypertension. Great Vessels The asc aorta is normal in size. Venous The inferior vena cava is normal in size and collapses greater than 50% with inspiration. Pericardium/Pleural There is no evidence of pericardial effusion. Prior Study Comparison No significant change compared to prior study dated: 08/25/2021. Recommendations, Care & Conclusions No obvious valvular pathology seen on this study. Measurements 2D Linear Measurements IVSd: 1.24 0.6-0.9/0.6-1.0 cm LVIDd: 3.61 3.9-5.3/4.2-5.9 cm LVIDd Index: 2.05 2.4-3.2/2.2-3.1 cm/m2 LVIDs: 1.89 2.0-3.6 cm LVPWd: 1.21 0.7-1.1 cm LA Diam: 3.10 2.7-3.8/3.0-4.0 cm LAIDs Index: 1.76 1.5-2.3 cm/m2 LV Mass: 182.52 67-162/88-224 g LV Mass Index: 103.70 43-95/49-115 g/m2 LVOT Diam: 2.10 3.0+(-)1.3 cm 2D Systolic Function EF 4C: 79.40 >55% EF 2C: 66.90 >55% EF BiP: 73.30 >55% Mitral Valve MV Pk E: 0.64 MV PK A: 0.93 MV Decel Time: 254.00 E/A: 0.70 E'Lateral: 9.36 E'Medial: 5.87 E/E' Med: 10.90 E/E' Lat: 6.80 PHT: 74.00 MVA PHT: 2.97 Decel [place]: 2.52 Aortic Valve AoV Pk Jose Luis: 2.19 AoV Mn Jose Luis: 1.59 AoV VTI: 0.29 AoV Pk Grad: 19.00 Aov Mn Grad: 12.00 [place] Cont.VTI: 2.73 LVOT LVOT Pk Jose Luis: 1.49 LVOT Mn Jose Luis: 1.14 LVOT VTI: 0.23 LVOT Pk Grad: 9.00 LVOT Mn Grad: 6.00 LVOT Diam: 2.10 LVOT Area: 3.46 Diastolic Function MV Pk E: 0.64 MV Pk A: 0.93 E/A: 0.70 E'Medial: 5.87 E/E' Med: 10.90 E' Laterial: 9.36 E/E' Lat: 6.80 Right Ventricle TAPSE (mm): 21.30 TVS' Jose Luis: 19.10 Tricuspid Valve RA Press: 3.00 Great Vessels Aorta Sinus of Valsalva: 3.30 2.0-3.5 cm Ao Asc: 3.60 2.1-3.4 cm Pulmonary Valve PV Pk Jose Luis: 1.53 Peak PV Grad: 9.00 Updated in Other Vendor System with Status of Final Abelino Walsh MD electronically signed on 11/28/2022 3:44:41 PM with status of Final
[2022-11-28] MEDS: Lactated Ringers 1,000 ML 100 ML IVCONT (07:29)
--- NOTE | 2022-11-28 07:33 | PC.NURSE ---
pt sleeping, retracts to painful stimulus but not waking to name, cardic monitor sinus tach, vitals currently stable, ivf running per order, hughes cath patient/draining, fall precautions in place, lungs clear, abd firm although not largely distended, call yo within reach, will continue to monitor
--- NOTE | 2022-11-28 07:49 | PHA.MEDREC ---
Pharmacy Consult ? Medication Reconciliation Pharmacy has completed the medication reconciliation. Spoke to patients contact, Nikki, she stated patient is only on methadone.
--- NOTE | 2022-11-28 08:05 | PC.NURSE ---
pt unable to swallow PO medications as he is not awake/alert, Dr. Meza is aware and phenobarb is being held, heparin being held due to INR as well
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
[2022-11-28 10:00] LABS: NRBC Pct Auto 0.5 /100WBC (0.0-0.2); PLT CLUMP 1
[2022-11-28 10:02] LABS: Mean Corpuscular HGB Conc 28.9 g/dl (31.0-36.0); Red Cell Distribution Width 20.8 % (11.0-16.0)
[2022-11-28 10:06] LABS: Hemoglobin 5.2 g/dl (14.0-18.0)
[2022-11-28 10:07] LABS: PLT ABN DIST 1; White Blood Count 10.9 X10*3/uL (4.8-10.8)
[2022-11-28 10:08] LABS: Platelet Count 19 X10*3/uL (160-400)
[2022-11-28 10:48] LABS: Alanine Aminotransferase 32 U/L (0-40); Albumin Level 2.4 g/dL (3.5-5.0); Alkaline Phosphatase 45 U/L (39-117); Anion Gap 26 (12-20); Aspartate Amino Transferase 150 U/L (5-37); Bilirubin Total 3.2 mg/dL (0.0-1.0); Blood Urea Nitrogen 48 mg/dL (9-16); Calcium 9.7 mg/dL (8.4-10.2); Carbon Dioxide 11 mmol/L (22-29); Chloride 108 mmol/L (96-108); Creatinine Clr Calc Pharmacy 56.7; Estimated Glomerular Filt Rate > 60; Potassium 4.8 mmol/L (3.3-5.1); Sodium 140 mmol/L (135-145); Total Protein 4.9 g/dL (6.5-8.0)
[2022-11-28] MEDS: Pantoprazole Sodium 40 MG/10 ML VIAL IVPUSH (10:48)
[2022-11-28 10:53] LABS: ~Lactic Acid-LAB USE ONLY 13.8 mmol/L (0.5-2.0)
[2022-11-28 10:55] LABS: Glucose Random 55 mg/dL (60-115)
[2022-11-28 11:00] LABS: Band Neutrophils Percent 4 % (3-5); Lymphocytes Absolute Manual 0.4 X10*3/uL (1.2-4.9); Lymphocytes Percent Manual 4 % (20-40); Monocytes Absolute Manual 0.3 X10*3/uL (0.1-1.2); Monocytes Percent Manual 3 % (2-11); Neutrophils Absolute Manual 10.1 X10*3/uL (2.0-8.3); Neutrophils Percent Manual 89 % (45-73)
[2022-11-28 11:01] LABS: RBC Morphology NOTED
[2022-11-28 11:02] LABS: Ovalocytes 1+ (5-14) /OIF
[2022-11-28 11:04] LABS: Acanthocytes 3+ (>5) /OIF; Schistocytes 2+ (3-5) /OIF
--- NOTE | 2022-11-28 11:04 | PHA.PROG ---
Admission Date/Time: November 27, 2022 22:42 Indication: BACTEREMIA Weight in k.3 kg Adjusted body weight in Kg: [place] body weight in Kg: Obesity Dosing Indication % IBW: Serum Creatinine - Last 168 Hours 11/27/22 11/28/22 11/28/22 16:52 09:52 09:52 Creatinine 0.87 1.19 Cancelled Estimated CrCl and GFR - Last 168 Hours 11/27/22 11/28/22 11/28/22 16:52 09:52 09:52 Estim Creat Clear Calc 77.5 56.7 Cancelled Estimated GFR > 60 > 60 11/28/22 09:52 Estim Creat Clear Calc Estimated GFR Cancelled Vancomycin Loading Dose: 1500 MG Current Vancomycin Dosing Regimen: 1250MG Q24H Vancomycin Monitoring using AUC goal of 400 - 600 range with trough as surrogate marker: AUC 449, TROUGH 12.7 Date and Time for next Vancomycin Level to be drawn: 11/29 @1700 Pharmacist Comments on Vancomycin Plan: Vancomycin dosing will take advantage of [employer] as a clinical decision support tool that uses Bayesian modeling to calculate individual patient's pharmacokinetic parameters and forecast the patient's drug concentration time course with the target goal AUC 24 range of 400 - 600 mg/L/hr.
[2022-11-28 11:06] LABS: Burr Cells 3+ (>5) /OIF; Polychromasia 1+ (0-2) /OIF; Toxic Granulation PRESENT; Toxic Vacuolation PRESENT
[2022-11-28 11:07] LABS: Platelet Estimate DECREASED (NORMAL); Platelet Morphology Comment NORMAL
[2022-11-28] MEDS: Dextrose 50 % 25 GM/50 ML SYRINGE IVPUSH (11:15)
[2022-11-28 11:46] LABS: Lactate Dehydrogenase 291 U/L (118-273)
[2022-11-28 11:49] LABS: Glucose, Whole Blood 111 mg/dL (60-115)
--- NOTE | 2022-11-28 12:29 | P.PNIM_ITS ---
Subjective Subjective Date of Service: 11/28/22 Interval History: Seen in f/u for sepsis, bacteremia, encephalopathy, acute lactic acidos, NSTEMI, liver failure, hypoglycemia Interval history: He is obtunded and is not able to offer history. Labs are getting worse, Lactic acid 13, INR 1.8, troponin 14K. Not candidate for ICU and cardiac intervention or treatment. 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 see A/P below Review of Systems Unable to obatin Physical Exam 2 Vital Signs: Vital Signs: Last Vital Signs Temp 97.0 F 11/28/22 10:30 Pulse 111 H 11/28/22 10:30 Resp 20 11/28/22 10:30 BP 103/58 L 11/28/22 10:30 Pulse Ox 99 11/28/22 10:30 O2 Del Method Room Air 11/28/22 10:30 BMI result Body Mass Index 25.4 Const: Other: General: obtunded, Resp: accessory now CVS: S1,S2,RRR GI: +BS, NT, no distention Skin: track knox on skin Neuro: motor grossly intact Psych: obtunded Objective Data Active Medications Hydromorphone HCl (Hydromorphone Hcl 1 Mg/Ml Syringe) 1 mg IVPUSH Q1H PRN PRN Reason: Discomfort/Shortness of breath Lorazepam (Lorazepam 2 Mg/Ml Vial) 1 mg IVPUSH Q4H PRN PRN Reason: anxiety/restlessness Scopolamine (Scopolamine 1.5 Mg Patch.Td.3) 1.5 mg TRANSDERMA Q72H ERIKA Labs 11/28/22 09:52 11/28/22 09:52 Labs: Laboratory Results - last 24 hr 11/27/22 11/27/22 11/27/22 16:52 17:43 19:17 MCV 85.0 MCH 25.6 L MCHC 30.1 L RDW 20.4 H Plt Count 41 L D MPV Not Reportable Immature Gran % (Auto) Cancelled Neut % (Auto) Cancelled Lymph % (Auto) Cancelled [place] % (Auto) Cancelled Eos % (Auto) Cancelled Baso % (Auto) Cancelled Lymph # (Auto) Cancelled [place] # (Auto) Cancelled Eos # (Auto) Cancelled Baso # (Auto) Cancelled Abs Immat Gran (auto) Cancelled Absolute Neuts (auto) Cancelled Absolute Nucleated RBC 0.020 H Nucleated RBC % (auto) 0.3 H Neutrophils % (Manual) 82 H Band Neutrophils % 13 H Lymphocytes % (Manual) 2 L Monocytes % (Manual) 3 Abs Neuts (Manual) 6.4 Lymphocytes # (Manual) 0.1 L Monocytes # (Manual) 0.2 Toxic Granulation PRESENT Toxic Vacuolation PRESENT Dohle Bodies PRESENT Platelet Estimate DECREASED Large Platelets PRESENT Plt Morphology Comment NOTED RBC Morphology NOTED Polychromasia 1+ (0-2) Macrocytosis 1+ (5-14) Ovalocytes 1+ (5-14) [place] Cells 3+ (>5) Acanthocytes (Spur) 1+ (0-2) Schistocytes PT 22.0 H INR 1.8 H VBG pH VBG pCO2 VBG pO2 VBG HCO3 VBG O2 Saturation VBG Base Excess Anion Gap 17 Estim Creat Clear Calc 77.5 Estimated GFR > 60 POC Glucose Random Glucose 106 Lactic Acid 8.8 H* Lactic Acid F/U @ 2Hr 8.6 H* Lactic Acid F/U @ 4Hr Calcium 10.1 D Magnesium 1.9 Total Bilirubin 3.2 H Direct Bilirubin 2.1 H AST 61 H ALT 23 Alkaline Phosphatase 88 Ammonia 34 Lactate Dehydrogenase Total Creatine Kinase 153 B-Natriuretic Peptide 438 H Total Protein 7.2 Albumin 2.0 L Lipase 9 Urine Color Urine Appearance Urine pH Ur Specific [place] Urine Protein Urine Glucose (UA) Urine Ketones Urine Blood Urine Nitrite Ur Leukocyte Esterase Urine RBC Urine WBC Ur Squamous Epith Cells Urine Bacteria Hyaline Casts Urine Opiates Screen Urine Fentanyl Screen Ur Barbiturates Screen Ur Phencyclidine Scrn Ur Amphetamines Screen U Benzodiazepines Scrn Urine Cocaine Screen U Marijuana (THC) Screen Ethyl Alcohol < 10 COVID-19 ([place]) Negative COVID-19 Clin Com See Note Blood Type B Negative Antibody Screen NEGATIVE 11/27/22 11/27/22 11/27/22 20:16 21:47 21:55 MCV MCH MCHC RDW Plt Count MPV Immature Gran % (Auto) Neut % (Auto) Lymph % (Auto) [place] % (Auto) Eos % (Auto) Baso % (Auto) Lymph # (Auto) [place] # (Auto) Eos # (Auto) Baso # (Auto) Abs Immat Gran (auto) Absolute Neuts (auto) Absolute Nucleated RBC Nucleated RBC % (auto) Neutrophils % (Manual) Band Neutrophils % Lymphocytes % (Manual) Monocytes % (Manual) Abs Neuts (Manual) Lymphocytes # (Manual) Monocytes # (Manual) Toxic Granulation Toxic Vacuolation Dohle Bodies Platelet Estimate Large Platelets Plt Morphology Comment RBC Morphology Polychromasia Macrocytosis Ovalocytes [place] Cells Acanthocytes (Spur) Schistocytes PT INR VBG pH 7.47 H VBG pCO2 22 VBG pO2 90 VBG HCO3 16 L VBG O2 Saturation 99.0 VBG Base Excess -5.3 Anion Gap Estim Creat Clear Calc Estimated GFR POC Glucose Random Glucose Lactic Acid Lactic Acid F/U @ 2Hr Lactic Acid F/U @ 4Hr 9.6 H* Calcium Magnesium Total Bilirubin Direct Bilirubin AST ALT Alkaline Phosphatase Ammonia Lactate Dehydrogenase Total Creatine Kinase B-Natriuretic Peptide Total Protein Albumin Lipase Urine Color Dark Yellow Urine Appearance Clear Urine pH 6.0 Ur Specific [place] 1.020 Urine Protein Trace Urine Glucose (UA) Negative Urine Ketones Negative Urine Blood Large (3+) H Urine Nitrite Positive H Ur Leukocyte Esterase Small (1+) H Urine RBC >20 H Urine WBC 6-10 H Ur Squamous Epith Cells 0-2 Urine Bacteria 1+ Hyaline Casts 0-2 Urine Opiates Screen Not Detected Urine Fentanyl Screen Not Detected Ur Barbiturates Screen Not Detected Ur Phencyclidine Scrn Not Detected Ur Amphetamines Screen Not Detected U Benzodiazepines Scrn Not Detected Urine Cocaine Screen POSITIVE H U Marijuana (THC) Screen Not Detected Ethyl Alcohol COVID-19 ([place]) COVID-19 Clin Com Blood Type Antibody Screen 11/28/22 11/28/22 11/28/22 00:51 03:56 03:57 MCV MCH MCHC RDW Plt Count MPV Immature Gran % (Auto) Neut % (Auto) Lymph % (Auto) [place] % (Auto) Eos % (Auto) Baso % (Auto) Lymph # (Auto) [place] # (Auto) Eos # (Auto) Baso # (Auto) Abs Immat Gran (auto) Absolute Neuts (auto) Absolute Nucleated RBC Nucleated RBC % (auto) Neutrophils % (Manual) Band Neutrophils % Lymphocytes % (Manual) Monocytes % (Manual) Abs Neuts (Manual) Lymphocytes # (Manual) Monocytes # (Manual) Toxic Granulation Toxic Vacuolation Dohle Bodies Platelet Estimate Large Platelets Plt Morphology Comment RBC Morphology Polychromasia Macrocytosis Ovalocytes [place] Cells Acanthocytes (Spur) Schistocytes PT INR VBG pH 7.40 VBG pCO2 22 VBG pO2 71 VBG HCO3 14 L VBG O2 Saturation Not Reportable VBG Base Excess -9.3 Anion Gap Estim Creat Clear Calc Estimated GFR POC Glucose Random Glucose Lactic Acid 12.1 H* Lactic Acid F/U @ 2Hr 12.7 H* Lactic Acid F/U @ 4Hr Calcium Magnesium Total Bilirubin Direct Bilirubin AST ALT Alkaline Phosphatase Ammonia Lactate Dehydrogenase Total Creatine Kinase B-Natriuretic Peptide Total Protein Albumin Lipase Urine Color Urine Appearance Urine pH Ur Specific [place] Urine Protein Urine Glucose (UA) Urine Ketones Urine Blood Urine Nitrite Ur Leukocyte Esterase Urine RBC Urine WBC Ur Squamous Epith Cells Urine Bacteria Hyaline Casts Urine Opiates Screen Urine Fentanyl Screen Ur Barbiturates Screen Ur Phencyclidine Scrn Ur Amphetamines Screen U Benzodiazepines Scrn Urine Cocaine Screen U Marijuana (THC) Screen Ethyl Alcohol COVID-19 ([facility]) COVID-19 Clin Com Blood Type Antibody Screen 11/28/22 11/28/22 11/28/22 07:21 09:52 09:52 MCV 90.0 D MCH 26.0 L MCHC 28.9 L RDW 20.8 H Plt Count 19 L* D MPV Not Reportable Immature Gran % (Auto) Cancelled Neut % (Auto) Cancelled Lymph % (Auto) Cancelled [place] % (Auto) Cancelled Eos % (Auto) Cancelled Baso % (Auto) Cancelled Lymph # (Auto) Cancelled [place] # (Auto) Cancelled Eos # (Auto) Cancelled Baso # (Auto) Cancelled Abs Immat Gran (auto) Cancelled Absolute Neuts (auto) Cancelled Absolute Nucleated RBC 0.050 H Nucleated RBC % (auto) 0.5 H Neutrophils % (Manual) 89 H Band Neutrophils % 4 Lymphocytes % (Manual) 4 L Monocytes % (Manual) 3 Abs Neuts (Manual) 10.1 H Lymphocytes # (Manual) 0.4 L Monocytes # (Manual) 0.3 Toxic Granulation PRESENT Toxic Vacuolation PRESENT Dohle Bodies Platelet Estimate DECREASED Large Platelets Plt Morphology Comment NORMAL RBC Morphology NOTED Polychromasia 1+ (0-2) Macrocytosis Ovalocytes 1+ (5-14) [place] Cells 3+ (>5) Acanthocytes (Spur) 3+ (>5) Schistocytes 2+ (3-5) PT Cancelled INR Cancelled VBG pH VBG pCO2 VBG pO2 VBG HCO3 VBG O2 Saturation VBG Base Excess Anion Gap 26 H Cancelled Estim Creat Clear Calc 56.7 Estimated GFR POC Glucose Random Glucose Lactic Acid Lactic Acid F/U @ 2Hr Lactic Acid F/U @ 4Hr Calcium Magnesium Total Bilirubin Direct Bilirubin AST ALT Alkaline Phosphatase Ammonia Lactate Dehydrogenase Total Creatine Kinase B-Natriuretic Peptide Total Protein Albumin Lipase Urine Color Urine Appearance Urine pH Ur Specific [place] Urine Protein Urine Glucose (UA) Urine Ketones Urine Blood Urine Nitrite Ur Leukocyte Esterase Urine RBC Urine WBC Ur Squamous Epith Cells Urine Bacteria Hyaline Casts Urine Opiates Screen Urine Fentanyl Screen Ur Barbiturates Screen Ur Phencyclidine Scrn Ur Amphetamines Screen U Benzodiazepines Scrn Urine Cocaine Screen U Marijuana (THC) Screen Ethyl Alcohol COVID-19 ([place]) COVID-19 Clin Com Blood Type Antibody Screen 11/28/22 11/28/22 11/28/22 09:52 09:52 09:52 MCV MCH MCHC RDW Plt Count MPV Immature Gran % (Auto) Neut % (Auto) Lymph % (Auto) [place] % (Auto) Eos % (Auto) Baso % (Auto) Lymph # (Auto) [place] # (Auto) Eos # (Auto) Baso # (Auto) Abs Immat Gran (auto) Absolute Neuts (auto) Absolute Nucleated RBC Nucleated RBC % (auto) Neutrophils % (Manual) Band Neutrophils % Lymphocytes % (Manual) Monocytes % (Manual) Abs Neuts (Manual) Lymphocytes # (Manual) Monocytes # (Manual) Toxic Granulation Toxic Vacuolation Dohle Bodies Platelet Estimate Large Platelets Plt Morphology Comment RBC Morphology Polychromasia Macrocytosis Ovalocytes [place] Cells Acanthocytes (Spur) Schistocytes PT INR VBG pH VBG pCO2 VBG pO2 VBG HCO3 VBG O2 Saturation VBG Base Excess Anion Gap Estim Creat Clear Calc Cancelled Estimated GFR > 60 Cancelled POC Glucose Random Glucose 55 L* Cancelled Lactic Acid Lactic Acid F/U @ 2Hr Lactic Acid F/U @ 4Hr 13.8 H* Calcium 9.7 Magnesium Total Bilirubin Direct Bilirubin AST ALT Alkaline Phosphatase Ammonia Lactate Dehydrogenase Total Creatine Kinase B-Natriuretic Peptide Total Protein Albumin Lipase Urine Color Urine Appearance Urine pH Ur Specific [place] Urine Protein Urine Glucose (UA) Urine Ketones Urine Blood Urine Nitrite Ur Leukocyte Esterase Urine RBC Urine WBC Ur Squamous Epith Cells Urine Bacteria Hyaline Casts Urine Opiates Screen Urine Fentanyl Screen Ur Barbiturates Screen Ur Phencyclidine Scrn Ur Amphetamines Screen U Benzodiazepines Scrn Urine Cocaine Screen U Marijuana (THC) Screen Ethyl Alcohol COVID-19 ([place]) COVID-19 Clin Com Blood Type Antibody Screen 11/28/22 11/28/22 09:52 11:29 MCV MCH MCHC RDW Plt Count MPV Immature Gran % (Auto) Neut % (Auto) Lymph % (Auto) [place] % (Auto) Eos % (Auto) Baso % (Auto) Lymph # (Auto) [place] # (Auto) Eos # (Auto) Baso # (Auto) Abs Immat Gran (auto) Absolute Neuts (auto) Absolute Nucleated RBC Nucleated RBC % (auto) Neutrophils % (Manual) Band Neutrophils % Lymphocytes % (Manual) Monocytes % (Manual) Abs Neuts (Manual) Lymphocytes # (Manual) Monocytes # (Manual) Toxic Granulation Toxic Vacuolation Dohle Bodies Platelet Estimate Large Platelets Plt Morphology Comment RBC Morphology Polychromasia Macrocytosis Ovalocytes [place] Cells Acanthocytes ([place]) Schistocytes PT INR VBG pH VBG pCO2 VBG pO2 VBG HCO3 VBG O2 Saturation VBG Base Excess Anion Gap Estim Creat Clear Calc Estimated GFR POC Glucose 111 Random Glucose Lactic Acid Lactic Acid F/U @ 2Hr Lactic Acid F/U @ 4Hr Calcium Cancelled Magnesium Total Bilirubin 3.2 H Direct Bilirubin AST 150 H ALT 32 Alkaline Phosphatase 45 Ammonia Lactate Dehydrogenase 291 H Total Creatine Kinase B-Natriuretic Peptide Total Protein 4.9 L Albumin 2.4 L Lipase Urine Color Urine Appearance Urine pH Ur Specific [place] Urine Protein Urine Glucose (UA) Urine Ketones Urine Blood Urine Nitrite Ur Leukocyte Esterase Urine RBC Urine WBC Ur Squamous Epith Cells Urine Bacteria Hyaline Casts Urine Opiates Screen Urine Fentanyl Screen Ur Barbiturates Screen Ur Phencyclidine Scrn Ur Amphetamines Screen U Benzodiazepines Scrn Urine Cocaine Screen U Marijuana (THC) Screen Ethyl Alcohol COVID-19 ([place]) COVID-19 Clin Com Blood Type Antibody Screen Microbiology Microbiology Results: Microbiology 11/27/22 20:53 Urine Culture - Preliminary Urine Catheterized - [place] Catheter Culture in progress. 11/27/22 14:46 Gram Stain - Final Leg - Right Routine Culture - Preliminary Culture in progress. 11/27/22 16:52 Blood Culture - Preliminary Blood - Venous Prelim: GPC Gram Stain only 11/27/22 16:52 Blood Culture - Preliminary Blood - Venous Prelim: GPC Gram Stain only Assessment and Plan (1) NSTEMI (non-ST elevated myocardial infarction): Status: Acute (2) Acidosis, lactic: Status: Acute (3) Severe sepsis: Status: Acute Plan I saw and examined this patient admitted overnight for sepsis with severe lactic acidosis, encephalopathy, liver failure, and markedly elevated troponin. The patient is obtunded entirely the whole time, although hemodynamically stable, breathing on his own. His clinical status continues to deteriorate. Lactic acid has risen to 13 +, [place] [address], initial hemoglobin of 10 has dropped to 5, platelets are down to 18 from 40, indicating likely DIC process, he has gram-positive cocci bacteria, INR is 1.8, low albumin and elevated LFTs with known cirrhosis indicating acute liver failure. Dr. Spence from ICU has reviewed the clinical course and has deemed him not a candidate for escalation due to poor prognosis; cardiology assessed him for elevated cardiac enzymes and deemed to be possibly from cardiomyopathy from cocaine and sepsis and given his overall poor prognosis, and rapid deterioration is not a candidate for further cardiac treatment.?? Goals of care have been communicated with the patient's two sisters, nieces, and nephew at the bedside, and they are in unanimous agreement that he would not want to be put on life support and wants to go forward with comfort care measures only as his prognosis is very poor, pt continues to become less and less responsive, labored breathing.? Plan: Stop all meds other those for comfort, no furthest testing. Comfort measures only with IV dilaudid HEAVY THREADER + PRN IVP dilaudid, Ativan for a and anxiety and restlesnesss Diagnoses: severe Sepsis Gram positive bacteremia Encephalopathy Acute on chronic liver failure Coagulopathy Acute lactic acidosis Thrombocytopenia Acute blood loss acidosis opioid use desorder Hypoglycemia Hyperbilirubinenmia Acute unspecifed NSTEMI Time Spent With Patient Time: Total time managing care of this patient today ____ minutes. Quality Stroke Does the patient have a stroke diagnosis?: No VTE Prior VTE?: No VTE Risk Level:: Medical - moderate - high VTE Device Contraindication: N/A - Device Ordered VTE Drug Contraindication: Treatment Not Indicated
[2022-11-28] MEDS: HYDROmorphone HCl 1 MG/ML SYRINGE IVPUSH ×2 (12:34→15:47)
[2022-11-28] MEDS: Scopolamine 1.5 MG PATCH.TD.3 TRANSDERMA (12:34)
[2022-11-28] MEDS: LORazepam 2 MG/ML VIAL 1 MG IVPUSH ×2 (12:34→15:47)
[2022-11-28] MEDS: HYDROmorphone HCl/NS 10 MG/50 ML PIGGYBACK 2 MG IV (13:34)
--- NOTE | 2022-11-28 15:05 | PC.NURSE ---
MD informed of all critical labs after arrival from ED. Family arrived at bedside soon afterwards and MD was informed. Family spoke w/ MD and decided to make pt CHILD WELFARE DIRECTOR. PRN meds administered as ordered, drip started as ordered per protocol rate w/ second RN. Primed and started Dilaudid drip w/ second RN present. Titrated per protocol d/t increased RR.
--- NOTE | 2022-11-28 16:10 | MHC.CM.PN ---
PT NOW DETAIL SUPERVISOR STATUS AND PER HOSPITALIST IS EXPECTED TO REMAIN INPT CM FOLLOWING FOR CHANGING NEEDS
--- NOTE | 2022-11-28 17:00 | P.EN_ITS ---
Event Note Date of Service: 11/28/22 Event Note: pt pronounced at 4:50 pm, Final exam: no heart sounds, no lung sounds, pupils dilated and fixed, no response to painful stimuli, asystole on electrical assembler. Family was at bedside Time Spent With Patient Time: Total time managing care of this patient today ____ minutes.
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
== END 2022-11-28 18:12 | disposition expired | DRG 720 ==
LOC: HO.ED 20:02 → HO.EDOVER 22:47 → HO.IMC 11-28 09:45
PROVIDERS: Emergency Medicine; Admitting Provider Internal Medicine; Emergency Provider Emergency Medicine; PCP Nurse Practitioner Family; Visit Provider Internal Medicine
DX: A41.9 Sepsis, unspecified organism (principal); I21.4 Non-ST elevation (NSTEMI) myocardial infarction; G93.41 Metabolic encephalopathy; E87.21 Acute metabolic acidosis; D68.4 Acquired coagulation factor deficiency; J18.9 Pneumonia, unspecified organism; I42.7 Cardiomyopathy due to drug and external agent; K72.90 Hepatic failure, unspecified without coma; K74.60 Unspecified cirrhosis of liver; F11.20 Opioid dependence, uncomplicated; R65.20 Severe sepsis without septic shock; B95.61 Methicillin susceptible Staphylococcus aureus infection as the cause of diseases classified elsewhere; Z51.5 Encounter for palliative care; R18.8 Other ascites; E16.2 Hypoglycemia, unspecified; T40.5X1A Poisoning by cocaine, accidental (unintentional), initial encounter; J98.11 Atelectasis; N30.00 Acute cystitis without hematuria; F10.139 Alcohol abuse with withdrawal, unspecified; F17.210 Nicotine dependence, cigarettes, uncomplicated; Z20.822 Contact with and (suspected) exposure to COVID-19
CPT/HCPCS: 36415; 70450; 71045; 71250; 72125; 74176; 74177; 80048; 80053; 80076; 80307; 81001; 82140; 82550; 82803; 82947; 83605; 83615; 83690; 83735; 83880; 84484; 85007; 85025; 85027; 85610; 86850; 86900; 86901; 87040; 87070; 87077; 87086; 87088; 87147; 87186; 87205; 87635; 93005; 93306; 99285; J0696; J1170; J1200; J2060; J2543; J2560; J3371; P9047; Q9957; Q9967

== ENCOUNTER 2022-11-27 22:42 | Outpatient (BNV) | payer OTHER, SELFPAY | END 2022-11-28 07:00 | PROVIDERS: Admitting Provider Internal Medicine; Emergency Provider Emergency Medicine; PCP Nurse Practitioner Family; Visit Provider Internal Medicine | DX: I51.9 Heart disease, unspecified (principal); R00.0 Tachycardia, unspecified | CPT/HCPCS: 93306 ==

== ENCOUNTER → 2022-11-27 22:42 | Outpatient (BNV) | payer OTHER, SELFPAY | PROVIDERS: Admitting Provider Internal Medicine; Emergency Provider Emergency Medicine; PCP Nurse Practitioner Family; Visit Provider Internal Medicine | DX: I21.4 Non-ST elevation (NSTEMI) myocardial infarction (principal); G93.40 Encephalopathy, unspecified; D69.6 Thrombocytopenia, unspecified | CPT/HCPCS: 99223 ==

== ENCOUNTER → 2022-11-27 22:42 | Outpatient (BNV) | payer OTHER, SELFPAY | PROVIDERS: Admitting Provider Internal Medicine; Emergency Provider Emergency Medicine; PCP Nurse Practitioner Family; Visit Provider Internal Medicine | DX: G93.40 Encephalopathy, unspecified (principal); E87.20 Acidosis, unspecified; R77.8 Other specified abnormalities of plasma proteins; J18.9 Pneumonia, unspecified organism; D72.825 Bandemia; N30.00 Acute cystitis without hematuria; A41.9 Sepsis, unspecified organism; R65.20 Severe sepsis without septic shock; I21.4 Non-ST elevation (NSTEMI) myocardial infarction | CPT/HCPCS: 99223; 99238 ==